=== PATIENT | male | born 1955 | race Caucasian/White ===

== ENCOUNTER 2016-09-27 12:44 | Observation (INO) | payer BC ==
[~2016-09-27] VITALS: Ht 177.8 cm; Wt 81.8 kg
[~2016-09-27 12:44] MED LIST: ADAL40KI SC; ASPI81TA28 PO; ATOR-26 PO; CALC1CRE2 TOP; CLOB-65 EXT; CRG625 PO; LOSA1TAB38 PO; NITR0.4S UT; OMEP20CA9 PO; ONDA4TAB10 SL; SILD50TA PO; SPR25 PO; WARF-246 PO
[2016-09-27] MEDS ORDERED: SODIUM CHLORIDE 0.9% 1000ML 500 ML IV ONE (13:29)
[2016-09-27] MEDS ORDERED: ONDANSETRON INJ 2 MG/ML 2 ML VIAL IV STA (13:32)
[2016-09-27] MEDS ORDERED: MoRPHine SULFATE 4 MG/ML 1 ML CARP\\VIAL IV STA (13:32)
[2016-09-27 13:38] LABS: BASO % 0.1 %; BASO ABS # 0.01 K/uL (0-0.2); COMPLETE YES; EOS % 0.4 %; HEMATOCRIT 46.9 % (42-52); IG% 0.3 %; LYMPH % 11.7 %; LYMPH ABS # 1.31 K/uL (1.2-3.4); MEAN CELL VOLUME 90.7 fL (80-100); MEAN CORPUSCULAR HEMOGLOBIN 32.3 pg (25-34); MEAN CORPUSCULAR HGB CONC 35.6 g/dl (32-36); MEAN PLATELET VOLUME 9.5 fL (7.4-10.4); MONO % 2.4 %; NEUT % 85.1 %; PLATELET COUNT 255 K/uL (130-400); RED BLOOD COUNT 5.17 M/uL (4.7-6.1); WHITE BLOOD COUNT 11.18 K/uL (4.8-10.8)
[2016-09-27 13:49] LABS: PARTIAL THROMBOPLASTIN RATIO 1.2; PROTHROMBIN TIME (PATIENT) 22.4 SECONDS (9.0-12.0)
[2016-09-27] MEDS ORDERED: SODIUM CHLORIDE 0.9% 1000ML 1,000 ML IV STA (13:52)
[2016-09-27] MEDS ORDERED: AZTREONAM IV 2,000 MG in DEXTROSE 5% 100ML 100 ML IV STA (13:52)
[2016-09-27] MEDS ORDERED: VANCOMYCIN INJ 1,600 MG in SODIUM CHLORIDE 0.9% 250ML 250 ML IV STA (13:52)
[2016-09-27 13:56] LABS: ALT/SGPT 46 U/L (12-78); AST/SGOT 35 U/L (15-37); BLOOD UREA NITROGEN 20 mg/dl (7-18); BUN/CREATININE RATIO 18.2 (10-20); CALCIUM 10.1 mg/dl (8.5-10.1); CARBON DIOXIDE 28 mmol/L (21-32); CHLORIDE 105 mmol/L (98-107); GLUCOSE 190 mg/dl (70-99); POTASSIUM 4.5 mmol/L (3.5-5.1); SODIUM 140 mmol/L (136-145)
[2016-09-27 13:58] LABS: ALKALINE PHOSPHATASE 123 U/L (45-117)
--- NOTE | 2016-09-27 13:58 | EMERGENCY ROOM VISIT NOTE ---
History First contact with patient: 13:21 Chief Complaint: VOMITING Stated Complaint: THROWING-UP / BUG BITE Nursing Triage Summary: PT HERE WITH N/V SINCE LAST PM. PT HAS RECENT BUG BITE TO FOOT, NOW IS ECCHYMOTIC PER PT. PT STATES ON ABX, BUT NOT IMPROVING. SENT HERE BY PCP FOR POSSIBLE SEPSIS. History of Present Illness The patient is a 60 year old male who presents to the Emergency Room via private vehicle with complaints of "throwing up/bug bite". The patient states that this past Friday he believes that he was stung or bitten on the distal right foot at the location of the third or fourth toe. He notes pain in this region. He states he was placed on antibiotics approximately 1 week ago, and was rechecked Friday as well as today. Although the bite was improving, the patient notes that he woke up this morning and felt nauseous after his morning medication breakfast and progressed to vomiting, chills and diaphoresis. He states that during his checkup today, he was referred here for concern over sepsis. Patient notes he has been sick before. There is also a bruise on the patient's left arm, which she notes was from a fall 1 week ago, and he is on Coumadin. He notes that he has had an TX in 2006, with defibrillator in place. His stents are in his heart into in his leg. At this time there is minimal abdominal pain and back pain, of which she attributes to the vomiting. This only began after the vomiting this morning. He denies any chest pain or shortness of breath. He denies any close contacts with similar symptoms. He has never had symptoms quite like this before. Review of Systems A complete 10-point Review of Systems was discussed with the patient, with pertinent positives and negatives listed in the History of Present Illness. All remaining Review of Systems questions can be considered negative unless otherwise specified. Past Medical/Surgical History Medical Problems: (1) Benign essential hypertension (2) Chronic congestive heart failure (3) Coronary artery disease (4) Diastolic heart failure (5) Diverticulitis (6) Hyperlipidemia (7) Peripheral arterial occlusive disease (8) Psoriasis (9) Systolic dysfunction Family History FH: heart disease Social History Smoking Status: Former Smoker Alcohol Use: none Drug Use: marijuana Marital Status: Housing Status: lives with family Occupation Status: employed Current/Historical Medications Scheduled Adalimumab (Humira Pen), 0.8 ML SC UD Aspirin (Aspirin Ec), 81 MG PO DAILY Atorvastatin (Lipitor), 80 MG PO QPM Calcipotriene (Calcipotriene), 1 APPLN TOP PRN UD Carvedilol (Carvedilol), 6.25 MG PO BID Clobetasol Propionate 0.05% (Temovate 0.05%), 1 APPLN EXT UD Losartan Potassium (Cozaar), 100 MG PO QAM Omeprazole (Prilosec), 20 MG PO BID Ondasetron Odt (Zofran Odt), 4 MG SL Q6H Spironolactone (Spironolactone), 25 MG PO DAILY Warfarin Sodium (Warfarin Sodium), 7.5 MG PO WK Warfarin Sodium (Warfarin Sodium), 5 MG PO 6XWK Scheduled PRN Nitroglycerin (Nitrostat), 0.4 MG UT UD PRN for Chest Pain Sildenafil Citrate (Viagra), 50 MG PO UD PRN Allergies Coded Allergies: Penicillins (Verified Allergy, Mild, RASH, 09/27/16) Physical Exam Vital Signs Date Time Temp Pulse Resp B/P Pulse Ox O2 Delivery O2 Flow Rate FiO2 09/27/16 15:26 36.5 53 18 189/115 97 Room Air 09/27/16 13:51 47 09/27/16 13:44 96 Room Air 09/27/16 13:44 51 16 188/99 97 Room Air 09/27/16 12:55 36.3 66 16 203/92 95 Physical Exam VITAL SIGNS - Vital signs and nursing notes were reviewed. Patient is afebrile , hypertensive at 203/92, non-tachycardic and is saturating on room air 95%. GENERAL -60-year-old male appearing his stated age who is in no acute distress. But is ill-appearing Communicates well with provider and answers questions appropriately. SKIN - Without rashes. There is bruising and ecchymosis noted to the right medial upper arm. No active hemorrhaging noted. He HEAD - NC/AT. EYES - PERRL with EOMI bilaterally. Sclera anicteric. Palpebral conjunctiva pink and moist with no injection noted. EARS - No deformities of external structures noted on gross examination bilaterally. No pain elicited with palpation of the tragus bilaterally. External auditory canals without discharge or otorrhea. Tympanic membranes pearly cr without retraction or bulging. No fluid or purulent material visualized behind the TM. Handle of malleus, umbo, cone of light, pars tensa/ flaccid all easily visualized. NOSE - Midline and without cyanosis. No epistaxis or purulent drainage noted. Septum midline without deviation or septal hematoma noted. MOUTH/OROPHARYNX - Without perioral cyanosis. Buccal mucosa pink and moist and without leukoplakia. Tongue midline with equal elevation of palate bilaterally. No tonsillar hypertrophy, erythema, or exudates noted. Fair dentition noted. NECK - Neck with FROM. Supple to palpation. No lymphadenopathy noted. No nuchal rigidity. No meningismus. LUNGS - Chest wall symmetric without accessory muscle use, intercostals retractions, or central cyanosis. Normal vesicular breath sounds CTA B/L. No wheezes, rales, or rhonchi appreciated. CARDIAC - RRR with S1/S2. No murmur, rubs, or gallops appreciated. ABDOMEN - Abdominal contour without pulsations or visible masses. BS normoactive all four quadrants. There is minimal inferior quadrant abdominal pain, but the patient notes began after his vomiting. No palpable masses, hepatosplenomegaly, or ascites noted. EXTREMITIES - No clubbing or peripheral cyanosis. No pretibial edema present.+5/ 5 strength noted in UE/LE bilaterally. NEUROLOGIC - Cranial nerves II through XII grossly intact. PSYCH -patient is alert and oriented, but does appear ill. Medical Decision & Procedures ER Provider Diagnostic Interpretation: CHEST ONE VIEW PORTABLE CLINICAL HISTORY: Sepsis. COMPARISON STUDY: Chest radiograph May 02, 2016. FINDINGS: A left subclavian pacer/AICD remains in place. There is no evidence of pulmonary edema. Mild cardiomegaly is noted. Mild bibasilar opacities favor atelectasis. IMPRESSION: 1. No acute cardiopulmonary findings. 2. Mild bibasilar opacities suggestive of atelectasis. Electronically signed by: Reno Durand M.D. 09/27/2016 2:01 PM Dictated Date/Time: 09/27/2016 2:00 PM Laboratory Results 09/27/16 13:25 Red Blood Count 5.17, Mean Corpuscular Volume 90.7, Mean Corpuscular Hemoglobin 32.3, Mean Corpuscular Hemoglobin Concent 35.6, Mean Platelet Volume 9.5, Neutrophils (%) (Auto) 85.1, Lymphocytes (%) (Auto) 11.7, Monocytes (%) (Auto) 2.4, Eosinophils (%) (Auto) 0.4, Basophils (%) (Auto) 0.1, Neutrophils # (Auto) 9.51, Lymphocytes # (Auto) 1.31, Monocytes # (Auto) 0.27, Eosinophils # (Auto) 0.05, Basophils # (Auto) 0.01 09/27/16 13:25 Test 09/27/16 13:25 09/27/16 13:34 09/27/16 14:13 09/27/16 15:47 White Blood Count 11.18 K/uL (4.8-10.8) Red Blood Count 5.17 M/uL (4.7-6.1) Hemoglobin 16.7 g/dL (14.0-18.0) Hematocrit 46.9 % (42-52) Mean Corpuscular Volume 90.7 fL (80-100) Mean Corpuscular Hemoglobin 32.3 pg (25-34) Mean Corpuscular Hemoglobin Concent 35.6 g/dl (32-36) Platelet Count 255 K/uL (130-400) Mean Platelet Volume 9.5 fL (7.4-10.4) Neutrophils (%) (Auto) 85.1 % Lymphocytes (%) (Auto) 11.7 % Monocytes (%) (Auto) 2.4 % Eosinophils (%) (Auto) 0.4 % Basophils (%) (Auto) 0.1 % Neutrophils # (Auto) 9.51 K/uL (1.4-6.5) Lymphocytes # (Auto) 1.31 K/uL (1.2-3.4) Monocytes # (Auto) 0.27 K/uL (0.11-0.59) Eosinophils # (Auto) 0.05 K/uL (0-0.5) Basophils # (Auto) 0.01 K/uL (0-0.2) RDW Standard Deviation 44.7 fL (36.4-46.3) RDW Coefficient of Variation 13.5 % (11.5-14.5) Immature Granulocyte % (Auto) 0.3 % Immature Granulocyte # (Auto) 0.03 K/uL (0.00-0.02) Prothrombin Time 22.4 SECONDS (9.0-12.0) Prothromb Time International Ratio 2.0 (0.9-1.1) Activated Partial Thromboplast Time 30.8 SECONDS (21.0-31.0) Partial Thromboplastin Ratio 1.2 Anion Gap 7.0 mmol/L (3-11) Est Creatinine Clear Calc Drug Dose 71.9 ml/min Estimated GFR () 82.9 Estimated GFR (Non- 71.6 BUN/Creatinine Ratio 18.2 (10-20) Calcium Level 10.1 mg/dl (8.5-10.1) Total Bilirubin 1.1 mg/dl (0.2-1) Aspartate Amino Transf (AST/SGOT) 35 U/L (15-37) Alanine Aminotransferase (ALT/SGPT) 46 U/L (12-78) Alkaline Phosphatase 123 U/L (45-117) Troponin I < 0.015 ng/ml (0-0.045) Total Protein 8.8 gm/dl (6.4-8.2) Albumin 4.5 gm/dl (3.4-5.0) Globulin 4.3 gm/dl (2.5-4.0) Albumin/Globulin Ratio 1.0 (0.9-2) Lyme Disease IgG Antibody NEG (NEG) Lyme Disease IgM Antibody NEG (NEG) Bedside Lactic Acid Venous 2.12 mmol/L (0.90-1.70) Influenza Type A Antigen Neg for Influ A (NEG) Influenza Type B Antigen Neg for Influ B (NEG) Medications Administered Medications (Trade) Dose Ordered Sig/Yaw Route Start Time Stop Time Status Last Admin Dose Admin Sodium Chloride (Nss 1000ml) 500 ml @ 999 mls/hr Q31M ONCE IV 09/27/16 13:29 09/27/16 13:59 DC 09/27/16 13:41 999 MLS/HR Morphine Sulfate (MoRPHine SULFATE INJ) 4 mg NOW STAT IV 09/27/16 13:32 09/27/16 13:33 DC 09/27/16 13:42 4 MG Ondansetron HCl 4 mg 4 mg NOW STAT IV 09/27/16 13:32 09/27/16 13:33 DC 09/27/16 13:41 4 MG Aztreonam 2000 mg/ Dextrose 110 ml @ 100 mls/hr NOW STAT IV 09/27/16 13:52 5/12/17 14:57 DC 09/27/16 14:19 100 MLS/HR Sodium Chloride 1,000 ml @ 200 mls/hr Q5H STAT IV 09/27/16 13:52 09/27/16 18:51 09/27/16 14:09 200 MLS/HR Vancomycin HCl 1600 mg/Sodium Chloride 532 ml @ 125 mls/hr 1359 STAT IV 09/27/16 13:59 09/27/16 18:14 09/27/16 15:22 125 MLS/HR Promethazine HCl/ Sodium Chloride (Phenergan Inj/ Nss 50ml) 50.5 ml @ 204 mls/hr NOW STAT IV 09/27/16 15:31 09/27/16 15:45 DC 09/27/16 15:56 204 MLS/HR Medical Decision Patient was seen and evaluated as above. After obtaining a thorough history and physical examination IV access was initiated and the above workup was performed. Patient has been referred here over concern for sepsis/bacteremia. Currently on exam he does appear ill, but his vital signs do not suggest sepsis nor meets sepsis criteria. He does have a mild leukocytosis at 11.18, no anemia noted. INR is 2.0. D-dimer was performed and the patient accidentally by staff, this was not ordered. Fortunately this was negative. His BUN is elevated at 20. Random glucose of 190, point care lactic acid is 2.12. Total bili is high at 1.1. Alkaline phosphatase is high at 123, total protein 8.8 and globulin high at 4.3. His initial troponin is negative. EKG does not reveal any findings at this time suggestive of an TX. He has no chest pain or shortness of breath. Lyme test was negative. And he is also negative for flu. I'm concerned that his emesis may be secondary to SIRS. It is believed that he was previously prescribed Keflex for the infection of his foot. This appears to now be resolved. Chest x-ray does not reveal any acute process that is concerning. He was given morphine and Zofran for pain and nausea. He does not have any findings at this time of the AAA. Nor TX. Because of his lactic acid elevation, and clinical concern for sepsis, he was given 1600 mg of vancomycin and 2 g and after verifying dosage in with pharmacy. He was also hydrated with fluids. He was feeling and clinically appeared better, but still had some nausea. He was given 12.5 mg of Phenergan. I discussed this with my attending, and the decision was made to admit the patient for further evaluation and management. I did speak with the hospitalist team, who agreed to evaluate patient. Please refer to further documentation regarding the patient's stay. Patient has been here many times in the past for nausea and vomiting. I'm concerned that this time it is associated with the recent diagnosis of cellulitis. In evaluation treatment this patient following differential diagnoses were entertained: SIRS, sepsis, influenza, cyclic nausea and vomiting, TX, PE, AAA, among others. Impression Primary Impression: Nausea & vomiting Additional Impression: Elevated lactic acid level Departure Information Dispostion Admitted as an inpatient Condition FAIR Referrals Wayne Fontana, D.O. (PCP) Patient Instructions My [facility] Problem Qualifiers
[2016-09-27] MEDS ORDERED: VANCOMYCIN INJ 1,600 MG in SODIUM CHLORIDE 0.9% 500ML 500 ML IV STA (13:59)
--- NOTE | 2016-09-27 14:02 | DIAGNOSTIC IMAGING REPORT ---
CHEST ONE VIEW PORTABLE CLINICAL HISTORY: Sepsis. COMPARISON STUDY: Chest radiograph May 02, 2016. FINDINGS: A left subclavian pacer/AICD remains in place. There is no evidence of pulmonary edema. Mild cardiomegaly is noted. Mild bibasilar opacities favor atelectasis. IMPRESSION: 1. No acute cardiopulmonary findings. 2. Mild bibasilar opacities suggestive of atelectasis. Electronically signed by: Reno Durand M.D. 09/27/2016 2:01 PM Dictated Date/Time: 09/27/2016 2:00 PM
[2016-09-27 14:49] LABS: LYME DISEASE AB IGG NEG (NEG)
[2016-09-27 14:52] LABS: LYME DISEASE AB IGM NEG (NEG)
[2016-09-27] MEDS ORDERED: PROMETHAZINE HCL INJ 12.5 MG in SODIUM CHLORIDE 0.9% 50ML 50 ML IV STA (15:31)
[2016-09-27] MEDS ORDERED: ACETAMINOPHEN 325 MG TAB PO PRN (16:00)
[2016-09-27] MEDS ORDERED: ONDANSETRON INJ 2 MG/ML 2 ML VIAL IV PRN (16:00)
[2016-09-27] MEDS ORDERED: CEPH-570 PO (16:19)
[2016-09-27] MEDS ORDERED: HydrALAZINE HCL 20 MG/ML VIAL IV. PRN (16:30)
[2016-09-27 16:34] LABS: URINE APPEARANCE CLOUDY (CLEAR); URINE BILIRUBIN NEG (NEG); URINE COLOR DK YELLOW; URINE NITRITE NEG (NEG); URINE SPECIFIC GRAVITY 1.025 (1.000-1.030); UROBILINOGEN NEG (NEG); ZZUR CULT IF INDIC CLEAN CATCH NO
[2016-09-27 16:54] VITALS: O2SAT 98
[2016-09-27 16:56] LABS: MANUAL MICROSCOPIC REQUIRED? NO; REVIEW REQ? NO
[2016-09-27] MEDS ORDERED: IV FLUIDS COMPLETED PRN (17:15)
[2016-09-27] MEDS ORDERED: SODIUM CHLORIDE 0.9% 1000ML 1,000 ML IV SCH (17:30)
[2016-09-27 17:36] VITALS: BP 173/102; PULSE 64; TEMP 36.4; O2SAT 93
[2016-09-27 17:51] VITALS: Ht 177.8 cm; Wt 81.8 kg
[2016-09-27] MEDS ORDERED: WARFARIN SOD 5 MG TAB PO SCH (18:00)
--- NOTE | 2016-09-27 18:03 | History and Physical ---
History & Physical Date & Time of Service: September 27, 2016 at 17:42 Chief Complaint: Nausea And Vomiting Primary Care Physician: Wayne Fontana D.O. History of Present Illness 60 year old male who presents to the ER with nausea and vomiting. Patient reports he got a spider or bee bite about two weeks ago on his right 5th toe. He reports it started to become swollen and red and the redness started to extend up his foot. He was seen at Urgent care on 09/23 and was placed on Keflex. He reports improvement in the redness and swelling since starting the Keflex. Toe now has bruising. He denies any drainage. He reports this morning he woke up feeling in his usual state of health. He took all of his pills and the Keflex on an empty stomach. He reports shortly after he had nausea and vomiting and threw up all if his pills. He then went to the clinic to have his INR drawn. On the way home, he had more nausea and vomiting and then presented to the ER for further evaluation. He denies hematemesis or coffee ground emesis. He reports after vomiting he had some chills and sweats. He did not take his temperature at home. He denies chest pain, palpitations, shortness of breath, lightheadedness, dizziness, or syncopal events. He has some mild lower abdominal pain which he attributes to vomiting. No diarrhea. He denies urinary symptoms. In the ER, patient's BP is elevated but otherwise hemodynamically stable. POC lactic acid is mildly elevated at 2.1. WBC 11K. He was treated with IVF, Zofran, Compazine, Morphine, Aztreonam, and Vanco. Past Medical/Surgical History Medical Problems: (1) Apical mural thrombus Status: Chronic (2) Rodriguez's esophagus Status: Chronic (3) CAD (coronary artery disease) Permanent Comment: PCI x 4 to LAD, chronic total RCA occlusion Status: Chronic (4) Dyslipidemia Status: Chronic (5) GERD (gastroesophageal reflux disease) Status: Chronic (6) HTN (hypertension) Status: Chronic (7) Ischemic cardiomyopathy Status: Chronic (8) Osteoarthritis Status: Chronic (9) Psoriasis Status: Chronic (10) PVD (peripheral vascular disease) Permanent Comment: s/p stenting to iliac bifurcation into right common iliac Status: Chronic Surgical Problems: (1) AICD (automatic cardioverter/defibrillator) present Status: Chronic (2) History of lumbar laminectomy Status: Chronic (3) Nasal septum repair Status: Chronic Family History FH: cancer FATHER Social History Smoking Status: Former Smoker Alcohol Use: none Immunizations History of Influenza Vaccine: Yes Influenza Vaccine Date: Apr 10, 2016 History of Tetanus Vaccine?: Yes (utd) Tetanus Immunization Date: May 02, 2011 Multi-Drug Resistant Organisms History of MDRO: No Allergies Coded Allergies: Penicillins (Verified Allergy, Mild, RASH, 09/27/16) Home Medications Scheduled Adalimumab (Humira Pen), 0.8 ML SC UD Aspirin (Aspirin Ec), 81 MG PO DAILY Atorvastatin (Lipitor), 80 MG PO QPM Calcipotriene (Calcipotriene), 1 APPLN TOP PRN UD Carvedilol (Carvedilol), 6.25 MG PO BID Cephalexin (Keflex), 1 CAP PO TID Clobetasol Propionate 0.05% (Temovate 0.05%), 1 APPLN EXT UD Losartan Potassium (Cozaar), 100 MG PO QAM Omeprazole (Prilosec), 20 MG PO BID Ondasetron Odt (Zofran Odt), 4 MG SL Q6H Spironolactone (Spironolactone), 25 MG PO DAILY Warfarin Sodium (Warfarin Sodium), 7.5 MG PO WK Warfarin Sodium (Warfarin Sodium), 5 MG PO 6XWK Scheduled PRN Nitroglycerin (Nitrostat), 0.4 MG UT UD PRN for Chest Pain Sildenafil Citrate (Viagra), 50 MG PO UD PRN Review of Systems ROS per HPI, all other systems reviewed and negative Physical Exam Vital Signs Date Time Temp Pulse Resp B/P Pulse Ox O2 Delivery O2 Flow Rate FiO2 09/27/16 17:36 36.4 64 20 173/102 93 Room Air 09/27/16 16:54 53 18 172/126 98 Room Air 09/27/16 15:26 36.5 53 18 189/115 97 Room Air 09/27/16 13:51 47 09/27/16 13:44 96 Room Air 09/27/16 13:44 51 16 188/99 97 Room Air 09/27/16 12:55 36.3 66 16 203/92 95 General Appearance: no apparent distress Head: normocephalic Eyes: normal inspection ENT: hearing grossly normal Neck: supple, no JVD Respiratory/Chest: lungs clear, normal breath sounds, no respiratory distress Cardiovascular: no edema, normal peripheral pulses, + bradycardia (regular rhythm) Abdomen/GI: normal bowel sounds, non tender, soft Extremities/Musculoskelatal: normal inspection, no calf tenderness Neurologic/Psych: no motor/sensory deficits, alert, normal mood/affect, oriented x 3 Skin: + pertinent finding (mild ecchymosis noted to right 5th toe; no drainage or erythema noted) Diagnostics Laboratory Results Results Past 24 Hours Test 09/27/16 00:00 09/27/16 13:25 09/27/16 13:34 09/27/16 14:13 Range/Units Urine Color DK YELLOW Urine Appearance CLOUDY CLEAR Urine pH 5.0 4.5-7.5 Urine Specific [place] 1.025 1.000-1.030 Urine Protein TRACE NEG Urine Glucose (UA) NEG NEG Urine Ketones 1+ NEG Urine Occult Blood NEG NEG Urine Nitrite NEG NEG Urine Bilirubin NEG NEG Urine Urobilinogen NEG NEG Urine Leukocyte Esterase NEG NEG Urine WBC (Auto) 1-5 0-5 /hpf Urine RBC (Auto) 0-4 0-4 /hpf Urine Hyaline Casts (Auto) 1-5 0-5 /lpf Urine Epithelial Cells (Auto) 5-10 0-5 /lpf Urine Bacteria (Auto) NEG NEG White Blood Count 11.18 4.8-10.8 K/uL Red Blood Count 5.17 4.7-6.1 M/uL Hemoglobin 16.7 14.0-18.0 g/dL Hematocrit 46.9 42-52 % Mean Corpuscular Volume 90.7 80-100 fL Mean Corpuscular Hemoglobin 32.3 25-34 pg Mean Corpuscular Hemoglobin Concent 35.6 32-36 g/dl Platelet Count 255 130-400 K/uL Mean Platelet Volume 9.5 7.4-10.4 fL Neutrophils (%) (Auto) 85.1 % Lymphocytes (%) (Auto) 11.7 % Monocytes (%) (Auto) 2.4 % Eosinophils (%) (Auto) 0.4 % Basophils (%) (Auto) 0.1 % Neutrophils # (Auto) 9.51 1.4-6.5 K/uL Lymphocytes # (Auto) 1.31 1.2-3.4 K/uL Monocytes # (Auto) 0.27 0.11-0.59 K/uL Eosinophils # (Auto) 0.05 0-0.5 K/uL Basophils # (Auto) 0.01 0-0.2 K/uL RDW Standard Deviation 44.7 36.4-46.3 fL RDW Coefficient of Variation 13.5 11.5-14.5 % Immature Granulocyte % (Auto) 0.3 % Immature Granulocyte # (Auto) 0.03 0.00-0.02 K/uL Prothrombin Time 22.4 9.0-12.0 SECONDS Prothromb Time International Ratio 2.0 0.9-1.1 Activated Partial Thromboplast Time 30.8 21.0-31.0 SECONDS Partial Thromboplastin Ratio 1.2 Sodium Level 140 136-145 mmol/L Potassium Level 4.5 3.5-5.1 mmol/L Chloride Level 105 98-107 mmol/L Carbon Dioxide Level 28 21-32 mmol/L Anion Gap 7.0 3-11 mmol/L Blood Urea Nitrogen 20 7-18 mg/dl Creatinine 1.10 0.60-1.40 mg/dl Est Creatinine Clear Calc Drug Dose 71.9 ml/min Estimated GFR () 82.9 Estimated GFR (Non- 71.6 BUN/Creatinine Ratio 18.2 10-20 Random Glucose 190 70-99 mg/dl Calcium Level 10.1 8.5-10.1 mg/dl Total Bilirubin 1.1 0.2-1 mg/dl Aspartate Amino Transf (AST/SGOT) 35 15-37 U/L Alanine Aminotransferase (ALT/SGPT) 46 12-78 U/L Alkaline Phosphatase 123 45-117 U/L Troponin I < 0.015 0-0.045 ng/ml Total Protein 8.8 6.4-8.2 gm/dl Albumin 4.5 3.4-5.0 gm/dl Globulin 4.3 2.5-4.0 gm/dl Albumin/Globulin Ratio 1.0 0.9-2 Lyme Disease IgG Antibody NEG NEG Lyme Disease IgM Antibody NEG NEG Bedside Lactic Acid Venous 2.12 0.90-1.70 mmol/L Influenza Type A Antigen Neg for Influ A NEG Influenza Type B Antigen Neg for Influ B NEG Test 09/27/16 15:47 Range/Units Microbiology Results 09/27/16 Blood Culture, Received Pending 09/27/16 Blood Culture, Received Pending Diagnostic Radiology CXR IMPRESSION: 1. No acute cardiopulmonary findings. 2. Mild bibasilar opacities suggestive of atelectasis. Impression Assessment and Plan NAUSEA, VOMITING - admit to med/surg - patient presenting with nausea and vomiting x 1 day; noted patient took his pills on an empty stomach this morning and also notes occasional nausea with antibiotics - suspect symptoms are due to viral gastroenteritis / taking pills on empty stomach - patient improving with treatment provided in ER - continued supportive care with IVF and antiemetics RIGHT 5TH TOE CELLULITIS - patient improving on Keflex that was started on 09/23 - POC lactic acid mildly elevated at 2.1 - will recheck serum, WBC 11K, no tachycardia or fever - do not suspect sepsis - s/p Aztreonam and Vanco in ED - will just continue with Keflex for now CAD, ISCHEMIC CARDIOMYOPATHY S/P AICD, HX APICAL THROMBUS - stable, no reports of chest pain - continue ASA, beta dorita, and statin - EF 25% - will hold spironolactone while receiving IVF - monitor volume status closely - INR 2.1 - continue Coumadin per home dosing HTN - BP elevated likely due to stress / vomiting pills this AM - continue carvedilol and losartan - PRN Hydralazine GERD - IV PPI for now PSORIASIS - on Humira DVT PROPHYLAXIS - on Coumadin with therapeutic INR DISPO - The patient will be placed as observation status for now until further work up is complete. Attending Addendum: The patient was seen and examined Generalized weakness with Nausea and vomiting No fever ,chills O/E Hemodynamically stable Chest-clear to ausucltate bilaterally Heart-regular,no murmur Abdomen-soft,tender epigastrium Labs and Imaging studies were reviewed Agree with the assessment and plan. Dr Steffi Browning VTE Prophylaxis VTE Risk Assessment Done? Y/N: Yes Risk Level: Moderate Given or contraindicated: Warfarin (Coumadin)
[2016-09-27] MEDS: PANTOprazole INJ 40 MG in SYRINGE 0 ML IV SCH (18:14)
[2016-09-27 20:56] LABS: BENZODIAZEPINE, URINE NEG (NEG); COCAINE,URINE NEG (NEG); PHENCYCLIDINE, URINE NEG (NEG)
[2016-09-27] MEDS ORDERED: PNEUMOCOCCAL POLYSACCHARIDES 25 MCG/0.5 ML VIAL/SYR IM. ONE (21:00)
[2016-09-27] MEDS ORDERED: ATORVASTATIN 40 MG TAB PO SCH (21:00)
[2016-09-27] MEDS ORDERED: PNEUMOCOCCAL ADMINISTRATION CHARGE ONE (21:00)
[2016-09-27] MEDS: CEPHALEXIN MONOHYDRATE 250 MG CAP PO SCH (21:45)
[2016-09-27] MEDS: CARVEDILOL 6.25 MG TAB PO SCH (21:46)
[2016-09-27 23:07] VITALS: BP 154/95; PULSE 99; TEMP 36.8; O2SAT 96
[2016-09-27 23:08] VITALS: BP 185/120; PULSE 88; TEMP 37.1; O2SAT 93
[2016-09-28 00:14] VITALS: BP 154/102; PULSE 85; O2SAT 95
[2016-09-28 07:18] VITALS: BP 123/73; PULSE 82; TEMP 36.9; O2SAT 94
[2016-09-28 07:32] LABS: INR 1.6 (0.9-1.1); PROTHROMBIN TIME (PATIENT) 16.9 SECONDS (9.0-12.0)
[2016-09-28 08:06] LABS: BUN/CREATININE RATIO 22.9 (10-20); CALCIUM 8.9 mg/dl (8.5-10.1); CREATININE 0.92 mg/dl (0.60-1.40); POTASSIUM 3.7 mmol/L (3.5-5.1)
[2016-09-28 08:34] LABS: HEMATOCRIT 39.1 % (42-52); MEAN CELL VOLUME 90.3 fL (80-100); MEAN CORPUSCULAR HEMOGLOBIN 31.2 pg (25-34); MEAN CORPUSCULAR HGB CONC 34.5 g/dl (32-36); MEAN PLATELET VOLUME 9.3 fL (7.4-10.4); PLATELET COUNT 193 K/uL (130-400); RED BLOOD COUNT 4.33 M/uL (4.7-6.1); WHITE BLOOD COUNT 7.48 K/uL (4.8-10.8)
[2016-09-28] MEDS: PANTOprazole INJ 40 MG in SYRINGE 0 ML IV SCH (08:56)
[2016-09-28] MEDS: CARVEDILOL 6.25 MG TAB PO SCH (08:57)
[2016-09-28] MEDS: CEPHALEXIN MONOHYDRATE 250 MG CAP PO SCH ×2 (08:58→14:19)
[2016-09-28] MEDS ORDERED: ASPIRIN 81 MG ECTAB PO SCH (09:00)
[2016-09-28] MEDS ORDERED: LOSARTAN POTASSIUM 50 MG TAB PO SCH (09:00)
[2016-09-28] MEDS ORDERED: NURSING DECISION MEDICATION ORDER SCH (12:30)
[2016-09-28] MEDS ORDERED: MICONAZOLE NITRATE POWDER 43 GM EXT PRN (12:45)
[2016-09-28 13:43] VITALS: BP 123/73; PULSE 82; TEMP 36.9; O2SAT 94
--- NOTE | 2016-09-28 15:05 | Progress Note ---
Subjective Date of Service: September 28, 2016. Subjective Pt evaluation today including: conversation w/ patient, physical exam, lab review, review of studies, review of inpatient medication list Saw/examined the patient in room 254 He's doing well, no nausea, tolerating PO intake No fevers/chills, feels back to normal and eager to go home Problem List Medical Problems: (1) Dehydration Status: Acute (2) Marijuana use Status: Acute (3) Vomiting Status: Acute Review of Systems Constitutional: No chills, No fever, No weakness Respiratory: No shortness of breath Cardiac: No chest pain Abdomen: No diarrhea, No nausea, No pain, No vomiting Musculoskeletal: + swelling (R little toe), No joint pain, No muscle pain Medications Current Inpatient Medications Medications (Trade) Dose Ordered Sig/Yaw Route Start Time Stop Time Status Last Admin Dose Admin Acetaminophen (Tylenol Tab) 650 mg Q4H PRN PO 09/27/16 16:00 10/27/16 15:59 Ondansetron HCl (Zofran Inj) 4 mg Q6H PRN IV 09/27/16 16:00 10/27/16 15:59 09/27/16 20:51 4 MG Hydralazine HCl (HydrALAZINE INJ) 10 mg Q6H PRN IV. 09/27/16 16:30 10/27/16 16:29 09/27/16 23:15 10 MG Aspirin (Ecotrin Tab) 81 mg DAILY PO 09/28/16 09:00 10/28/16 08:59 09/28/16 09:02 81 MG Atorvastatin Calcium (Lipitor Tab) 80 mg QPM PO 09/27/16 21:00 10/27/16 20:59 Carvedilol (Coreg Tab) 6.25 mg BID PO 09/27/16 21:00 10/27/16 20:59 09/28/16 08:57 6.25 MG Cephalexin Monohydrate (Keflex Cap) 250 mg TID PO 09/27/16 21:00 10/07/16 20:59 09/28/16 14:19 250 MG Losartan Potassium (coZAAR TAB) 100 mg QAM PO 09/28/16 09:00 10/28/16 08:59 09/28/16 09:01 100 MG Warfarin Sodium 5 mg 5 mg SuTuWeThFrSa@1600 PO 09/27/16 18:00 10/27/16 17:59 09/27/16 18:27 5 MG Pantoprazole Sodium/Syringe (Protonix Inj/ Syringe) 10 ml @ 5 mls/min DAILY@,21 IV 09/27/16 18:00 10/27/16 17:59 09/28/16 08:56 5 MLS/MIN Miscellaneous (Iv Fluids Completed) 1 ea PRN PRN N/A 09/27/16 17:15 09/27/17 17:14 09/28/16 03:25 1 EA Warfarin Sodium (Coumadin Tab) 7.5 mg Mo@1600 PO 09/30/16 16:00 10/30/16 15:59 Miconazole Nitrate (Desenex Powder) 1 appln UD PRN EXT 09/28/16 12:45 10/28/16 12:44 Objective Vital Signs Date Time Temp Pulse Resp B/P Pulse Ox O2 Delivery O2 Flow Rate FiO2 09/28/16 13:43 36.9 82 20 94 Room Air 09/28/16 08:00 Room Air 09/28/16 07:18 36.9 82 20 123/73 94 Room Air 09/28/16 00:14 85 154/102 95 Room Air 09/28/16 00:00 Room Air 09/27/16 23:08 37.1 88 18 185/120 93 Room Air 09/27/16 20:00 Room Air 09/27/16 17:51 Room Air 09/27/16 17:36 36.4 64 20 173/102 93 Room Air 09/27/16 16:54 53 18 172/126 98 Room Air 09/27/16 15:26 36.5 53 18 189/115 97 Room Air Physical Exam General Appearance: no apparent distress Respiratory/Chest: lungs clear, normal breath sounds, no respiratory distress, no accessory muscle use Cardiovascular: regular rate, rhythm, no edema, no murmur Abdomen: normal bowel sounds, non tender, soft Extremities: normal inspection, no pedal edema, + swelling (mild swelling of R little toe, no erythema), + pertinent finding (erythema improving, purplish color and fading) Neurologic/Psychiatric: no motor/sensory deficits, alert, normal mood/affect Skin: normal color Laboratory Results Last 24 Hours Test 09/27/16 18:10 09/27/16 20:21 09/28/16 06:52 Lactic Acid Level 1.8 mmol/L Urine Opiates Screen POS Urine Methadone, Qualitative NEG Urine Barbiturates NEG Urine Phencyclidine (PCP) Level NEG Ur Amphetamine/Methamphetamine NEG MDMA (Ecstasy) Screen NEG Urine Benzodiazepines Screen NEG Urine Cocaine Metabolite NEG Urine Marijuana (THC) POS White Blood Count 7.48 K/uL Red Blood Count 4.33 M/uL Hemoglobin 13.5 g/dL Hematocrit 39.1 % Mean Corpuscular Volume 90.3 fL Mean Corpuscular Hemoglobin 31.2 pg Mean Corpuscular Hemoglobin Concent 34.5 g/dl RDW Standard Deviation 44.9 fL RDW Coefficient of Variation 13.5 % Platelet Count 193 K/uL Mean Platelet Volume 9.3 fL Prothrombin Time 16.9 SECONDS Prothromb Time International Ratio 1.6 Sodium Level 141 mmol/L Potassium Level 3.7 mmol/L Chloride Level 109 mmol/L Carbon Dioxide Level 23 mmol/L Anion Gap 9.0 mmol/L Blood Urea Nitrogen 21 mg/dl Creatinine 0.92 mg/dl Est Creatinine Clear Calc Drug Dose 86.0 ml/min Estimated GFR () 102.9 Estimated GFR (Non- 88.8 BUN/Creatinine Ratio 22.9 Random Glucose 130 mg/dl Calcium Level 8.9 mg/dl Assessment and Plan This is a 60 year old male with a PMH of CAD s/p stents, ischemic cardiomyopathy with severe LV systolic dysfunction (EF ~ 25-30%) s/p AICD, LV mural thrombus on Coumadin, HTN, HLD, severe PVD s/p stenting, tobacco use disorder presents with cellulitis Cellulitis of R Fifth Toe possibly secondary to insect bite there was some erythematous streaking to the dorsal aspect of the foot, which has resolved mild elevation in WBC and lactic acid, which have normalized agree with keeping Keflex, TID x 4 more days patient feels good, will d/c home today with outpatient f/u with PCP on Friday, October 02 Nausea/Vomiting - resolved this has resolved as well, as patient tolerating breakfast and lunch with no problems states that he may have taken too many meds at once that caused this possibly an adverse side effect to antibiotics? He has no issues currently CAD and ischemic cardiomyopathy LV Apical thrombus no chest pain s/p AICD for the low LVEF continue Coumadin - outpatient Coumadin clinic f/u can restart home medications of ASA, b-dorita, statin, and diuretics HTN BP improved with medications and pain control continue home medications GERD switch back to PO PPI on discharge Psoriasis cont. Humira DVT ppx Coumadin FULL CODE
--- NOTE | 2016-09-28 15:08 | Discharge Instructions ---
Discharge Instructions Date of Service September 28, 2016. Admission Reason for Admission: Nausea And Vomiting Discharge Discharge Diagnosis / Problem: Cellulitis, Nausea/vomiting Discharge Goals Goal(s): Decrease discomfort, Improve function, Diagnostic testing, Therapeutic intervention Activity Recommendations Activity Limitations: resume your previous activity . Instructions / Follow-Up Instructions / Follow-Up Please follow-up with Dr. Fontana on October 02 @ 1:05PM * Continue Keflex three times a day for four more days (you will have some left over, you do not need to finish the entire bottle) Current Hospital Diet Patient's current hospital diet: Full Liquid Diet Discharge Diet Recommended Diet: AHA Diet (Heart Healthy) Pending Studies Studies pending at discharge: no Medical Emergencies . Who to Call and When: Medical Emergencies: If at any time you feel your situation is an emergency, please call 911 immediately. . Non-Emergent Contact Non-Emergency issues call your: Primary Care Provider . . "Provider Documentation" section prepared by Avril Ann. . VTE Core Measure Inpt VTE Proph given/why not?: Warfarin (Coumadin)
--- NOTE | 2016-09-28 15:12 | Discharge Summary ---
Discharge Summary Date of Service September 28, 2016. Discharge Summary Admission Date: September 27, 2016 at 15:53 Discharge Date: September 28, 2016 Discharge Disposition: Home Principal Diagnosis: Cellulitis of R fifth toe Nausea/vomiting Medication Reconciliation Continued Medications: Adalimumab (Humira Pen) 40 Mg/0.8 Ml Kit 0.8 ML SC UD 2 TIMES A MONTH Aspirin (Aspirin Ec) 81 Mg Tab 81 MG PO DAILY Atorvastatin (Lipitor) 80 Mg Tab 80 MG PO QPM, 0 Refills Calcipotriene (Calcipotriene) 0.005 % Cre 1 APPLN TOP PRN UD for Psoriasis Carvedilol (Carvedilol) 6.25 Mg Tab 6.25 MG PO BID Cephalexin (Keflex) 250 Mg Cap 1 CAP PO TID, CAP started on 09/23 for 10 day course Clobetasol Propionate 0.05% (Temovate 0.05%) Cr 1 APPLN EXT UD for Psoriasis, CR Losartan Potassium (Cozaar) 100 Mg Tab 100 MG PO QAM, TAB Nitroglycerin (Nitrostat) 0.4 Mg Sub 0.4 MG UT UD PRN for Chest Pain Omeprazole (Prilosec) 20 Mg Cap 20 MG PO BID Ondasetron Odt (Zofran Odt) 4 Mg Tab 4 MG SL Q6H for Nausea, #20 TAB Sildenafil Citrate (Viagra) 50 Mg Tab 50 MG PO UD PRN, TAB Spironolactone (Spironolactone) 25 Mg Tab 25 MG PO DAILY Warfarin Sodium (Warfarin Sodium) 5 Mg Tab 7.5 MG PO WK, TAB TAKE 7.5 MG EVERY FRIDAY . Warfarin Sodium (Warfarin Sodium) 5 Mg Tab 5 MG PO [id number], TAB TAKE 5 MG EVERY FRIDAY,FRIDAY,FRIDAY,FRIDAY,FRIDAY AND FRIDAY Admission Information HPI (per Admitting provider): 60 year old male who presents to the ER with nausea and vomiting. Patient reports he got a spider or bee bite about two weeks ago on his right 5th toe. He reports it started to become swollen and red and the redness started to extend up his foot. He was seen at Urgent care on 09/23 and was placed on Keflex. He reports improvement in the redness and swelling since starting the Keflex. Toe now has bruising. He denies any drainage. He reports this morning he woke up feeling in his usual state of health. He took all of his pills and the Keflex on an empty stomach. He reports shortly after he had nausea and vomiting and threw up all if his pills. He then went to the clinic to have his INR drawn. On the way home, he had more nausea and vomiting and then presented to the ER for further evaluation. He denies hematemesis or coffee ground emesis. He reports after vomiting he had some chills and sweats. He did not take his temperature at home. He denies chest pain, palpitations, shortness of breath, lightheadedness, dizziness, or syncopal events. He has some mild lower abdominal pain which he attributes to vomiting. No diarrhea. He denies urinary symptoms. In the ER, patient's BP is elevated but otherwise hemodynamically stable. POC lactic acid is mildly elevated at 2.1. WBC 11K. He was treated with IVF, Zofran, Compazine, Morphine, Aztreonam, and Vanco. Physical Exam (per Admitting): General Appearance: no apparent distress Head: normocephalic Eyes: normal inspection ENT: hearing grossly normal Neck: supple, no JVD Respiratory/Chest: lungs clear, normal breath sounds, no respiratory distress Cardiovascular: no edema, normal peripheral pulses, + bradycardia (regular rhythm) Abdomen/GI: normal bowel sounds, non tender, soft Extremities/Musculoskelatal: normal inspection, no calf tenderness Neurologic/Psych: no motor/sensory deficits, alert, normal mood/affect, oriented x 3 Skin: + pertinent finding (mild ecchymosis noted to right 5th toe; no drainage or erythema noted) Hospital Course This is a 60 year old male with a PMH of CAD s/p stents, ischemic cardiomyopathy with severe LV systolic dysfunction (EF ~ 25-30%) s/p AICD, LV mural thrombus on Coumadin, HTN, HLD, severe PVD s/p stenting, tobacco use disorder presents with cellulitis Cellulitis of R Fifth Toe possibly secondary to insect bite there was some erythematous streaking to the dorsal aspect of the foot, which has resolved mild elevation in WBC and lactic acid, which have normalized agree with keeping Keflex, TID x 4 more days patient feels good, will d/c home today with outpatient f/u with PCP on Friday, May 17 Nausea/Vomiting - resolved this has resolved as well, as patient tolerating breakfast and lunch with no problems states that he may have taken too many meds at once that caused this possibly an adverse side effect to antibiotics? He has no issues currently CAD and ischemic cardiomyopathy LV Apical thrombus no chest pain s/p AICD for the low LVEF continue Coumadin - outpatient Coumadin clinic f/u can restart home medications of ASA, b-dorita, statin, and diuretics HTN BP improved with medications and pain control continue home medications GERD switch back to PO PPI on discharge Psoriasis cont. Humira DVT ppx Coumadin FULL CODE Total time spent on discharge = 20 minutes This includes examination of the patient, discharge planning, medication reconciliation, and communication with other providers. Discharge Instructions Please follow-up with Dr. Fontana on October 02 @ 1:05PM * Continue Keflex three times a day for four more days (you will have some left over, you do not need to finish the entire bottle) Additional Copies To Wayne Fontana, D.O.
[2016-09-30 15:26] LABS: COD UR NEGATIVE NG/ML (CUTOFF=50); HYDROCOD UR NEGATIVE NG/ML (CUTOFF=50); HYDROMOR UR NEGATIVE NG/ML (CUTOFF=50); MORPHINE UR 3080 NG/ML (CUTOFF=50); NORHYDROCODONE CONF UR NEGATIVE NG/ML (CUTOFF=50); OXYMORPH UR NEGATIVE NG/ML (CUTOFF=50)
[2016-09-30] MEDS ORDERED: WARFARIN SOD 5 MG TAB PO SCH (16:00)
[2016-09-30] MEDS ORDERED: WARFARIN SOD 7.5 MG TAB PO SCH (16:00)
== END 2016-09-28 15:58 | disposition home or self-care (01) ==
LOC: ENRESERVDT → ENRESERVTM → C.EDB 12:46 → C.MS2W 15:53
PROVIDERS: ADMIT Internal Medicine; ATTEND Family Medicine
DX: L03.031 Cellulitis of right toe (principal); R11.2 Nausea with vomiting, unspecified; I25.10 Atherosclerotic heart disease of native coronary artery without angina pectoris; I10 Essential (primary) hypertension; E78.5 Hyperlipidemia, unspecified; I73.9 Peripheral vascular disease, unspecified; F12.90 Cannabis use, unspecified, uncomplicated; Z87.891 Personal history of nicotine dependence; Z79.01 Long term (current) use of anticoagulants; Z79.82 Long term (current) use of aspirin; Z88.0 Allergy status to penicillin; Z98.890 Other specified postprocedural states; Z82.49 Family history of ischemic heart disease and other diseases of the circulatory system

== ENCOUNTER 2017-09-08 17:45 | Emergency (ER) | payer BC, OTHER ==
[~2017-09-08] VITALS: Ht 177.8 cm; Wt 82.3 kg
[~2017-09-08 17:45] MED LIST changes: -ADAL40KI SC; +CEPH-570 PO; -ONDA4TAB10 SL
[2017-09-08 17:54] VITALS: TEMP 36.9
[2017-09-08] MEDS ORDERED: ADAL40KI SC (18:03)
[2017-09-08] MEDS ORDERED: SODIUM CHLORIDE 0.9% 500ML 500 ML IV STA (18:04)
[2017-09-08] MEDS ORDERED: ONDANSETRON INJ 2 MG/ML 2 ML VIAL IV STA (18:04)
--- NOTE | 2017-09-08 18:11 | EMERGENCY ROOM VISIT NOTE ---
History Report prepared by Ammy: Eri Burch Under the Supervision of: Cheko GuerrierO. First contact with patient: 17:54 Chief Complaint: ABDOMINAL PAIN Stated Complaint: BACK PAIN- STOMACH-THROWING UP History of Present Illness The patient is a 61 year old male who presents to the Emergency Room with complaints of chronic lower back pain that has been worsening the last few days. He reports that his back pain worsens with exertion, noting that his pain tends to radiate to his abdomen. Currently, he is also experiencing nausea, vomiting, and chills. The patient states that last week he went several days with no bowel movements. He reports that he went into the walk-in clinic 2 days ago, noting that they gave him Percocet to relieve his pain but he vomited right after. The patient notes that he has a defibrillator and pace maker in place. He states a history of a heart attack, several stents, and back surgeries. Source of History: patient Onset: last few days Position: back (lower) Quality: other (back pain) Timing: other (persistent) Associated Symptoms: + chills, + nausea, + vomiting, + abdominal pain Review of Systems See HPI for pertinent positives & negatives. A total of 10 systems reviewed and were otherwise negative. Past Medical & Surgical Medical Problems: (1) Apical mural thrombus (2) Rodriguez's esophagus (3) CAD (coronary artery disease) (4) Dyslipidemia (5) GERD (gastroesophageal reflux disease) (6) HTN (hypertension) (7) Ischemic cardiomyopathy (8) Osteoarthritis (9) Psoriasis (10) PVD (peripheral vascular disease) Surgical Problems: (1) AICD (automatic cardioverter/defibrillator) present (2) History of lumbar laminectomy (3) Nasal septum repair Family History FH: cancer FATHER Social History Smoking Status: Former Smoker Alcohol Use: none Drug Use: none Housing Status: lives with family Current/Historical Medications Scheduled Adalimumab (Humira Pen), 0.8 ML SC UD Aspirin (Aspirin Ec), 81 MG PO DAILY Atorvastatin (Lipitor), 80 MG PO QPM Carvedilol (Carvedilol), 6.25 MG PO BID Losartan Potassium (Cozaar), 100 MG PO QAM Omeprazole (Prilosec), 20 MG PO BID Ondasetron Odt (Zofran Odt), 4 MG SL Q6H Spironolactone (Spironolactone), 25 MG PO DAILY Warfarin Sod (Jantoven), 4 MG PO UD [Vicodin], 1 TAB PO PRN UD Scheduled PRN Nitroglycerin (Nitrostat), 0.4 MG UT UD PRN for Chest Pain Ondansetron Hcl (Zofran), 1 TAB PO PRN UD PRN for Nausea Oxycodone Immediate Rel Tab (Roxicodone Ir), 1-2 TAB PO Q4H PRN for Severe Pain Sildenafil Citrate (Viagra), 50 MG PO UD PRN Allergies Coded Allergies: Penicillins (Verified Allergy, Mild, RASH, 09/27/16) Physical Exam Vital Signs Date Time Temp Pulse Resp B/P (MAP) Pulse Ox O2 Delivery O2 Flow Rate FiO2 09/08/17 20:56 76 18 146/98 96 09/08/17 19:50 74 18 159/98 96 Room Air 09/08/17 18:41 97 Room Air 09/08/17 18:41 97 Room Air 09/08/17 18:41 72 16 166/97 97 Room Air 09/08/17 18:28 72 09/08/17 17:54 36.9 78 20 159/110 96 Room Air Physical Exam GENERAL: Patient is awake, alert, and in no acute distress. Patient is resting comfortably and showing no signs of anxiety EYES: The conjunctivae are clear. The pupils are round and reactive. EARS, NOSE, MOUTH AND THROAT: The nose is without any evidence of any deformity. Mucous membranes are dry. Tongue is midline NECK: The neck is nontender and supple. RESPIRATORY: Normal respiratory effort is noted there is no evidence of wheezing rhonchi or rales CARDIOVASCULAR: Tachycardic rate but regular rhythm noted. There are no definite murmurs appreciated. Rubs or gallops normal. S1 normal S2 GASTROINTESTINAL: Abdomen is moderately distended but soft. No guarding or rigidity. Bowel sounds are present in all quadrants. Abdomen is nontender PELVIS: The Pelvis is stable. No tenderness to palpation is noted. BACK: Lumbar tenderness to palpation. No swelling or step off. Range of motion appeared intact. MUSCULOSKELETAL/EXTREMITIES: There is no evidence of gross deformity full range of motion is noted in the hips and shoulders SKIN: There is no obvious evidence of any rash. There are no petechiae, pallor or cyanosis noted. NEUROLOGIC: Patient is awake alert and oriented x3 strength is symmetric patellar reflexes are 2+ bilaterally Medical Decision & Procedures ER Provider Diagnostic Interpretation: Radiology results as stated below per my review and radiologist interpretation: ABDOMEN AND PELVIS CT WITHOUT CONTRAST CT DOSE: 480.73 mGy.cm HISTORY: vomiting TECHNIQUE: Multiaxial CT images of the abdomen and pelvis were performed without contrast. A dose lowering technique was utilized adhering to the principles of ALARA. COMPARISON STUDY: Abdomen and pelvis CT 05/08/2013. FINDINGS: Bibasilar linear densities suggestive of scarring or subsegmental atelectasis. Pacemaker wires are noted. No pneumoperitoneum. No pneumatosis. No suspicious lytic or blastic osseous lesions. Aortobiiliac stents are unchanged in position. The unenhanced liver, adrenal glands, pancreas, and gallbladder are unremarkable. A few hypodense lesions within the spleen have slightly increased in size. Dominant lesion currently measures 2.8 cm. No renal stones or hydronephrosis. No retroperitoneal lymphadenopathy. Normal bladder. Colonic diverticulosis. No bowel wall thickening or obstruction. Normal appendix. IMPRESSION: 1. No bowel wall thickening or obstruction. 2. Colonic diverticulosis. 3. Normal appendix. 4. Additional findings as described above. Electronically signed by: Mark Evans M.D. 09/08/2017 7:19 PM Dictated Date/Time: 09/08/2017 7:14 PM CHEST ONE VIEW PORTABLE CLINICAL HISTORY: EVALUATE ALTERED MENTAL STATUS/WEAKNESS dyspnea COMPARISON STUDY: 09/27/2016 FINDINGS: Mild stable cardia megaly. Permanent unipolar cardiac pacemaker/defibrillator with leads in good position. Chronic pleural reactive change left base laterally. No focal infiltrate. Lungs otherwise are clear. IMPRESSION: No acute process. The above report was generated using voice recognition software. It may contain grammatical, syntax or spelling errors. Electronically signed by: Martinez Pena M.D. 09/08/2017 6:38 PM Dictated Date/Time: 09/08/2017 6:38 PM Laboratory Results 09/08/17 18:28 Red Blood Count 4.73, Mean Corpuscular Volume 89.4, Mean Corpuscular Hemoglobin 31.5, Mean Corpuscular Hemoglobin Concent 35.2, Mean Platelet Volume 9.3, Neutrophils (%) (Auto) 66.6, Lymphocytes (%) (Auto) 22.5, Monocytes (%) (Auto) 10.4, Eosinophils (%) (Auto) 0.1, Basophils (%) (Auto) 0.2, Neutrophils # (Auto ) 7.06, Lymphocytes # (Auto) 2.39, Monocytes # (Auto) 1.10, Eosinophils # (Auto ) 0.01, Basophils # (Auto) 0.02 09/08/17 18:28 Test 09/08/17 18:28 09/08/17 19:43 White Blood Count 10.60 K/uL (4.8-10.8) Red Blood Count 4.73 M/uL (4.7-6.1) Hemoglobin 14.9 g/dL (14.0-18.0) Hematocrit 42.3 % (42-52) Mean Corpuscular Volume 89.4 fL (80-100) Mean Corpuscular Hemoglobin 31.5 pg (25-34) Mean Corpuscular Hemoglobin Concent 35.2 g/dl (32-36) Platelet Count 226 K/uL (130-400) Mean Platelet Volume 9.3 fL (7.4-10.4) Neutrophils (%) (Auto) 66.6 % Lymphocytes (%) (Auto) 22.5 % Monocytes (%) (Auto) 10.4 % Eosinophils (%) (Auto) 0.1 % Basophils (%) (Auto) 0.2 % Neutrophils # (Auto) 7.06 K/uL (1.4-6.5) Lymphocytes # (Auto) 2.39 K/uL (1.2-3.4) Monocytes # (Auto) 1.10 K/uL (0.11-0.59) Eosinophils # (Auto) 0.01 K/uL (0-0.5) Basophils # (Auto) 0.02 K/uL (0-0.2) RDW Standard Deviation 43.7 fL (36.4-46.3) RDW Coefficient of Variation 13.3 % (11.5-14.5) Immature Granulocyte % (Auto) 0.2 % Immature Granulocyte # (Auto) 0.02 K/uL (0.00-0.02) Prothrombin Time 14.7 SECONDS (9.0-12.0) Prothromb Time International Ratio 1.4 (0.9-1.1) Activated Partial Thromboplast Time 25.5 SECONDS (21.0-31.0) Partial Thromboplastin Ratio 1.0 Anion Gap 6.0 mmol/L (3-11) Est Creatinine Clear Calc Drug Dose 77.3 ml/min Estimated GFR () 91.3 Estimated GFR (Non- 78.8 BUN/Creatinine Ratio 16.6 (10-20) Calcium Level 9.0 mg/dl (8.5-10.1) Magnesium Level 1.9 mg/dl (1.8-2.4) Total Bilirubin 0.6 mg/dl (0.2-1) Direct Bilirubin 0.1 mg/dl (0-0.2) Aspartate Amino Transf (AST/SGOT) 18 U/L (15-37) Alanine Aminotransferase (ALT/SGPT) 28 U/L (12-78) Alkaline Phosphatase 77 U/L (45-117) Troponin I 0.039 ng/ml (0-0.045) Total Protein 7.0 gm/dl (6.4-8.2) Albumin 3.4 gm/dl (3.4-5.0) Lipase 185 U/L (73-393) Thyroid Stimulating Hormone (TSH) 1.520 uIu/ml (0.300-4.500) Urine Color YELLOW Urine Appearance CLEAR (CLEAR) Urine pH 7.0 (4.5-7.5) Urine Specific [place] 1.025 (1.000-1.030) Urine Protein NEG (NEG) Urine Glucose (UA) NEG (NEG) Urine Ketones NEG (NEG) Urine Occult Blood NEG (NEG) Urine Nitrite NEG (NEG) Urine Bilirubin NEG (NEG) Urine Urobilinogen NEG (NEG) Urine Leukocyte Esterase NEG (NEG) Laboratory results per my review. Medications Administered Medications (Trade) Dose Ordered Sig/Yaw Route Start Time Stop Time Status Last Admin Dose Admin Sodium Chloride 500 ml @ 999 mls/hr Q31M STAT IV 09/08/17 18:04 09/08/17 18:34 DC 09/08/17 18:34 999 MLS/HR Morphine Sulfate (MoRPHine SULFATE INJ) 4 mg Q15M PRN IV 09/08/17 18:15 09/08/17 21:11 DC 09/08/17 18:34 4 MG Ondansetron HCl (Zofran Inj) 4 mg NOW STAT IV 09/08/17 18:04 09/08/17 18:06 DC 09/08/17 18:34 4 MG Oxycodone HCl (Roxicodone Immediate Rel Tab) 5 mg NOW STAT PO 09/08/17 19:41 09/08/17 19:42 DC 09/08/17 19:50 5 MG Lidocaine (Lidoderm Patch 5%) 1 patch NOW STAT TD 09/08/17 20:34 09/08/17 20:35 DC 09/08/17 20:39 1 PATCH ECG Per My Interpretation Indication: abdominal pain, back/shoulder pain, vomiting Rate (beats per minute): 87 Rhythm: normal sinus Findings: Q waves (Anterior and inferior ), no ectopy, other (No acut ST segment abnormalities) Change: no significant change (09/27/16) ED Course 1754: The patient was evaluated in room C7. A complete history and physical examination were performed. 1803: Ordered Zofran Inj 4mg IV and Sodium Chloride 500 ml @ 999 mls/hr IV. 1814: Ordered Morphine Sulfate 4mg IV. 1855: I reevaluated the patient, who was resting comfortably. Updated him on test findings. He verbalized complete understanding. 1939: The patient reports having a headache from the morphine. 1940: Ordered Oxycodone HCl 5mg PO. 2033: Ordered Lidocaine 1 patch. 2039: Upon reevaluation, the patient is resting comfortably. I discussed the results and treatment plan with him. He verbalized agreement of the treatment plan. The patient was discharged home. Medical Decision Prior records/ancillary studies reviewed. Triage Nursing notes reviewed. The patient's history was concerning for back pain. Differential diagnosis: Etiologies such as musculoskeletal, disc herniation, fracture, aortic disease, metastatic disease, cord compression, discitis, infection, renal colic, gastrointestinal, acute exacerbation of chronic back pain, sciatica, cauda equina, as well as others were entertained. The patient is a 61-year-old male who presented to the emergency department for an evaluation of nausea vomiting and lower back pain. The patient's abdominal exam was not consistent with an acute surgical abdomen. He had no focal neurologic deficits or meningismus. The patient's states that he has this problem from time to time especially when he has severe low back pain. The patient has chronic low back pain. I discussed the patient's laboratory and radiographic studies with him. He was treated with pain medication as well as IV fluids and IV anti-emetics. On subsequent reevaluation he was feeling much better. I recommended that he rest and avoid any strenuous activity. I also recommended that he follow-up with his primary care physician tomorrow for further evaluation but return the emergency department immediately if symptoms change worsen or the need arises. Medication Reconcilliation Current Medication List: was personally reviewed by me Blood Pressure Screening Patient's blood pressure: Elevated blood pressure Blood pressure disposition: Elevated BP felt to be situational Impression Primary Impression: Back pain Additional Impression: Nausea & vomiting Scribe Attestation The scribe's documentation has been prepared under my direction and personally reviewed by me in its entirety. I confirm that the note above accurately reflects all work, treatment, procedures, and medical decision making performed by me. Departure Information Dispostion Home / Self-Care Prescriptions Oxycodone Immediate Rel Tab (ROXICODONE IR) 5 Mg Tab 1-2 TAB PO Q4H Y for Severe Pain, #20 TAB Prov: Leon Lake, DO 09/08/17 Ondasetron Odt (ZOFRAN ODT) 4 Mg Tab 4 MG SL Q6H for Nausea, #15 TAB Prov: Leon Lake, DO 09/08/17 Referrals Wayne Fontana, D.O. (PCP) Forms Call Back Authorization, HOME CARE DOCUMENTATION FORM, IMPORTANT VISIT INFORMATION Patient Instructions My [facility] Additional Instructions Continue all medications as prescribed. Rest and avoid any strenuous activity. Follow-up with your family doctor this week for reevaluation. Return to the emergency department immediately if symptoms change worsen or the need arises. Problem Qualifiers Primary Impression: Back pain Back pain location: back pain in unspecified location Chronicity: unspecified Back pain laterality: bilateral Qualified Codes: M54.9 - Dorsalgia, unspecified Additional Impression: Nausea & vomiting Vomiting type: unspecified Vomiting Intractability: non-intractable Qualified Codes: R11.2 - Nausea with vomiting, unspecified
[2017-09-08] MEDS ORDERED: MoRPHine SULFATE 4 MG/ML 1 ML CARP\\VIAL IV PRN (18:15)
[2017-09-08 18:18] VITALS: Ht 177.8 cm; Wt 82.3 kg
--- NOTE | 2017-09-08 18:40 | DIAGNOSTIC IMAGING REPORT ---
CHEST ONE VIEW PORTABLE CLINICAL HISTORY: EVALUATE ALTERED MENTAL STATUS/WEAKNESS dyspnea COMPARISON STUDY: 09/27/2016 FINDINGS: Mild stable cardia megaly. Permanent unipolar cardiac pacemaker/defibrillator with leads in good position. Chronic pleural reactive change left base laterally. No focal infiltrate. Lungs otherwise are clear. IMPRESSION: No acute process. The above report was generated using voice recognition software. It may contain grammatical, syntax or spelling errors. Electronically signed by: Martinez Pena M.D. 09/08/2017 6:38 PM Dictated Date/Time: 09/08/2017 6:38 PM
[2017-09-08 18:41] VITALS: O2SAT 97
[2017-09-08] MEDS ORDERED: VICODIN PO (18:57)
[2017-09-08] MEDS ORDERED: WARF4TAB8 PO (18:57)
[2017-09-08] MEDS ORDERED: ONDA4TAB46 PO (18:57)
[2017-09-08 19:02] LABS: INR 1.4 (0.9-1.1); PTT PATIENT 25.5 SECONDS (21.0-31.0)
[2017-09-08 19:10] LABS: BASO % 0.2 %; BASO ABS # 0.02 K/uL (0-0.2); EOS % 0.1 %; EOS ABS # 0.01 K/uL (0-0.5); HEMATOCRIT 42.3 % (42-52); HEMOGLOBIN 14.9 g/dL (14.0-18.0); IG# 0.02 K/uL (0.00-0.02); LYMPH % 22.5 %; LYMPH ABS # 2.39 K/uL (1.2-3.4); MEAN CELL VOLUME 89.4 fL (80-100); MEAN CORPUSCULAR HEMOGLOBIN 31.5 pg (25-34); MEAN CORPUSCULAR HGB CONC 35.2 g/dl (32-36); MEAN PLATELET VOLUME 9.3 fL (7.4-10.4); MONO % 10.4 %; NEUT % 66.6 %; NEUT ABS # 7.06 K/uL (1.4-6.5); PLATELET COUNT 226 K/uL (130-400); RED CELL DISTRIBUTION WIDTH CV 13.3 % (11.5-14.5); RED CELL DISTRIBUTION WIDTH SD 43.7 fL (36.4-46.3)
[2017-09-08 19:12] LABS: ALBUMIN 3.4 gm/dl (3.4-5.0); CREATININE 1.01 mg/dl (0.60-1.40); POTASSIUM 3.7 mmol/L (3.5-5.1)
--- NOTE | 2017-09-08 19:21 | DIAGNOSTIC IMAGING REPORT ---
ABDOMEN AND PELVIS CT WITHOUT CONTRAST CT DOSE: 480.73 mGy.cm HISTORY: vomiting TECHNIQUE: Multiaxial CT images of the abdomen and pelvis were performed without contrast. A dose lowering technique was utilized adhering to the principles of ALARA. COMPARISON STUDY: Abdomen and pelvis CT 05/08/2013. FINDINGS: Bibasilar linear densities suggestive of scarring or subsegmental atelectasis. Pacemaker wires are noted. No pneumoperitoneum. No pneumatosis. No suspicious lytic or blastic osseous lesions. Aortobiiliac stents are unchanged in position. The unenhanced liver, adrenal glands, pancreas, and gallbladder are unremarkable. A few hypodense lesions within the spleen have slightly increased in size. Dominant lesion currently measures 2.8 cm. No renal stones or hydronephrosis. No retroperitoneal lymphadenopathy. Normal bladder. Colonic diverticulosis. No bowel wall thickening or obstruction. Normal appendix. IMPRESSION: 1. No bowel wall thickening or obstruction. 2. Colonic diverticulosis. 3. Normal appendix. 4. Additional findings as described above. Electronically signed by: Mark Evans M.D. 09/08/2017 7:19 PM Dictated Date/Time: 09/08/2017 7:14 PM
[2017-09-08] MEDS ORDERED: OXYCODONE HCL IR 5 MG TAB (IMMEDIATE RELEASE) PO STA (19:41)
[2017-09-08] MEDS ORDERED: LIDODERM (LIDOCAINE) PATCH 5% TD STA (20:34)
[2017-09-08] MEDS ORDERED: OXYC1TAB3 PO (20:36)
[2017-09-08] MEDS ORDERED: ONDA4TAB10 SL (20:36)
[2017-09-08 20:56] VITALS: BP 146/98; PULSE 76; O2SAT 96
== END 2017-09-08 20:56 | disposition home or self-care (01) ==
LOC: C.EDB 17:46 → C.EDC 20:56
DX: R11.2 Nausea with vomiting, unspecified (principal); G89.29 Other chronic pain; M54.5 Low back pain; R51 Headache; K21.9 Gastro-esophageal reflux disease without esophagitis; I10 Essential (primary) hypertension; L40.9 Psoriasis, unspecified; E78.5 Hyperlipidemia, unspecified; Z79.01 Long term (current) use of anticoagulants; Z87.891 Personal history of nicotine dependence; Z88.1 Allergy status to other antibiotic agents

== ENCOUNTER 2022-06-23 23:45 | Inpatient (IN) ==
[~2022-06-23 23:45] MED LIST changes: -ASPI81TA28 PO; -ATOR-26 PO; -CALC1CRE2 TOP; -CEPH-570 PO; -CLOB-65 EXT; -CRG625 PO; -LOSA1TAB38 PO; -NITR0.4S UT; -OMEP20CA9 PO; -SILD50TA PO; +SODIUM CHLORIDE 0.9% 1000ML 1,000 ML IV SCH; -SPR25 PO; -WARF-246 PO
[2022-06-23] MEDS ORDERED: ACETAMINOPHEN 1,000 MG/100 ML VIAL IV STA (23:48)
[2022-06-23] MEDS ORDERED: fentaNYL citrate 100 MCG/2 ML VIAL IV PRN (23:48)
[2022-06-24 00:04] LABS: Basophils # (auto) 0.04 K/uL (0-0.2); Basophils % (auto) 0.3 %; Hematocrit (blood only) 47.9 % (42.0-52.0); Hemoglobin 16.6 g/dl (14.0-18.0); Immature Granulocytes # (auto) 0.05 K/uL (0.01-0.20); Immature Granulocytes % (auto) 0.3 %; Lymphocytes # (auto) 2.22 K/uL (1.2-3.4); Lymphocytes % (auto) 14.6 %; Mean Corpuscular Hemoglobin 31.1 pg (25.0-34.0); Mean Corpuscular Hgb Conc 34.7 g/dL (32.0-36.0); Mean Corpuscular Volume 89.9 fL (80.0-100.0); Mean Platelet Volume 9.9 fL (9.4-12.4); Monocytes # (auto) 1.56 K/uL (0.11-0.59); Monocytes % (auto) 10.3 %; Neutrophils # (auto) 11.34 K/uL (1.40-6.50); Neutrophils % (auto) 74.5 %; Platelet Count 297 K/uL (130-400); RDW Coefficient of Variation 13.8 % (11.5-14.5); RDW Standard Deviation 45.7 fL (36.4-46.3); Red Blood Count 5.33 M/uL (4.70-6.10); White Blood Count 15.21 K/ul (4.8-10.8)
--- NOTE | 2022-06-24 00:09 | Emergency Department Note ---
Impression & Plan Chest pain, Cardiac dysrhythmia, MARYBEL (acute kidney injury), Dehydration ED Provider Note ED Provider Note NAME: RENE MAURICIO AGE:66 SEX: Male : 1955 ARRIVES VIA: EMS INFORMANT: Patient ED PROVIDER(s): Rebekah Flood DO CHIEF COMPLAINT: Chest pain HPI: This is a 66-year-old male presents emergency department via EMS complaining of his defibrillator firing multiple times at home and developing chest pain. Patient states he felt in his usual state of health when he went to get a bath this evening. He states while sitting in the bathtub his defibrillator fired twice. He then tried to get out of the bathtub as a precaution and it fired again several more times. He denies any fall or injury sustained from the effects of the defibrillation. He said since his device has fired he has had chest pain. Patient states he was recently ill in the last 2 to 3 days with nausea and vomiting, denies diarrhea or abdominal pain. He denies fevers or chills. Patient states he follows with Dr. Ramos of [facility]. He denies any change in his medications recently. Patient is a diabetic and former smoker. Patient states he does not exactly know why his defibrillator was first placed. PAST MEDICAL HISTORY:See Below PAST SURGICAL HISTORY:See Below FAMILY HISTORY:See Below SOCIAL HISTORY:See Below HOME MEDICATIONS:See Below ALLERGIES:See Below VITALS:See Below PHYSICAL EXAMINATION: GENERAL: alert, unwell appearing, well nourished, no distress, non-toxic EYE EXAM: normal conjunctiva, PERRL and EOM's grossly intact OROPHARYNX: no exudate, no erythema, lips, buccal mucosa, and tongue normal and mucous membranes are dry NECK: supple, no nuchal rigidity, no adenopathy, non-tender LUNGS: Clear to auscultation. Normal chest wall mechanics, no w/r/r HEART: no murmurs, S1 normal and S2 normal, sinus tachycardia at 127 ABDOMEN: abdomen soft, non-tender, normo-active bowel sounds, no masses, no rebound or guarding. BACK: Back is symmetrical on inspection and there is no deformity, no midline tenderness, no CVA tenderness. SKIN: no rashes, petechiae, orbruising UPPER EXTREMITIES: upper extremities are grossly normal. FROM, nml pulses b/l. LOWER EXTREMITIES: No pitting edema. FROM, nml pulses b/l. NEURO EXAM: Normal sensorium, cranial nerves II-XII grossly intact, normal speech, no facial droop,nogross weakness of arms, no gross weakness of legs. Gross sensation intact. No ataxia. Vital Signs: reviewed and remarkable Differential Diagnosis: ACS, PE, dysrhythmia, dehydration, electrolyte abnormality, MARYBEL, nga teremia/sepsis, GI bleed, anemia, pericarditis/myocarditis, pericardial effusion, pneumonia, aspiration, dissection, as well as others were considered MEDICAL DECISION MAKING: This is a 66-year-old male presents to the emergency department via EMS due to concern for chest pain following the firing of his defibrillator 6 times at home. Patient afebrile vital signs stable on arrival, he was noted to have sinus tachycardia with frequent PVCs. He had not had any further discharges of his defibrillator since EMS made contact and began to transport. Labs drawn and sent, IV established, and IV fluids continued. Patient had received 300 mL of normal saline by EMS prior to evaluation here. EKG obtained and interpreted by me showing sinus tachycardia. Chest x-ray performed at bedside with no acutely concerning findings. Patient was given IV fentanyl and IV Tylenol for pain. Patient's device was interrogated and I did review the summary sheet and speak with the [employer] rep regarding these findings. Patient continued to improve and had no further discharges of his defibrillator. Patient noted to have MARYBEL, hyponatremia, hypercalcemia, and elevated troponin. I suspect patient's recent illness led to dehydration contributing to these findings and likely leading to increased risk for dysrhythmia given his significant cardiac history including prior stenting and ischemic cardiomyopathy. I do not suspect ACS despite elevated troponin, as patient had no chest pain prior to being defibrillated. I suspect the troponin elevation is secondary to the defibrillation and dysrhythmia. Patient's heart rate continued to improve here with gentle IV fluid rehydration. His pain continued to improve, and he had no other new or evolving symptoms on monitor in the emergency room. Patient rechecked numerous times while in the emergency room. Patient and made aware of all results and verbalized understanding. [facility]. Consultation(s): 0036: Discussed with [employer] rep regarding AICD interrogation findings. 0205: [facility] Treatment Provided: See below Diagnostics Interpreted By Me: -ECG: Sinus tachycardia at 127, normal QRS and QTc, normal axis, nonspecific ST/T wave changes, Q waves noted in 2, 3, aVF, V3-6 -Cardiac Monitoring: An order was placed for continuous cardiac monitoring. The monitor shows a rate of 120 with sinus tachycardia rhythm. -Laboratory studies: As stated above and show below. -Imaging studies: X-ray Chest: A single view study of the chest was reviewed and was negative for cardiomegaly, focal infiltrate, effusion, pulmonary edema, or wide mediastinum. Triage Nursing Note Reviewed Prior/Outside Records Reviewed -outpatient cardiology visit, outpatient EKG Procedures: [] Critical Care: Critical care of 39 min performed to assess and manage high likelihood of life- threatening dysrhythmia and chest pain, involving labs and imaging performed with assessment to evaluate dysrhythmia and chest pain diagnosis with frequent reassessment. This time includes bedside time, treatment discussions with patient/family/consultants, documentation time and excludes procedure time. Past Med/Surg History Medical History Apical mural thrombus Rodriguez's esophagus CAD (coronary artery disease) "PCI x 4 to LAD, chronic total RCA occlusion" Dyslipidemia GERD (gastroesophageal reflux disease) HTN (hypertension) Ischemic cardiomyopathy Osteoarthritis Psoriasis PVD (peripheral vascular disease) "s/p stenting to iliac bifurcation into right common iliac" Surgical History AICD (automatic cardioverter/defibrillator) present History of lumbar laminectomy Family History Other Cancer Heart disease Hypertension Social History Smoking Status: Former smoker Tobacco Type: Cigarettes Hx Alcohol Use: Yes Alcohol type: beer and wine Hx Substance Use: No Preferred Language: Pashto 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 Ability: Effective 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 Beliefs That Will Affect Care: None marital status: Current Living Situation: Spouse current occupational status: retired Feels Safe at Home: Yes Assistive Devices: Denture - Upper and Glasses Allergies Allergies Allergy/AdvReac Type Severity Reaction Status Date / Time Penicillins Allergy Mild RASH Verified 06/24/22 01:43 Home Meds Home Medications Medication Instructions Recorded Confirmed atorvastatin 80 mg tablet 80 mg PO HS 06/10/18 06/24/22 losartan 100 mg tablet 100 mg PO QAM 06/10/18 06/24/22 nitroglycerin 0.4 mg sublingual 0.4 mg sublingual UD 06/10/18 06/24/22 tablet (Nitrostat) omeprazole 20 mg capsule,delayed 20 mg PO BID 06/10/18 06/24/22 release spironolactone 25 mg tablet 25 mg PO QAM 06/10/18 06/24/22 warfarin 5 mg tablet 5 - 7.5 mg PO DIRECTED 06/10/18 06/24/22 sildenafil 100 mg tablet (Viagra) 100 mg PO DAILY PRN Erectile 10/08/18 06/24/22 Dysfunction acetaminophen 500 mg tablet 500 mg PO Q6H PRN Pain 07/13/19 06/24/22 (Tylenol Extra Strength) metoprolol succinate 100 mg 100 mg PO PM 03/27/21 06/24/22 tablet,extended release 24 hr (Toprol XL) chlorpheniramine-acetaminophen 2 1 tab PO Q6H PRN Cold Symptoms 08/12/21 06/24/22 mg-325 mg tablet (Coricidin HBP Cold and Flu) coQ10 (ubiquinol) 100 mg capsule 100 mg PO PM 08/12/21 06/24/22 psyllium 1 packet PO DAILY PRN Constipation 08/12/21 06/24/22 alfuzosin 10 mg tablet,extended 10 mg PO DAILY 06/24/22 06/24/22 release 24 hr tizanidine 2 mg capsule 2 mg PO DIRECTED 06/24/22 06/24/22 Previous Rx's Medication Instructions Recorded ondansetron 4 mg disintegrating 4 mg PO Q8H PRN nausea and 10/14/19 tablet vomiting #6 tabs albuterol sulfate 90 mcg/actuation 2 inha inhalation QID PRN 08/12/21 aerosol inhaler shortness of breath or wheezing #1 inh Results & Data (ED) Vital Signs Vital Signs - 24 hr 06/23/22 23:45 06/23/22 23:49 06/23/22 23:50 Temperature 37.3 C Temperature Source Axillary Pulse Rate 127 H 130 H Pulse Rate from SpO2 Sensor 128 H Respiratory Rate 20 16 Respiratory Depth Normal Blood Pressure 146/118 H 146/118 H Blood Pressure Mean 127 127 Pulse Oximetry 91 92 Oxygen Delivery Method Room Air Oxygen Flow Rate Sepsis Recent Fever Within 48 Hours No Sepsis New/Unexplained Change in Mental Status N/A Sepsis Action Taken by Nursing No Action Required Oxygen Flow Rate - Titration Pulse Oximetry Post Tiitration 06/24/22 00:00 06/24/22 00:00 06/24/22 00:10 Temperature Temperature Source Pulse Rate 129 H 127 H Pulse Rate from SpO2 Sensor 129 H Respiratory Rate 22 20 Respiratory Depth Blood Pressure 158/109 H Blood Pressure Mean 125 Pulse Oximetry 92 Oxygen Delivery Method Oxygen Flow Rate Sepsis Recent Fever Within 48 Hours Sepsis New/Unexplained Change in Mental Status Sepsis Action Taken by Nursing Oxygen Flow Rate - Titration Pulse Oximetry Post Tiitration 06/24/22 00:15 06/24/22 00:15 06/24/22 00:20 Temperature Temperature Source Pulse Rate 118 H 120 H Pulse Rate from SpO2 Sensor 118 H 120 H Respiratory Rate 13 16 Respiratory Depth Blood Pressure 138/118 H Blood Pressure Mean 124 Pulse Oximetry 91 91 Oxygen Delivery Method Oxygen Flow Rate Sepsis Recent Fever Within 48 Hours Sepsis New/Unexplained Change in Mental Status Sepsis Action Taken by Nursing Oxygen Flow Rate - Titration Pulse Oximetry Post Tiitration 06/24/22 00:41 06/24/22 00:30 06/24/22 00:30 Temperature Temperature Source Pulse Rate 126 H Pulse Rate from SpO2 Sensor 126 H Respiratory Rate 20 Respiratory Depth Blood Pressure 148/114 H Blood Pressure Mean 125 Pulse Oximetry 88 L 90 Oxygen Delivery Method Room Air Oxygen Flow Rate Sepsis Recent Fever Within 48 Hours Sepsis New/Unexplained Change in Mental Status Sepsis Action Taken by Nursing Oxygen Flow Rate - Titration 2 Pulse Oximetry Post Tiitration 94 06/24/22 00:45 06/24/22 00:45 06/24/22 01:00 Temperature Temperature Source Pulse Rate 114 H Pulse Rate from SpO2 Sensor 116 H Respiratory Rate 11 L Respiratory Depth Blood Pressure 162/136 H 148/120 H Blood Pressure Mean 144 129 Pulse Oximetry 95 Oxygen Delivery Method Oxygen Flow Rate Sepsis Recent Fever Within 48 Hours Sepsis New/Unexplained Change in Mental Status Sepsis Action Taken by Nursing Oxygen Flow Rate - Titration Pulse Oximetry Post Tiitration 06/24/22 01:00 06/24/22 01:15 06/24/22 01:15 Temperature Temperature Source Pulse Rate 113 H 124 H Pulse Rate from SpO2 Sensor 114 H 119 H Respiratory Rate 19 18 Respiratory Depth Blood Pressure 157/108 H Blood Pressure Mean 124 Pulse Oximetry 93 96 Oxygen Delivery Method Oxygen Flow Rate Sepsis Recent Fever Within 48 Hours Sepsis New/Unexplained Change in Mental Status Sepsis Action Taken by Nursing Oxygen Flow Rate - Titration Pulse Oximetry Post Tiitration 06/24/22 01:30 06/24/22 01:30 06/24/22 01:45 Temperature Temperature Source Pulse Rate 96 H 107 H Pulse Rate from SpO2 Sensor 96 H 95 H Respiratory Rate 12 21 Respiratory Depth Blood Pressure 161/111 H Blood Pressure Mean 127 Pulse Oximetry 96 94 Oxygen Delivery Method Oxygen Flow Rate Sepsis Recent Fever Within 48 Hours Sepsis New/Unexplained Change in Mental Status Sepsis Action Taken by Nursing Oxygen Flow Rate - Titration Pulse Oximetry Post Tiitration 06/24/22 01:45 06/24/22 02:00 06/24/22 02:00 Temperature Temperature Source Pulse Rate 97 H Pulse Rate from SpO2 Sensor 95 H Respiratory Rate 13 Respiratory Depth Blood Pressure 167/112 H 161/109 H Blood Pressure Mean 130 126 Pulse Oximetry 94 Oxygen Delivery Method Oxygen Flow Rate Sepsis Recent Fever Within 48 Hours Sepsis New/Unexplained Change in Mental Status Sepsis Action Taken by Nursing Oxygen Flow Rate - Titration Pulse Oximetry Post Tiitration 06/24/22 02:15 06/24/22 02:15 06/24/22 02:30 Temperature Temperature Source Pulse Rate 98 H 99 H Pulse Rate from SpO2 Sensor 95 H 95 H Respiratory Rate 16 16 Respiratory Depth Blood Pressure 161/108 H Blood Pressure Mean 125 Pulse Oximetry 97 95 Oxygen Delivery Method Oxygen Flow Rate 2 Sepsis Recent Fever Within 48 Hours Sepsis New/Unexplained Change in Mental Status Sepsis Action Taken by Nursing Oxygen Flow Rate - Titration Pulse Oximetry Post Tiitration 06/24/22 02:30 06/24/22 02:46 06/24/22 02:46 Temperature Temperature Source Pulse Rate 92 H Pulse Rate from SpO2 Sensor 83 Respiratory Rate 18 Respiratory Depth Blood Pressure 144/92 H 176/119 H Blood Pressure Mean 109 138 Pulse Oximetry 92 Oxygen Delivery Method Oxygen Flow Rate Sepsis Recent Fever Within 48 Hours Sepsis New/Unexplained Change in Mental Status Sepsis Action Taken by Nursing Oxygen Flow Rate - Titration Pulse Oximetry Post Tiitration 06/24/22 03:00 06/24/22 03:00 Temperature Temperature Source Pulse Rate 91 H Pulse Rate from SpO2 Sensor 89 Respiratory Rate 13 Respiratory Depth Blood Pressure 171/108 H Blood Pressure Mean 129 Pulse Oximetry 96 Oxygen Delivery Method Oxygen Flow Rate Sepsis Recent Fever Within 48 Hours Sepsis New/Unexplained Change in Mental Status Sepsis Action Taken by Nursing Oxygen Flow Rate - Titration Pulse Oximetry Post Tiitration Laboratory Data 06/23/22 23:49 06/23/22 23:49 Lab Results 06/23/22 06/23/22 06/23/22 Range/Units 23:49 23:49 23:49 WBC 15.21 H (4.8-10.8) K/ul RBC 5.33 (4.70-6.10) M/uL Hgb 16.6 (14.0-18.0) g/dl Hct 47.9 (42.0-52.0) % MCV 89.9 (80.0-100.0) fL MCH 31.1 (25.0-34.0) pg MCHC 34.7 (32.0-36.0) g/dL RDW Std Deviation 45.7 (36.4-46.3) fL RDW Coeff of Carito 13.8 (11.5-14.5) % Plt Count 297 (130-400) K/uL MPV 9.9 (9.4-12.4) fL Immature Gran % (Auto) 0.3 % Neut % (Auto) 74.5 % Lymph % (Auto) 14.6 % [place] % (Auto) 10.3 % Eos % (Auto) 0.0 % Baso % (Auto) 0.3 % Neut # (Auto) 11.34 H (1.40-6.50) K/uL Lymph # (Auto) 2.22 (1.2-3.4) K/uL [place] # (Auto) 1.56 H (0.11-0.59) K/uL Eos # (Auto) 0.00 (0-0.50) K/uL Baso # (Auto) 0.04 (0-0.2) K/uL Immature Gran # (Auto) 0.05 (0.01-0.20) K/uL PT (9.0-12.0) Seconds INR (0.9-1.1) Sodium (136-145) mmol/L Potassium (3.5-5.1) mmol/L Chloride (98-107) mmol/L Carbon Dioxide (21-32) mmol/L Anion Gap (3-11) BUN (6-23) mg/dl Creatinine (0.6-1.4) mg/dl Est Cr Clr Drug Dosing ml/min Est GFR ( Amer) ml/min Est GFR (Non-Af Amer) ml/min BUN/Creatinine Ratio (10-20) Glucose (70-99(Fasting)) mg/dl Lactate 3.0 H* (0.4-2.0) mmol/L Calcium (8.5-10.1) mg/dl Magnesium (1.7-2.4) mg/dl Total Bilirubin (0.2-1.0) mg/dl AST (13-39) U/L ALT (7-52) U/L Alkaline Phosphatase (34-104) U/L Troponin I High Sens (0-20) pg/ml Total Protein (6.0-8.3) gm/dl Albumin (3.4-5.0) gm/dl Globulin (2.5-4.0) gm/dl Albumin/Globulin Ratio (0.9-2) Lipase (11-82) U/L Procalcitonin < 0.05 (0-0.5) ng/ml TSH (0.300-4.500) uIu/ml Adenovirus (PCR) (NotDetected) B. pertussis DNA (PCR) (NotDetected) B.parapertussis DNA PCR (NotDetected) C. pneumoniae DNA (PCR) (NotDetected) Coronavirus OC43 (PCR) (NotDetected) Coronavirus HKU1 (PCR) (NotDetected) Coronavirus 229E (PCR) (NotDetected) SARS-CoV-2 (PCR) (NotDetected) Coronavirus NL63 (PCR) (NotDetected) Human Metapneumovir PCR (NotDetected) Influenza Type A (PCR) (NotDetected) Influenza Type B (PCR) (NotDetected) M. pneumoniae (PCR) (NotDetected) Parainfluenza 1 (PCR) (NotDetected) Parainfluenza 2 (PCR) (NotDetected) Parainfluenza 3 (PCR) (NotDetected) Parainfluenza 4 (PCR) (NotDetected) RSV (PCR) (NotDetected) Entero/Rhino (PCR) (NotDetected) 06/23/22 06/23/22 06/23/22 Range/Units 23:49 23:49 23:49 WBC (4.8-10.8) K/ul RBC (4.70-6.10) M/uL Hgb (14.0-18.0) g/dl Hct (42.0-52.0) % MCV (80.0-100.0) fL MCH (25.0-34.0) pg MCHC (32.0-36.0) g/dL RDW Std Deviation (36.4-46.3) fL RDW Coeff of Carito (11.5-14.5) % Plt Count (130-400) K/uL MPV (9.4-12.4) fL Immature Gran % (Auto) % Neut % (Auto) % Lymph % (Auto) % [place] % (Auto) % Eos % (Auto) % Baso % (Auto) % Neut # (Auto) (1.40-6.50) K/uL Lymph # (Auto) (1.2-3.4) K/uL [place] # (Auto) (0.11-0.59) K/uL Eos # (Auto) (0-0.50) K/uL Baso # (Auto) (0-0.2) K/uL Immature Gran # (Auto) (0.01-0.20) K/uL PT 19.2 H (9.0-12.0) Seconds INR 1.9 H (0.9-1.1) Sodium 149 H (136-145) mmol/L Potassium 4.1 (3.5-5.1) mmol/L Chloride 114 H (98-107) mmol/L Carbon Dioxide 24 (21-32) mmol/L Anion Gap 11 (3-11) BUN 52 H (6-23) mg/dl Creatinine 1.72 H (0.6-1.4) mg/dl Est Cr Clr Drug Dosing 42.4 ml/min Est GFR ( Amer) 46.3 ml/min Est GFR (Non-Af Amer) 40.0 ml/min BUN/Creatinine Ratio 30.2 H (10-20) Glucose 162 H (70-99(Fasting)) mg/dl Lactate (0.4-2.0) mmol/L Calcium 12.6 H* (8.5-10.1) mg/dl Magnesium 2.5 H (1.7-2.4) mg/dl Total Bilirubin 0.8 (0.2-1.0) mg/dl AST 18 (13-39) U/L ALT 16 (7-52) U/L Alkaline Phosphatase 106 H (34-104) U/L Troponin I High Sens 167.4 H* (0-20) pg/ml Total Protein 8.4 H (6.0-8.3) gm/dl Albumin 4.8 (3.4-5.0) gm/dl Globulin 3.6 (2.5-4.0) gm/dl Albumin/Globulin Ratio 1.3 (0.9-2) Lipase 36 (11-82) U/L Procalcitonin (0-0.5) ng/ml TSH 1.681 (0.300-4.500) uIu/ml Adenovirus (PCR) (NotDetected) B. pertussis DNA (PCR) (NotDetected) B.parapertussis DNA PCR (NotDetected) C. pneumoniae DNA (PCR) (NotDetected) Coronavirus OC43 (PCR) (NotDetected) Coronavirus HKU1 (PCR) (NotDetected) Coronavirus 229E (PCR) (NotDetected) SARS-CoV-2 (PCR) (NotDetected) Coronavirus NL63 (PCR) (NotDetected) Human Metapneumovir PCR (NotDetected) Influenza Type A (PCR) (NotDetected) Influenza Type B (PCR) (NotDetected) M. pneumoniae (PCR) (NotDetected) Parainfluenza 1 (PCR) (NotDetected) Parainfluenza 2 (PCR) (NotDetected) Parainfluenza 3 (PCR) (NotDetected) Parainfluenza 4 (PCR) (NotDetected) RSV (PCR) (NotDetected) Entero/Rhino (PCR) (NotDetected) 06/23/22 06/24/22 Range/Units 23:50 02:07 WBC (4.8-10.8) K/ul RBC (4.70-6.10) M/uL Hgb (14.0-18.0) g/dl Hct (42.0-52.0) % MCV (80.0-100.0) fL MCH (25.0-34.0) pg MCHC (32.0-36.0) g/dL RDW Std Deviation (36.4-46.3) fL RDW Coeff of Carito (11.5-14.5) % Plt Count (130-400) K/uL MPV (9.4-12.4) fL Immature Gran % (Auto) % Neut % (Auto) % Lymph % (Auto) % [place] % (Auto) % Eos % (Auto) % Baso % (Auto) % Neut # (Auto) (1.40-6.50) K/uL Lymph # (Auto) (1.2-3.4) K/uL [place] # (Auto) (0.11-0.59) K/uL Eos # (Auto) (0-0.50) K/uL Baso # (Auto) (0-0.2) K/uL Immature Gran # (Auto) (0.01-0.20) K/uL PT (9.0-12.0) Seconds INR (0.9-1.1) Sodium (136-145) mmol/L Potassium (3.5-5.1) mmol/L Chloride (98-107) mmol/L Carbon Dioxide (21-32) mmol/L Anion Gap (3-11) BUN (6-23) mg/dl Creatinine (0.6-1.4) mg/dl Est Cr Clr Drug Dosing ml/min Est GFR ( Amer) ml/min Est GFR (Non-Af Amer) ml/min BUN/Creatinine Ratio (10-20) Glucose (70-99(Fasting)) mg/dl Lactate 1.0 (0.4-2.0) mmol/L Calcium (8.5-10.1) mg/dl Magnesium (1.7-2.4) mg/dl Total Bilirubin (0.2-1.0) mg/dl AST (13-39) U/L ALT (7-52) U/L Alkaline Phosphatase (34-104) U/L Troponin I High Sens (0-20) pg/ml Total Protein (6.0-8.3) gm/dl Albumin (3.4-5.0) gm/dl Globulin (2.5-4.0) gm/dl Albumin/Globulin Ratio (0.9-2) Lipase (11-82) U/L Procalcitonin (0-0.5) ng/ml TSH (0.300-4.500) uIu/ml Adenovirus (PCR) Not Detected (NotDetected) B. pertussis DNA (PCR) Not Detected (NotDetected) B.parapertussis DNA PCR Not Detected (NotDetected) C. pneumoniae DNA (PCR) Not Detected (NotDetected) Coronavirus OC43 (PCR) Not Detected (NotDetected) Coronavirus HKU1 (PCR) DETECTED A* (NotDetected) Coronavirus 229E (PCR) Not Detected (NotDetected) SARS-CoV-2 (PCR) Not Detected (NotDetected) Coronavirus NL63 (PCR) Not Detected (NotDetected) Human Metapneumovir PCR Not Detected (NotDetected) Influenza Type A (PCR) Not Detected (NotDetected) Influenza Type B (PCR) Not Detected (NotDetected) M. pneumoniae (PCR) Not Detected (NotDetected) Parainfluenza 1 (PCR) Not Detected (NotDetected) Parainfluenza 2 (PCR) Not Detected (NotDetected) Parainfluenza 3 (PCR) Not Detected (NotDetected) Parainfluenza 4 (PCR) Not Detected (NotDetected) RSV (PCR) Not Detected (NotDetected) Entero/Rhino (PCR) Not Detected (NotDetected) Administered Medications Acetaminophen (Acetaminophen 325 Mg Tab) 650 mg PO Q4H PRN PRN Reason: Pain or Fever Stop: 07/24/22 06:11 Last Admin: 06/24/22 14:17 Dose: 650 mg Documented By: DANIEL Alfuzosin HCl (Alfuzosin Hcl 10 Mg Tab) 10 mg PO DAILY DUNG Stop: 07/24/22 08:59 Last Admin: 06/24/22 09:10 Dose: 10 mg Documented By: ASHWINI Aspirin (Aspirin 81 Mg Ectab) 81 mg PO [facility] Stop: 07/24/22 10:29 Last Admin: 06/24/22 11:19 Dose: 81 mg Documented By: ASHWINI Atorvastatin Calcium (Atorvastatin 40 Mg Tab) 80 mg PO HS [facility] Stop: 07/24/22 20:59 Last Admin: 06/24/22 20:11 Dose: 80 mg Documented By: ISAIAH Doxycycline Hyclate (Doxycycline Hyclate 100 Mg Cap) 100 mg PO BID [facility]; Protocol Stop: 07/01/22 08:59 Last Admin: 06/24/22 20:10 Dose: 100 mg Documented By: Admin: 06/24/22 09:49 Dose: 100 mg Documented By: ASHWINI Dextrose/Sodium Chloride (D5w And 1/2nss) 1,000 mls @ 45 mls/hr IV .[id number] [facility] Stop: 07/24/22 06:11 Last Admin: 06/24/22 22:35 Dose: 45 mls/hr Documented By: Infusion: 06/24/22 22:29 Dose: 45 mls/hr Documented By: Infusion: 06/24/22 16:00 Dose: 45 mls/hr Documented By: Admin: 06/24/22 06:33 Dose: 75 mls/hr Documented By: LIAM Losartan Potassium (Losartan Potassium 50 Mg Tab) 100 mg PO [facility] Stop: 07/24/22 08:59 Last Admin: 06/24/22 09:11 Dose: 100 mg Documented By: ASHWINI Melatonin (Melatonin 3 Mg Tab) 3 mg PO HS PRN PRN Reason: Sleep Stop: 07/24/22 20:09 Last Admin: 06/24/22 20:15 Dose: 3 mg Documented By: ISAIAH Metoprolol Succinate (Metoprolol Succ 50mg Ext Rel Tab) 100 mg PO PM [facility] Stop: 07/24/22 20:59 Last Admin: 06/24/22 20:10 Dose: 100 mg Documented By: ISAIAH Metoprolol Succinate (Metoprolol Succ 50mg Ext Rel Tab) 50 mg PO [facility] Stop: 07/24/22 09:59 Last Admin: 06/24/22 11:19 Dose: 50 mg Documented By: ASHWINI Pantoprazole Sodium (Pantoprazole 40 Mg Tab) 40 mg PO BID [facility]; Protocol Stop: 07/24/22 08:59 Last Admin: 06/24/22 20:11 Dose: 40 mg Documented By: Admin: 06/24/22 09:50 Dose: 40 mg Documented By: ASHWINI Sodium Chloride (Sodium Chloride 0.65% Na Soln 45 Ml ([place])) 2 sprays NA Q4H PRN PRN Reason: nasal congestion/stuffiness Stop: 07/24/22 14:09 Last Admin: 06/24/22 20:11 Dose: 2 sprays Documented By: ISAIAH Warfarin Sodium (Warfarin Sod 7.5 Mg Tab) 7.5 mg PO [id number] DUNG Stop: 07/24/22 15:59 Last Admin: 06/24/22 16:33 Dose: 7.5 mg Documented By: ASHWINI Discontinued Medications Sodium Chloride (Nss 1000ml) 1,000 mls @ 125 mls/hr IV .Q8H DUNG Stop: 07/23/22 23:44 Last Infusion: 06/24/22 07:20 Dose: 0 mls/hr Documented By: Infusion: 06/24/22 07:17 Dose: 0 mls/hr Documented By: Infusion: 06/24/22 07:17 Dose: 0 mls/hr Documented By: Admin: 06/23/22 23:54 Dose: 125 mls/hr Documented By: TA Acetaminophen (Ofirmev) 1,000 mg in 100 mls @ 400 mls/hr IV NOW STA Stop: 06/24/22 00:02 Last Infusion: 06/24/22 00:20 Dose: 0 mls/hr Documented By: Admin: 06/23/22 23:55 Dose: 400 mls/hr Documented By: TA Promethazine HCl 12.5 mg/ (Sodium Chloride) 50.5 mls @ 202 mls/hr IV NOW STA Stop: 06/24/22 22:23 Last Infusion: 06/24/22 22:55 Dose: 0 mls/hr Documented By: Admin: 06/24/22 22:35 Dose: 202 mls/hr Documented By: ISAIAH Discharge Plan Visit Data Chief Complaint: Chest Pain Stated Complaint: CHEST PAIN/DEFIB-PACER SHOCKED X6 ED Provider: Rebekah Flood Discharge Problem: Chest pain, Cardiac dysrhythmia, MARYBEL (acute kidney injury), Dehydration Patient Disposition: Admitted As Inpatient Discharge Instructions Interventions: ED Discharge Assessment Last Done: 06/24/22 08:03
[2022-06-24 00:13] LABS: INR 1.9 (0.9-1.1); Prothrombin Time 19.2 Seconds (9.0-12.0)
[2022-06-24 00:35] LABS: Albumin Globulin Ratio 1.3 (0.9-2); Albumin Level 4.8 gm/dl (3.4-5.0); BUN Creatinine Ratio 30.2 (10-20); Bilirubin,Total 0.8 mg/dl (0.2-1.0); Calcium 12.6 mg/dl (8.5-10.1); Creatinine Clr Calc Pharmacy 42.4 ml/min; Est GFR (African American) 46.3 ml/min; Globulin 3.6 gm/dl (2.5-4.0); Magnesium 2.5 mg/dl (1.7-2.4); Potassium 4.1 mmol/L (3.5-5.1); Total Protein 8.4 gm/dl (6.0-8.3); Troponin I High Sensitivity 167.4 pg/ml (0-20)
[2022-06-24 01:03] LABS: Adenovirus PCR Not Detected (NotDetected); Bordetella parapertussis PCR Not Detected (NotDetected); Bordetella pertussis PCR Not Detected (NotDetected); Chlamydia pneumoniae PCR Not Detected (NotDetected); Coronavirus 229E PCR Not Detected (NotDetected); Coronavirus CoV-2 (COVID19)PCR Not Detected (NotDetected); Coronavirus NL63 PCR Not Detected (NotDetected); Coronavirus OC43PCR Not Detected (NotDetected); Human Metapneumovirus PCR Not Detected (NotDetected); Influenza A PCR Not Detected (NotDetected); Influenza B PCR Not Detected (NotDetected); Mycoplasma pneumoniae PCR Not Detected (NotDetected); Parainfluenza Virus 1 PCR Not Detected (NotDetected); Parainfluenza Virus 2 PCR Not Detected (NotDetected); Parainfluenza Virus 3 PCR Not Detected (NotDetected); Parainfluenza Virus 4 PCR Not Detected (NotDetected); Respiratory Syncytial VirusPCR Not Detected (NotDetected); Rhinovirus/Enterovirus PCR Not Detected (NotDetected)
[2022-06-24 01:10] LABS: Coronavirus HKU1 PCR DETECTED (NotDetected)
[2022-06-24] MEDS ORDERED: NITROGLYCERIN SL 0.4 MG/TAB TAB SL PRN (06:12)
[2022-06-24] MEDS ORDERED: tiZANidine HCL 4 MG TABLET PO PRN (06:12)
[2022-06-24] MEDS ORDERED: ACETAMINOPHEN 325 MG TAB PO PRN (06:12)
[2022-06-24] MEDS ORDERED: ALBUTEROL HFA 8 GM INHALER INH PRN (06:12)
[2022-06-24] MEDS: D5W AND 1/2NSS 1,000 ML IV SCH ×2 (06:33→22:35)
[2022-06-24] MEDS ORDERED: PSYLLIUM or GUAR GUM FIBER POWDER PACKET PO PRN (06:38)
[2022-06-24 07:00] LABS: Appearance Urine Cloudy (Clear); Bacteria Urine Automated Negative (Negative); Bilirubin Urine Negative (Negative); Blood Urine 3+ (Negative); Color Urine Dark Yellow; Glucose Urine UA Negative (Negative); Ketones Urine Trace (Negative); Leukocyte Esterase Urine Negative (Negative); Nitrite Urine Negative (Negative); Protein Urine 2+ (Negative); Specific Gravity Urine 1.041 (1.000-1.030); Urobilinogen Urine Negative (Negative)
[2022-06-24 07:25] LABS: Basophils # (auto) 0.04 K/uL (0-0.2); Basophils % (auto) 0.3 %; Hematocrit (blood only) 43.4 % (42.0-52.0); Hemoglobin 14.5 g/dl (14.0-18.0); Immature Granulocytes # (auto) 0.08 K/uL (0.01-0.20); Immature Granulocytes % (auto) 0.5 %; Lymphocytes # (auto) 2.94 K/uL (1.2-3.4); Lymphocytes % (auto) 18.5 %; Mean Corpuscular Hemoglobin 30.7 pg (25.0-34.0); Mean Corpuscular Hgb Conc 33.4 g/dL (32.0-36.0); Mean Corpuscular Volume 91.9 fL (80.0-100.0); Mean Platelet Volume 9.5 fL (9.4-12.4); Monocytes # (auto) 1.48 K/uL (0.11-0.59); Monocytes % (auto) 9.3 %; Neutrophils # (auto) 11.35 K/uL (1.40-6.50); Neutrophils % (auto) 71.4 %; Platelet Count 225 K/uL (130-400); RDW Standard Deviation 47.6 fL (36.4-46.3); Red Blood Count 4.72 M/uL (4.70-6.10); White Blood Count 15.89 K/ul (4.8-10.8)
[2022-06-24 07:51] LABS: INR 1.7 (0.9-1.1); Prothrombin Time 17.8 Seconds (9.0-12.0)
--- NOTE | 2022-06-24 07:55 | History and Physical Report ---
DATE OF ADMISSION: 06/24/2022. CHIEF COMPLAINT: Status post ICD firing. HISTORY OF PRESENT ILLNESS: A 66-year-old male with past medical history significant for hyperlipidemia, prediabetes, peripheral vascular disease, history of Rodriguez's esophagus, diverticulosis of colon, GERD, generalized osteoarthritis, history of psoriasis, history of tobacco abuse, history of CAD status post PCI four times to LAD and chronic total occlusion of the right coronary artery with byun-wa-smesa collaterals, peripheral vascular disease, status post stenting of the iliac bifurcation right common iliac, ischemic cardiomyopathy, EF of 25%, status post ICD placement, history of apical mural thrombosis, on chronic Coumadin therapy, presents with ICD firing. The patient states for the last 3 days, he has having nausea, vomiting. Because of nausea, has not taken any of his medications for last 3 days. He has back pain and he was trying to sit in the bathtub to help with his back pain when his ICD fired couple of times and he came out of the bathtub and it fired couple of more times and he wiped his chest to dry and when he went and lied in bed, it seemed to fired two to three more times, getting total 6-7 times and when his called the ambulance and brought him here. After the firing, he felt chest soreness that has resolved now. States his nausea is getting better now, last 2 days not eating much because of nausea. Denies any headache. No blurred visions, some runny nose, and sore throat and he is also having cough going on for the last 3 weeks, bringing up yellowish phlegm. Denies any fevers, no difficulty swallowing. Currently, no chest pain, no shortness of breath, no abdominal pain, no diarrhea or constipation. Normal bowel movements. His urine was very dark. No swelling in the legs. Sleeping okay. ALLERGIES: PENICILLINS. PAST MEDICAL HISTORY: As mentioned above. PAST SURGICAL HISTORY: Upper GI endoscopy with balloon angioplasty, cardiac catheterization, status post LAD stenting with bare metal stent, colonoscopy, EGD with biopsy, EGD with endoscopic ultrasound, ICD placement, nasal polypectomy, lumbar hemilaminectomy, repair of nasal septum. MEDICATIONS: The patient is on Tylenol 500 mg p.o. q. 6 hours p.r.n., albuterol 2 puffs inhalation q.i.d. p.r.n., alfuzosin 10 mg p.o. daily, atorvastatin 80 mg p.o. at bedtime, coenzyme Q10 100 mg p.o. a.m., losartan 100 mg p.o. daily, metoprolol succinate 100 mg p.o. p.m., Nitrostat 0.4 mg sublingual p.r.n., omeprazole 20 mg p.o. b.i.d., Zofran 4 mg p.o. q. 8 hours p.r.n., Metamucil 1 packet p.o. daily, spironolactone 25 mg p.o. a.m., tizanidine 2 mg p.o. t.i.d. p.r.n., warfarin 5-7.5 mg as directed. FAMILY HISTORY: Significant for father has allergies and cancer. SOCIAL HISTORY: . Quit smoking in 2012, smoked 1 pack a day for 40 years. No alcohol use. No drug use. REVIEW OF SYSTEMS: As per HPI. Rest of the review of systems is negative. PHYSICAL EXAMINATION: GENERAL: The patient is of moderate build, not in acute distress. VITAL SIGNS: Temperature 37.3, pulse 91, respiratory rate 13, blood pressure 171/108, oxygen 96% on room air. HEENT: Pupils equal, round and reactive to light. Oral mucosa dry. NECK: No JVD, no neck masses. CARDIOVASCULAR: S1 and S2 heard, regular rate and rhythm. No murmur, no gallop. RESPIRATORY SYSTEM: Normal AP diameter. No accessory muscle use. No wheezing, no crackles. ABDOMEN: Soft, bowel sounds present, nontender, no distention. CENTRAL NERVOUS SYSTEM: Alert and oriented. Speech is clear. No facial droop. Obeys simple commands. Moves extremities. EXTREMITIES: No edema, no erythema. LABORATORY DATA: WBC 15.2, hemoglobin 16.6, hematocrit 47.9, platelets 297. PT 19.2, INR 1.9. Sodium 149, potassium 4.1, chloride 114, CO2 of 24, BUN 52, creatinine 1.72. Serum glucose 162. Lactate was 3, repeat is 1. Calcium 12.6, magnesium 2.5, total bilirubin 0.8, AST 18, ALT 16, alkaline phosphatase 106. Troponin I high sensitivity 167, lipase 36. Procalcitonin less than 0.015. TSH is 1.6. Respiratory pathogens were positive for coronavirus HKU1. IMAGING DATA: Chest x-ray, no acute findings. EKG: Sinus tachycardia with rate of 127, possible left atrial enlargement. No acute st changes seen. ASSESSMENT AND PLAN: This is a 66-year-old male who presents with ongoing nausea, vomiting for the last 3 days, not taking medications for the last 3 days because of nausea, presents with ICD firing multiple times. After that he has some chest soreness, which was resolved. ICD was interrogated in the ER, looks like for the possible V-tach and it was fired 10 times. Currently, nausea has improved. We will place him on gentle fluids. We will keep him n.p.o. except meds. Continue his home medications. His mild troponin elevation is probably mostly demand ischemia. We will follow serial cardiac enzymes, repeat EKG, echocardiogram and consult Cardiology in the a.m. Monitor in the tele. 2. History of leukocytosis, ongoing cough for the last 3 weeks with yellowish phlegm. History of smoking, quit smoking in 2012, prior 40 pack years of smoking. No obvious wheezing. Respiratory status is okay. I will empirically place him on doxycycline. Follow the sputum cultures. 3. Nausea and vomiting. Coronavirus HKU1 PCR positive. Droplet precautions. Getting gentle fluids of D5 normal saline at 75 mL/hr, supportive care. 4. Hypernatremia, sodium 149, most likely from dehydration. Getting fluids as above. We will follow the repeat labs. 5. Acute kidney injury. Creatinine of 1.7 with baseline seems to be around 1. Holding spironolactone. Avoid nephrotoxic agents. Getting fluids. Monitor the repeat labs. 6. Elevated lactate of 3.0, repeat is 1, most likely with dehydration, it improved. 7. Hypercalcemia, 12.6 most likely from dehydration. Getting fluids. We will follow the repeat labs. 8. Chronic systolic congestive heart failure. Holding spironolactone. Continue his Toprol-XL. Getting gentle fluids, monitor for volume overload. Follow the repeat echocardiogram. 9. History of hypertension. Continue his losartan, metoprolol succinate. Holding spironolactone. Monitor the blood pressure. 10. Hyperlipidemia, on statin. 11. History of coronary artery disease, status post bare bare metal stent to the LAD. Continue statin. The patient is on Coumadin and beta dorita. 12. History of apical mural thrombosis, on Coumadin. Follow the PT/INR. 13. Gastroesophageal reflux disease. On omeprazole. 14. Peripheral vascular disease. On aspirin and statin. 15. Prediabetes. Follow Hb A1c levels. 16. History of ventricular tachycardia, status post ICD, metoprolol. Await cardiac input. 17. Deep venous thrombosis prophylaxis. On Coumadin. Follow PT/INR. DISPOSITION: Closely monitor in the tele floor. Level 1 full code. PT/OT prior to discharge. Social service to help with discharge planning. Job ID: [id number] [facility]
--- NOTE | 2022-06-24 07:57 | XRay Report ---
XR chest 1V portable HISTORY: 66 years-old Male chest pain acute chest pain COMPARISON: Chest radiograph 08/12/2021 TECHNIQUE: AP view of the chest FINDINGS: Cardiomediastinal and hilar silhouettes are unchanged. Coronary arterial stenting. Left subclavian pa cer/AICD. No pneumothorax, large pleural effusion or overt pulmonary edema. Unchanged blunting of the costophrenic angles. Degenerative changes of the shoulders and spine. IMPRESSION: No acute process. ACT 112: Negative or not required by law. The above report was generated using voice recognition software. It may contain grammatical, syntax o r spelling errors. Electronically signed by: Akash Vela M.D. 06/24/2022 7:55 AM
[2022-06-24 07:58] LABS: Calcium 10.4 mg/dl (8.5-10.1); Creatinine Clr Calc Pharmacy 56.6 ml/min; Est GFR (African American) 65.6 ml/min; Est GFR (Non-African American) 56.6 ml/min; Magnesium 2.3 mg/dl (1.7-2.4); Potassium 3.9 mmol/L (3.5-5.1)
[2022-06-24 08:17] LABS: Troponin I High Sensitivity 1224.1 pg/ml (0-20)
--- NOTE | 2022-06-24 08:51 | Cardiology Consultation ---
Date of Consultation June 24, 2022 Assessment & Plan (1) Ventricular tachycardia: (2) AICD (automatic cardioverter/defibrillator) present: (3) Viral illness: (4) Nausea & vomiting: (5) CAD (coronary artery disease): (6) Ischemic cardiomyopathy: (7) HTN (hypertension): (8) MARYBEL (acute kidney injury): (9) Dehydration: Plan Patient presenting to [facility] after multiple ICD shocks at home. No loss of consciousness. Shocks occurred in setting of severe viral illness for several days, with poor PO intake of hydration/nutrition, missing about 3 days of medications, including metoprolol 100 mg which he takes every evening. ICD interrogation reviewed, and appropriate shocks for fast VT. Received metoprolol 100 mg last evening (home dose) He continues to have occ PVC's with couplets this morning and metoprolol 50 mg in AM added. Continue IV hydration this morning. Renal function improving. Keep magnesium > 2.0 and potassium > 4.0. Diuretics on hold. HS troponin elevated, consistent with cardiac strain from ICD shocks. Echocardiogram pending. Last known LVEF was 34% in October 2021. At this time, he has no symptoms of chest pain to suggest ACS and no acute EKG changes. Continue ASA (not on med list - will resume), statin, losartan, metoprolol with 50 mg in AM and 100 mg in PM. If patient continues to have frequent ventricular ectopy or non sustained Vt, consider amiodarone. Case discussed with Dr. Jones. Supervising Physician Co-Signing Physician Notes Patient seen and examined at the bedside. Reports approximately 72 hours of flulike symptoms including cough, congestion, abdominal discomfort, and nausea. Has not taken cardiac medications including metoprolol for at least 3 days prior to presentation. Feeling better since admission. Receiving gentle IV fluid. Beta-dorita restarted last evening. Telemetry reveals sinus rhythm with occasional PVCs and rare couplets. No recurrent ventricular tachycardia this morning. Denies orthopnea, PND, weight gain, or lower extremity edema. Denies any chest discomfort currently. PE: VSS. Gen: NAD, AAO x3. Heart: regular rhythm, normal S1S2. No murmur. Lungs: Clear bilateral, no rales, rhonchi, wheeze. Extremities: No edema. A/P: Agree with above PA-C history, physical exam, assessment and plan. Repeat echocardiogram with stable findings. Metoprolol titrated to 150mg daily. Continue to monitor telemetry and replace electrolytes as indicated. Recurrent ventricular tachycardia and ICD discharges likely secondary to viral illness and beta-dorita withdrawal. If patient experiences recurrent ventricular tachycardia despite titration of beta-dorita therapy, will consider addition of amiodarone. History of Present Illness Reason for Consultation: ICD firing Requesting Physician: Dr. Galdamez Attending Physician: Donna Galdamez MD History of Present Illness Patient is a 66 year old male who is known to [facility], Dr. Ramos. History includes: 1.Coronary artery disease status post PCI times 4 to the LAD with chronic total occlusion of the RCA with left to right collaterals. 2.Peripheral vascular disease, status post stenting of the iliac bifurcation into the right common iliac. 3.Ischemic cardiomyopathy, EF 25% status post ICD placement. Most recent echo in October 2021 - LVEF 34% 4.History of tobacco abuse, resolved. 5.History of apical thrombus on chronic Coumadin therapy. 6.Dyslipidemia. Patient reports he was in normal state of health and doing well until this past Friday afternoon when he developed "flu like" symptoms with nausea, vomiting, lack of appetite, chest congestion, cough and SOB. He did not take his evening meds Friday, all day Friday or Friday. Friday evening he was relaxing in the bathtub and felt a sudden "shock". He wasn't sure what was happening, and he tried getting out of the bathtub and got "hit with a second one". He denies loss of consciousness during this time but reports dizziness. During the course of the next few minutes, he reports he made it to his bedroom and felt repeated "shocks" with weakness and dizziness. helped him get dressed and they called 911. In ER, EKG demonstrated sinus tachycardia. Given his oral metoprolol 100 mg daily. MARYBEL noted likely in setting of dehydration. Started on IV fluids. No recurrent ICD firings since ER. Device was interrogated and demonstrated 10 shocks for VT/VF, 6 were successful. He also had 3 monitored episodes. Tested positive for Coronavirus HKU1. At time of consult, patient resting in bed. Reports ongoing cough and weakness. No sustained arrhythmias since admission. No syncope or near syncope. He notes mild chest soreness from getting shocked but denies chest pain. HS troponin is elevated. Echo is pending. Allergies Allergy/AdvReac Type Severity Reaction Status Date / Time Penicillins Allergy Mild RASH Verified 06/24/22 01:43 Home Medications Medication Instructions Recorded Confirmed Type atorvastatin 80 mg tablet 80 mg PO HS 06/10/18 06/24/22 History losartan 100 mg tablet 100 mg PO QAM 06/10/18 06/24/22 History nitroglycerin 0.4 mg sublingual 0.4 mg sublingual UD 06/10/18 06/24/22 History tablet (Nitrostat) omeprazole 20 mg capsule,delayed 20 mg PO BID 06/10/18 06/24/22 History release spironolactone 25 mg tablet 25 mg PO QAM 06/10/18 06/24/22 History warfarin 5 mg tablet 5 - 7.5 mg PO DIRECTED 06/10/18 06/24/22 History sildenafil 100 mg tablet (Viagra) 100 mg PO DAILY PRN Erectile 10/08/18 06/24/22 History Dysfunction acetaminophen 500 mg tablet 500 mg PO Q6H PRN Pain 07/13/19 06/24/22 History (Tylenol Extra Strength) ondansetron 4 mg disintegrating 4 mg PO Q8H PRN nausea and 10/14/19 06/24/22 Rx tablet vomiting #6 tabs metoprolol succinate 100 mg 100 mg PO PM 03/27/21 06/24/22 History tablet,extended release 24 hr (Toprol XL) albuterol sulfate 90 mcg/actuation 2 inha inhalation QID PRN 08/12/21 06/24/22 Rx aerosol inhaler shortness of breath or wheezing #1 inh chlorpheniramine-acetaminophen 2 1 tab PO Q6H PRN Cold Symptoms 08/12/21 06/24/22 History mg-325 mg tablet (Coricidin HBP Cold and Flu) coQ10 (ubiquinol) 100 mg capsule 100 mg PO PM 08/12/21 06/24/22 History psyllium 1 packet PO DAILY PRN Constipation 08/12/21 06/24/22 History alfuzosin 10 mg tablet,extended 10 mg PO DAILY 06/24/22 06/24/22 History release 24 hr tizanidine 2 mg capsule 2 mg PO DIRECTED 02/06/23 02/06/23 History Patient History Medical History Apical mural thrombus Rodriguez's esophagus CAD (coronary artery disease) "PCI x 4 to LAD, chronic total RCA occlusion" Dyslipidemia GERD (gastroesophageal reflux disease) HTN (hypertension) Ischemic cardiomyopathy Osteoarthritis Psoriasis PVD (peripheral vascular disease) "s/p stenting to iliac bifurcation into right common iliac" Surgical History AICD (automatic cardioverter/defibrillator) present History of lumbar laminectomy Family History Other Cancer Heart disease Hypertension Social History Smoking Status: Former smoker Tobacco Type: Cigarettes Hx Alcohol Use: Yes Alcohol type: beer and wine Hx Substance Use: No Preferred Language: Armenian 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 Ability: Effective Naturopath Required: No Beliefs That Will Affect Care: None marital status: Current Living Situation: Spouse current occupational status: retired Feels Safe at Home: Yes Assistive Devices: None Review of Systems Review of Systems: All systems reviewed & are unremarkable except as noted in HPI & below Physical Exam Constitutional: WD/WN, vitals as above no acute distress Neck: trachea midline, no thyromegaly Respiratory: + cough; no respiratory distress Auscultation: + rhonchi and + wheezes Cardiovascular: Rate/Rhythm: regular rate and regular rhythm Heart Sounds: no murmur Vessels: no JVD Extremities: no edema Gastrointestinal (Abdomen): normal bowel sounds, soft, nontender, no hepatosplenomegaly Neurologic: PERRL, EOMI, accommodation nl, no face palsy, no dysarthria Results & Data ([facility]) Vital Signs (Past 12 Hours) Vital Signs Temp Pulse Pulse Resp BP BP Pulse Ox 06/24/22 07:22 36.6 C 74 16 170/109 H 96 06/24/22 07:01 06/24/22 07:01 79 16 170/109 H 96 06/24/22 05:00 76 16 160/67 H 94 06/24/22 03:50 92 H 16 175/105 H 93 06/24/22 03:00 91 H 13 96 06/24/22 03:00 171/108 H 06/24/22 02:46 176/119 H 06/24/22 02:46 92 H 18 92 06/24/22 02:30 144/92 H 06/24/22 02:30 99 H 16 95 06/24/22 02:15 161/108 H 06/24/22 02:15 98 H 16 97 06/24/22 02:00 97 H 13 94 06/24/22 02:00 161/109 H 06/24/22 01:45 167/112 H 06/24/22 01:45 107 H 21 94 06/24/22 01:30 96 H 12 96 06/24/22 01:30 161/111 H 06/24/22 01:15 124 H 18 96 06/24/22 01:15 157/108 H 06/24/22 01:00 113 H 19 93 06/24/22 01:00 148/120 H 06/24/22 00:45 114 H 11 L 95 06/24/22 00:45 162/136 H 06/24/22 00:30 126 H 20 90 06/24/22 00:30 148/114 H 06/24/22 00:41 88 L 06/24/22 00:20 120 H 16 91 06/24/22 00:15 138/118 H 06/24/22 00:15 118 H 13 91 06/24/22 00:10 127 H 20 92 06/24/22 00:00 129 H 22 06/24/22 00:00 158/109 H 06/23/22 23:50 130 H 16 92 06/23/22 23:49 146/118 H 06/23/22 23:45 37.3 C 127 H 20 146/118 H 91 Pulse Ox O2 Del Method O2 Flow Rate 06/24/22 07:22 Nasal Cannula 2 06/24/22 07:01 96 06/24/22 07:01 Room Air 06/24/22 05:00 Room Air 06/24/22 03:50 Room Air 06/24/22 03:00 06/24/22 03:00 06/24/22 02:46 06/24/22 02:46 06/24/22 02:30 06/24/22 02:30 2 06/24/22 02:15 06/24/22 02:15 06/24/22 02:00 06/24/22 02:00 06/24/22 01:45 06/24/22 01:45 06/24/22 01:30 06/24/22 01:30 06/24/22 01:15 06/24/22 01:15 06/24/22 01:00 06/24/22 01:00 06/24/22 00:45 06/24/22 00:45 06/24/22 00:30 06/24/22 00:30 06/24/22 00:41 Room Air 06/24/22 00:20 06/24/22 00:15 06/24/22 00:15 06/24/22 00:10 06/24/22 00:00 06/24/22 00:00 06/23/22 23:50 06/23/22 23:49 06/23/22 23:45 Room Air Laboratory Results Cardiac Enzymes 06/23/22 06/24/22 Range/Units 23:49 07:10 AST 18 (13-39) U/L Troponin I High Sens 167.4 H* 1224.1 H* D (0-20) pg/ml Coagulation 06/23/22 06/24/22 Range/Units 23:49 07:10 PT 19.2 H 17.8 H (9.0-12.0) Seconds CBC 06/23/22 06/24/22 Range/Units 23:49 07:10 WBC 15.21 H 15.89 H (4.8-10.8) K/ul RBC 5.33 4.72 (4.70-6.10) M/uL Hgb 16.6 14.5 (14.0-18.0) g/dl Hct 47.9 43.4 (42.0-52.0) % Plt Count 297 225 (130-400) K/uL Neut # (Auto) 11.34 H 11.35 H (1.40-6.50) K/uL Lymph # (Auto) 2.22 2.94 (1.2-3.4) K/uL Mcminn # (Auto) 1.56 H 1.48 H (0.11-0.59) K/uL Eos # (Auto) 0.00 0.00 (0-0.50) K/uL Baso # (Auto) 0.04 0.04 (0-0.2) K/uL Comprehensive Metabolic Panel 06/23/22 06/24/22 Range/Units 23:49 07:10 Sodium 149 H 146 H (136-145) mmol/L Potassium 4.1 3.9 (3.5-5.1) mmol/L Chloride 114 H 115 H (98-107) mmol/L Carbon Dioxide 24 24 (21-32) mmol/L BUN 52 H 49 H (6-23) mg/dl Creatinine 1.72 H 1.29 D (0.6-1.4) mg/dl Glucose 162 H 125 H (70-99(Fasting)) mg/dl Calcium 12.6 H* 10.4 H D (8.5-10.1) mg/dl AST 18 (13-39) U/L ALT 16 (7-52) U/L Alkaline Phosphatase 106 H (34-104) U/L Total Protein 8.4 H (6.0-8.3) gm/dl Albumin 4.8 (3.4-5.0) gm/dl Intake and Output 06/23/22 06/24/22 06/24/22 22:59 06:59 14:59 Intake Total 100 / 100 1000.000 / 1000.000 Balance 100 / 100 1000.000 / 1000.000 Intake: IV 100 / 100 1000.000 / 1000.000 Acetaminophen 1,000 mg In 100 100 / 100 ml @ 400 mls/hr IV NOW [facility] Rx#: [id number] Sodium Chloride 0.9% 1000ML 1, 1000.000 / 1000.000 000 ml @ 125 mls/hr IV .Q8H [facility] Rx#:[id number] Other: Weight 73.3 kg 73.3 kg Weight Measurement Method Built in [facility] Patient Weight 06/25/22 06:59 Weight 73.3 kg Diagnostic Findings Telemetry reviewed: NSR with several episodes of non sustained VT, 6 beat run at 2:47 AM, 5 beat run of 3:50 AM, and 8 beat run at 5:33 AM this morning. Occ PVC's and couplets also noted Device interrogation reviewed: single lead device. Battery nearing CHRISTIANE. 10 shocks received, 6 successful HR's recorded at time of ICD shocks were > 200 bpm, so likely VT based on interrogations. EKG reviewed on admission: Sinus tachycardia at 127 bpm Possible Left atrial enlargement Inferior infarct (cited on or before 16-OCT-2006) Anterolateral infarct (cited on or before 16-OCT-2006) Abnormal ECG When compared with ECG of 12-AUG-2021 17:14, Premature ventricular complexes are no longer Present Vent. rate has increased BY 57 BPM Chest X-Ray 06/23/22 23:49 XR chest 1V portable HISTORY: 66 years-old Male chest pain acute chest pain COMPARISON: Chest radiograph 08/12/2021 TECHNIQUE: AP view of the chest FINDINGS: Cardiomediastinal and hilar silhouettes are unchanged. Coronary arterial stenting. Left subclavian pacer/AICD. No pneumothorax, large pleural effusion or overt pulmonary edema. Unchanged blunting of the costophrenic angles. Degenerative changes of the shoulders and spine. IMPRESSION: No acute process. ACT 112: Negative or not required by law. The above report was generated using voice recognition software. It may contain grammatical, syntax or spelling errors. Electronically signed by: Akash Vela M.D. 06/24/2022 7:55 AM Echo report reviewed dated October 2021: The primary indication after review was deemed appropriate and the examination was performed. Compared to last available study, there has been no interval change. The left ventricular cavity size is normal. The wall thickness is mildly increased in segments with normal wall motion. There is a large thinned and mildly expanded apical and septal infarct present. Apical thrombus is not visualized on current study. The qualitative LV ejection fraction is 30-34% (moderately reduced). Grade 2 diastolic dysfunction. Mild secondary mitral regurgitation. Medications Administered Current Inpatient Medications Acetaminophen (Acetaminophen 325 Mg Tab) 650 mg PO Q4H PRN PRN Reason: Pain or Fever Stop: 07/24/22 06:11 Albuterol (Albuterol Hfa 8 Gm Inhaler) 2 puffs INH QID PRN; Protocol PRN Reason: shortness of breath or wheezing Stop: 07/24/22 06:11 Alfuzosin HCl (Alfuzosin Hcl 10 Mg Tab) 10 mg PO DAILY [facility] Stop: 07/24/22 08:59 Last Admin: 06/24/22 09:10 Dose: 10 mg Atorvastatin Calcium (Atorvastatin 40 Mg Tab) 80 mg PO HS DUNG Stop: 07/24/22 20:59 Doxycycline Hyclate (Doxycycline Hyclate 100 Mg Cap) 100 mg PO BID DUNG; Protocol Stop: 07/01/22 08:59 Last Admin: 06/24/22 09:49 Dose: 100 mg Dextrose/Sodium Chloride (D5w And 1/2nss) 1,000 mls @ 75 mls/hr IV .[id number] [facility] Stop: 07/24/22 06:11 Last Admin: 06/24/22 06:33 Dose: 75 mls/hr Losartan Potassium (Losartan Potassium 50 Mg Tab) 100 mg PO QAM [facility] Stop: 07/24/22 08:59 Last Admin: 06/24/22 09:11 Dose: 100 mg Metoprolol Succinate (Metoprolol Succ 50mg Ext Rel Tab) 100 mg PO PM [facility] Stop: 07/24/22 20:59 Metoprolol Succinate (Metoprolol Succ 50mg Ext Rel Tab) 50 mg PO [facility] Stop: 07/24/22 09:59 Nitroglycerin (Nitroglycerin Sl 0.4 Mg/Tab Tab) 0.4 mg SL UD PRN PRN Reason: Chest Pain Stop: 07/24/22 06:11 Pantoprazole Sodium (Pantoprazole 40 Mg Tab) 40 mg PO BID [facility]; Protocol Stop: 07/24/22 08:59 Last Admin: 06/24/22 09:50 Dose: 40 mg Psyllium Hydrophilic Mucilloid (Psyllium Or Guar Gum Fiber Powder Packet) 1 pkt PO DAILY PRN PRN Reason: Constipation Stop: 07/24/22 06:37 Tizanidine HCl (Tizanidine Hcl 4 Mg Tablet) 2 mg PO TID PRN PRN Reason: Muscle Spasm Stop: 07/24/22 06:11 Warfarin Sodium (Warfarin Sod 5 Mg Tab) 5 mg PO [email or web address] [facility] Stop: 07/25/22 15:59 Warfarin Sodium (Warfarin Sod 7.5 Mg Tab) 7.5 mg PO [email or web address] [facility] Stop: 07/24/22 15:59
[2022-06-24] MEDS: ALFUZOSIN HCL 10 MG TAB PO SCH (09:10)
[2022-06-24] MEDS: LOSARTAN POTASSIUM 50 MG TAB PO SCH (09:11)
[2022-06-24] MEDS: DOXYCYCLINE HYCLATE 100 MG CAP PO SCH ×2 (09:49→20:10)
[2022-06-24] MEDS: PANTOprazole 40 MG TAB PO SCH ×2 (09:50→20:11)
--- NOTE | 2022-06-24 10:10 | Electrocardiogram Report ---
Test Reason : Blood Pressure : / mmHG Vent. Rate : 127 BPM Atrial Rate : 127 BPM P-R Int : 132 ms QRS Dur : 088 ms QT Int : 294 ms P-R-T Axes : 072 102 032 degrees QTc Int : 427 ms Sinus tachycardia Left atrial enlargement Old Inferior infarct (cited on or before 16-OCT-2006) Old Anterolateral infarct (cited on or before 16-OCT-2006) Abnormal ECG When compared with ECG of 12-AUG-2021 17:14, Premature ventricular complexes are no longer Present Vent. rate has increased BY 57 BPM Confirmed by Isaac Heurta ([id number]) on 06/24/2022 10:10:30 AM Referred By: REFERRED SELF Confirmed By:Isaac Huerta
[2022-06-24] MEDS: ASPIRIN 81 MG ECTAB PO SCH (11:19)
[2022-06-24] MEDS: METOPROLOL SUCC 50MG EXT REL TAB PO SCH ×2 (11:19→20:10)
--- NOTE | 2022-06-24 12:58 | Hospitalist Progress Note ---
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 Patient was also having complaints of nausea and vomiting for few days prior to arrival and has not been able to take his medications due to that. He is being managed for the following: Nausea, vomiting, dehydration Acute kidney injury: Prerenal, secondary to vomiting Acute viral illness, non-COVID 19 coronavirus infection Patient presents with nausea/vomiting and inability to take his medications for few days [employer]. Patient reports ongoing cough for the last 3 weeks [employer] with yellowish phlegm Admitting BUN and creatinine elevated, 52 and 1.72 respectively. Admitting CXR with no acute process. Nausea/vomiting likely secondary to viral illness. Status post IV fluid resuscitation, creatinine normalized. Patient with no further nausea and vomiting and would like to eat, diet as able. Patient reports feeling better. Monitor labs in a.m. including electrolytes. Continue with doxycycline 06/24 for possible bronchitis. Supportive management for respiratory viral illness. Follow admitting sputum and blood cultures. History of leukocytosis: Chronic, procalcitonin negative at presentation. Hypernatremia/hyperkalemia: Likely secondary to dehydration at presentation, sodium and calcium level improving. Monitor NA and CA in AM. Ventricular tachycardia/ICD firing: Likely secondary to electrolyte abnormalities secondary to nausea and vomiting secondary to viral illness. Also likely precipitated by inability to take his home medication. Cardiology on board, appreciate recommendation. Patient reports no further ICD firing while in the hospital. Monitor and replete electrolytes. Type II NSTEMI: Troponin elevated at presentation likely secondary to acute viral illness/MARYBEL/ICD shocks, up trended, patient with no chest pain. Admitting EKG with no acute ST or T changes. Follow-up EKG with some sinus tachycardia. Echo with EF of 30 to 35%, moderately reduced LV systolic function. Continue with telemetry monitoring. No concern of ACS for now. Other chronic medical conditions: Chronic systolic congestive heart failure, will hold nephrotoxic for now, patient is getting gentle IV fluids, monitor for volume overload. HLD, HTN: Resume home meds as able CAD status post bare-metal stent to LAD/apical mural thrombosis: Continue beta-dorita and Coumadin. GERD, PVD, prediabetes: Resume home meds as able. DVT prophylaxis: On Coumadin Full code Admission and Anticipated Discharge Date Admission Date: June 24, 2022 Subjective Patient seen and examined at bedside as a follow-up of nausea/vomiting, dehydration, MARYBEL, history of leukocytosis, firing of ICD. Patient was lying in bed, on 2 L nasal cannula oxygen, reports no new acute event overnight, denies any further nausea or vomiting or ICD firing while in hospital, denies any chest pain or palpitation no headache or dizziness, is hungry and would like to eat, will resume diet, reports moving bowels okay and no diarrhea, patient had nausea and vomiting prior to arrival. Patient reports feeling better today. Physical Exam Physical Exam: GENERAL: Alert and oriented x3. NAD, on 2L NC O2. HEENT: No pallor, no icterus. Pupils equal, round and reactive to light. Oral mucosa moist. NECK: No JVD, no neck masses. HEART: S1 and S2 heard. Regular rate and rhythm. No murmur, no gallop. RESPIRATORY SYSTEM: Normal AP diameter. No accessory muscle use. No wheezing, no crackles. ABDOMEN: Soft, bowel sounds present, nontender, no distention. CENTRAL NERVOUS SYSTEM: No facial droop. Speech is clear. Obeys simple commands. Moves extremities. EXTREMITIES: No edema, no erythema seen. Results & Data Results & Data ([facility]) Vital Signs (Past 12 Hours) Vital Signs Temp Pulse Pulse Pulse Resp BP BP 06/24/22 10:00 92 H 06/24/22 10:00 06/24/22 11:16 36.7 C 85 16 06/24/22 09:00 73 16 156/92 H 06/24/22 07:22 36.6 C 74 16 170/109 H 06/24/22 07:01 06/24/22 07:01 79 16 170/109 H 06/24/22 05:00 76 16 160/67 H 06/24/22 03:50 92 H 16 175/105 H 06/24/22 03:00 91 H 13 06/24/22 03:00 171/108 H 06/24/22 02:46 176/119 H 06/24/22 02:46 92 H 18 06/24/22 02:30 144/92 H 06/24/22 02:30 99 H 16 06/24/22 02:15 161/108 H 06/24/22 02:15 98 H 16 06/24/22 02:00 97 H 13 06/24/22 02:00 161/109 H 06/24/22 01:45 167/112 H 06/24/22 01:45 107 H 21 06/24/22 01:30 96 H 12 06/24/22 01:30 161/111 H 06/24/22 01:15 124 H 18 06/24/22 01:15 157/108 H 06/24/22 01:00 113 H 19 06/24/22 01:00 148/120 H BP Pulse Ox Pulse Ox O2 Del Method O2 Flow Rate 06/24/22 10:00 06/24/22 10:00 Nasal Cannula 3 06/24/22 11:16 122/71 92 Nasal Cannula 3 06/24/22 09:00 95 Room Air 06/24/22 07:22 96 Nasal Cannula 2 06/24/22 07:01 96 06/24/22 07:01 96 Room Air 06/24/22 05:00 94 Room Air 06/24/22 03:50 93 Room Air 06/24/22 03:00 96 06/24/22 03:00 06/24/22 02:46 06/24/22 02:46 92 06/24/22 02:30 06/24/22 02:30 95 2 06/24/22 02:15 06/24/22 02:15 97 06/24/22 02:00 94 06/24/22 02:00 06/24/22 01:45 06/24/22 01:45 94 06/24/22 01:30 96 06/24/22 01:30 06/24/22 01:15 96 06/24/22 01:15 06/24/22 01:00 93 06/24/22 01:00
[2022-06-24] MEDS ORDERED: SODIUM CHLORIDE 0.65% NA SOLN 45 ML (OCEAN) PRN (14:10)
[2022-06-24] MEDS: WARFARIN SOD 7.5 MG TAB PO SCH (16:33)
[2022-06-24] MEDS ORDERED: ZOLPIDEM TARTRATE 5 MG TAB PO PRN (20:08)
[2022-06-24] MEDS ORDERED: MELATONIN 3 MG TAB PO PRN (20:10)
[2022-06-24] MEDS: ATORVASTATIN 40 MG TAB PO SCH (20:11)
[2022-06-24] MEDS ORDERED: NON-FORMULARY MEDICATION (Coq10 (Ubiquinol) 100 mg Capsule) PO SCH (21:00)
[2022-06-24] MEDS ORDERED: ZOLPIDEM TARTRATE 5 MG TAB PO STA (22:01)
[2022-06-24] MEDS ORDERED: PROMETHAZINE HCL 12.5 MG in SODIUM CHLORIDE 0.9% 50 ML IV STA (22:09)
[2022-06-25] MEDS ORDERED: POLYETHYLENE (MIRALAX) 17 GM PACK PO PRN (04:36)
[2022-06-25] MEDS ORDERED: BACLOFEN 10 MG TAB PO STA (05:54)
[2022-06-25 06:57] LABS: Hematocrit (blood only) 40.3 % (42.0-52.0); Hemoglobin 13.6 g/dl (14.0-18.0); Mean Corpuscular Hemoglobin 30.8 pg (25.0-34.0); Mean Corpuscular Hgb Conc 33.7 g/dL (32.0-36.0); Mean Corpuscular Volume 91.2 fL (80.0-100.0); Mean Platelet Volume 9.7 fL (9.4-12.4); Platelet Count 212 K/uL (130-400); RDW Coefficient of Variation 13.5 % (11.5-14.5); RDW Standard Deviation 45.7 fL (36.4-46.3); Red Blood Count 4.42 M/uL (4.70-6.10)
[2022-06-25 07:05] LABS: INR 1.8 (0.9-1.1); Prothrombin Time 18.8 Seconds (9.0-12.0)
--- NOTE | 2022-06-25 08:03 | Electrocardiogram Report ---
Test Reason : Blood Pressure : / mmHG Vent. 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 rate has decreased BY 66 BPM Confirmed by Isaac Huerta ([id number]) on 06/25/2022 8:02:42 AM Referred By: REFERRED SELF Confirmed By:Isaac Huerta
[2022-06-25 08:21] LABS: BUN Creatinine Ratio 36.4 (10-20); Est GFR (African American) 102.3 ml/min; Est GFR (Non-African American) 88.3 ml/min; Phosphorus 2.5 mg/dl (2.5-4.9); Potassium 4.4 mmol/L (3.5-5.1)
[2022-06-25] MEDS: ALFUZOSIN HCL 10 MG TAB PO SCH (09:22)
[2022-06-25] MEDS: ASPIRIN 81 MG ECTAB PO SCH (09:23)
[2022-06-25] MEDS: DOXYCYCLINE HYCLATE 100 MG CAP PO SCH ×2 (09:23→20:15)
[2022-06-25] MEDS: LOSARTAN POTASSIUM 50 MG TAB PO SCH (09:24)
[2022-06-25] MEDS: PANTOprazole 40 MG TAB PO SCH ×2 (09:26→20:16)
[2022-06-25] MEDS: METOPROLOL SUCC 50MG EXT REL TAB PO SCH ×3 (09:48→19:50)
--- NOTE | 2022-06-25 12:34 | Cardiology Progress Note ---
Date of Service June 25, 2022 Assessment & Plan (1) Ventricular tachycardia: (2) AICD (automatic cardioverter/defibrillator) present: (3) Viral illness: (4) Nausea & vomiting: (5) CAD (coronary artery disease): (6) Ischemic cardiomyopathy: (7) HTN (hypertension): (8) MARYBEL (acute kidney injury): (9) Dehydration: Plan Patient presenting to [facility] after multiple ICD shocks at home. No loss of consciousness. Shocks occurred in setting of severe viral illness for several days, with poor PO intake of hydration/nutrition, missing about 3 days of medications, including metoprolol 100 mg which he takes every evening. ICD interrogation reviewed, and appropriate shocks for fast VT. Metoprolol increased to 50 mg in AM and 100 mg in evening (home dose). No recurrent VT with this adjustment. PVC's also improved. Keep magnesium > 2.0 and potassium > 4.0. HS troponin elevated, consistent with cardiac strain from ICD shocks. Echocardiogram with stable findings, moderately reduced LVEF at 30-35%. At this time, he has no symptoms of chest pain to suggest ACS and no acute EKG changes. Continue ASA (not on med list - will resume), statin, losartan, metoprolol with 50 mg in AM and 100 mg in PM. Would resume oral diuretics in the next 24 hours as viral status improves and he returns to normal PO intake of hydration/food. Case discussed with Dr. Jones. Admission and Anticipated Discharge Date Admission Date: June 24, 2022 Supervising Physician Co-Signing Physician Notes Patient seen and examined at the bedside. Feeling fatigued and washed out today. Denies chest pain or shortness of breath. Telemetry reveals sinus bradycardia and occasional demand ventricular pacing from his ICD. Offers no new concerns/complaints. PE: VSS. Gen: NAD, AAO x3. Heart: regular rhythm, normal S1S2. No murmur. Lungs: Clear bilateral, no rales, rhonchi, wheeze. Extremities: No edema. A/P: Agree with above PA-C history, physical exam, assessment and plan. Repeat echocardiogram with stable findings. Continue metoprolol 50 mg in the a.m., 100 mg in the evening. If patient unable to tolerate, will reduce total dose to 125 mg daily. Continue to monitor telemetry and replace electrolytes as indicated. If patient experiences recurrent ventricular tachycardia despite titration of beta-dorita therapy, will consider addition of amiodarone. Subjective Patient resting in bed comfortably. Ongoing cough/wheeze reported. SOB improving. No chest pain. No dizziness or lightheadedness. No sense of palpitations. No ICD shocks overnight. He had several more episodes of vomiting last night, but now improved. Slowly feeling better. Review of Systems Review of Systems: All systems reviewed & are unremarkable except as noted in HPI & below Physical Exam Constitutional: WD/WN, vitals as above no acute distress Neck: trachea midline, no thyromegaly Respiratory: + cough; no respiratory distress Auscultation: + rhonchi and + wheezes Cardiovascular: Rate/Rhythm: regular rate and regular rhythm Heart Sounds: no murmur Vessels: no JVD Extremities: no edema Gastrointestinal (Abdomen): normal bowel sounds, soft, nontender, no hepatosplenomegaly Neurologic: PERRL, EOMI, accommodation nl, no face palsy, no dysarthria Results & Data ([facility]) Vital Signs (Past 12 Hours) Vital Signs Temp Pulse Pulse Resp BP BP Pulse Ox 06/25/22 10:18 61 93 06/25/22 09:14 53 L 170/98 H 06/25/22 08:51 57 L 06/25/22 11:02 36.6 C 59 L 17 92/66 L 93 06/25/22 08:18 36.9 C 59 L 16 155/89 H 95 06/25/22 07:22 61 16 170/106 H 96 06/25/22 03:08 37.4 C 60 18 161/98 H 94 06/25/22 00:37 65 O2 Del Method O2 Flow Rate 06/25/22 10:18 Room Air 06/25/22 09:14 06/25/22 08:51 06/25/22 11:02 Room Air 06/25/22 08:18 Nasal Cannula 1 06/25/22 07:22 Nasal Cannula 1 06/25/22 03:08 Nasal Cannula 06/25/22 00:37 Laboratory Results Cardiac Enzymes 06/24/22 06/24/22 Range/Units 12:07 18:14 Troponin I High Sens 1009.3 H* 616.8 H* D (0-20) pg/ml Coagulation 06/25/22 Range/Units 06:35 PT 18.8 H (9.0-12.0) Seconds CBC 06/25/22 Range/Units 06:35 WBC 14.20 H (4.8-10.8) K/ul RBC 4.42 L (4.70-6.10) M/uL Hgb 13.6 L (14.0-18.0) g/dl Hct 40.3 L (42.0-52.0) % Plt Count 212 (130-400) K/uL Comprehensive Metabolic Panel 06/25/22 Range/Units 06:35 Sodium 142 (136-145) mmol/L Potassium 4.4 (3.5-5.1) mmol/L Chloride 112 H (98-107) mmol/L Carbon Dioxide 26 (21-32) mmol/L BUN 32 H (6-23) mg/dl Creatinine 0.88 D (0.6-1.4) mg/dl Glucose 123 H (70-99(Fasting)) mg/dl Calcium 10.0 (8.5-10.1) mg/dl Intake and Output 06/24/22 06/25/22 06/25/22 22:59 06:59 14:59 Intake Total 1150.50 / 2850.500 100 / 2850.500 240 / 240 Output Total 150 / 350 350 / 350 Balance 1000.50 / 2500.500 100 / 2500.500 -110 / -110 Intake: IV 1050.50 / 2050.500 D5w and 1/2Nss 1,000 ml @ 45 1000.00 / 1000.00 mls/hr IV .[id number] [facility] Rx#: [id number] Promethazine HCl 12.5 mg In 50.5 / 50.5 Sodium Chloride 0.9% 50 ml @ 202 mls/hr IV NOW STA Rx#: [id number] Oral 100 / 800 100 / 800 240 / 240 Output: Urine 150 / 350 350 / 350 Other: # Unmeasured Voids 1 # Emeses 1 Weight 73.2 kg Diagnostic Findings Telemetry reviewed: NSR, occ Ventricular pacing. HR's ranging 50-70s at rest. No recurrent VT. Echo report reviewed dated 06/24/2022: Compared to prior study, no significant changes noted. LV is moderately dilated with reduced function at 30 to 35%. Focal asymmetric hypertrophy at the base septum measuring 1.7 cm. Large sized apical, septal, anteroseptal, anterior, inferior, and posterior wall motion abnormality with hypokinesis to akinesis of the segments. Mild MR. No thrombus. Medications Administered Current Inpatient Medications Acetaminophen (Acetaminophen 325 Mg Tab) 650 mg PO Q4H PRN PRN Reason: Pain or Fever Stop: 07/24/22 06:11 Last Admin: 06/24/22 14:17 Dose: 650 mg Albuterol (Albuterol Hfa 8 Gm Inhaler) 2 puffs INH QID PRN; Protocol PRN Reason: shortness of breath or wheezing Stop: 07/24/22 06:11 Alfuzosin HCl (Alfuzosin Hcl 10 Mg Tab) 10 mg PO DAILY [facility] Stop: 07/24/22 08:59 Last Admin: 06/25/22 09:22 Dose: 10 mg Aspirin (Aspirin 81 Mg Ectab) 81 mg PO QAM [facility] Stop: 07/24/22 10:29 Last Admin: 06/25/22 09:23 Dose: 81 mg Atorvastatin Calcium (Atorvastatin 40 Mg Tab) 80 mg PO HS [facility] Stop: 07/24/22 20:59 Last Admin: 06/24/22 20:11 Dose: 80 mg Doxycycline Hyclate (Doxycycline Hyclate 100 Mg Cap) 100 mg PO BID [facility]; Protocol Stop: 07/01/22 08:59 Last Admin: 06/25/22 09:23 Dose: 100 mg Dextrose/Sodium Chloride (D5w And 1/2nss) 1,000 mls @ 45 mls/hr IV .[id number] [facility] Stop: 07/24/22 06:11 Last Admin: 06/24/22 22:35 Dose: 45 mls/hr Losartan Potassium (Losartan Potassium 50 Mg Tab) 100 mg PO QAM [facility] Stop: 07/24/22 08:59 Last Admin: 06/25/22 09:24 Dose: 100 mg Melatonin (Melatonin 3 Mg Tab) 3 mg PO HS PRN PRN Reason: Sleep Stop: 07/24/22 20:09 Last Admin: 06/24/22 20:15 Dose: 3 mg Metoprolol Succinate (Metoprolol Succ 50mg Ext Rel Tab) 100 mg PO PM [facility] Stop: 07/24/22 20:59 Last Admin: 06/24/22 20:10 Dose: 100 mg Metoprolol Succinate (Metoprolol Succ 50mg Ext Rel Tab) 50 mg PO QAM [facility] Stop: 07/24/22 09:59 Last Admin: 06/25/22 10:15 Dose: 50 mg Nitroglycerin (Nitroglycerin Sl 0.4 Mg/Tab Tab) 0.4 mg SL UD PRN PRN Reason: Chest Pain Stop: 07/24/22 06:11 Pantoprazole Sodium (Pantoprazole 40 Mg Tab) 40 mg PO BID [facility]; Protocol Stop: 07/24/22 08:59 Last Admin: 06/25/22 09:26 Dose: 40 mg Polyethylene Glycol (Polyethylene (Miralax) 17 Gm Pack) 17 gm PO DAILY PRN PRN Reason: Constipation Stop: 07/25/22 04:35 Psyllium Hydrophilic Mucilloid (Psyllium Or Guar Gum Fiber Powder Packet) 1 pkt PO DAILY PRN PRN Reason: Constipation Stop: 07/24/22 06:37 Last Admin: 06/25/22 01:08 Dose: 1 pkt Sodium Chloride (Sodium Chloride 0.65% Na Soln 45 Ml ([place])) 2 sprays NA Q4H PRN PRN Reason: nasal congestion/stuffiness Stop: 07/24/22 14:09 Last Admin: 06/24/22 20:11 Dose: 2 sprays Tizanidine HCl (Tizanidine Hcl 4 Mg Tablet) 2 mg PO TID PRN PRN Reason: Muscle Spasm Stop: 07/24/22 06:11 Warfarin Sodium (Warfarin Sod 5 Mg Tab) 5 mg PO [id number]@1600 [facility] Stop: 07/25/22 15:59 Warfarin Sodium (Warfarin Sod 7.5 Mg Tab) 7.5 mg PO [id number]@1600 [facility] Stop: 07/24/22 15:59 Last Admin: 06/24/22 16:33 Dose: 7.5 mg
--- NOTE | 2022-06-25 15:47 | Hospitalist Progress Note ---
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 Patient was also having complaints of nausea and vomiting for few days prior to arrival and has not been able to take his medications due to that. He is being managed for the following: Nausea, vomiting, dehydration Acute kidney injury: Prerenal, secondary to vomiting Acute viral illness, non-COVID 19 coronavirus infection Patient presents with nausea/vomiting and inability to take his medications for few days [employer]. Patient reports ongoing cough for the last 3 weeks [employer] with yellowish phlegm Admitting BUN and creatinine elevated, 52 and 1.72 respectively. Admitting CXR with no acute process. Nausea/vomiting likely secondary to viral illness. Status post IV fluid resuscitation, creatinine normalized. Patient with decreasing nausea and vomiting and reports improving appetite Patient reports feeling better. Monitor labs in a.m. including electrolytes. Continue with doxycycline 2/ for possible bronchitis. Supportive management for respiratory viral illness. Follow admitting sputum and blood cultures. NG so far. History of leukocytosis: Chronic, procalcitonin negative at presentation. Hypernatremia/hyperkalemia: Likely secondary to dehydration at presentation, resolved. Ventricular tachycardia/ICD firing: Likely secondary to electrolyte abnormali ties secondary to nausea and vomiting secondary to viral illness. Also likely precipitated by inability to take his home medication. Cardiology on board, appreciate recommendation (metoprolol dose increased). Patient reports no further ICD firing while in the hospital. Monitor and replete electrolytes. Type II NSTEMI: Troponin elevated at presentation likely secondary to acute viral illness/MARYBEL/ICD shocks, up trended, patient with no chest pain. Admitting EKG with no acute ST or T changes. Follow-up EKG with some sinus tachycardia. Echo with EF of 30 to 35%, moderately reduced LV systolic function. Continue with telemetry monitoring. No concern of ACS for now. Other chronic medical conditions: Chronic systolic congestive heart failure, euvolemic; will resume diuretics ralph w/ improvement of po intake HLD, HTN: Resume home meds as able CAD status post bare-metal stent to LAD/apical mural thrombosis: Continue bet a-dorita and Coumadin. GERD, PVD, prediabetes: Resume home meds as able. DVT prophylaxis: On Coumadin Full code Admission and Anticipated Discharge Date Admission Date: June 24, 2022 Subjective Patient seen and examined at bedside as a follow-up of nausea/vomiting, dehydration, MARYBEL, history of leukocytosis, firing of ICD. Patient was lying in bed, on 1 L nasal cannula oxygen, reports no new acute event overnight, had vomoting x 1 yesterday evening during dinner, reports overall improvement in nausea or vomiting or no further ICD firing while in hospital, denies any chest pain or palpitation no headache or dizziness. Patient continues to feel better. Has cough, no bm last few days but finally appetite is improving per pt. Physical Exam Physical Exam: GENERAL: Alert and oriented x3. NAD, on 1L NC O2. HEENT: No pallor, no icterus. Pupils equal, round and reactive to light. Oral mucosa moist. NECK: No JVD, no neck masses. HEART: S1 and S2 heard. Regular rate and rhythm. No murmur, no gallop. RESPIRATORY SYSTEM: Normal AP diameter. No accessory muscle use. No wheezing, no crackles. ABDOMEN: Soft, bowel sounds present, nontender, no distention. CENTRAL NERVOUS SYSTEM: No facial droop. Speech is clear. Obeys simple commands. Moves extremities. EXTREMITIES: No edema, no erythema seen. Results & Data Results & Data ([facility]) Vital Signs (Past 12 Hours) Vital Signs Temp Pulse Pulse Resp BP BP Pulse Ox 06/25/22 15:31 36.8 C 06/25/22 15:12 51 L 06/25/22 14:51 58 L 20 116/73 93 06/25/22 10:18 61 93 06/25/22 09:14 53 L 170/98 H 06/25/22 08:51 57 L 06/25/22 11:02 36.6 C 59 L 17 92/66 L 93 06/25/22 08:18 36.9 C 59 L 16 155/89 H 95 06/25/22 07:22 61 16 170/106 H 96 O2 Del Method O2 Flow Rate 06/25/22 15:31 06/25/22 15:12 06/25/22 14:51 Room Air 06/25/22 10:18 Room Air 06/25/22 09:14 06/25/22 08:51 06/25/22 11:02 Room Air 06/25/22 08:18 Nasal Cannula 1 06/25/22 07:22 Nasal Cannula 1
[2022-06-25] MEDS ORDERED: WARFARIN SOD 5 MG TAB PO SCH (16:00)
[2022-06-25] MEDS: ATORVASTATIN 40 MG TAB PO SCH (20:16)
[2022-06-26] MEDS: ALFUZOSIN HCL 10 MG TAB PO SCH (07:42)
[2022-06-26] MEDS: LOSARTAN POTASSIUM 50 MG TAB PO SCH (07:42)
[2022-06-26] MEDS: PANTOprazole 40 MG TAB PO SCH ×2 (07:42→20:12)
[2022-06-26] MEDS: METOPROLOL SUCC 50MG EXT REL TAB PO SCH ×2 (07:42→20:16)
[2022-06-26] MEDS: ASPIRIN 81 MG ECTAB PO SCH (07:43)
[2022-06-26] MEDS: DOXYCYCLINE HYCLATE 100 MG CAP PO SCH ×2 (07:43→20:12)
[2022-06-26 08:01] LABS: BUN Creatinine Ratio 36.2 (10-20); Calcium 9.9 mg/dl (8.5-10.1); Creatinine Clr Calc Pharmacy 69.5 ml/min; Est GFR (African American) 84.1 ml/min; Est GFR (Non-African American) 72.6 ml/min; Magnesium 1.9 mg/dl (1.7-2.4); Phosphorus 2.2 mg/dl (2.5-4.9); Potassium 3.9 mmol/L (3.5-5.1)
[2022-06-26 08:16] LABS: INR 2.4 (0.9-1.1); Prothrombin Time 24.7 Seconds (9.0-12.0)
[2022-06-26] MEDS: METOPROLOL SUCC 25MG EXT REL TAB PO SCH (08:21)
--- NOTE | 2022-06-26 08:29 | Electrocardiogram Report ---
Test Reason : Blood Pressure : / mmHG Vent. 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
[2022-06-26] MEDS: POT PHOSPHATE MONOBASIC W/ SOD TAB PO SCH ×4 (08:58→20:13)
--- NOTE | 2022-06-26 10:06 | Cardiology Progress Note ---
Date of Service June 26, 2022 Assessment & Plan (1) Ventricular tachycardia: (2) AICD (automatic cardioverter/defibrillator) present: (3) Viral illness: (4) Nausea & vomiting: (5) CAD (coronary artery disease): (6) Ischemic cardiomyopathy: (7) HTN (hypertension): (8) MARYBEL (acute kidney injury): (9) Dehydration: Plan Patient presenting to [facility] after multiple ICD shocks at home. No loss of consciousness. Shocks occurred in setting of severe viral illness for several days, with poor PO intake of hydration/nutrition, missing about 3 days of medications, including metoprolol 100 mg which he takes every evening. ICD interrogation reviewed, and appropriate shocks for fast VT. Metoprolol increased to 50 mg in AM and 100 mg in evening (home dose). HR's trending down with higher dose beta dorita. Reduce metoprolol to 25 mg in AM and 100 mg in PM No recurrent VT Lower rate for ICD to be increased to 50 bmp. [employer] rep contacted and will adjust today. Keep magnesium > 2.0 and potassium > 4.0. HS troponin elevated, consistent with cardiac strain from ICD shocks. Echocardiogram with stable findings, moderately reduced LVEF at 30-35%. At this time, he has no symptoms of chest pain to suggest ACS and no acute EKG changes. Continue ASA, statin, losartan, metoprolol with 25 mg in AM and 100 mg in PM. Resume diuretics on discharge. Continue coumadin. Continue supportive care for viral illness per hospitalist. Case discussed with Dr. Jones. Admission and Anticipated Discharge Date Admission Date: June 24, 2022 Supervising Physician Co-Signing Physician Notes Patient seen and examined at the bedside. Continues to report fatigue. Denies chest pain or shortness of breath. Telemetry reveals sinus bradycardia and occasional demand ventricular pacing from his ICD. Offers no new concerns/complaints. PE: VSS. Gen: NAD, AAO x3. Heart: regular rhythm, normal S1S2. No murmur. Lungs: Clear bilateral, no rales, rhonchi, wheeze. Extremities: No edema. A/P: Agree with above PA-C history, physical exam, assessment and plan. Reduse AM metoprolol to 25mg. Continue 100 mg in the evening. Increase ICD pacmaker base rate to 50 bpm. Continue to monitor telemetry and replace electrolytes as indicated. If patient experiences recurrent ventricular tachycardia despite titration of beta-dorita therapy, will consider addition of amiodarone. Subjective Patient resting in bed comfortably. Cough slowly improving. No recurrent nausea or vomiting. No dizziness or lightheadedness. no palpitations. No chest pain. SOB also improving. No arrhythmias on telemetry. Review of Systems Review of Systems: All systems reviewed & are unremarkable except as noted in HPI & below Physical Exam Constitutional: WD/WN, vitals as above no acute distress Neck: trachea midline, no thyromegaly Respiratory: + cough; no respiratory distress Auscultation: + rhonchi and + wheezes Cardiovascular: Rate/Rhythm: regular rate and regular rhythm Heart Sounds: no murmur Vessels: no JVD Extremities: no edema Gastrointestinal (Abdomen): normal bowel sounds, soft, nontender, no hepatosplenomegaly Neurologic: PERRL, EOMI, accommodation nl, no face palsy, no dysarthria Results & Data ([facility]) Vital Signs (Past 12 Hours) Vital Signs Temp Pulse Pulse Resp BP Pulse Ox O2 Del Method 06/26/22 09:00 52 L 06/26/22 07:44 36.7 C 60 19 142/100 H 96 Room Air 06/26/22 02:23 36.9 C 58 L 18 100/59 L 90 Room Air 06/26/22 00:34 55 L 06/25/22 22:31 36.6 C 55 L 18 111/61 93 Room Air Laboratory Results Coagulation 06/26/22 Range/Units 06:52 PT 24.7 H (9.0-12.0) Seconds Comprehensive Metabolic Panel 06/26/22 Range/Units 06:52 Sodium 139 (136-145) mmol/L Potassium 3.9 (3.5-5.1) mmol/L Chloride 110 H (98-107) mmol/L Carbon Dioxide 25 (21-32) mmol/L BUN 38 H (6-23) mg/dl Creatinine 1.05 (0.6-1.4) mg/dl Glucose 121 H (70-99(Fasting)) mg/dl Calcium 9.9 (8.5-10.1) mg/dl Intake and Output 06/25/22 06/26/22 06/26/22 22:59 06:59 14:59 Intake Total 924.75 / 1834.75 200 / 1834.75 Output Total 350 / 801 101 / 801 Balance 574.75 / 1033.75 99 / 1033.75 Intake: IV 774.75 / 774.75 D5w and 1/2Nss 1,000 ml @ 45 774.75 / 774.75 mls/hr IV .[id number] [facility] Rx#: [id number] Oral 150 / 1060 200 / 1060 Output: Urine 350 / 800 100 / 800 # Bowel Movements Other: # Unmeasured Voids 2 Weight 73.1 kg Diagnostic Findings Telemetry reviewed - NSR with occ PVC. heart rates ranging 50-70 bpm. No recurrent VT Medications Administered Current Inpatient Medications Acetaminophen (Acetaminophen 325 Mg Tab) 650 mg PO Q4H PRN PRN Reason: Pain or Fever Stop: 07/24/22 06:11 Last Admin: 06/24/22 14:17 Dose: 650 mg Albuterol (Albuterol Hfa 8 Gm Inhaler) 2 puffs INH QID PRN; Protocol PRN Reason: shortness of breath or wheezing Stop: 07/24/22 06:11 Alfuzosin HCl (Alfuzosin Hcl 10 Mg Tab) 10 mg PO DAILY [facility] Stop: 07/24/22 08:59 Last Admin: 06/26/22 07:42 Dose: 10 mg Aspirin (Aspirin 81 Mg Ectab) 81 mg PO QAM [facility] Stop: 07/24/22 10:29 Last Admin: 06/26/22 07:43 Dose: 81 mg Atorvastatin Calcium (Atorvastatin 40 Mg Tab) 80 mg PO HS [facility] Stop: 07/24/22 20:59 Last Admin: 06/25/22 20:16 Dose: 80 mg Doxycycline Hyclate (Doxycycline Hyclate 100 Mg Cap) 100 mg PO BID [facility]; Protocol Stop: 07/01/22 08:59 Last Admin: 06/26/22 07:43 Dose: 100 mg Losartan Potassium (Losartan Potassium 50 Mg Tab) 100 mg PO QAM [facility] Stop: 07/24/22 08:59 Last Admin: 06/26/22 07:42 Dose: 100 mg Melatonin (Melatonin 3 Mg Tab) 3 mg PO HS PRN PRN Reason: Sleep Stop: 07/24/22 20:09 Last Admin: 06/24/22 20:15 Dose: 3 mg Metoprolol Succinate (Metoprolol Succ 50mg Ext Rel Tab) 100 mg PO PM [facility] Stop: 07/24/22 20:59 Last Admin: 06/25/22 19:50 Dose: Not Given Metoprolol Succinate (Metoprolol Succ 25mg Ext Rel Tab) 25 mg PO QAM [facility] Stop: 07/26/22 08:59 Last Admin: 06/26/22 08:21 Dose: Not Given Nitroglycerin (Nitroglycerin Sl 0.4 Mg/Tab Tab) 0.4 mg SL UD PRN PRN Reason: Chest Pain Stop: 07/24/22 06:11 Pantoprazole Sodium (Pantoprazole 40 Mg Tab) 40 mg PO BID [facility]; Protocol Stop: 07/24/22 08:59 Last Admin: 06/26/22 07:42 Dose: 40 mg Polyethylene Glycol (Polyethylene (Miralax) 17 Gm Pack) 17 gm PO DAILY PRN PRN Reason: Constipation Stop: 07/25/22 04:35 Potassium Phosphate (Pot Phosphate Monobasic W/ Sod Tab) 2 tab PO QID [facility] Stop: 06/26/22 21:01 Last Admin: 06/26/22 08:58 Dose: 2 tab Psyllium Hydrophilic Mucilloid (Psyllium Or Guar Gum Fiber Powder Packet) 1 pkt PO DAILY PRN PRN Reason: Constipation Stop: 07/24/22 06:37 Last Admin: 06/25/22 01:08 Dose: 1 pkt Sodium Chloride (Sodium Chloride 0.65% Na Soln 45 Ml ([place])) 2 sprays NA Q4H PRN PRN Reason: nasal congestion/stuffiness Stop: 07/24/22 14:09 Last Admin: 06/24/22 20:11 Dose: 2 sprays Tizanidine HCl (Tizanidine Hcl 4 Mg Tablet) 2 mg PO TID PRN PRN Reason: Muscle Spasm Stop: 07/24/22 06:11 Warfarin Sodium (Warfarin Sod 5 Mg Tab) 5 mg PO SuTuThSa@1600 [facility] Stop: 07/25/22 15:59 Last Admin: 06/25/22 15:30 Dose: 5 mg Warfarin Sodium (Warfarin Sod 7.5 Mg Tab) 7.5 mg PO MoWeFr@1600 [facility] Stop: 07/24/22 15:59 Last Admin: 06/24/22 16:33 Dose: 7.5 mg
[2022-06-26] MEDS ORDERED: POTASSIUM CHLORIDE CRTAB 20 MEQ TABCR PO STA (13:40)
--- NOTE | 2022-06-26 13:40 | Hospitalist Progress Note ---
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 Patient was also having complaints of nausea and vomiting for few days prior to arrival and has not been able to take his medications due to that. He is being managed for the following: Nausea, vomiting, dehydration Acute kidney injury: Prerenal, secondary to vomiting [employer] Acute viral illness, non-COVID 19 coronavirus infection Patient presents with nausea/vomiting and inability to take his medications for few days [employer]. Patient reports ongoing cough for the last 3 weeks [employer] with yellowish phlegm Admitting BUN and creatinine elevated, 52 and 1.72 respectively. Admitting CXR with no acute process. Nausea/vomiting likely secondary to viral illness. Status post IV fluid resuscitation, creatinine normalized. Patient with no further nausea and vomiting and reports improving appetite, had BM Patient reports feeling better. Monitor labs in a.m. including electrolytes. Continue with doxycycline 2/ for possible bronchitis. Supportive management for respiratory viral illness. Follow admitting sputum and blood cultures. NG so far. History of leukocytosis: Chronic, procalcitonin negative at presentation. Hypernatremia/hyperkalemia: Likely secondary to dehydration at presentation, resolved. Ventricular tachycardia/ICD firing: Likely secondary to electrolyte abnormalities secondary to nausea and vomiting secondary to viral illness. Also likely precipitated by inability to take his home medication. Cardiology on board, appreciate recommendation (metoprolol dose being optimized, ICD interrogation - pacemaker base rate increased to 50 bpm). Patient reports no further ICD firing while in the hospital. Monitor and replete electrolytes. Type II NSTEMI: Troponin elevated at presentation likely secondary to acute viral illness/MARYBEL/ICD shocks, up trended, patient with no chest pain. Admitting EKG with no acute ST or T changes. Follow-up EKG with some sinus tachycardia. Echo with EF of 30 to 35%, moderately reduced LV systolic function. Continue with telemetry monitoring. No concern of ACS for now. Other chronic medical conditions: Chronic systolic congestive heart failure, euvolemic; will resume diuretics likely ralph HLD, HTN: Resume home meds as able CAD status post bare-metal stent to LAD/apical mural thrombosis: Continue beta-dorita and Coumadin. GERD, PVD, prediabetes: Resume home meds as able. DVT prophylaxis: On Coumadin Full code Dispo: likely next few days, pending card clearance. Admission and Anticipated Discharge Date Admission Date: June 24, 2022 Subjective Patient seen and examined at bedside as a follow-up of nausea/vomiting, dehydration, MARYBEL, history of leukocytosis, firing of ICD. Patient was sitting up in chair, on room air, reports no new acute event overnight, denies further nausea or vomiting, has been having better appetite, has moved bowels. Reports no further ICD firing while in hospital, denies any chest pain or palpitation no headache or dizziness. Patient was anxious and tearful in the morning that he is going to , provided counseling/support and cleared any confusion regarding his current status. Consulted behavioral health for further counseling. Telemetry review with sinus rhythm, no arrhythmias. Physical Exam Physical Exam: GENERAL: Alert and oriented x3. NAD, on room air HEENT: No pallor, no icterus. Pupils equal, round and reactive to light. Oral mucosa moist. NECK: No JVD, no neck masses. HEART: S1 and S2 heard. Regular rate and rhythm. No murmur, no gallop. RESPIRATORY SYSTEM: Normal AP diameter. No accessory muscle use. No wheezing, no crackles. ABDOMEN: Soft, bowel sounds present, nontender, no distention. CENTRAL NERVOUS SYSTEM: No facial droop. Speech is clear. Obeys simple commands. Moves extremities. EXTREMITIES: No edema, no erythema seen. Results & Data Results & Data ([facility]) Vital Signs (Past 12 Hours) Vital Signs Temp Pulse Pulse Resp BP Pulse Ox O2 Del Method 06/26/22 11:57 36.8 C 56 L 18 99/82 L 97 Room Air 06/26/22 09:00 52 L 06/26/22 07:44 36.7 C 60 19 142/100 H 96 Room Air 06/26/22 02:23 36.9 C 58 L 18 100/59 L 90 Room Air
[2022-06-26] MEDS: MAGNESIUM OXIDE 400 MG TAB PO SCH ×2 (14:51→20:11)
[2022-06-26] MEDS: WARFARIN SOD 7.5 MG TAB PO SCH (14:51)
[2022-06-26] MEDS: ATORVASTATIN 40 MG TAB PO SCH (20:12)
[2022-06-27] MEDS: METOPROLOL SUCC 25MG EXT REL TAB PO SCH (07:36)
[2022-06-27] MEDS: ALFUZOSIN HCL 10 MG TAB PO SCH (07:36)
[2022-06-27] MEDS: LOSARTAN POTASSIUM 50 MG TAB PO SCH (07:37)
[2022-06-27] MEDS: MAGNESIUM OXIDE 400 MG TAB PO SCH (07:37)
[2022-06-27] MEDS: ASPIRIN 81 MG ECTAB PO SCH (07:38)
[2022-06-27] MEDS: PANTOprazole 40 MG TAB PO SCH (07:38)
[2022-06-27] MEDS: DOXYCYCLINE HYCLATE 100 MG CAP PO SCH (07:38)
[2022-06-27 09:12] LABS: BUN Creatinine Ratio 39.1 (10-20); Calcium 9.5 mg/dl (8.5-10.1); Creatinine Clr Calc Pharmacy 83.9 ml/min; Est GFR (African American) 102.8 ml/min; Est GFR (Non-African American) 88.7 ml/min; Magnesium 1.8 mg/dl (1.7-2.4); Phosphorus 2.6 mg/dl (2.5-4.9)
[2022-06-27 09:21] LABS: INR 2.1 (0.9-1.1); Prothrombin Time 21.7 Seconds (9.0-12.0)
[2022-06-27] MEDS ORDERED: SPIRONOLACTONE 25 MG TAB PO SCH (10:30)
--- NOTE | 2022-06-27 10:30 | Cardiology Progress Note ---
Date of Service June 27, 2022 Assessment & Plan (1) Ventricular tachycardia: (2) AICD (automatic cardioverter/defibrillator) present: (3) Viral illness: (4) Nausea & vomiting: (5) CAD (coronary artery disease): (6) Ischemic cardiomyopathy: (7) HTN (hypertension): (8) MARYBEL (acute kidney injury): (9) Dehydration: Plan Patient presenting to [facility] after multiple ICD shocks at home. No loss of consciousness. Shocks occurred in setting of severe viral illness for several days, with poor PO intake of hydration/nutrition, missing about 3 days of medications, including metoprolol 100 mg which he takes every evening. ICD interrogation reviewed, and appropriate shocks for fast VT. Metoprolol increased to 50 mg in AM and 100 mg in evening (home dose). Mild bradycardia noted, so metoprolol adjusted to 25 mg in AM and 100 mg in PM. No recurrent VT Lower rate for ICD adjusted to 50 bmp. He is nearing [facility] and has met with EP to discuss upgrade to dual lead pacer/ICD Keep magnesium > 2.0 and potassium > 4.0. HS troponin elevated, consistent with cardiac strain from ICD shocks. Echocardiogram with stable findings, moderately reduced LVEF at 30-35%. Continue ASA, statin, losartan, metoprolol with 25 mg in AM and 100 mg in PM. Resume spironolactone today Continue coumadin. He has f/u in several weeks for device interrogation and Dr. Ramos office visit. He will keep these appointments. Case discussed with Dr. Jones. Acceptable for discharge from cardiac perspective. Admission and Anticipated Discharge Date Admission Date: June 24, 2022 Supervising Physician Co-Signing Physician Notes Patient seen and examined at the bedside. Feeling better today. Anxious to return home. Denies chest pain or shortness of breath. Telemetry reveals sinus bradycardia and occasional demand ventricular pacing from his ICD. Offers no new concerns/complaints. PE: VSS. Gen: NAD, AAO x3. Heart: regular rhythm, normal S1S2. No murmur. Lungs: Clear bilateral, no rales, rhonchi, wheeze. Extremities: No edema. A/P: Agree with above PA-C history, physical exam, assessment and plan. Continue Toprol-XL 125 mg daily. ICD reprogrammed to increase base rate to 50 bpm. Resume spironolactone today. Continue other cardiovascular medications as previously ordered. Outpatient cardiology follow-up as scheduled.. Subjective Patient out of bed. Feeling better today. In better spirits. Ready to go home. Reports SOB and cough improving. No chest pain. No recurrent arrhythmias on telemetry. Review of Systems Review of Systems: All systems reviewed & are unremarkable except as noted in HPI & below Physical Exam Constitutional: WD/WN, vitals as above no acute distress Neck: trachea midline, no thyromegaly Respiratory: no respiratory distress Auscultation: + diminished lung sounds; no crackles and no wheezes Cardiovascular: Rate/Rhythm: regular rate and regular rhythm Heart Sounds: no murmur Vessels: no JVD Extremities: no edema Gastrointestinal (Abdomen): normal bowel sounds, soft, nontender, no hepatosplenomegaly Neurologic: PERRL, EOMI, accommodation nl, no face palsy, no dysarthria Results & Data ([facility]) Vital Signs (Past 12 Hours) Vital Signs Temp Pulse Pulse Resp BP Pulse Ox O2 Del Method 06/27/22 08:13 36.9 C 67 19 138/79 96 Room Air 06/27/22 08:05 Room Air 06/27/22 08:00 63 06/27/22 02:38 36.5 C 53 L 18 121/72 95 Room Air 06/27/22 01:55 67 06/26/22 22:57 36.6 C 57 L 18 129/74 97 Room Air Laboratory Results Coagulation 06/27/22 Range/Units 07:59 PT 21.7 H (9.0-12.0) Seconds Comprehensive Metabolic Panel 06/27/22 Range/Units 07:59 Sodium 141 (136-145) mmol/L Potassium 4.0 (3.5-5.1) mmol/L Chloride 113 H (98-107) mmol/L Carbon Dioxide 23 (21-32) mmol/L BUN 34 H (6-23) mg/dl Creatinine 0.87 (0.6-1.4) mg/dl Glucose 146 H (70-99(Fasting)) mg/dl Calcium 9.5 (8.5-10.1) mg/dl Intake and Output 06/26/22 06/27/22 06/27/22 22:59 06:59 14:59 Intake Total 150 / 1690 200 / 1690 Output Total 2 / 602 200 / 602 Balance 148 / 1088 0 / 1088 Intake: Oral 150 / 1690 200 / 1690 Output: Urine 200 / 600 # Bowel Movements 2 / 2 Other: Weight 73 kg Diagnostic Findings Telemetry reviewed - NSR with occ PVC and intermittent ventricular pacing. No recurrent VT Medications Administered Current Inpatient Medications Acetaminophen (Acetaminophen 325 Mg Tab) 650 mg PO Q4H PRN PRN Reason: Pain or Fever Stop: 07/24/22 06:11 Last Admin: 06/24/22 14:17 Dose: 650 mg Albuterol (Albuterol Hfa 8 Gm Inhaler) 2 puffs INH QID PRN; Protocol PRN Reason: shortness of breath or wheezing Stop: 07/24/22 06:11 Alfuzosin HCl (Alfuzosin Hcl 10 Mg Tab) 10 mg PO DAILY [facility] Stop: 07/24/22 08:59 Last Admin: 06/27/22 07:36 Dose: 10 mg Aspirin (Aspirin 81 Mg Ectab) 81 mg PO QAM [facility] Stop: 07/24/22 10:29 Last Admin: 06/27/22 07:38 Dose: 81 mg Atorvastatin Calcium (Atorvastatin 40 Mg Tab) 80 mg PO HS [facility] Stop: 07/24/22 20:59 Last Admin: 06/26/22 20:12 Dose: 80 mg Doxycycline Hyclate (Doxycycline Hyclate 100 Mg Cap) 100 mg PO BID [facility]; Protocol Stop: 07/01/22 08:59 Last Admin: 06/27/22 07:38 Dose: 100 mg Losartan Potassium (Losartan Potassium 50 Mg Tab) 100 mg PO QAM [facility] Stop: 07/24/22 08:59 Last Admin: 06/27/22 07:37 Dose: 100 mg Magnesium Oxide (Magnesium Oxide 400 Mg Tab) 400 mg PO BID [facility] Stop: 06/27/22 21:01 Last Admin: 06/27/22 07:37 Dose: 400 mg Melatonin (Melatonin 3 Mg Tab) 3 mg PO HS PRN PRN Reason: Sleep Stop: 07/24/22 20:09 Last Admin: 06/24/22 20:15 Dose: 3 mg Metoprolol Succinate (Metoprolol Succ 50mg Ext Rel Tab) 100 mg PO PM [facility] Stop: 07/24/22 20:59 Last Admin: 06/26/22 20:16 Dose: Not Given Metoprolol Succinate (Metoprolol Succ 25mg Ext Rel Tab) 25 mg PO [facility] Stop: 07/26/22 08:59 Last Admin: 06/27/22 07:36 Dose: 25 mg Nitroglycerin (Nitroglycerin Sl 0.4 Mg/Tab Tab) 0.4 mg SL UD PRN PRN Reason: Chest Pain Stop: 07/24/22 06:11 Pantoprazole Sodium (Pantoprazole 40 Mg Tab) 40 mg PO BID [facility]; Protocol Stop: 07/24/22 08:59 Last Admin: 06/27/22 07:38 Dose: 40 mg Polyethylene Glycol (Polyethylene (Miralax) 17 Gm Pack) 17 gm PO DAILY PRN PRN Reason: Constipation Stop: 07/25/22 04:35 Psyllium Hydrophilic Mucilloid (Psyllium Or Guar Gum Fiber Powder Packet) 1 pkt PO DAILY PRN PRN Reason: Constipation Stop: 07/24/22 06:37 Last Admin: 06/25/22 01:08 Dose: 1 pkt Sodium Chloride (Sodium Chloride 0.65% Na Soln 45 Ml ([place])) 2 sprays NA Q4H PRN PRN Reason: nasal congestion/stuffiness Stop: 07/24/22 14:09 Last Admin: 06/24/22 20:11 Dose: 2 sprays Spironolactone (Spironolactone 25 Mg Tab) 25 mg PO [facility] Stop: 07/27/22 10:29 Tizanidine HCl (Tizanidine Hcl 4 Mg Tablet) 2 mg PO TID PRN PRN Reason: Muscle Spasm Stop: 07/24/22 06:11 Warfarin Sodium (Warfarin Sod 5 Mg Tab) 5 mg PO [id number]@1600 [facility] Stop: 07/25/22 15:59 Last Admin: 06/25/22 15:30 Dose: 5 mg Warfarin Sodium (Warfarin Sod 7.5 Mg Tab) 7.5 mg PO [id number]@1600 [facility] Stop: 07/24/22 15:59 Last Admin: 06/26/22 14:51 Dose: 7.5 mg
--- NOTE | 2022-06-27 12:04 | Discharge Summary ---
Date of Service June 27, 2022 Admission HPI Per Admitting Provider DATE OF ADMISSION: 06/24/2022. CHIEF COMPLAINT: Status post ICD firing. HISTORY OF PRESENT ILLNESS: A 66-year-old male with past medical history significant for hyperlipidemia, prediabetes, peripheral vascular disease, history of Rodriguez's esophagus, diverticulosis of colon, GERD, generalized osteoarthritis, history of psoriasis, history of tobacco abuse, history of CAD status post PCI four times to LAD and chronic total occlusion of the right coronary artery with vpyv-[id number] collaterals, peripheral vascular disease, status post stenting of the iliac bifurcation right common iliac, ischemic cardiomyopathy, EF of 25%, status post ICD placement, history of apical mural thrombosis, on chronic Coumadin therapy, presents with ICD firing. The patient states for the last 3 days, he has having nausea, vomiting. Because of nausea, has not taken any of his medications for last 3 days. He has back pain and he was trying to sit in the bathtub to help with his back pain when his ICD fired couple of times and he came out of the bathtub and it fired couple of more times and he wiped his chest to dry and when he went and lied in bed, it seemed to fired two to three more times, getting total 6-7 times and when his called the ambulance and brought him here. After the firing, he felt chest soreness that has resolved now. States his nausea is getting better now, last 2 days not eating much because of nausea. Denies any headache. No blurred visions, some runny nose, and sore throat and he is also having cough going on for the last 3 weeks, bringing up yellowish phlegm. Denies any fevers, no difficulty swallowing. Currently, no chest pain, no shortness of breath, no abdominal pain, no diarrhea or constipation. Normal bowel movements. His urine was very dark. No swelling in the legs. Sleeping okay. ALLERGIES: PENICILLINS. PAST MEDICAL HISTORY: As mentioned above. PAST SURGICAL HISTORY: Upper GI endoscopy with balloon angioplasty, cardiac catheterization, status post LAD stenting with bare metal stent, colonoscopy, EGD with biopsy, EGD with endoscopic ultrasound, ICD placement, nasal polypectomy, lumbar hemilaminectomy, repair of nasal septum. MEDICATIONS: The patient is on Tylenol 500 mg p.o. q. 6 hours p.r.n., albuterol 2 puffs inhalation q.i.d. p.r.n., alfuzosin 10 mg p.o. daily, atorvastatin 80 mg p.o. at bedtime, coenzyme Q10 100 mg p.o. a.m., losartan 100 mg p.o. daily, metoprolol succinate 100 mg p.o. p.m., Nitrostat 0.4 mg sublingual p.r.n., omeprazole 20 mg p.o. b.i.d., Zofran 4 mg p.o. q. 8 hours p.r.n., Metamucil 1 packet p.o. daily, spironolactone 25 mg p.o. a.m., tizanidine 2 mg p.o. t.i.d. p.r.n., warfarin 5-7.5 mg as directed. FAMILY HISTORY: Significant for father has allergies and cancer. SOCIAL HISTORY: . Quit smoking in 2012, smoked 1 pack a day for 40 years. No alcohol use. No drug use. REVIEW OF SYSTEMS: As per HPI. Rest of the review of systems is negative. Admission Exam Per Admitting Provider GENERAL: The patient is of moderate build, not in acute distress. VITAL SIGNS: Temperature 37.3, pulse 91, respiratory rate 13, blood pressure 171/108, oxygen 96% on room air. HEENT: Pupils equal, round and reactive to light. Oral mucosa dry. NECK: No JVD, no neck masses. CARDIOVASCULAR: S1 and S2 heard, regular rate and rhythm. No murmur, no gallop. RESPIRATORY SYSTEM: Normal AP diameter. No accessory muscle use. No wheezing, no crackles. ABDOMEN: Soft, bowel sounds present, nontender, no distention. CENTRAL NERVOUS SYSTEM: Alert and oriented. Speech is clear. No facial droop. Obeys simple commands. Moves extremities. EXTREMITIES: No edema, no erythema. Principal Diagnosis Acute viral illness, known COVID-19 coronavirus infection Acute kidney injury Ventricular tachycardia/ICD firing Hyperkalemia/hypernatremia Type II NSTEMI Discharge Exam GENERAL: Alert and oriented x3. NAD, on room air HEENT: No pallor, no icterus. Pupils equal, round and reactive to light. Oral mucosa moist. NECK: No JVD, no neck masses. HEART: S1 and S2 heard. Regular rate and rhythm. No murmur, no gallop. RESPIRATORY SYSTEM: Normal AP diameter. No accessory muscle use. No wheezing, no crackles. ABDOMEN: Soft, bowel sounds present, nontender, no distention. CENTRAL NERVOUS SYSTEM: No facial droop. Speech is clear. Obeys simple commands. Moves extremities. EXTREMITIES: No edema, no erythema seen. Discharge Data Allergies Allergy/AdvReac Type Severity Reaction Status Date / Time Penicillins Allergy Mild RASH Verified 06/24/22 01:43 Consultations 06/24/22 02:05 ED Decision to Admit Stat 06/24/22 08:00 Consult Cardiology Routine 06/26/22 07:55 Consult Behavioral Health Liaison Routine Hospital Course (1) Viral illness: (2) Ventricular tachycardia: (3) MARYBEL (acute kidney injury): Plan 66-year-old man with PMH of HLD, prediabetes, PVD, Rodriguez's esophagus, diverticulosis, GERD, generalized osteoarthritis, psoriasis, tobacco abuse, CAD status post PCI x 4 to LAD and chronic total occlusion of the right coronary artery with bedp-me-esuqx collaterals, status post stenting of the iliac bifurcation right common iliac, ischemic cardiomyopathy, EF of 25%, status post ICD placement, apical mural thrombosis on chronic Coumadin therapy presented to the ED 06/24 with ICD firing multiple times at home. Patient was also having complaints of nausea and vomiting for few days prior to arrival and has not been able to take his medications due to that. 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 Patient reports ongoing cough for the last 3 weeks AGRICULTURE TECHNICIAN with yellowish phlegm Admitting BUN and creatinine elevated, 52 and 1.72 respectively. Admitting CXR with no acute process. Nausea/vomiting likely secondary to viral illness. Improved, pt w/ improved appetite and strength back to normal MARYBEL resolved. Continue with doxycycline 2/ for possible bronchitis. 4 more days on DC. Admitting sputum and blood cultures. NG so far. Pt to f/u w/ pcp in a week time. History of leukocytosis: Chronic, procalcitonin negative at presentation. Hypernatremia/hyperkalemia: Likely secondary to dehydration at presentation, resolved. Ventricular tachycardia/ICD firing: Likely secondary to electrolyte abnormalities secondary to nausea and vomiting secondary to viral illness. Also likely precipitated by inability to take his home medication. Cardiology on board, appreciate recommendation (metoprolol dose optimized as mentioned in instruction section, ICD interrogation - pacemaker base rate increased to 50 bpm). Patient reports no further ICD firing while in the hospital. Type II NSTEMI: Troponin elevated at presentation likely secondary to acute viral illness/MARYBEL/ICD shocks, up trended, patient with no chest pain. Admitting EKG with no acute ST or T changes. Follow-up EKG with some sinus tachycardia. Echo with EF of 30 to 35%, moderately reduced LV systolic function. Continue with telemetry monitoring. No concern of ACS for now. Other chronic medical conditions: Chronic systolic congestive heart failure, euvolemic; c/w home meds. HLD, HTN: Resume home meds as able CAD status post bare-metal stent to LAD/apical mural thrombosis: Continue beta-dorita and Coumadin. GERD, PVD, prediabetes: Resume home meds as able. DVT prophylaxis: On Coumadin Full code Patient being discharged home with following instructions the point of discharge: Follow-up with your primary care physician within a week time and likely you will need labs CBC/CMP/magnesium/phosphorus. Cardiology evaluated you while you were in the hospital for your ICD firing, your metoprolol dose has been optimized and it is 25 Mg in the morning and 100 Mg in the evening. Follow-up with your cardiology as an outpatient in a month time. Follow-up with your Coumadin clinic in a week time for PT/INR. Take your medications as prescribed. Home Health Attestation I certify that this patient is under my care and that I, or a physicians programs assistant working with me, had a face to-face encounter that meets the home health [id number] encounter requirements with this patient. The encounter with the patient was in whole, or in part, for the following medical condition, which is the primary reason for home health care (list med ical condition): I certify that, based on my findings, the following services are medically necessary home health services: My clinical findings support the need for the above services because: Further, I certify that my clinical findings support that this patient is homebound (i.e. absences from home require considerable and taxing effort and are for medical reasons or [facility] services or infrequently or of short duration when for other reasons) because: Certification for Home Health Services: Based on the above findings, I certify that this patient is confined to the home and needs intermittent penitentiary care, physical therapy and/or speech the rapy or continues to need occupational therapy. The patient is under my care, and I have initiated the establishment of the plan of care. This patient will be followed by a physician who will periodically review the plan of care. Total Time Total Time Spent Total Time Spent (In Minutes): 45 Discharge Plan Discharge Items Patient Disposition: Home - Self-Care Reason For Visit: ICD FIRING Discharge Diagnosis: Acute viral illness, known COVID-19 coronavirus infection Acute kidney injury Ventricular tachycardia/ICD firing Hyperkalemia/hypernatremia Type II NSTEMI Activity: Resume your previous activity Non-emergency contact: Primary Care Provider Call non-emergency contact if: you have any medication questions, your symptoms worsen and your temperature is above 101.5 Follow-up/Referrals: Wayne Fontana, [Primary Care Provider] - (Date & Time 07/02/2022 3:00 PM Provider Denise Chowdhury PA-C Department [facility] ) Diet: Heart Healthy Diet Texture: Easy to Chew Addtl Attending Provider Instructions: Follow-up with your primary care physician within a week time and likely you will need labs CBC/CMP/magnesium/phosphorus. Cardiology evaluated you while you were in the hospital for your ICD firing, your metoprolol dose has been optimized and it is 25 Mg in the morning and 100 Mg in the evening. Follow-up with your cardiology as an outpatient in a month time. Follow-up with your Coumadin clinic in a week time for PT/INR. Take your medications as prescribed. Pending Studies at Discharge: Yes (Admitting blood culture final results) Stand-Alone Forms: My [facility] [employer], Smoking Cessation Medications and DC Order Prescriptions: New doxycycline hyclate 100 mg Capsule 100 mg PO BID 4 Days Qty: 8 0RF metoprolol succinate 25 mg Tablet Extended Release 24 Hr 25 mg PO QAM Qty: 30 0RF aspirin 81 mg Tablet,Delayed Release (Dr/Ec) 81 mg PO QAM Qty: 30 0RF Continued atorvastatin 80 mg tablet 80 mg PO HS spironolactone 25 mg tablet 25 mg PO QAM warfarin 5 mg tablet 5 - 7.5 mg PO DIRECTED Rx Instructions: as directed by anti coagulation clinic nitroglycerin [Nitrostat] 0.4 mg Tablet, Sublingual 0.4 mg Sublingual UD omeprazole 20 mg capsule,delayed release(DR/EC) 20 mg PO BID losartan 100 mg tablet 100 mg PO QAM ondansetron 4 mg tablet,disintegrating 4 mg PO Q8H PRN (Reason: nausea and vomiting) Qty: 6 0RF sildenafil [Viagra] 100 mg Tablet 100 mg PO DAILY PRN (Reason: Erectile Dysfunction) acetaminophen [Tylenol Extra Strength] 500 mg Tablet 500 mg PO Q6H PRN (Reason: Pain) albuterol sulfate 90 mcg/actuation HFA aerosol inhaler 2 inha INH QID PRN (Reason: shortness of breath or wheezing) Qty: 1 0RF Coricidin HBP Cold and Flu 2-325 mg Tablet 1 tab PO Q6H PRN (Reason: Cold Symptoms) Metamucil Packet 1 packet PO DAILY PRN (Reason: Constipation) coQ10 (ubiquinol) 100 mg Capsule 100 mg PO PM alfuzosin 10 mg tablet extended release 24 hr 10 mg PO DAILY tizanidine 2 mg capsule 2 mg PO DIRECTED metoprolol succinate [Toprol XL] 100 mg tablet extended release 24 hr 100 mg PO PM Qty: 30 0RF Discharge Orders: Discharge Order (Routine); Ordered 06/27/22 Ordered By: Donna Galdamez Admission Data Admit Date/Time: 06/24/22 03:03 Attending Provider: Donna Galdamez Admit Provider: Kane Jones Primary Care Provider: Wayne Fontana Other Providers: Kane Jones ; Kenneth Ramos ; David Goel ; Emanuel Figueroa ; Jona Jones ; Tomer Lynn ; Martinez Kessler ; Mattie Lepe ; Evelyn Hanley ; Marta Ervin ; Maxwell Luna
== END 2022-06-27 16:00 | disposition home or self-care (01) | DRG 865 ==
LOC: ED 23:45 → EDINP 06-24 03:03 → 2E 06-24 08:30

== ENCOUNTER 2023-01-09 14:44 | Inpatient (IN) ==
[2023-01-09] MEDS ORDERED: dilTIAZem HCl 5 MG/ML 5 ML VIAL IV ONE (14:50)
[2023-01-09] MEDS ORDERED: dilTIAZem HCl 5 MG/ML 5 ML VIAL IV STA (14:51)
[2023-01-09] MEDS ORDERED: SODIUM CHLORIDE 0.9% 500 ML IV STA (14:51)
[2023-01-09] MEDS ORDERED: STAT IV Infusion **Titration per Protocol STA (14:51)
--- NOTE | 2023-01-09 14:55 | Emergency Department Note ---
Impression & Plan Atrial fibrillation with rapid ventricular response, Non-ST elevation ME (NSTEMI), Hypomagnesemia ED Provider Note HISTORY OF PRESENT ILLNESS: Patient is a 67-year-old male presenting with chest pain and palpitations. Patient was watching the procedure at the [facility] when he suddenly was shocked by his defibrillator. He reports he was shocked 3 times. EMS on scene did an EKG which showed A-fib with RVR. Patient was given 324 mg of p.o. aspirin and transferred to the emergency department. On arrival, the patient denies any chest pain or shortness of breath. Reports feeling like his heart is racing. Denies any nausea or vomiting. He reports that he was previously on metoprolol and it was changed to losartan recently. Denies any other medication changes. He denies any history of pulmonary embolism. He is on aspirin and Plavix daily. ROS: as above PHYSICAL EXAM: Constitutional: Patient appears in no acute distress. HENT: Head: Normocephalic and atraumatic. Eyes: EOMI, PERRL Mouth/Throat: Mucous membranes moist. Neck: Trachea midline. Neck supple. Cardiovascular: Tachycardic with irregularly irregular rhythm. No murmurs, rubs or gallops. Intact distal pulses. Pulmonary/Chest: No respiratory distress. Breath sounds clear and equal bilaterally. No wheezes or rales. No chest wall tenderness to palpation. Abdominal: Abdomen soft, no tenderness, rebound or guarding. Musculoskeletal: No edema, tenderness or deformity noted. Skin: Warm and dry. No rash, erythema, pallor or cyanosis Psychiatric: Appropriate mood and affect for situation. Neurological: Alert and keenly responsive. CN II-XII grossly intact, moving all extremities equally and fully. MDM: - Vitals signs showed tachycardia. - History obtained via patient. Patient presents with chest pain and palpitations. [place] he [place] a [place] and suddenly was shocked by his defibrillator. He reports he received multiple shocks and EMS was called for assistance. Patient denies any current chest pain or shortness of breath. He reports that he did recently have some changes in his medication and is no lower on metoprolol. Denies any DVT or PE history. He is on aspirin Plavix daily - Chronic conditions affecting care: CAD (S/p PCI); HTN; ischemic cardiomyopathy; dysrhythmias (s/p AICD) - Differential diagnoses include, but are not limited to: Acute coronary syndrome; pulmonary embolism; dissection; tension pneumothorax; esophageal rupture; pneumonia; electrolyte abnormality - Order placed for continuous cardiac monitoring. At this time, monitor showed rate of 166 bpm with irregular rhythm, per my interpretation. - External medical records reviewed. EMS run sheet reviewed. Patient was tachy cardic in route. He was given 324 mg of p.o. aspirin. - I did review the patient's cardiology visit note from 06/27/2022. Per their documentation the patient is supposed to still be on metoprolol 25 mg morning and 100 mg at night - EKG reviewed by myself showed atrial fibrillation with rapid ventricular rate. Rate 61 bpm. QTc 477. No acute ischemic changes. - Laboratory workup interpreted by myself showed normal WBC; hypomagnesemia (Mg 1.6); slightly elevated anion gap (12) without evidence of DKA; elevated troponin (43.5); normal lipase - CXR negative for pneumonia, per my interpretation. - Defibrillator was interrogated on patient's arrival. I spoke with the [employer] patient admitting representative who reports that the patient was delivered 5 shocks by his defibrillator today. His heart rate went up as high as 250 bpm. - Patient was initially given a 20 mg bolus of Cardizem with little improvement in his heart rate. His blood pressure did slightly decrease with the Cardizem bolus. He was given 1 L normal saline with improvement in his blood pressures and he was started on a Cardizem drip. - Patient given 2 grams IV magnesium for electrolyte replacement - Discussion was had with social sciences research scientist about patient's case and need for admission - Hospitalist consulted for admission [facility]. I provided 39 minutes of critical care time to this patient's care outside of billable procedures. ASSESSMENT AND PLAN: Diagnosis: Afib with RVR; chest pain; hypomagnesemia; NSTEMI Plan: admit Past Med/Surg History Medical History (Updated 01/09/23 @ 16:42 by Elena Lees MD) Apical mural thrombus Rodriguez's esophagus CAD (coronary artery disease) "PCI x 4 to LAD, chronic total RCA occlusion" Dyslipidemia GERD (gastroesophageal reflux disease) HTN (hypertension) Ischemic cardiomyopathy Osteoarthritis Psoriasis PVD (peripheral vascular disease) "s/p stenting to iliac bifurcation into right common iliac" Surgical History AICD (automatic cardioverter/defibrillator) present History of lumbar laminectomy Family History Other Cancer Heart disease Hypertension Social History Smoking Status: Unknown if ever smoked Tobacco Type: Cigarettes Hx Alcohol Use: Yes Alcohol type: beer and wine Hx Substance Use: No Preferred Language: Lithuanian 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 Ability: Effective Orthopedic Tech Required: No Beliefs That Will Affect Care: None marital status: Current Living Situation: Spouse current occupational status: retired Feels Safe at Home: Yes Assistive Devices: None Allergies Allergies Allergy/AdvReac Type Severity Reaction Status Date / Time Penicillins Allergy Mild RASH Verified 09/11/22 07:22 Home Meds Home Medications Medication Instructions Recorded Confirmed atorvastatin 80 mg tablet 80 mg PO HS 06/10/18 09/11/22 losartan 100 mg tablet 100 mg PO QAM 06/10/18 09/11/22 nitroglycerin 0.4 mg sublingual 0.4 mg sublingual UD 06/10/18 09/11/22 tablet (Nitrostat) omeprazole 20 mg capsule,delayed 20 mg PO BID 06/10/18 09/11/22 release spironolactone 25 mg tablet 25 mg PO QAM 06/10/18 09/11/22 warfarin 5 mg tablet 5 - 7.5 mg PO DIRECTED 06/10/18 09/11/22 sildenafil 100 mg tablet (Viagra) 100 mg PO DAILY PRN Erectile 10/08/18 09/11/22 Dysfunction acetaminophen 500 mg tablet 500 mg PO Q6H PRN Pain 07/13/19 06/24/22 (Tylenol Extra Strength) chlorpheniramine-acetaminophen 2 1 tab PO Q6H PRN Cold Symptoms 08/12/21 06/24/22 mg-325 mg tablet (Coricidin HBP Cold and Flu) coQ10 (ubiquinol) 100 mg capsule 100 mg PO PM 08/12/21 09/11/22 psyllium 1 packet PO DAILY PRN Constipation 08/12/21 06/24/22 alfuzosin 10 mg tablet,extended 10 mg PO DAILY 06/24/22 09/11/22 release 24 hr tizanidine 2 mg capsule 2 mg PO DIRECTED 06/24/22 09/11/22 Previous Rx's Medication Instructions Recorded ondansetron 4 mg disintegrating 4 mg PO Q8H PRN nausea and 10/14/19 tablet vomiting #6 tabs albuterol sulfate 90 mcg/actuation 2 inha inhalation QID PRN 08/12/21 aerosol inhaler shortness of breath or wheezing #1 inh aspirin 81 mg tablet,delayed 81 mg PO QAM #30 tabs 06/27/22 release metoprolol succinate 100 mg 100 mg PO PM #30 tabs 06/27/22 tablet,extended release 24 hr (Toprol XL) metoprolol succinate 25 mg 25 mg PO QAM #30 tabs 06/27/22 tablet,extended release 24 hr Results & Data (ED) Vital Signs Vital Signs - 24 hr 01/09/23 14:51 01/09/23 15:16 01/09/23 15:24 Temperature 36.6 C Temperature Source Oral Pulse Rate 174 H 176 H Respiratory Rate 20 Blood Pressure 94/56 L Blood Pressure Mean 68 Pulse Oximetry 91 91 Oxygen Delivery Method Room Air Nasal Cannula Oxygen Flow Rate 0 Sepsis Recent Fever Within 48 Hours No Sepsis New/Unexplained Change in Mental Status N/A Sepsis Action Taken by Nursing No Action Required Oxygen Flow Rate - Titration 2 Pulse Oximetry Post Tiitration 94 01/09/23 14:56 01/09/23 15:10 01/09/23 15:31 Temperature Temperature Source Pulse Rate 136 H 165 H 121 H Respiratory Rate 19 17 17 Blood Pressure 91/55 L 91/41 L 98/56 L Blood Pressure Mean 67 57 70 Pulse Oximetry 93 95 98 Oxygen Delivery Method Nasal Cannula Nasal Cannula Nasal Cannula Oxygen Flow Rate 2 2 2 Sepsis Recent Fever Within 48 Hours Sepsis New/Unexplained Change in Mental Status Sepsis Action Taken by Nursing Oxygen Flow Rate - Titration Pulse Oximetry Post Tiitration 01/09/23 16:12 Temperature Temperature Source Pulse Rate 120 H Respiratory Rate 13 Blood Pressure 104/60 Blood Pressure Mean 74 Pulse Oximetry 97 Oxygen Delivery Method Nasal Cannula Oxygen Flow Rate 2 Sepsis Recent Fever Within 48 Hours Sepsis New/Unexplained Change in Mental Status Sepsis Action Taken by Nursing Oxygen Flow Rate - Titration Pulse Oximetry Post Tiitration Laboratory Data 01/09/23 14:55 01/09/23 14:55 Lab Results 01/09/23 01/09/23 Range/Units 14:55 14:55 WBC 9.62 (4.8-10.8) K/ul RBC 4.93 (4.70-6.10) M/uL Hgb 14.7 (14.0-18.0) g/dl Hct 42.6 (42.0-52.0) % MCV 86.4 (80.0-100.0) fL MCH 29.8 (25.0-34.0) pg MCHC 34.5 (32.0-36.0) g/dL RDW Std Deviation 46.7 H (36.4-46.3) fL RDW Coeff of Carito 14.6 H (11.5-14.5) % Plt Count 209 (130-400) K/uL MPV 10.5 (9.4-12.4) fL Immature Gran % (Auto) 0.2 % Neut % (Auto) 66.7 % Lymph % (Auto) 24.8 % Upton % (Auto) 6.4 % Eos % (Auto) 1.4 % Baso % (Auto) 0.5 % Neut # (Auto) 6.41 (1.40-6.50) K/uL Lymph # (Auto) 2.39 (1.20-3.40) K/uL Upton # (Auto) 0.62 H (0.11-0.59) K/uL Eos # (Auto) 0.13 (0.00-0.50) K/uL Baso # (Auto) 0.05 (0.00-0.20) K/uL Immature Gran # (Auto) 0.02 (0.01-0.20) K/uL Sodium 139 (136-145) mmol/L Potassium 3.8 (3.5-5.1) mmol/L Chloride 110 H (98-107) mmol/L Carbon Dioxide 17 L (21-32) mmol/L Anion Gap 12 H (3-11) BUN 20 (6-23) mg/dl Creatinine 1.14 (0.6-1.4) mg/dl Est Cr Clr Drug Dosing 63.1 ml/min Est GFR ( Amer) 75.6 ml/min Est GFR (Non-Af Amer) 65.3 ml/min BUN/Creatinine Ratio 17.5 (10-20) Glucose 158 H (70-99(Fasting)) mg/dl Calcium 9.8 (8.6-10.3) mg/dl Magnesium 1.6 L (1.7-2.4) mg/dl Total Bilirubin 0.9 (0.2-1.0) mg/dl AST 18 (13-39) U/L ALT 13 (7-52) U/L Alkaline Phosphatase 105 H (34-104) U/L Troponin I High Sens 43.5 H (0-20) pg/ml Total Protein 6.8 (6.0-8.3) gm/dl Albumin 3.9 (3.4-5.0) gm/dl Globulin 2.9 (2.5-4.0) gm/dl Albumin/Globulin Ratio 1.3 (0.9-2) Lipase 43 (11-82) U/L Administered Medications Diltiazem HCl 125 mg/ Dextrose 125 mls @ 5 mls/hr IV .Q24H [facility]; Protocol Stop: 02/08/23 14:59 Last Titration: 01/09/23 16:14 Dose: 10 mg/hr, 10 mls/hr Documented By: VINCE Co-signed By: JOSE R Admin: 01/09/23 15:57 Dose: 7.5 mg/hr, 7.5 mls/hr Documented By: JOSE R Co-signed By: ARMAND Titration: 01/09/23 15:57 Dose: 5 mg/hr, 5 mls/hr Documented By: JOSE R Co-signed By: ARMAND Admin: 01/09/23 15:13 Dose: 5 mg/hr, 5 mls/hr Documented By: VINCE Co-signed By: JOSE R Discontinued Medications Diltiazem HCl (Diltiazem Hcl 5 Mg/Ml 5 Ml Vial) Confirm Administered Dose 25 mg IV .STK-MED ONE Stop: 01/09/23 14:51 Last Admin: 01/09/23 14:52 Dose: 25 mg Documented By: VINCE Co-signed By: JOSE R Diltiazem HCl (Diltiazem Hcl 5 Mg/Ml 5 Ml Vial) 20 mg IV NOW STA Stop: 01/09/23 14:52 Last Admin: 01/09/23 15:00 Dose: Not Given Documented By: VINCE Sodium Chloride (Nss) 500 mls @ 999 mls/hr IV .Q31M STA Stop: 01/09/23 15:21 Last Infusion: 01/09/23 15:48 Dose: 0 mls/hr Documented By: Admin: 01/09/23 15:01 Dose: 999 mls/hr Documented By: VINCE Sodium Chloride (Nss 1000ml) 1,000 mls @ 999 mls/hr IV .Q1H1M ONE Stop: 01/09/23 16:23 Last Infusion: 01/09/23 16:41 Dose: 0 mls/hr Documented By: Admin: 01/09/23 15:27 Dose: 999 mls/hr Documented By: VINCE Imaging Data Radiologist's Impression: Chest X-Ray 01/09/23 14:51 XR chest 1V portable HISTORY: 67 years-old Male Chest pain, nonspecific acute chest pain COMPARISON: 06/23/2022 TECHNIQUE: AP view the chest FINDINGS: Cardiac silhouette is enlarged. Single-lead left subclavian pacer/AICD. Coronary arterial stents. No pneumothorax or large pleural effusion. Unchanged blunting of the cauda equina angles. Mild chronic interstitial coarsening. Degenerative changes of the shoulders and spine. IMPRESSION: Cardiomegaly without acute process. ACT 112: Negative or not required by law. The above report was generated using voice recognition software. It may contain grammatical, syntax or spelling errors. Electronically signed by: Akash Vela M.D. 01/09/2023 3:38 PM Discharge Plan Visit Data Chief Complaint: Cardiac Assessment Stated Complaint: CARDIAC ASSESSMENT ED Provider: Elena Lees Discharge Problem: Atrial fibrillation with rapid ventricular response, Non-ST elevation ME (NSTEMI), Hypomagnesemia Forms Stand Alone Forms: My [facility] [place] Z2 Prescriptions Prescriptions: No Action atorvastatin 80 mg tablet 80 mg PO HS spironolactone 25 mg tablet 25 mg PO QAM warfarin 5 mg tablet 5 - 7.5 mg PO DIRECTED Rx Instructions: as directed by anti coagulation clinic nitroglycerin [Nitrostat] 0.4 mg Tablet, Sublingual 0.4 mg Sublingual UD omeprazole 20 mg capsule,delayed release(DR/EC) 20 mg PO BID losartan 100 mg tablet 100 mg PO QAM ondansetron 4 mg tablet,disintegrating 4 mg PO Q8H PRN (Reason: nausea and vomiting) Qty: 6 0RF sildenafil [Viagra] 100 mg Tablet 100 mg PO DAILY PRN (Reason: Erectile Dysfunction) acetaminophen [Tylenol Extra Strength] 500 mg Tablet 500 mg PO Q6H PRN (Reason: Pain) albuterol sulfate 90 mcg/actuation HFA aerosol inhaler 2 inha INH QID PRN (Reason: shortness of breath or wheezing) Qty: 1 0RF Coricidin HBP Cold and Flu 2-325 mg Tablet 1 tab PO Q6H PRN (Reason: Cold Symptoms) psyllium Packet 1 packet PO DAILY PRN (Reason: Constipation) coQ10 (ubiquinol) 100 mg Capsule 100 mg PO PM alfuzosin 10 mg tablet extended release 24 hr 10 mg PO DAILY tizanidine 2 mg capsule 2 mg PO DIRECTED metoprolol succinate 25 mg Tablet Extended Release 24 Hr 25 mg PO QAM Qty: 30 0RF aspirin 81 mg Tablet,Delayed Release (Dr/Ec) 81 mg PO QAM Qty: 30 0RF metoprolol succinate [Toprol XL] 100 mg tablet extended release 24 hr 100 mg PO PM Qty: 30 0RF Referrals Referrals: Wayne Fontana, [Primary Care Provider] -
[2023-01-09] MEDS: dilTIAZem HCL 125 MG in DEXTROSE 5% 100 ML IV SCH ×2 (15:13→15:57)
[2023-01-09] MEDS ORDERED: SODIUM CHLORIDE 0.9% 1000ML 1,000 ML IV ONE (15:23)
[2023-01-09 15:31] LABS: Basophils # (auto) 0.05 K/uL (0.00-0.20); Basophils % (auto) 0.5 %; Eosinophils # (auto) 0.13 K/uL (0.00-0.50); Eosinophils % (auto) 1.4 %; Hematocrit (blood only) 42.6 % (42.0-52.0); Hemoglobin 14.7 g/dl (14.0-18.0); Immature Granulocytes # (auto) 0.02 K/uL (0.01-0.20); Immature Granulocytes % (auto) 0.2 %; Lymphocytes # (auto) 2.39 K/uL (1.20-3.40); Lymphocytes % (auto) 24.8 %; Mean Corpuscular Hemoglobin 29.8 pg (25.0-34.0); Mean Corpuscular Hgb Conc 34.5 g/dL (32.0-36.0); Mean Corpuscular Volume 86.4 fL (80.0-100.0); Mean Platelet Volume 10.5 fL (9.4-12.4); Monocytes # (auto) 0.62 K/uL (0.11-0.59); Monocytes % (auto) 6.4 %; Neutrophils # (auto) 6.41 K/uL (1.40-6.50); Neutrophils % (auto) 66.7 %; Platelet Count 209 K/uL (130-400); RDW Coefficient of Variation 14.6 % (11.5-14.5); RDW Standard Deviation 46.7 fL (36.4-46.3); Red Blood Count 4.93 M/uL (4.70-6.10); White Blood Count 9.62 K/ul (4.8-10.8)
--- NOTE | 2023-01-09 15:39 | XRay Report ---
XR chest 1V portable HISTORY: 67 years-old Male Chest pain, nonspecific acute chest pain COMPARISON: 06/23/2022 TECHNIQUE: AP view the chest FINDINGS: Cardiac silhouette is enlarged. Single-lead left subclavian pacer/AICD. Coronary arterial stents. No pneumothorax or large pleural effusion. Unchanged blunting of the cauda equina angles. Mild chronic i nterstitial coarsening. Degenerative changes of the shoulders and spine. IMPRESSION: Cardiomegaly without acute process. ACT 112: Negative or not required by law. The above report was generated using voice recognition software. It may contain grammatical, syntax o r spelling errors. Electronically signed by: Akash Vela M.D. 01/09/2023 3:38 PM
[2023-01-09 16:34] LABS: Est GFR (African American) 75.6 ml/min; Potassium 3.8 mmol/L (3.5-5.1)
[2023-01-09 16:35] LABS: Albumin Globulin Ratio 1.3 (0.9-2); Albumin Level 3.9 gm/dl (3.4-5.0); BUN Creatinine Ratio 17.5 (10-20); Bilirubin,Total 0.9 mg/dl (0.2-1.0); Calcium 9.8 mg/dl (8.6-10.3); Creatinine Clr Calc Pharmacy 63.1 ml/min; Est GFR (Non-African American) 65.3 ml/min; Globulin 2.9 gm/dl (2.5-4.0); Magnesium 1.6 mg/dl (1.7-2.4); Total Protein 6.8 gm/dl (6.0-8.3)
[2023-01-09 16:52] LABS: Troponin I High Sensitivity 44.6 pg/ml (0-20)
--- NOTE | 2023-01-09 16:59 | History & Physical Report ---
Date of Service January 09, 2023 Assessment & Plan (1) Atrial fibrillation with rapid ventricular response: (2) Cardiac dysrhythmia: (3) HTN (hypertension): (4) Dyslipidemia: (5) CAD (coronary artery disease): (6) Apical mural thrombus: (7) AICD (automatic cardioverter/defibrillator) present: (8) Ischemic cardiomyopathy: (9) Rodriguez's esophagus: (10) GERD (gastroesophageal reflux disease): (11) Emphysema/COPD: (12) Psoriasis: Plan: Ventricular dysrhythmia A-fib with RVR -Admit to PCU -Cardiology consulted -[facility] contacted by the ER showing that defibrillator shocked the patient 5 times with a heart rate up into the 250 range. Upon presentation to the ER patient was in A-fib with RVR with heart rate in the 170s and he was started with a Cardizem bolus and drip. Currently HR fluctuating between 110- 130 at bedside. -Check echocardiogram today, most recent was done on 10/19/2021 which showed LVEF of 30 to 34% on my personal review in [facility] -Home medications include metoprolol succinate 100 mg in the morning, and was started on Entresto 24-26 mg bid on 01/03 after being seen by heart failure clinic by referral from [facility] Kessler. At that time losartan was stopped. He was to continue on spironolactone 25 daily, atorvastatin 80 mg daily, baby aspirin, coenzymeQ 100 QAM, Nitrostat if needed and warfarin per anticoagulation clinic. -Will hold spironolactone tonight while resuming metoprolol tartrate 100 mg this evening, then metoprolol succinate 100 QAM starting tomorrow -Daily weights, strict I/Os -Appears to be miscommunication with medication instructions as the patient was not taking metoprolol. Will need clear directions with medications provided at discharge and encourage spouse to participate with pt's med rec. -Check A1c and lipid panel -Cardiology consult -Troponin is noted to be elevated at 43.5, will trend Q6H CAD -Had STEMI in September 2006, 4 BMS -Medications as above -Chronic, stable History of apical thrombus -Anticoagulated on warfarin, chronic, stable - alternates between 5 mg MWF and 7.5 mg all other days. Will order 5 mg daily, adjust as needed pending INR -Check INR now Hypertension - Chronic, stable, medications as above Hyperlipidemia - Continue atorvastatin 80 mg - Chronic, stable Prediabetes -A1c as above, per cardiology note they are planning on starting an SGLT2 at future visit pending A1c levels Barrots Esophagus GERD - Omeprazole - Chronic, stable Psoriasis - cont skyrizi inj. Previously was on humira about 5 months ago. Stopped due to lapse in insurance. - Chronic, stable Hypomagnesemia - Acute, Replace mag IV, was 1.6 on admission DVT PPx: teds, scds, coumadin FEN/GI: HH diet IV: 2 peripheral IVs CODE: Full code - discussed with pt at bedside Dispo: From home, likely to remain in the hospital x 1-2 days (13) PVD (peripheral vascular disease): History of Present Illness Chief Complaint: Shocked by defibrillator Primary Care Provider: Wayne Fontana DO This is a 67-year-old male with PMHx of A-fib with RVR, CAD, HTN, HLD, automatic implantable cardioverter/defibrillator, history of paroxysmal V. tach, apical thrombus anticoagulated on Coumadin, ischemic cardiomyopathy, emphysema, history of tobacco use, PVD, prediabetes, psoriasis, Rodriguez's esophagus, GERD, psoriasis, osteoarthritis who presents to the hospital after being shocked by his defibrillator 5 times while he was at [facility]. Patient was recently seen by cardiology and followed up at the heart failure clinic. He was being transitioned off of losartan 100 mg and onto Entresto as of 01/03. Patient reports that he stopped taking metoprolol 100 mg on 01/07 because he thought that this was the medication he was supposed to stop. Patie nt becomes tearful when being informed that losartan was actually supposed to be stopped, not metoprolol. He is frustrated with himself, and feels that he has so many things he is trying to manage at home he got confused. Patient states that his has been things to worry about herself that he does not want to burden her with his medication reconciliation. He reports that he occasionally smokes a cigarette here and there but has been trying to quit. He denies any alcohol use. At this time patient just feels tired and worn out. Allergies Allergy/AdvReac Type Severity Reaction Status Date / Time Penicillins Allergy Mild RASH Verified 01/09/23 17:51 Home Medications Medication Instructions Recorded Confirmed Type atorvastatin 80 mg tablet 80 mg PO HS 06/10/18 01/09/23 History nitroglycerin 0.4 mg sublingual 0.4 mg sublingual UD 06/10/18 01/09/23 History tablet (Nitrostat) omeprazole 20 mg capsule,delayed 20 mg PO BID 06/10/18 01/09/23 History release spironolactone 25 mg tablet 25 mg PO QAM 06/10/18 01/09/23 History warfarin 5 mg tablet 7.5 mg PO 3XWK 06/10/18 01/09/23 History sildenafil 100 mg tablet (Viagra) 100 mg PO DAILY PRN Erectile 10/08/18 01/09/23 History Dysfunction acetaminophen 500 mg tablet 500 mg PO Q6H PRN Pain 07/13/19 01/09/23 History (Tylenol Extra Strength) ondansetron 4 mg disintegrating 4 mg PO Q8H PRN nausea and 10/14/19 01/09/23 Rx tablet vomiting #6 tabs albuterol sulfate 90 mcg/actuation 2 inha inhalation QID PRN 08/12/21 01/09/23 Rx aerosol inhaler shortness of breath or wheezing #1 inh coQ10 (ubiquinol) 100 mg capsule 100 mg PO PM 08/12/21 01/09/23 History alfuzosin 10 mg tablet,extended 10 mg PO DAILY 06/24/22 01/09/23 History release 24 hr tizanidine 2 mg capsule 2 mg PO DIRECTED 06/24/22 01/09/23 History aspirin 81 mg tablet,delayed 81 mg PO QAM #30 tabs 06/27/22 01/09/23 Rx release metoprolol succinate 100 mg 100 mg PO PM #30 tabs 06/27/22 01/09/23 Rx tablet,extended release 24 hr (Toprol XL) clobetasol 0.05 % topical ointment 1 applic topical BID PRN Skin 01/09/23 01/09/23 History (Temovate) Irritation cyanocobalamin (vitamin B-12) 500 500 mcg PO DAILY 01/09/23 01/09/23 History mcg tablet diclofenac sodium 1 % topical gel 4 g topical TID PRN Pain 01/09/23 01/09/23 History psyllium husk 0.52 gram capsule 0.52 g PO QAM 01/09/23 01/09/23 History warfarin 5 mg tablet 5 mg PO 4XWK 01/09/23 01/09/23 History Past Med/Surg History Medical History (Updated 01/09/23 @ 16:53 by Gabby Watts PA-C) Apical mural thrombus Rodriguez's esophagus CAD (coronary artery disease) "PCI x 4 to LAD, chronic total RCA occlusion" Dyslipidemia GERD (gastroesophageal reflux disease) HTN (hypertension) Ischemic cardiomyopathy Osteoarthritis Psoriasis PVD (peripheral vascular disease) "s/p stenting to iliac bifurcation into right common iliac" Surgical History AICD (automatic cardioverter/defibrillator) present History of lumbar laminectomy Family History Other Cancer Heart disease Hypertension Social History Smoking Status: Former smoker Tobacco Type: Cigarettes Cigarettes Per Day: 20; Hx Alcohol Use: Yes Alcohol type: beer Hx Substance Use: No Preferred Language: Croatian 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 Ability: Effective 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 Beliefs That Will Affect Care: None marital status: Current Living Situation: Spouse and Family current occupational status: retired Other Information That Helps Us Care for You: No Feels Safe at Home: Yes Safety Concerns: Feels Safe At This Time Assistive Devices: None Review of Systems Review of Systems: Constitutional: No fever, sweats or chills Eyes: No diplopia, no worsening or blurred vision ENT: normal hearing, no trouble swallowing Respiratory: No cough, sputum, dyspnea at rest or on exertion Cardiovascular: No chest pain, tightness or palpitations Abdomen: No pain, nausea, vomiting, diarrhea or constipation Musculoskeletal: No joint pain, calf pain, swelling Neurologic: No weakness, numbness/tingling, or balance problems Psychiatric: No anxiety or depression Skin: No rash or itch Physical Exam Physical Exam: General: awake, alert, no apparent distress, tearful at times Head: Normocephalic, atraumatic ENT: PERRL, EOMI, no pharyngeal exudate, mucous membranes dry Chest: Clear to auscultation, on room air, no adventitious breath sounds Cardiac: Irregularly irregular with heart rate in the 100s to 130s while at bedside, no murmur, no JVD, normal peripheral pulses, good capillary refill Abdominal: NABS x 4 quadrants, soft, nondistended, nontender to palpation, no rebound or guarding Extremities: Extensor surfaces with psoriasis plaques right elbow, right knuckles, left elbow, right knee. Otherwise normal inspection, no peripheral edema or erythema, calfs nontender to palpation Psych: Normal mood and affect Neuro: AAO x 3, strength intact bilaterally and rated 5/5, no motor deficits, speech is clear, no peripheral sensory deficits Results & Data Results & Data Vital Signs (Past 12 Hours) Vital Signs Temp Pulse Resp BP Pulse Ox O2 Del Method O2 Flow Rate 01/09/23 16:12 120 H 13 104/60 97 Nasal Cannula 2 01/09/23 15:31 121 H 17 98/56 L 98 Nasal Cannula 2 01/09/23 15:10 165 H 17 91/41 L 95 Nasal Cannula 2 01/09/23 14:56 136 H 19 91/55 L 93 Nasal Cannula 2 01/09/23 15:24 91 Nasal Cannula 0 01/09/23 15:16 36.6 C 176 H 20 94/56 L 91 Room Air 01/09/23 14:51 174 H Laboratory Results 01/09/23 01/09/23 14:55 14:55 WBC 9.62 RBC 4.93 Hgb 14.7 Hct 42.6 MCV 86.4 MCH 29.8 MCHC 34.5 RDW Std Deviation 46.7 H RDW Coeff of Carito 14.6 H Plt Count 209 MPV 10.5 Immature Gran % (Auto) 0.2 Neut % (Auto) 66.7 Lymph % (Auto) 24.8 Gonzales % (Auto) 6.4 Eos % (Auto) 1.4 Baso % (Auto) 0.5 Neut # (Auto) 6.41 Lymph # (Auto) 2.39 Gonzales # (Auto) 0.62 H Eos # (Auto) 0.13 Baso # (Auto) 0.05 Immature Gran # (Auto) 0.02 Sodium 139 Potassium 3.8 Chloride 110 H Carbon Dioxide 17 L Anion Gap 12 H BUN 20 Creatinine 1.14 Est Cr Clr Drug Dosing 63.1 Est GFR ( Amer) 75.6 Est GFR (Non-Af Amer) 65.3 BUN/Creatinine Ratio 17.5 Glucose 158 H Calcium 9.8 Magnesium 1.6 L Total Bilirubin 0.9 AST 18 ALT 13 Alkaline Phosphatase 105 H Troponin I High Sens 44.6 H Total Protein 6.8 Albumin 3.9 Globulin 2.9 Albumin/Globulin Ratio 1.3 Lipase 43 Diagnostic Findings Chest X-Ray 01/09/23 14:51 XR chest 1V portable HISTORY: 67 years-old Male Chest pain, nonspecific acute chest pain COMPARISON: 06/23/2022 TECHNIQUE: AP view the chest FINDINGS: Cardiac silhouette is enlarged. Single-lead left subclavian pacer/AICD. Coronary arterial stents. No pneumothorax or large pleural effusion. Unchanged blunting of the cauda equina angles. Mild chronic interstitial coarsening. Degenerative changes of the shoulders and spine. IMPRESSION: Cardiomegaly without acute process. ACT 112: Negative or not required by law. The above report was generated using voice recognition software. It may contain grammatical, syntax or spelling errors. Electronically signed by: Akash Vela M.D. 01/09/2023 3:38 PM ECG Additional Comments: Reviewed personally, irregularly irregular with heart rates in the 160s. Code Status & VTE Plan Code Status Full code-discussed with the patient at bedside Supervising Physician Co-Signing Physician Notes Pt seen and examined by myself, Jordana Allen MD on the day of service. Care was coordinated with Gabby Watts PA-C. Please refer to her note for additional information. In short, 67yoM with AICD in place presenting in a fib with rvr after multiple shocks while at the [facility]. States he was asymptomatic except for the shocks. Appears to have discontinued his home metoprolol. On exam, resting comfortably, irregular rhythm. On Cardizem drip, given one dose of metoprolol tartrate 100mg. Cardiology consult- appreciate recs. Otherwise as above.
--- NOTE | 2023-01-09 17:07 | Electrocardiogram Report ---
Test Reason : Blood Pressure : / mmHG Vent. 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 rate has increased BY 105 BPM Confirmed by Isaac Huerta ([id number]) on 01/09/2023 5:07:23 PM Referred By: Confirmed By:Isaac Huerta
[2023-01-09] MEDS: MAGNESIUM SULFATE / D5W 1 GM/100 ML BAG IV SCH ×2 (17:21→18:38)
[2023-01-09] MEDS ORDERED: METOPROLOL TARTRATE 100 MG TAB PO STA (17:59)
[2023-01-09 18:17] LABS: INR 2.5 (0.9-1.1); Prothrombin Time 25.6 Seconds (9.0-12.0)
[2023-01-09] MEDS ORDERED: ONDANSETRON INJ 2 MG/ML 2 ML VIAL IV PRN (18:37)
[2023-01-09] MEDS ORDERED: ACETAMINOPHEN 325 MG TAB PO PRN (18:37)
[2023-01-09] MEDS: METOPROLOL SUCC 50MG EXT REL TAB PO SCH (19:47)
[2023-01-09] MEDS: PANTOprazole 40 MG TAB PO SCH (20:02)
[2023-01-09] MEDS: ATORVASTATIN 40 MG TAB PO SCH (20:02)
[2023-01-09] MEDS ORDERED: LACTATED RINGER'S 1,000 ML IV ONE (21:30)
[2023-01-10] MEDS ORDERED: DICLOFENAC SOD 1% GEL 100 GM TUBE EXT PRN (06:07)
[2023-01-10 06:22] LABS: Hematocrit (blood only) 39.3 % (42.0-52.0); Hemoglobin 13.2 g/dl (14.0-18.0); Mean Corpuscular Hemoglobin 29.7 pg (25.0-34.0); Mean Corpuscular Hgb Conc 33.6 g/dL (32.0-36.0); Mean Corpuscular Volume 88.5 fL (80.0-100.0); Mean Platelet Volume 10.2 fL (9.4-12.4); Platelet Count 197 K/uL (130-400); RDW Coefficient of Variation 14.8 % (11.5-14.5); RDW Standard Deviation 48.1 fL (36.4-46.3); Red Blood Count 4.44 M/uL (4.70-6.10); White Blood Count 8.46 K/ul (4.8-10.8)
[2023-01-10 06:28] LABS: INR 2.5 (0.9-1.1); Prothrombin Time 25.8 Seconds (9.0-12.0)
[2023-01-10 06:38] LABS: BUN Creatinine Ratio 18.4 (10-20); Calcium 8.9 mg/dl (8.6-10.3); Chol HDL Ratio 3.4 (0-5); Creatinine Clr Calc Pharmacy 69.9 ml/min; Est GFR (African American) 85.5 ml/min; Est GFR (Non-African American) 73.8 ml/min; Potassium 4.4 mmol/L (3.5-5.1)
[2023-01-10 06:48] LABS: Troponin I High Sensitivity 162.6 pg/ml (0-20)
[2023-01-10 07:29] LABS: Estimated Average Glucose 140 mg/dl; Hemoglobin A1C 6.5 % (4.5-5.6)
[2023-01-10] MEDS ORDERED: DEXTROSE 50% 50 ML SYRINGE IV PRN (08:17)
[2023-01-10] MEDS ORDERED: GLUCOSE 40% GEL 15 GM TUBE PO PRN (08:17)
[2023-01-10] MEDS ORDERED: GLUCAGON FOR INJ 1 MG VIAL SQ PRN (08:17)
[2023-01-10] MEDS ORDERED: GLUCOSE 10 TAB/TUBE PO PRN (08:17)
[2023-01-10] MEDS ORDERED: CARBOHYDRATES FOR HYPOGLYCEMIA PO PRN (08:17)
[2023-01-10] MEDS: PANTOprazole 40 MG TAB PO SCH ×2 (09:00→20:06)
[2023-01-10] MEDS: METOPROLOL SUCC 50MG EXT REL TAB PO SCH (09:00)
[2023-01-10] MEDS: ASPIRIN 81 MG ECTAB PO SCH (09:00)
--- NOTE | 2023-01-10 10:41 | Cardiology Consultation ---
Date of Consultation January 10, 2023 Assessment & Plan (1) Atrial fibrillation with rapid ventricular response: (2) ICD (implantable cardioverter-defibrillator) discharge: (3) Dehydration: (4) Ischemic cardiomyopathy: Plan 67-year-old male admitted following multiple defibrillator discharges secondary to atrial fibrillation with a very rapid ventricular response following inadvertent withdrawal of chronic high-dose beta-dorita therapy (metoprolol succinate 100 mg/day). Patient chronically anticoagulated with Coumadin, with therapeutic INR is noted over the last few months, spontaneously converting back to sinus rhythm/sinus bradycardia on January 09, 2023 at 20:11 without clinical sequela. Resting echocardiography this admission revealed reduction in systolic function compared to prior, EF of 20 to 25%, perhaps due to the above events. Recommend continuing medications as prescribed, with the importance of not missing metoprolol reiterated. If/when patient were to have further events without inciting cause would initiate amiodarone therapy as discussed. It sh ould be noted that the patient was approved for a [employer] dori to help cover the cost of Entresto and the future addition of Jardiance. Outpatient cardiology follow-up. Supervising Physician Co-Signing Physician Notes 67-year-old male admitted due to multiple defibrillator shocks. Interrogation revealing paroxysmal atrial fibrillation with rapid ventricular response. Recurrent atrial fibrillation precipitated by inadvertent beta-dorita noncompliance. Patient has returned to sinus rhythm after receiving 2 doses of metoprolol. Feeling much better this morning. Denies any palpitations during periods of rapid A-fib. No recent chest discomfort or unusual shortness of breath. Denies orthopnea, PND, or lower extremity edema. Function capacity stable. Compliant with other medications as noted above. PE: VSS. Gen: NAD, AAO x3. Heart: Regular rhythm. Normal S1-S2. No murmur. Lungs: Clear bilateral, no rales, rhonchi, wheeze. Extremities: No edema. Neuro: No focal deficit. A/P: Agree with above PA-C history, physical exam, assessment and plan. Continue metoprolol succinate 100 mg daily. If patient were to experience recurrent atrial fibrillation despite compliance with beta-dorita therapy I would recommend addition of amiodarone for rhythm control strategy. Continue oral anticoagulation with warfarin. Mild decline in LV systolic function from baseline due to beta-dorita noncompliance and multiple ICD shocks. Recommend repeat imaging in 4 to 6 weeks. Continue evidence-based heart failure therapy and close outpatient follow-up in 1 to 2 weeks. Consider addition of Jardiance during follow-up appointment. History of Present Illness Reason for Consultation: Afib RVR, arrhythmia, defibrillator shock Requesting Physician: Gabby Watts Attending Physician: Zia Olea MD History of Present Illness Mr. Selwyn Hope is a very pleasant 67-year-old male who was last seen in the cardiology clinic on December 27, 2022. At that time, patient was referred to the [facility] for assistance in transitioning losartan to Entresto. Unfortunately, the patient was confused regarding his medications and stopped taking metoprolol succinate 100 mg/day, taking both losartan 100 mg/day as well as Entresto 49-50 mg twice per day. This change occurred on Friday, January 07, 2023. On , January 09, 2023 the patient was sitting in the grand stand at the [employer] watching the parade. He notes that he had been sitting in the sun for approximately an hour and was hot and sweaty, probably a little dehydrated. All of a sudden he received a shock from his defibrillator. Patient notes making his way out of the grandstand with his and summoning help. He was transported to the [facility] ER Device interrogation revealed 5 shocks for what appears to be atrial fibrillation with a very rapid ventricular response. In the ER the patient received Cardizem bolus and drip. On admission he received a single dose of metoprolol tartrate 100 mg and metoprolol succinate 100 mg/day was resumed starting this morning. Review of continuous telemetry monitoring reveals spontaneous conversion from atrial fibrillation to sinus bradycardia on January 09, 2023 at 20:11. EKG this (January 10, 2023) morning revealed sinus bradycardia 55 bpm with occasional premature ventricular complexes, possible old inferior infarct, old anterior infarct, QTc 420 ms. January 10, 2023 resting echocardiography revealed a decline in LV systolic function compared to the prior study of June 24, 2022. LV severely dilated. EF 20 to 25%. Large sized apical, septal, anteroseptal, anterior, inferior, posterior, lateral wall motion abnormality with hypokinesis to akinesis of the segments. Mild aortic valve sclerosis without significant stenosis. Moderate mitral regurgitation. Prior to medication changes made on Saturday, January 07, 2023, the patient has been feeling okay, without chest pain, palpitations, or recent device discharges. Patient notes being able to mow his 60 x 174 yard with a self- propelled mower, typically mowing for 30 to 45 minutes prior to needing to take a rest, to cool down, and to rehydrate. No cough, orthopnea, PND, or lower extremity peripheral edema, chronically sleeping with the head of the bed elevated due to a hiatal hernia. Laboratory with this admission notable for HG A1c of 6.5%. Problem List: ASCVD Anterior wall STEMI, September 2006. Angiography at that time revealed a 90% LAD lesion status post PCI with four (4) bare metal stents, 80% proximal first obtuse marginal stenosis, and a chronic RCA occlusion with [id number] collaterals. Ischemic cardiomyopathy, LVEF 25%, akinetic anteroapical and posterior wall. Status post July 05, 2013 Medtronic ICD implantation Status post September 11, 2022 generator exchange Explanted generator: Medtronic [id number], serial number [id number] New pulse generator: Medtronic Visia AF MRI VR SureScan [id number], serial number [id number]. TYRX pouch, reference [id number], lot number [id number]. Right ventricular lead 6935, serial number [id number], implanted 07/05/2013. Presentation in June 2022 after multiple ICD shocks, in the setting of a severe viral illness with poor PO intake and missed medications x 3 days, SVT versus VT History of apical thrombus, coumadin anticoagulation Peripheral vascular disease status post angioplasty and stenting of a 100% occlusion in the right iliac artery then angioplasty and stenting of both the right and left iliac arteries on 01/14/07 Hypertension Dyslipidemia Prediabetes Cerebral aneurysm History of tobacco use. Emphysema GERD Rodriguez's esophagus Psoriasis Osteoarthritis Diverticulosis Allergies Allergy/AdvReac Type Severity Reaction Status Date / Time Penicillins Allergy Mild RASH Verified 01/09/23 17:51 Home Medications Medication Instructions Recorded Confirmed Type atorvastatin 80 mg tablet 80 mg PO HS 06/10/18 01/09/23 History nitroglycerin 0.4 mg sublingual 0.4 mg sublingual UD 06/10/18 01/09/23 History tablet (Nitrostat) omeprazole 20 mg capsule,delayed 20 mg PO BID 06/10/18 01/09/23 History release spironolactone 25 mg tablet 25 mg PO QAM 06/10/18 01/09/23 History warfarin 5 mg tablet 7.5 mg PO 3XWK 06/10/18 01/09/23 History sildenafil 100 mg tablet (Viagra) 100 mg PO DAILY PRN Erectile 10/08/18 01/09/23 History Dysfunction acetaminophen 500 mg tablet 500 mg PO Q6H PRN Pain 07/13/19 01/09/23 History (Tylenol Extra Strength) ondansetron 4 mg disintegrating 4 mg PO Q8H PRN nausea and 10/14/19 01/09/23 Rx tablet vomiting #6 tabs albuterol sulfate 90 mcg/actuation 2 inha inhalation QID PRN 08/12/21 01/09/23 Rx aerosol inhaler shortness of breath or wheezing #1 inh coQ10 (ubiquinol) 100 mg capsule 100 mg PO PM 08/12/21 01/09/23 History alfuzosin 10 mg tablet,extended 10 mg PO DAILY 06/24/22 01/09/23 History release 24 hr tizanidine 2 mg capsule 2 mg PO DIRECTED 06/24/22 01/09/23 History aspirin 81 mg tablet,delayed 81 mg PO QAM #30 tabs 06/27/22 01/09/23 Rx release metoprolol succinate 100 mg 100 mg PO PM #30 tabs 06/27/22 01/09/23 Rx tablet,extended release 24 hr (Toprol XL) clobetasol 0.05 % topical ointment 1 applic topical BID PRN Skin 01/09/23 01/09/23 History (Temovate) Irritation cyanocobalamin (vitamin B-12) 500 500 mcg PO DAILY 01/09/23 01/09/23 History mcg tablet diclofenac sodium 1 % topical gel 4 g topical TID PRN Pain 01/09/23 01/09/23 History psyllium husk 0.52 gram capsule 0.52 g PO QAM 01/09/23 01/09/23 History warfarin 5 mg tablet 5 mg PO 4XWK 01/09/23 01/09/23 History Patient History Medical History (Updated 01/10/23 @ 10:57 by Martinez Kessler) Apical mural thrombus Rodriguez's esophagus CAD (coronary artery disease) "PCI x 4 to LAD, chronic total RCA occlusion" Dyslipidemia GERD (gastroesophageal reflux disease) HTN (hypertension) Ischemic cardiomyopathy Osteoarthritis Psoriasis PVD (peripheral vascular disease) "s/p stenting to iliac bifurcation into right common iliac" Surgical History AICD (automatic cardioverter/defibrillator) present History of lumbar laminectomy Family History Other Cancer Heart disease Hypertension Social History Smoking Status: Former smoker Tobacco Type: Cigarettes Cigarettes Per Day: 20; Hx Alcohol Use: Yes Alcohol type: beer Hx Substance Use: No Preferred Language: Macedonian 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 Ability: Effective 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 Physical Exam Physical Exam: General: Alert, no distress, comfortable and cooperative Skin: No rash Eyes: PER. Conjunctiva pink, sclera clear. HENT: Normocephalic. Atraumatic. Neck: No carotid bruits. No JVD. No HJR. Heart: Regular at 56 bpm. Soft apical systolic murmur. Lungs: Clear to auscultation. No wheeze. Abdomen: +BS. Soft. Nontender. No masses. No organomegaly. Extremities: No clubbing, cyanosis, or edema. Pulses: radial=2/4, posterior tibial=2/4. Limited neurological examination: No focal deficit. Results & Data Vital Signs (Past 12 Hours) Vital Signs Temp Pulse Resp BP Pulse Ox O2 Del Method 01/10/23 08:14 36.4 C L 60 19 120/86 95 Room Air 01/10/23 03:22 36.7 C 53 L 20 96/63 L 94 Room Air 01/10/23 04:58 Room Air 01/09/23 23:33 36.8 C 52 L 16 86/54 L 94 Room Air Laboratory Results Cardiac Enzymes 01/09/23 01/09/23 01/10/23 Range/Units 14:55 23:44 06:00 AST 18 (13-39) U/L Troponin I High Sens 44.6 H 258.0 H* D 162.6 H* D (0-20) pg/ml Coagulation 01/09/23 01/10/23 Range/Units 15:06 06:00 PT 25.6 H 25.8 H (9.0-12.0) Seconds Lipids 01/10/23 Range/Units 06:00 Triglycerides 130 (0-150) mg/dl Cholesterol 88 (0-200) mg/dl HDL Cholesterol 26 mg/dl Cholesterol/HDL Ratio 3.4 (0-5) CBC 01/09/23 01/10/23 Range/Units 14:55 06:00 WBC 9.62 8.46 (4.8-10.8) K/ul RBC 4.93 4.44 L (4.70-6.10) M/uL Hgb 14.7 13.2 L (14.0-18.0) g/dl Hct 42.6 39.3 L (42.0-52.0) % Plt Count 209 197 (130-400) K/uL Neut # (Auto) 6.41 (1.40-6.50) K/uL Lymph # (Auto) 2.39 (1.20-3.40) K/uL Avery # (Auto) 0.62 H (0.11-0.59) K/uL Eos # (Auto) 0.13 (0.00-0.50) K/uL Baso # (Auto) 0.05 (0.00-0.20) K/uL Comprehensive Metabolic Panel 01/09/23 01/10/23 Range/Units 14:55 06:00 Sodium 139 138 (136-145) mmol/L Potassium 3.8 4.4 (3.5-5.1) mmol/L Chloride 110 H 113 H (98-107) mmol/L Carbon Dioxide 17 L 21 (21-32) mmol/L BUN 20 19 (6-23) mg/dl Creatinine 1.14 1.03 (0.6-1.4) mg/dl Glucose 158 H 109 H (70-99(Fasting)) mg/dl Calcium 9.8 8.9 (8.6-10.3) mg/dl AST 18 (13-39) U/L ALT 13 (7-52) U/L Alkaline Phosphatase 105 H (34-104) U/L Total Protein 6.8 (6.0-8.3) gm/dl Albumin 3.9 (3.4-5.0) gm/dl Intake and Output 01/09/23 01/10/23 01/10/23 22:59 06:59 14:59 Intake Total 1979.792 / 2220.792 240 / 2220.792 1000 / 1000 Output Total 326 / 326 Balance 1979.792 / 1894.792 -86 / 4107.742 6295 / 1000 Intake: IV 1705.792 / 8295.218 0614 / 1000 Lactated Ringer's 1,000 ml @ 75 1000 / 1000 mls/hr IV .[id number] ONE Rx#: [id number] Magnesium Sulfate / D5w 1 gm In 200 / 200 100 ml @ 100 mls/hr IV Q1H [facility] Rx#:[id number] Sodium Chloride 0.9% 1000ML 1, 1000 / 1000 000 ml @ 999 mls/hr IV .Q1H1M [facility] Rx#:[id number] Sodium Chloride 0.9% 500 ml @ 500 / 500 999 mls/hr IV .Q31M [facility] Rx#: [id number] dilTIAZem HCL 125 mg In 5.792 / 5.792 Dextrose 5% 100 ml @ 5 MG/HR 5 mls/hr IV .Q24H [facility] Rx#: [id number] Oral 275 / 515 240 / 515 Output: Urine 325 / 325 # Bowel Movements Other: Weight 84.2 kg 84.7 kg Weight Measurement Method Built in [facility]
[2023-01-10] MEDS: INSULIN ASPART PER UNIT CHARGE SC SCH ×3 (12:35→20:24)
--- NOTE | 2023-01-10 15:37 | Hospitalist Progress Note ---
Date of Service January 10, 2023 Assessment & Plan (1) Atrial fibrillation with rapid ventricular response: (2) Cardiac dysrhythmia: (3) HTN (hypertension): (4) Dyslipidemia: (5) CAD (coronary artery disease): (6) Apical mural thrombus: (7) AICD (automatic cardioverter/defibrillator) present: (8) Ischemic cardiomyopathy: (9) Rodriguez's esophagus: (10) GERD (gastroesophageal reflux disease): (11) Emphysema/COPD: (12) Psoriasis: Plan: Ventricular dysrhythmia A-fib with RVR NSVT Multiple defibrillator discharges secondary to A-fib RVR S/P AICD Inadvertent withdrawal of metoprolol Spontaneously converted to sinus --Pacemaker interrogated in ED IV Cardizem discontinued --ECHO: Left ventricle is severely dilated. EF 20 to 25%. Large sized apical, septal, anteroseptal, anterior, inferior, posterior and lateral wall motion abnormality with hypokinesis to akinesis of the segments. Aortic valve sclerosis mild, without significant aortic valvular stenosis. Moderate mitral regurgitation. -- Reduced EF likely secondary to multiple defibrillator discharges --No significant volume overload on exam Metoprolol restarted If arrhythmia is recurrent, cardiology recommends to initiate amiodarone therapy Appreciate cardiology input Plan to transition to Entresto and consider to add Jardiance as outpatient Continue warfarin INR therapeutic: 2.5 today Needs repeat echo in 4 to 6 weeks Needs follow-up with cardiology in 1 to 2 weeks upon discharge Hypomagnesemia Replete electrolytes as needed Chronic elevated troponin Levels better when compared to prior admission Wall motion abnormality also noted on prior ECHO Patient denies any chest pain DM II H/O prediabetes HbA1c 6.5 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 Previously was on humira about 5 months ago. Stopped due to lapse in insurance. Chronic, stable DVT Px: Coumadin CODE STATUS: Full code (13) PVD (peripheral vascular disease): Admission and Anticipated Discharge Date Admission Date: January 09, 2023 Subjective Patient is seen and examined at bedside Subjectively feels well today Had brief episode of NSVT this morning--asymptomatic Discussed with cardiology today Patient denies any chest pain, dyspnea, dizziness, nausea, vomiting, abdominal pain Review of Systems Review of Systems: All systems reviewed & are unremarkable except as noted in Subjective Physical Exam Physical Exam: Physical Exam: Vitals signs as noted above General Appearance:Moderately built and nourished, no apparent distress Head: normocephalic, Atraumatic Eyes: normal inspection, EOMI Neck: supple, Trachea midline Respiratory/Chest: Normal breath sounds, CTA, No accessory muscle use Cardiovascular: S1, S2,+ murmur,+Bradycardia Abdomen/GI:Soft, Non tender, Bowel sounds present Extremities/Musculoskeletal:normal inspection, no edema Neurologic/Psych:AAOX3, grossly no focal neurological deficits Skin: normal color, warm Results & Data Results & Data Vital Signs (Past 12 Hours) Vital Signs Temp Pulse Pulse Resp BP BP Pulse Ox 01/10/23 12:00 36.6 C 59 L 18 144/78 H 95 01/10/23 08:00 55 L 01/10/23 08:00 01/10/23 08:14 36.4 C L 60 19 120/86 95 01/10/23 04:58 O2 Del Method 01/10/23 12:00 Room Air 01/10/23 08:00 01/10/23 08:00 Room Air 01/10/23 08:14 Room Air 01/10/23 04:58 Room Air Laboratory Results Short CBC 01/10/23 Range/Units 06:00 WBC 8.46 (4.8-10.8) K/ul Hgb 13.2 L (14.0-18.0) g/dl Hct 39.3 L (42.0-52.0) % Plt Count 197 (130-400) K/uL BMP 01/09/23 01/10/23 14:55 06:00 Sodium 139 138 Potassium 3.8 4.4 Chloride 110 H 113 H Carbon Dioxide 17 L 21 BUN 20 19 Creatinine 1.14 1.03 Glucose 158 H 109 H Calcium 9.8 8.9 Liver Function 01/09/23 Range/Units 14:55 Total Bilirubin 0.9 (0.2-1.0) mg/dl AST 18 (13-39) U/L ALT 13 (7-52) U/L Alkaline Phosphatase 105 H (34-104) U/L Albumin 3.9 (3.4-5.0) gm/dl
[2023-01-10] MEDS ORDERED: WARFARIN SOD 5 MG TAB PO SCH (16:00)
--- NOTE | 2023-01-10 16:30 | Electrocardiogram Report ---
Test Reason : Blood Pressure : / mmHG Vent. Rate : 055 BPM Atrial Rate : 055 BPM P-R Int : 168 ms QRS Dur : 094 ms QT Int : 440 ms P-R-T Axes : 056 133 090 degrees QTc Int : 420 ms Sinus bradycardia with occasional Premature ventricular complexes Possible Inferior infarct (cited on or before 16-OCT-2006) Anterolateral infarct (cited on or before 16-OCT-2006) Abnormal ECG When compared with ECG of 09-JAN-2023 14:50, Sinus rhythm has replaced Atrial fibrillation Vent. rate has decreased BY [address] no longer elevated in Lateral leads Nonspecific T wave abnormality now evident in Lateral leads Confirmed by Kailash Dasilva ([id number]) on 01/10/2023 4:30:15 PM Referred By: REFERRED SELF Confirmed By:Kailash Dasilva
[2023-01-10] MEDS: ATORVASTATIN 40 MG TAB PO SCH (20:06)
[2023-01-11 06:09] LABS: Hematocrit (blood only) 41.1 % (42.0-52.0); Hemoglobin 13.8 g/dl (14.0-18.0); Mean Corpuscular Hemoglobin 29.7 pg (25.0-34.0); Mean Corpuscular Hgb Conc 33.6 g/dL (32.0-36.0); Mean Corpuscular Volume 88.4 fL (80.0-100.0); Platelet Count 210 K/uL (130-400); RDW Coefficient of Variation 14.6 % (11.5-14.5); RDW Standard Deviation 47.5 fL (36.4-46.3); Red Blood Count 4.65 M/uL (4.70-6.10); White Blood Count 7.21 K/ul (4.8-10.8)
[2023-01-11 06:26] LABS: Calcium 9.3 mg/dl (8.6-10.3); Est GFR (African American) 93.1 ml/min; Est GFR (Non-African American) 80.3 ml/min; Magnesium 1.8 mg/dl (1.7-2.4); Potassium 4.3 mmol/L (3.5-5.1)
[2023-01-11 06:38] LABS: Prothrombin Time 20.8 Seconds (9.0-12.0)
[2023-01-11] MEDS: ASPIRIN 81 MG ECTAB PO SCH (08:31)
[2023-01-11] MEDS: INSULIN ASPART PER UNIT CHARGE SC SCH ×2 (08:36→11:54)
[2023-01-11] MEDS: PANTOprazole 40 MG TAB PO SCH (08:36)
[2023-01-11] MEDS: METOPROLOL SUCC 50MG EXT REL TAB PO SCH (09:45)
--- NOTE | 2023-01-11 12:56 | Cardiology Progress Note ---
Date of Service January 11, 2023 Assessment & Plan (1) Atrial fibrillation with rapid ventricular response: (2) ICD (implantable cardioverter-defibrillator) discharge: (3) Dehydration: (4) Ischemic cardiomyopathy: Plan 67-year-old male admitted following multiple defibrillator discharges secondary to atrial fibrillation with a very rapid ventricular response following inadvertent withdrawal of chronic high-dose beta-dorita therapy (metoprolol succinate 100 mg/day). Patient chronically anticoagulated with Coumadin, with therapeutic INR is noted over the last few months, spontaneously converting back to sinus rhythm/sinus bradycardia on January 09, 2023 at 20:11 without clinical sequela. Resting echocardiography this admission revealed reduction in systolic function compared to prior, EF of 20 to 25%, perhaps due to the above events. Recommend continuing medications as prescribed, with the importance of not missing metoprolol reiterated. If/when patient were to have further events without inciting cause would initiate amiodarone therapy as discussed. It should be noted that the patient was approved for a [employer] dori to help cover the cost of Entresto and the future addition of Jardiance. Outpatient cardiology follow-up. 01/12/2028 Patient overall feeling well. Telemetry does demonstrate short runs of wide- complex tachycardia, nonsustained in the setting of known both atrial and ventricular arrhythmias Plan: Initiate oral antiarrhythmic therapy with amiodarone 200 mg twice per day x2 weeks then daily. Okay to discharge today Reduce warfarin to 5 mg daily Coag clinic follow-up this week Outpatient follow-up with cardiology 2 to 3 weeks Admission and Anticipated Discharge Date Admission Date: January 09, 2023 Subjective Patient seen and examined, chart, medications, telemetry reviewed. No acute complaints. No chest pain or shortness of breath. No defibrillator activation. Telemetry does demonstrate short salvos of 5-6 beats of wide-complex tachycardia Physical Exam Physical Exam: General: Alert, no distress, comfortable and cooperative Skin: No rash Eyes: PER. Conjunctiva pink, sclera clear. HENT: Normocephalic. Atraumatic. Neck: No carotid bruits. No JVD. No HJR. Heart: Regular at 56 bpm. Soft apical systolic murmur. Lungs: Clear to auscultation. No wheeze. Abdomen: +BS. Soft. Nontender. No masses. No organomegaly. Extremities: No clubbing, cyanosis, or edema. Pulses: radial=2/4, posterior tibial=2/4. Limited neurological examination: No focal deficit. Constitutional: WD/WN, vitals as above Eyes: PERRL, conjunctivae normal, anicteric sclerae ENMT: external ear and nose normal, oropharynx normal Neck: trachea midline, no thyromegaly Respiratory: normal respiratory effort, lungs clear to auscultation Cardiovascular: Rate/Rhythm: regular rate and regular rhythm Heart Sounds: normal S1 and normal S2; no gallop and no murmur Palpation: normal PMI Vessels: normal carotid upstroke and radial pulses present; no JVD and no carotid bruit Extremities: no edema Gastrointestinal (Abdomen): normal bowel sounds, soft, nontender, no hepato splenomegaly Musculoskeletal: no cyanosis or clubbing, extremities motor strength 5/5 Skin: no rashes, warm and dry Neurologic: PERRL, EOMI, accommodation nl, no face palsy, no dysarthria Psychiatric: A+Ox3, euthymic affect Results & Data Vital Signs (Past 12 Hours) Vital Signs Temp Pulse Pulse Resp BP BP Pulse Ox 01/11/23 11:51 36.4 C L 52 L 19 133/89 96 01/11/23 07:51 36.8 C 52 L 19 145/94 H 98 01/11/23 03:57 36.5 C 53 L 18 149/87 H 95 01/11/23 03:09 55 L O2 Del Method 01/11/23 11:51 Room Air 01/11/23 07:51 Room Air 01/11/23 03:57 Room Air 01/11/23 03:09 Laboratory Results Laboratory Results - last 24 hr 01/10/23 01/10/23 01/10/23 06:00 16:51 20:12 WBC RBC Hgb Hct MCV MCH MCHC RDW Std Deviation RDW Coeff of Carito Plt Count MPV PT INR Sodium Potassium Chloride Carbon Dioxide Anion Gap BUN Creatinine Est Cr Clr Drug Dosing Est GFR ( Amer) Est GFR (Non-Af Amer) BUN/Creatinine Ratio Glucose POC Glucose 110 H 100 H Calcium Magnesium TSH 3.189 01/11/23 01/11/23 01/11/23 05:30 05:30 05:30 WBC 7.21 RBC 4.65 L Hgb 13.8 L Hct 41.1 L MCV 88.4 MCH 29.7 MCHC 33.6 RDW Std Deviation 47.5 H RDW Coeff of Carito 14.6 H Plt Count 210 MPV 10.0 PT 20.8 H INR 2.0 H Sodium 138 Potassium 4.3 Chloride 110 H Carbon Dioxide 23 Anion Gap 5 BUN 24 H Creatinine 0.96 Est Cr Clr Drug Dosing 75.0 Est GFR ( Amer) 93.1 Est GFR (Non-Af Amer) 80.3 BUN/Creatinine Ratio 25.0 H Glucose 96 POC Glucose Calcium 9.3 Magnesium 1.8 TSH 01/11/23 01/11/23 07:48 11:48 WBC RBC Hgb Hct MCV MCH MCHC RDW Std Deviation RDW Coeff of Carito Plt Count MPV PT INR Sodium Potassium Chloride Carbon Dioxide Anion Gap BUN Creatinine Est Cr Clr Drug Dosing Est GFR ( Amer) Est GFR (Non-Af Amer) BUN/Creatinine Ratio Glucose POC Glucose 107 H 88 Calcium Magnesium TSH
[2023-01-11] MEDS ORDERED: AMIODARONE 200 MG TAB PO ONE (12:57)
--- NOTE | 2023-01-11 13:30 | Hospitalist Progress Note ---
Date of Service January 11, 2023 Assessment & Plan (1) Atrial fibrillation with rapid ventricular response: (2) Cardiac dysrhythmia: (3) HTN (hypertension): (4) Dyslipidemia: (5) CAD (coronary artery disease): (6) Apical mural thrombus: (7) AICD (automatic cardioverter/defibrillator) present: (8) Ischemic cardiomyopathy: (9) Rodriguez's esophagus: (10) GERD (gastroesophageal reflux disease): (11) Emphysema/COPD: (12) Psoriasis: Plan: Ventricular dysrhythmia A-fib with RVR NSVT Multiple defibrillator discharges secondary to A-fib RVR S/P AICD Inadvertent withdrawal of metoprolol Spontaneously converted to sinus --Pacemaker interrogated in ED IV Cardizem discontinued --ECHO: Left ventricle is severely dilated. EF 20 to 25%. Large sized apical, septal, anteroseptal, anterior, inferior, posterior and lateral wall motion abnormality with hypokinesis to akinesis of the segments. Aortic valve sclerosis mild, without significant aortic valvular stenosis. Moderate mitral regurgitation. -- Reduced EF likely secondary to multiple defibrillator discharges --No significant volume overload on exam Metoprolol restarted: Metoprolol succinate 100 mg daily Appreciate cardiology input Plan to transition to Entresto and consider to add Jardiance as outpatient Continue warfarin INR therapeutic: 2.0 today Needs repeat echo in 4 to 6 weeks Started on amiodarone 200 mg twice a day--plan to continue at current dose for 2 weeks and then transition to once daily Coumadin dose decreased to 5 mg daily (as started on amiodarone) Needs follow-up with cardiology in 2 to 3 weeks Also needs follow-up with Coumadin clinic in 1 week Hypomagnesemia Replete electrolytes as needed Chronic elevated troponin Levels better when compared to prior admission Wall motion abnormality also noted on prior ECHO Patient denies any chest pain DM II H/O prediabetes HbA1c 6.5 Continue insulin while hospitalized clinical educator consulted Eventually plan to start on Jardiance as outpatient CAD -H/O STEMI in September 2006, 4 BMS Continue aspirin, Lipitor, metoprolol H/O Apical thrombus -Anticoagulated on warfarin, chronic, stable - alternates between 5 mg MWF and 7.5 mg all other days Continue Coumadin Monitor INR Hypertension Hyperlipidemia Continue home medications Rodriguez's Esophagus GERD Continue PPI Psoriasis continue skyrizi inj. Previously was on humira about 5 months ago. Stopped due to lapse in insurance. Chronic, stable DVT Px: Coumadin CODE STATUS: Full code Disposition Home (13) PVD (peripheral vascular disease): Admission and Anticipated Discharge Date Admission Date: January 09, 2023 Subjective Patient is seen and examined at bedside States feeling well today Offers no new complaints Denies any chest pain, palpitations, dizziness, nausea, vomiting, abdominal pain Telemetry showed 5-6 beats of wide-complex tachycardia Discussed with cardiology today Plan to be discharged home today Review of Systems Review of Systems: All systems reviewed & are unremarkable except as noted in Subjective Physical Exam Physical Exam: Physical Exam: Vitals signs as noted above General Appearance:Moderately built and nourished, no apparent distress Head: normocephalic, Atraumatic Eyes: normal inspection, EOMI Neck: supple, Trachea midline Respiratory/Chest: Normal breath sounds, CTA, No accessory muscle use Cardiovascular: S1, S2,+ murmur,+Bradycardia Abdomen/GI:Soft, Non tender, Bowel sounds present Extremities/Musculoskeletal:normal inspection, no edema Neurologic/Psych:AAOX3, grossly no focal neurological deficits Skin: normal color, warm Results & Data Results & Data Vital Signs (Past 12 Hours) Vital Signs Temp Pulse Pulse Resp BP BP Pulse Ox 01/11/23 11:51 36.4 C L 52 L 19 133/89 96 01/11/23 07:51 36.8 C 52 L 19 145/94 H 98 01/11/23 03:57 36.5 C 53 L 18 149/87 H 95 01/11/23 03:09 55 L O2 Del Method 01/11/23 11:51 Room Air 01/11/23 07:51 Room Air 01/11/23 03:57 Room Air 01/11/23 03:09 Laboratory Results Short CBC 01/11/23 Range/Units 05:30 WBC 7.21 (4.8-10.8) K/ul Hgb 13.8 L (14.0-18.0) g/dl Hct 41.1 L (42.0-52.0) % Plt Count 210 (130-400) K/uL BMP 01/11/23 05:30 Sodium 138 Potassium 4.3 Chloride 110 H Carbon Dioxide 23 BUN 24 H Creatinine 0.96 Glucose 96 Calcium 9.3
--- NOTE | 2023-01-11 13:42 | Discharge Summary ---
Date of Service January 11, 2023 Admission HPI Per Admitting Provider This is a 67-year-old male with PMHx of A-fib with RVR, CAD, HTN, HLD, automatic implantable cardioverter/defibrillator, history of paroxysmal V. tach, apical thrombus anticoagulated on Coumadin, ischemic cardiomyopathy, emphysema, history of tobacco use, PVD, prediabetes, psoriasis, Rodriguez's esophagus, GERD, psoriasis, osteoarthritis who presents to the hospital after being shocked by his defibrillator 5 times while he was at [facility]. Patient was recently seen by cardiology and followed up at the heart failure clinic. He was being transitioned off of losartan 100 mg and onto Entresto as of 01/03. Patient reports that he stopped taking metoprolol 100 mg on 01/07 because he thought that this was the medication he was supposed to stop. Patient becomes tearful when being informed that losartan was actually supposed to be stopped, not metoprolol. He is frustrated with himself, and feels that he has so many things he is trying to manage at home he got confused. Patient states that his has been things to worry about herself that he does not want to burden her with his medication reconciliation. He reports that he occasionally smokes a cigarette here and there but has been trying to quit. He denies any alcohol use. At this time patient just feels tired and worn out. Admission Exam Per Admitting Provider General: awake, alert, no apparent distress, tearful at times Head: Normocephalic, atraumatic ENT: PERRL, EOMI, no pharyngeal exudate, mucous membranes dry Chest: Clear to auscultation, on room air, no adventitious breath sounds Cardiac: Irregularly irregular with heart rate in the 100s to 130s while at bedside, no murmur, no JVD, normal peripheral pulses, good capillary refill Abdominal: NABS x 4 quadrants, soft, nondistended, nontender to palpation, no rebound or guarding Extremities: Extensor surfaces with psoriasis plaques right elbow, right knuckles, left elbow, right knee. Otherwise normal inspection, no peripheral edema or erythema, calfs nontender to palpation Psych: Normal mood and affect Neuro: AAO x 3, strength intact bilaterally and rated 5/5, no motor deficits, speech is clear, no peripheral sensory deficits Principal Diagnosis Atrial fibrillation with rapid ventricle response Nonsustained ventricular tachycardia AICD discharge Discharge Data Allergies Allergy/AdvReac Type Severity Reaction Status Date / Time Penicillins Allergy Mild RASH Verified 01/09/23 17:51 Consultations 01/09/23 16:45 ED Decision to Admit Stat 01/09/23 18:37 Consult Cardiology Routine Procedures Performed Laboratory Results WBC 7.21 K/ul (4.8-10.8) 01/11/23 05:30 RBC 4.65 M/uL (4.70-6.10) L 01/11/23 05:30 Hgb 13.8 g/dl (14.0-18.0) L 01/11/23 05:30 Hct 41.1 % (42.0-52.0) L 01/11/23 05:30 MCV 88.4 fL (80.0-100.0) 01/11/23 05:30 MCH 29.7 pg (25.0-34.0) 01/11/23 05:30 MCHC 33.6 g/dL (32.0-36.0) 01/11/23 05:30 RDW Std Deviation 47.5 fL (36.4-46.3) H 01/11/23 05:30 RDW Coeff of Carito 14.6 % (11.5-14.5) H 01/11/23 05:30 Plt Count 210 K/uL (130-400) 01/11/23 05:30 MPV 10.0 fL (9.4-12.4) 01/11/23 05:30 Immature Gran % (Auto) 0.2 % 01/09/23 14:55 Neut % (Auto) 66.7 % 01/09/23 14:55 Lymph % (Auto) 24.8 % 01/09/23 14:55 Loíza % (Auto) 6.4 % 01/09/23 14:55 Eos % (Auto) 1.4 % 01/09/23 14:55 Baso % (Auto) 0.5 % 01/09/23 14:55 Neut # (Auto) 6.41 K/uL (1.40-6.50) 01/09/23 14:55 Lymph # (Auto) 2.39 K/uL (1.20-3.40) 01/09/23 14:55 Loíza # (Auto) 0.62 K/uL (0.11-0.59) H 01/09/23 14:55 Eos # (Auto) 0.13 K/uL (0.00-0.50) 01/09/23 14:55 Baso # (Auto) 0.05 K/uL (0.00-0.20) 01/09/23 14:55 Immature Gran # (Auto) 0.02 K/uL (0.01-0.20) 01/09/23 14:55 PT 20.8 Seconds (9.0-12.0) H 01/11/23 05:30 INR 2.0 (0.9-1.1) H 01/11/23 05:30 Sodium 138 mmol/L (136-145) 01/11/23 05:30 Potassium 4.3 mmol/L (3.5-5.1) 01/11/23 05:30 Chloride 110 mmol/L (98-107) H 01/11/23 05:30 Carbon Dioxide 23 mmol/L (21-32) 01/11/23 05:30 Anion Gap 5 (3-11) 01/11/23 05:30 BUN 24 mg/dl (6-23) H 01/11/23 05:30 Creatinine 0.96 mg/dl (0.6-1.4) 01/11/23 05:30 Est Cr Clr Drug Dosing 75.0 ml/min 01/11/23 05:30 Est GFR ( Amer) 93.1 ml/min 01/11/23 05:30 Est GFR (Non-Af Amer) 80.3 ml/min 01/11/23 05:30 BUN/Creatinine Ratio 25.0 (10-20) H 01/11/23 05:30 Glucose 96 mg/dl (70-99(Fasting)) 01/11/23 05:30 POC Glucose 88 mg/dl (70-99) 01/11/23 11:48 Estimat Average Glucose 140 mg/dl 01/10/23 06:00 Hemoglobin A1c 6.5 % (4.5-5.6) H 01/10/23 06:00 Lactate 1.4 mmol/L (0.4-2.0) 01/09/23 23:44 Calcium 9.3 mg/dl (8.6-10.3) 01/11/23 05:30 Magnesium 1.8 mg/dl (1.7-2.4) 01/11/23 05:30 Total Bilirubin 0.9 mg/dl (0.2-1.0) 01/09/23 14:55 AST 18 U/L (13-39) 01/09/23 14:55 ALT 13 U/L (7-52) 01/09/23 14:55 Alkaline Phosphatase 105 U/L (34-104) H 01/09/23 14:55 Troponin I High Sens 162.6 pg/ml (0-20) H* D 01/10/23 06:00 Total Protein 6.8 gm/dl (6.0-8.3) 01/09/23 14:55 Albumin 3.9 gm/dl (3.4-5.0) 01/09/23 14:55 Globulin 2.9 gm/dl (2.5-4.0) 01/09/23 14:55 Albumin/Globulin Ratio 1.3 (0.9-2) 01/09/23 14:55 Triglycerides 130 mg/dl (0-150) 01/10/23 06:00 Cholesterol 88 mg/dl (0-200) 01/10/23 06:00 LDL Cholesterol, Calc 36 mg/dl 01/10/23 06:00 VLDL Cholesterol, Calc 26 mg/dl (0-30) 01/10/23 06:00 HDL Cholesterol 26 mg/dl 01/10/23 06:00 Cholesterol/HDL Ratio 3.4 (0-5) 01/10/23 06:00 Lipase 43 U/L (11-82) 01/09/23 14:55 TSH 3.189 uIu/ml (0.300-4.500) 01/10/23 06:00 Impressions Chest X-Ray 01/09/23 14:51 XR chest 1V portable HISTORY: 67 years-old Male Chest pain, nonspecific acute chest pain COMPARISON: 06/23/2022 TECHNIQUE: AP view the chest FINDINGS: Cardiac silhouette is enlarged. Single-lead left subclavian pacer/AICD. Coronary arterial stents. No pneumothorax or large pleural effusion. Unchanged blunting of the cauda equina angles. Mild chronic interstitial coarsening. Degenerative changes of the shoulders and spine. IMPRESSION: Cardiomegaly without acute process. ACT 112: Negative or not required by law. The above report was generated using voice recognition software. It may contain grammatical, syntax or spelling errors. Electronically signed by: Akash Vela M.D. 01/09/2023 3:38 PM Hospital Course (1) Atrial fibrillation with rapid ventricular response: (2) Cardiac dysrhythmia: (3) HTN (hypertension): (4) Dyslipidemia: (5) CAD (coronary artery disease): (6) Apical mural thrombus: (7) AICD (automatic cardioverter/defibrillator) present: (8) Ischemic cardiomyopathy: (9) Rodriguez's esophagus: (10) GERD (gastroesophageal reflux disease): (11) Emphysema/COPD: (12) Psoriasis: Ventricular dysrhythmia A-fib with RVR NSVT Multiple defibrillator discharges secondary to A-fib RVR S/P AICD Inadvertent withdrawal of metoprolol Spontaneously converted to sinus --Pacemaker interrogated in ED IV Cardizem discontinued --ECHO: Left ventricle is severely dilated. EF 20 to 25%. Large sized apical, septal, anteroseptal, anterior, inferior, posterior and lateral wall motion abnormality with hypokinesis to akinesis of the segments. Aortic valve sclerosis mild, without significant aortic valvular stenosis. Moderate mitral regurgitation. -- Reduced EF likely secondary to multiple defibrillator discharges --No significant volume overload on exam Metoprolol restarted: Metoprolol succinate 100 mg daily Appreciate cardiology input Plan to transition to Entresto and consider to add Jardiance as outpatient Continue warfarin INR therapeutic: 2.0 today Needs repeat echo in 4 to 6 weeks Started on amiodarone 200 mg twice a day--plan to continue at current dose for 2 weeks and then transition to once daily Coumadin dose decreased to 5 mg daily (as started on amiodarone) Needs follow-up with cardiology in 2 to 3 weeks Also needs follow-up with Coumadin clinic in 1 week Hypomagnesemia Replete electrolytes as needed Chronic elevated troponin Levels better when compared to prior admission Wall motion abnormality also noted on prior ECHO Patient denies any chest pain DM II H/O prediabetes HbA1c 6.5 Continue insulin while hospitalized unit educator consulted Eventually plan to start on Jardiance as outpatient CAD -H/O STEMI in September 2006, 4 BMS Continue aspirin, Lipitor, metoprolol H/O Apical thrombus -Anticoagulated on warfarin, chronic, stable - alternates between 5 mg MWF and 7.5 mg all other days Continue Coumadin Monitor INR Hypertension Hyperlipidemia Continue home medications Rodriguez's Esophagus GERD Continue PPI Psoriasis continue skyrizi inj. Previously was on humira about 5 months ago. Stopped due to lapse in insurance. Chronic, stable DVT Px: Coumadin CODE STATUS: Full code Disposition Home (13) PVD (peripheral vascular disease): Total Time Total Time Spent Total Time Spent (In Minutes): 55 minutes Discharge Plan Discharge Items Patient Disposition: Home - Self-Care Reason For Visit: AFIB RVR, HYPOMAGNESEMIA Discharge Diagnosis: Atrial fibrillation with rapid ventricle response Nonsustained ventricular tachycardia AICD discharge Activity: Per Instructions section Exercise/Sports: Wait until after follow-up appointment Non-emergency contact: Primary Care Provider and Wheelage Clerk Call non-emergency contact if: you have any medication questions, your symptoms worsen, your pain is concerning for you and you have a fever Follow-up/Referrals: Wayne Fontana, DO [Primary Care Provider] - (Date & Time 01/17/2023 1:20 PM Provider María Klein MD Department [facility] ) Diet: Carb Consistent or DM2 and Heart Healthy Addtl Attending Provider Instructions: Follow-up with your primary care physician Dr. Fontana on 01/17/2023 1:20 PM Follow up with your sales and marketing representative in 2-3 weeks Follow-up with Coumadin clinic next week for monitoring your PT/INR and adjusting Coumadin dose as needed. Medication changes 1) your Coumadin(warfarin) dose is decreased to 5 mg daily. Follow-up with Coumadin clinic for further instructions. 2) Start taking Amiodarone 200 mg twice a day for 2 weeks and then take 200 mg once daily. 3) continue taking metoprolol succinate 100 mg daily as recommended. -- Your sales and marketing representative recommends to get repeat echocardiogram in 4 to 6 weeks. Seek immediate medical attention if your symptoms reoccur or worsen Please take all medications as instructed on discharge list below. Please call if you have any questions or problems. You can reach a [facility] hospitalist on duty at [facility] 24 hours a day by calling [phone] Pending Studies at Discharge: No Stand-Alone Forms: My [facility], Smoking Cessation Medications and DC Order Prescriptions: New amiodarone 200 mg Tablet 200 mg PO UD 30 Days Qty: 60 1RF Rx Instructions: Start taking amiodarone 200 mg twice a day for 2 weeks and then take 200 mg once daily Continued atorvastatin 80 mg tablet 80 mg PO HS spironolactone 25 mg tablet 25 mg PO QAM nitroglycerin [Nitrostat] 0.4 mg Tablet, Sublingual 0.4 mg Sublingual UD omeprazole 20 mg capsule,delayed release(DR/EC) 20 mg PO BID ondansetron 4 mg tablet,disintegrating 4 mg PO Q8H PRN (Reason: nausea and vomiting) Qty: 6 0RF sildenafil [Viagra] 100 mg Tablet 100 mg PO DAILY PRN (Reason: Erectile Dysfunction) acetaminophen [Tylenol Extra Strength] 500 mg Tablet 500 mg PO Q6H PRN (Reason: Pain) albuterol sulfate 90 mcg/actuation HFA aerosol inhaler 2 inha INH QID PRN (Reason: shortness of breath or wheezing) Qty: 1 0RF coQ10 (ubiquinol) 100 mg Capsule 100 mg PO PM alfuzosin 10 mg tablet extended release 24 hr 10 mg PO DAILY tizanidine 2 mg capsule 2 mg PO DIRECTED aspirin 81 mg Tablet,Delayed Release (Dr/Ec) 81 mg PO QAM Qty: 30 0RF metoprolol succinate [Toprol XL] 100 mg tablet extended release 24 hr 100 mg PO PM Qty: 30 0RF cyanocobalamin (vitamin B-12) 500 mcg Tablet 500 mcg PO DAILY psyllium husk 0.52 gram Capsule 0.52 g PO QAM diclofenac sodium 1 % Gel 4 g TOPICAL TID PRN (Reason: Pain) Rx Instructions: apply to low back clobetasol [Temovate] 0.05 % Ointment 1 applic TOPICAL BID PRN (Reason: Skin Irritation) Entresto 24-26 mg Tablet 1 tab PO BID Changed warfarin 5 mg tablet 5 mg PO DAILY Qty: 30 0RF Discontinued warfarin 5 mg tablet 7.5 mg PO [id number] Rx Instructions: TAKE 1.5 TAB ( 7.5MG) EVERY FRIDAY/FRIDAY/FRIDAY. Discharge Orders: Discharge Order (Routine); Ordered 01/11/23 Ordered By: Zia Toledo/Other Patient Handouts: A1C, 5 Steps for Eating Healthier Admission Data Admit Date/Time: 01/09/23 17:32 Attending Provider: Zia Olea Admit Provider: Jordana Allen Primary Care Provider: Wayne Fontana Other Providers: Jordana Allen ; Jona Jones
[2023-01-11] MEDS ORDERED: AMIODARONE 200 MG TAB PO SCH (17:00)
== END 2023-01-11 16:07 | disposition home or self-care (01) | DRG 310 ==
LOC: ED 14:44 → SUATTDRO 17:32 → 4W 17:32

== ENCOUNTER 2024-03-21 22:24 | Observation (INO) ==
--- OUTSIDE RECORDS SUMMARY | 2024-03-21 22:31 | External Medical Summary | Summary of Care ---
Author Name Unknown Organization [facility] Address [address] [place] [address] Phone [phone] Care Team Providers Care Tap Out Operator Name Role Phone SurjitWayne lobo Primary Care Provider [phone] Encounter Details Date Type Department Care Team ([facility] st Contact Info) Description 02/06/2024 Result Scan Unspecified Department Evelyn Hanley DO [address] [place] [address] <No scans attached> Allergies Active Allergy Reactions Criticality Noted Date Comments Penicillins 10/16/2006 Develop a Rash after a week documented as of this encounter (statuses as of 02/06/2024) Medications Medication Sig Dispensed Refills Start Date End Date Status ONDANSETRON HCL 4 MG PO TABS Take 1 Tablet by mouth every 8 hours as needed for Nausea or Vomiting. Active Coenzyme Q-10 100 MG Oral Capsule Take 1 Capsule by mouth in the morning. 30 Capsule 07/31/2021 Active Metamucil 0.52 GM Oral Capsule (Psyllium) Take 1 Capsule by mouth in the morning. 30 Capsule 07/31/2021 Active Clobetasol Propionate 0.05 % External Ointment (Temovate)Indication s:Psoriasis as needed for psoriasis 30 g 5 09/12/2021 Active Aspirin 81 MG Oral Capsule Take 81 mg by mouth in the morning. Active Vitamin B-12 500 MCG Oral Lozenge Take 1 Tablet by mouth daily. 30 Lozenge 07/02/2022 Active Albuterol Sulfate HFA 108 (90 Base) MCG/ACT Inhalation Aerosol Solution Inhale 2 Puffs by mouth every 6 hours as needed for Wheezing. 18 g 3 07/31/2022 Active Skyrizi Pen 150 MG/ML Subcutaneous Solution Auto-injector 12/10/2022 Active Nitroglycerin 0.4 MG Sublingual Tablet Sublingual (Nitrostat)Indicatio ns:Chronic coronary artery disease take 1 every 5 minutes as needed for chest pain use up to 3 in 15 minutes 75 Tablet 3 01/03/2023 Active Additional Information Patient not taking.Reported on 12/17/2023 Diclofenac Sodium 1 % External Gel (Voltaren) APPLY TOPICALLY TO AFFECTED AREA (LEFT LOW BACK) 3 TIMES A DAY. 100 g 3 01/17/2023 Active Spironolactone 25 MG Oral Tablet (Aldactone)Indicatio ns:Ischemic cardiomyopathy Take 0.5 Tablets by mouth once a day on Friday, Friday, and Friday only. 20 Tablet 3 01/31/2023 Active tiZANidine HCl 2 MG Oral Capsule Take by mouth 1 Capsule in the morning AND 1 Capsule at noon AND 1 Capsule before bedtime. Strength: 2 mg 30 Capsule 5 03/26/2023 Active Omeprazole 20 MG Oral Capsule Delayed Release (PriLOSEC)Indication s:Ischemic cardiomyopathy,Epiga stric pain TAKE 1 CAPSULE BY MOUTH IN THE MORNING AND 1 CAPSULE BEFORE BEDTIME. 180 Capsule 3 08/21/2023 Active Amiodarone HCl 200 MG Oral Tablet (Cordarone) Take 1 Tablet by mouth in the morning. 09/04/2023 Active Atorvastatin Calcium 80 MG Oral Tablet (Lipitor)Indications :Chronic coronary artery disease TAKE 1 TABLET BY MOUTH INTHE MORNING 90 Tablet 3 09/23/2023 Active Metoprolol Succinate ER 100 MG Oral Tablet Extended Release 24 Hour (toPROL XL)Indications:HTN, goal below 140/90 Take 1 Tablet by mouth in the morning. 90 Tablet 1 10/09/2023 Active Entresto 49-51 MG Oral Tablet (sacubitril-valsarta n 49-51 mg per tab)Indications:Paro xysmal atrial fibrillation (HCC) TAKE 1 TABLET BY MOUTH IN THE MORNING AND 1 TABLET BEFORE BEDTIME 180 Tablet 3 10/15/2023 Active Sildenafil Citrate 100 MG Oral TabletIndications:Im potence of organic origin TAKE 1 TABLET BY MOUTH DAILY NEEDED FOR ERECTILE DYSFUNCTION. 6 Tablet 5 10/24/2023 Active Jardiance 10 MG Oral Tablet (Empagliflozin)Indic ations:Chronic coronary artery disease,Ischemic cardiomyopathy,PVT (paroxysmal ventricular tachycardia) (HCC),Paroxysmal atrial fibrillation (HCC) TAKE 1 TABLET BY MOUTH IN THE MORNING 90 Tablet 3 11/19/2023 Active NATURAL SUPPLEMENT Take 2 Tablets by mouth in the morning. Super Beta Prostate Advanced . Active Loratadine 10 MG Oral Tablet (Claritin) Take 1 Tablet by mouth in the morning. 30 Tablet 5 12/17/2023 Active Warfarin Sodium 5 MG Oral Tablet (Coumadin)Indication s:LV (left ventricular) mural thrombus TAKE 1 OR 2 TABLETS BY MOUTH DIRECTED BY [facility]. 180 Tablet 3 01/26/2024 Active documented as of this encounter (statuses as of 02/06/2024) Active Problems Problem Noted Date Diagnosed Date Paroxysmal atrial fibrillation 05/27/2023 History of RI (myocardial infarction) 02/06/2023 Heart failure 02/06/2023 Diabetes mellitus without complication History of lumbar laminectomy 07/02/2022 PVT (paroxysmal ventricular tachycardia) 022 Gastroesophageal reflux disease with esophagitis 06/07/2019 Psoriasis 12/29/2015 Peripheral vascular disease with claudication Automatic implantable cardioverter-defibrillator in situ 07/14/2013 LV (left ventricular) mural thrombus 01/28/2013 Tobacco abuse 03/15/2012 Dyslipidemia, goal LDL below 70 03/15/2012 Ischemic cardiomyopathy 05/03/2009 Rodriguez's esophagus 01/26/2009 Overview: repeat EGD in 6 months Impotence of organic origin 06/13/2008 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; [employer] RCA; HTN, goal below 140/90 Generalized osteoarthritis Diverticulosis of colon Cerebral aneurysm, nonruptured Overview: small(2.4mm) intracranial- A2 segment documented as of this encounter (statuses as of 02/06/2024) Resolved Problems Problem Noted Date Diagnosed Date Resolved Date Esophageal reflux 06/07/2019 06/07/2019 Prediabetes 12/30/2017 02/27/2023 Overview: Per Prediabetes protocol #1 - LV (left ventricular) mural thrombus with acute RI 01/09/2017 05/23/2017 HTN, goal below 130/80 03/15/201208/13 Dyslipidemia, goal LDL below 100 05/04/2009 11/21/2016 Overview: Per Lipid Taxonomy. Special screening for other neurological conditions 03/02/2009 06/07/2019 Overview: ICD-9 Code Update Disorder of liver 12/22/2008 06/07/2019 Overview: fatty liver hiccup 09/21/2008 12/29/2015 Screening for neurological conditions 02/12/2007 03/02/2009 Overview: ICD-9 Code Update EXAMINATION OF PARTICIPANT I N CLINICAL TRIAL - GENOMICS 01/14/2007 09/01/2009 Overview: Renamed Per Clinical Trials Billing Project. Study Title: Genomic Markers for Patients with Cardiovascular Disease Project #: [id number] PI: Marley Panchal MD [phone] GENOMICS CARDIO RESEARCH OTHER*[id number] 01/14/2007 06/25/2016 Overview: Renamed Per Clinical Trials Billing Project. Study Title: Genomic Markers for Patients with Cardiovascular Disease Project #: [id number] PI: Marley Panchal MD [phone] Atherosclerosis of leg with intermittent claudication 08/13/2016 Dyslipidemia, goal to be determined 05/04/2009 Overview: Per Lipid Taxonomy. Abdominal pain 06/07/2019 Nausea 12/29/2015 Overview: ICD-10 update of inactive term Other psoriasis and similar disorders 12/29/2015 Diverticulitis 06/07/2019 documented as of this encounter (statuses as of 02/06/2024) Immunizations Name Administration Dates Next Due Covid-19 Ad26, Single Dose (Haley/J&J) 08/28/2020 Pneumococcal Conjugate Vacci ne, 20-valent ([id number]) 07/02/2022 Seasonal Influenza, PF, 6 M & above, IM , (FluLaval or Fluzone) 02/15/2020,03/26/2018,05/23/2017 Seasonal Influenza, Quadriva lent Hd (Fluzone Hd) 02/14/2023,03/15/2022,02/20/2021 Seasonal Influenza, Quadriva lent, No Preserve, IM 04/10/2016 Seasonal Influenza, Trivalen t, (IIV3), with Preserv, (Fluzone) 03/28/2015,02/09/2014,03/22/2013,2011,04/04/2011 Seasonal Influenza, Trivalen t, Adjuvanted, 65+ YRS, PF, (Fluad) 03/19/2019 TDAP (age 10 and older)(Boostrix) 12/12/2018, documented as of this encounter Social History Tobacco Use Types Packs/Day Years Used Date Smoking Tobacco: Former Cigarettes 1 40 1 - 03/18/2013 Smokeless Tobacco: Never Alcohol Use Standard Drinks/Week Comments Not Currently 0 (1 standard drink = 0.6 oz pur e alcohol) very little PHQ-2 Answer Date Recorded PHQ Adult Total Score 1 07/02/2022 Sex and Gender Information Value Date Recorded Sex Assigned at Not on file Gender Identity Male 12/30/2019 11:41 AM EDT Sexual Orientation Straight 12/30/2019 11 :41 AM EDT Job Start Date Occupation Industry Not on file Not on file Not on file documented as of this encounter Plan of Treatment Upcoming Encounters Date Type Department Care Team (Late st Contact Info) Description 03/02/2024 10:30 AM EDT Office Visit Cardiology, [facility] [address] [facility] [place] [address] Marta Garcia CRNP [address] [place] [address] 03/05/2024 10:00 AM EDT Office Visit Cardiology, [facility] [address] [place] [address] Martinez Kessler PA-C [address] [place] [address] 03/11/2024 10:30 AM EDT Anticoagulation Pharmacy, [facility] [address] [facility] [place] [address] Pharmacist1, [facility] [address] [facility] [place] [address] 07/09/2024 1:00 PM EST Office Visit Family Practice [facility] [address] [facility] [place] [address] Wayen Fontana, DO [address] [facility] [place] [address] Scheduled Procedures Name Priority Associated Diagnoses Date/Ti me COLONOSCOPY FLEXIBLE PROXIMA L DIAGNOSTIC Recall History of colon polyps Diverticulosis Internal hemorrhoids External hemorrhoids Health Maintenance Due Date Last Done Comments Rodriguez's Esophagus Surveilance 1953 Diabetic Foot Exam 10/04/1971 Cologuard 1998 Fecal Occult Blood Test 1998 Sigmoidoscopy 1998 Zoster Vaccines (1 of 2) 10/04/2003 Adult Wellness Visit 10/04/2019 Albumin/Creatinine Ratio 03/15/2023 03/15/2022 Colonoscopy 08/18/2023 08/17/2018, 04/0 05/2018, 05/11/2013, Additional history exists Colorectal Cancer Screening 08/18/2023 COVID-19 Vaccine ( season) 2024 08/28/2020 Influenza Vaccine (FLU shot) (#1) 2024 02/14/2023, 03/15/2022, 02/20/2021, Additional history exists Diabetic Eye Exam 05/27/2024 05/27/2023 HbA1c 06/18/2024 12/17/2023, 09/0 11/2022, 03/15/2022, Additional history exists Depression Screening 12/16/2024 12/17/2023 GFR 12/16/2024 12/17/2023, 08/17, 03/14/2023, Additional history exists DTap/Tdap Vaccines (3 - Td or Tdap) 12/12/2028 12/12/2018, 05/02/2011 RETIRED - COLONOSCOPY-EVERY 5 YRS AGES 18-100 Discontinued 08/17/2018, 08/17/2018, 05/11/2013, Additional history exists AAA Screening Completed 09/24/2021 Pneumococcal Vaccine: 65+ Years Completed 07/02/2022 Lung Cancer Screening Completed 04/30/2023, 022 HPV (Gardasil) Vaccine Aged Out No lo nger eligible based on patient's age to complete this topic Hepatitis B Vaccine Aged Out No longe r eligible based on patient's age to complete this topic MENINGOCOCCAL (MENACTRA/MENVEO) Aged Out No longer eligible based on patient's age to complete this topic documented as of this encounter Medical Devices Not on filedocumented as of this encounter Procedures Procedure Name Priority Date/Time Associated Diagnosis Comments CARDIOLOGY SCANNED RESULT 02/06/2024 documented in this encounter Results * CARDIOLOGY SCANNED RESULT (02/06/2024) 02/06/2024 Evelyn Hanley DO OTHER documented in this encounter Care Teams Tap Out Operator Relationship Specialty Start Date End Date Wayne Fontana DO [address] [place] [address] PCP - General Family Medicine 01/23/17 documented as of this encounter
--- OUTSIDE RECORDS SUMMARY | 2024-03-21 22:31 | External Medical Summary | Summary of Care ---
Author Name Unknown Organization [facility] Address [address] [place] [address] Phone [phone] Care Team Providers Care Acoustic Sensor Operator Name Role Phone SurjitWayne lobo Primary Care Provider [phone] Encounter Details Date Type Department Care Team ([facility] st Contact Info) Description 03/09/2024 Orders Only PATIENT PORTAL DO NOT DELETE THIS DEPT USED BY [place] [id number] Allergies Active Allergy Reactions Criticality Noted Date Comments Penicillins 10/16/2006 Develop a Rash after a week documented as of this encounter (statuses as of 03/09/2024) Medications Medication Sig Dispensed Refills Start Date [...] Active Clobetasol Propionate 0.05 % External Ointment (Temovate)Indications :Psoriasis as needed for psoriasis 30 g 5 [...] Skyrizi Pen 150 MG/ML Subcutaneous Solution Auto-injector Inject 150 mg under the skin. every 4 months 12/10/2022 Active Nitroglycerin 0.4 MG Sublingual Tablet Sublingual (Nitrostat)Indication s:Chronic coronary artery disease take 1 every 5 minutes as needed for chest pain use up to 3 in 15 minutes 75 Tablet 3 01/03/2023 Active Diclofenac Sodium 1 % External Gel (Voltaren) APPLY TOPICALLY TO AFFECTED AREA (LEFT LOW BACK) 3 TIMES A DAY. 100 g 3 01/17/2023 Active tiZANidine HCl 2 MG Oral Capsule Take by mouth 1 Capsule in the morning AND 1 Capsule at noon AND 1 Capsule before bedtime. Strength: 2 mg 30 Capsule 5 03/26/2023 Active Omeprazole 20 MG Oral Capsule Delayed Release (PriLOSEC)Indications :Ischemic cardiomyopathy,Epigas tric pain TAKE 1 CAPSULE BY MOUTH IN THE MORNING AND 1 CAPSULE BEFORE BEDTIME. 180 Capsule 3 08/21/2023 Active Amiodarone HCl 200 MG Oral Tablet (Cordarone) Take 1 Tablet by mouth in the morning. 09/04/2023 Active Atorvastatin Calcium 80 MG Oral Tablet (Lipitor)Indications: Chronic coronary artery disease TAKE 1 TABLET BY MOUTH INTHE MORNING 90 Tablet 3 09/23/2023 Active Metoprolol Succinate ER 100 MG Oral Tablet Extended Release 24 Hour (toPROL XL)Indications:HTN, goal below 140/90 Take 1 Tablet by mouth in the morning. 90 Tablet 1 10/09/2023 Active Entresto 49-51 MG Oral Tablet (sacubitril-valsartan 49-51 mg per tab)Indications:Parox ysmal atrial fibrillation (HCC) TAKE 1 TABLET BY MOUTH IN THE MORNING AND 1 TABLET BEFORE BEDTIME 180 Tablet 3 10/15/2023 Active Sildenafil Citrate 100 MG Oral TabletIndications:Imp otence of organic origin TAKE 1 TABLET BY MOUTH DAILY NEEDED FOR ERECTILE DYSFUNCTION. 6 Tablet 5 10/24/2023 Active Jardiance 10 MG Oral Tablet (Empagliflozin)Indica tions:Chronic coronary artery disease,Ischemic cardiomyopathy,PVT (paroxysmal ventricular tachycardia) [...] Active Warfarin Sodium 5 MG Oral Tablet (Coumadin)Indications :LV (left ventricular) mural thrombus TAKE 1 OR 2 TABLETS BY MOUTH DIRECTED BY [facility]. 180 Tablet 3 01/26/2024 Active Spironolactone 25 MG Oral Tablet (Aldactone)Indication s:Ischemic cardiomyopathy Take 0.5 Tablets by mouth once a day on Friday, Friday, and Friday only. 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; [employer] RCA; HTN, goal below 140/90 Generalized osteoarthritis Diverticulosis of colon Cerebral aneurysm, nonruptured Overview: small(2.4mm) intracranial- A2 segment documented as of this encounter (statuses as of 03/09/2024) Resolved Problems Problem Noted Date Diagnosed Date Resolved Date Esophageal reflux 06/07/2019 06/07/2019 Prediabetes 12/30/2017 02/27/2023 Overview: Per Prediabetes protocol #1 - LV (left ventricular) mural thrombus with acute OR 01/09/2017 05/23/2017 HTN, goal below 130/80 03/15/201208/13 [...] for Patients with Cardiovascular Disease Project #: [id number] PI: Marley Panchal MD [phone] GENOMICS CARDIO RESEARCH OTHER*[id number] 01/14/2007 06/25/2016 Overview: Renamed Per Clinical Trials Billing Project. Study Title: Genomic Markers for Patients with Cardiovascular Disease Project #: [id number] PI: Marley Panchal MD [phone] Atherosclerosis of leg with intermittent claudication 08/13/2016 Dyslipidemia, goal to be determined 05/04/2009 Overview: Per Lipid Taxonomy. Abdominal pain 06/07/2019 Nausea 12/29/2015 Overview: ICD-10 update of inactive term Other psoriasis and similar disorders 12/29/2015 Diverticulitis 06/07/2019 documented as of this encounter (statuses as of 03/09/2024) Immunizations Name Administration Dates Next Due Covid-19 Ad26, Single Dose (Haley/J&J) 08/28/2020 Pneumococcal Conjugate Vacci ne, 20-valent ([id number]) 07/02/2022 Seasonal Influenza Vac., MDV , IM, 0.5 mL (Fluzone) 03/28/2015,02/09/2014,03/22/2013,2011,04/04/2011 Seasonal Influenza, High Dos e, Trivalent, PF, IM (Fluzone HD) 03/02/2024 Seasonal Influenza, PF, 6 M & above, IM , (FluLaval or Fluzone) 02/15/2020,03/26/2018,05/23/2017 Seasonal Influenza, Quadriva lent Hd (Fluzone Hd) 02/14/2023,03/15/2022,02/20/2021 Seasonal Influenza, Quadriva lent, No Preserve, IM 04/10/2016 Seasonal Influenza, Trivalen t, Adjuvanted, 65+ YRS, [...] Care Team (Late st Contact Info) Description 07/09/2024 1:00 PM EST Office Visit Family Practice [facility] [address] [facility] [place] [address] Wayne Fontana, [address] [place] [address] 07/15/2024 8:00 AM EST Office Visit Cardiology, [facility] [address] [facility] [place] [address] Martinez Kessler PA-C [address] [place] [address] 12/24/2024 10:30 AM EDT Office Visit Cardiology, [facility] [address] [place] [address] Marta Garcia CRNP [address] [place] [address] Scheduled Procedures Name Priority Associated Diagnoses Date/Ti [...] Albumin/Creatinine Ratio 03/15/2023 03/15/2022 Colonoscopy 08/18/2023 08/17/2018, 05/2018, 05/11/2013, Additional history exists Colorectal Cancer Screening 08/18/2023 COVID-19 Vaccine ( season) 2024 08/28/2020 Diabetic Eye Exam 05/27/2024 05/27/2023 HbA1c 06/18/2024 12/17/2023, 11/2022, 03/15/2022, Additional history exists Depression Screening 12/16/2024 12/17/2023 GFR 12/16/2024 12/17/2023, 08/17, 03/14/2023, Additional history exists DTap/Tdap Vaccines (3 - Td or Tdap) 12/12/2028 12/12/2018, 05/02/2011 RETIRED - COLONOSCOPY-EVERY 5 YRS AGES 18-100 Discontinued 08/17/2018, 08/17/2018, 05/11/2013, Additional history exists AAA Screening Completed 09/24/2021 Pneumococcal Vaccine: 65+ Years Completed 07/02/2022 Lung Cancer Screening Completed 04/30/2023, 022 Influenza Vaccine (FLU shot) Completed 03/02/2024, 02/14/2023, 03/15/2022, Additional history exists HPV (Gardasil) Vaccine Aged Out No lo nger eligible based on patient's age to complete this topic Hepatitis B Vaccine Aged Out No longe r eligible based on patient's age to complete this topic MENINGOCOCCAL (MENACTRA/MENVEO) Aged Out No longer eligible based on patient's age to complete this topic documented as of this encounter Medical Devices Not on filedocumented as of this encounter Care Teams Acoustic Sensor Operator Relationship Specialty Start Date End Date Wayne Fontana DO [address] [place] [address] PCP - General Family Medicine 01/23/17 documented as of this encounter
--- OUTSIDE RECORDS SUMMARY | 2024-03-21 22:31 | External Medical Summary | Summary of Care ---
Author Name Unknown Organization [facility] Address [address] [place] [address] Phone [phone] Care Team Providers Care County Nurse Name Role Phone SurjitWayne lobo Primary Care Provider [phone] Reason for Visit * Reason Onset Date Comments Follow Up Medication Administration 03/02/2024 Flu an d/or Pneumo Inj Encounter Details Date Type Department Care Team (Late st Contact Info) Description 03/02/2024 10:30 AM EDT Office Visit Cardiology, [facility] [address] [facility] [place] [address] Mart[facility] [address] [facility] [place] [id number] Need for prophylactic vaccination and inoculation against influenza*; Paroxysmal atrial fibrillation (HCC); Encounter for monitoring diuretic therapy; Chronic coronary artery disease; PVT (paroxysmal ventricular tachycardia) (HCC); Presence of automatic cardioverter/defibril lator (AICD); Dyslipidemia, goal LDL below 70 Allergies Active Allergy Reactions Criticality Noted Date Comments Penicillins 10/16/2006 Develop a Rash after a week documented as of this encounter (statuses as of 03/13/2024) Medications Medication Sig Dispensed Refills Start Date [...] OR 2 TABLETS BY MOUTH DIRECTED BY ANTICOAG CLINIC. 180 Tablet 3 01/26/2024 Active Spironolactone 25 MG Oral Tablet (Aldactone)Indication s:Ischemic cardiomyopathy Take 0.5 Tablets by mouth once a day on Friday, Friday, and Friday only. 20 Tablet 3 02/06/2024 Active documented as of this encounter (statuses as of 03/13/2024) Active Problems Problem Noted Date Diagnosed Date Paroxysmal atrial fibrillation 05/27/2023 History of KS (myocardial infarction) 02/06/2023 Heart failure 02/06/2023 Diabetes mellitus without complication 3 History of lumbar laminectomy 07/02/2022 PVT (paroxysmal ventricular tachycardia) 022 Gastroesophageal reflux disease with esophagitis 06/07/2019 Psoriasis 12/29/2015 Peripheral vascular disease with claudication Automatic implantable cardioverter-defibrillator in situ 07/14/2013 LV (left ventricular) mural thrombus 01/28/2013 Tobacco abuse 03/15/2012 Dyslipidemia, goal LDL below 70 03/15/2012 Ischemic cardiomyopathy 05/03/2009 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; HTN, goal below 140/90 Generalized osteoarthritis Diverticulosis of colon Cerebral aneurysm, nonruptured Overview: small(2.4mm) intracranial- A2 segment documented as of this encounter (statuses as of 03/13/2024) Resolved Problems Problem Noted Date Diagnosed Date Resolved Date Esophageal reflux 06/07/2019 06/07/2019 Prediabetes 12/30/2017 02/27/2023 Overview: Per Prediabetes protocol #1 - LV (left ventricular) mural thrombus with acute KS 01/09/2017 05/23/2017 HTN, goal below 130/80 03/15/201208/13 [...] for Patients with Cardiovascular Disease Project #: [id number] PI: Marley Panchal MD [phone] GENOMICS CARDIO RESEARCH OTHER*[id number] 01/14/2007 06/25/2016 Overview: Renamed Per Clinical Trials Billing Project. Study Title: Genomic Markers for Patients with Cardiovascular Disease Project #: [id number] PI: Marley Panchal MD [phone] Atherosclerosis of leg with intermittent claudication 08/13/2016 Dyslipidemia, goal to be determined 05/04/2009 Overview: Per Lipid Taxonomy. Abdominal pain 06/07/2019 Nausea 12/29/2015 Overview: ICD-10 update of inactive term Other psoriasis and similar disorders 12/29/2015 Diverticulitis 06/07/2019 documented as of this encounter (statuses as of 03/13/2024) Immunizations Name Administration Dates Next Due Covid-19 Ad26, Single Dose (Haley/J&J) 08/28/2020 Pneumococcal Conjugate Vacci ne, 20-valent ([id number]) 07/02/2022 Seasonal Influenza Vac., MDV , IM, [...] on file documented as of this encounter Last Filed Vital Signs Vital Sign Reading Time Taken Comments Blood Pressure 142/78 03/02/2024 10:45 AM EDT Pulse 68 03/02/2024 10:45 AM EDT Temperature - - Respiratory Rate 12 03/02/2024 10:45 AM EDT Oxygen Saturation - - Inhaled Oxygen Concentration - - Weight 83.5 kg (184 lb 1.6 oz) 03/02/2024 10:45 AM EDT Height - - Body Mass Index 26.77 02/06/2023 3:30 PM EDT documented in this encounter Patient Instructions * Patient Instructions* Debra Andujar CMA - 03/02/2024 10:53 AM EDT ~~PATIENT INSTRUCTIONS FOR FLU SHOT~~ Possible side effects of influenza vaccine, (flu shot), are usually mild and include: 1. Soreness or redness at injection site 2. Low grade fever 3. Body aches You may use Tylenol/Acetaminophen as needed for these symptoms. LET YOUR DOCTOR KNOW IMMEDIATELY IF YOU HAVE DIFFICULTY BREATHING OR SWALLOWING, EXPERIENCE ITCHINGOF FEET OR HANDS, HAVE SWELLING OF EYES, FACE OR INSIDE OF NOSE. documented in this encounter Progress Notes * Evelyn Hanley DO - 03/09/2024 6:28 PM EDT I have reviewed the advanced practitioner's documentation on the date of service referenced in note, and I agree with, and take responsibility for the plan of care. Pt returns for annual EP f/u due to VT and ICM s/p ICD Pt has been doing well from a cardiac perspective He has some SOB with exertion No arrhythmias on device check No change in cardiac medications Continue with routine device checks Check CMP and TFTs EP f/u 9 months Evelyn Hanley DO Department of Cardiology [facility] [place] [address] * Debra Andujar CMA - 03/02/2024 10:52 AM EDT PRE - ADMINISTRATION DOCUMENTATION Are you experiencing any cold symptoms or fever? No Have you had Guillain-[place]in[place] Syndrome (an illness that causes paralysis) within the last 6 weeks? No Have you had the flu shot in the past? YES Have you ever had a reaction to the flu shot? Pao Andujar CMA, 03/02/2024 10:52 AM Immunization Administration Documentation Time Out Procedure Performed: Yes Patient Identified (Ask Name/Date of ): Yes Does the patient have a fever greater than 101 degrees today? No Patient allergic to latex? No VFC Stock: No Immunization(s) verified: Yes, Immunization Name: Flu, VIS Sheet(s) given: Yes Verified Side and Site: Yes Verified Shot(s) with Parent(s)/Patient: Yes documented in this encounter Nursing Notes * Debra Andujar CMA - 03/02/2024 10:38 AM EDT Examination Room: 17 Name: Selwyn Hope Date of : (1955). Reason for Visit: 1 yr f/u Interim Hospitalization(s): none Problems/Concerns: No further ICD shocks but states he heard "tones" from device when bending over working. [place] no sx but states lasted a couple seconds. Occurred within past week. Chest Pain/SOB: Denies CP or unusual SOB. [facility] Discussed: Not applicable My You[employer]er is a way you can talk to your provider online through e-mail. Would you like to sign up? I can activate it for you? DECLINES Patient was instructed to not get up on the exam table until directed and assisted by their provider; patient is to remain seated in the chair/ wheelchair/ exam table for fall prevention and safety reasons. Patient is aware to have assistance to step down off exam table with personnel. Patient voiced full comprehension of instructions. documented in this encounter Plan of Treatment Upcoming Encounters Date Type Department Care Team (Late st Contact Info) Description 07/09/2024 1:00 PM EST Office Visit Family Practice [facility] [address] [place] [address] [place], [address] [place] [address] 07/15/2024 8:00 AM EST Office Visit Cardiology, [facility] [address] [facility] [place] [address] Martinez Kessler PA-C [address] [facility] [address] 12/24/2024 10:30 AM EDT Office Visit [facility], [facility] [place] [address] Marta Garcia CRNP [address] [place] [address] [place] [address] Scheduled Orders Name Type Priority Associated Diagnoses Orde r Schedule TSH WITH FREE T4 IF INDICATED Lab Routine Paroxysmal atrial fibrillation (HCC) Encounter for monitoring diuretic therapy Chronic coronary artery disease PVT (paroxysmal ventricular tachycardia) (HCC) Presence of automatic cardioverter/defibrillator (AICD) Need for prophylactic vaccination and inoculation against influenza Dyslipidemia, goal LDL below 70 Expected: 03/02/2024, Expires: 03/02/2025 HEPATIC FUNCTION PANEL Lab Routine Paroxysmal atrial fibrillation (HCC) Encounter for monitoring diuretic therapy Chronic coronary artery disease PVT (paroxysmal ventricular tachycardia) (HCC) Presence of automatic cardioverter/defibrillator (AICD) Need for prophylactic vaccination and inoculation against influenza Dyslipidemia, goal LDL below 70 Expected: 03/02/2024, Expires: 03/02/2025 Scheduled Procedures Name Priority Associated Diagnoses Date/Ti [...] exists Colorectal Cancer Screening 08/18/2023 COVID-19 Vaccine (2 - season) 2024 08/28/2020 Diabetic Eye Exam 05/27/2024 [...] Not on filedocumented as of this encounter Visit Diagnoses Diagnosis Need for prophylactic vaccination and inoculation against influenza- Primary Paroxysmal atrial fibrillation (HCC) Atrial fibrillation Encounter for monitoring diuretic therapy Encounter for therapeutic drug monitoring Chronic coronary artery disease Coronary atherosclerosis of unspecified type of vessel, [place] or graft PVT (paroxysmal ventricular tachycardia) (HCC) Paroxysmal ventricular tachycardia Presence of automatic cardioverter/defibrillator (AICD) Automatic implantable cardiac defibrillator in situ Dyslipidemia, goal LDL below 70 Other and unspecified hyperlipidemia documented in this encounter Care Teams County Nurse Relationship Specialty Start Date End Date Wayne Fontana DO [facility] [address] PCP - General Family Medicine 01/23/17 documented as of this encounter
--- OUTSIDE RECORDS SUMMARY | 2024-03-21 22:31 | External Medical Summary | Continuity of Care Document ---
Author Name Unknown Organization [facility] [address] [id number] Care Team Providers Care Higher Education Administrator Name Role Phone Marizol Wayne Dustin Primary Care Physician [phone] [id number] Date(s): 02/03/24 - 02/03/24 [facility] [address] [facility] [address], [place] [id number] Encounter Diagnosis Psoriasis vulgaris(Final) - Acrochordon(Discharge Diagnosis) - 02/03/24 Psoriasis vulgaris(Discharge Diagnosis) - 02/03/24 Discharge Disposition: Home or Self Care Attending Physician: LUDWIN Zimmerman Holly C Allergies, Adverse Reactions, Alerts Substance Criticality Severity Reaction Reaction Severity Status penicillins Rash Active Assessment and Plan Extracted from: Title:Dermatology Office Visit Note Author:LUDWIN Zimmerman Holly C Date:02/03/24 1.Psoriasis vulgaris Chronic Stable BSA 1% posterior scalp-mild. uses ketoconazole shampoo 2% a few times a week. refill sent. declines any prescription creams as he is doing well. CBC and LFT's normal 11/2022 Started Skyrizi12/2022. was also on Humira inthe past, helped some, but notwell anakyrichrissy Quanteferon gold test ordered, patient thinks it has been about 2 years since his last one,. Has chronic arthritis joint aches and pains, a little better with the skyrizi. 2.Acrochordon Chronic Stable Provided reassurance aboutthe benign nature of this lesion. No indication for treatment today. Advised patient to call with any problems, questions, or concerns. States understanding. Patient was seen independently,Dr Keenan for immediate collaboration as needed during this visit. Will follow up in 1 yearfor skin exam. 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 Medications amiodarone 200 mg oral tablet TAKE 1 TABLET BY MOUTH EVERY MORNING AND 1 TABLET BEFORE BEDTIME Start Date: 10/24/23 Status: Ordered aspirin 81 mg oral tablet Start: 12/13/11 12:50:00 PM EDT, 1 tab, PO, Daily Start Date: 12/13/11 Status: Ordered clobetasol 0.05% topical ointment Start: 10/27/23 8:25:00 AM EDT, See Instructions, Disp# 60 g, Refills: 5, 1 appl topical Daily, Pharmacy: [facility] Start Date: 10/27/23 Status: Ordered Co Q-10 Start: 10/24/23 3:26:00 PM EDT Start Date: 10/24/23 Status: Ordered diclofenac 1% topical gel Start: 10/24/23 3:29:00 PM EDT, 1 appl, topical, qid Start Date: 10/24/23 Status: Ordered Entresto 49 mg-51 mg oral tablet TAKE 1 TABLET BY MOUTH IN THE MORNING AND 1 TABLET BEFORE BEDTIME Start Date: 10/24/23 Status: Ordered Jardiance 10 mg oral tablet TAKE 1 TABLET BY MOUTH IN THE MORNING Start Date: 10/24/23 Status: Ordered ketoconazole 2% topical shampoo Start: 02/03/24 9:21:00 AM EDT, 1 appl, topical, Daily, Disp# 120 mL, Refills: 3, Pharmacy: [facility] Start Date: 02/03/24 Status: Ordered Lipitor 80 mg oral tablet Start: 12/13/11 12:50:00 PM EDT, 1 tab, PO, Daily Start Date: 12/13/11 Status: Ordered loratadine 10 mg oral tablet Start: 02/03/24 8:49:00 AM EDT, 30 each, 0 Refill(s), Take 1 Tablet by mouth in the morning. Start Date: 02/03/24 Status: Ordered Metamucil 500 mg oral capsule Start: 06/18/16 11:02:00 AM EST, PO, Daily Start Date: 06/18/16 Status: Ordered Metoprolol Succinate ER 100 mg oral tablet, extended release Start: 12/08/19 10:36:00 AM EDT Start Date: 12/08/19 Status: Ordered nitroglycerin 0.4 mg sublingual tablet Start: 12/13/11 12:50:00 PM EDT, 1 tab, SL, q5min, PRN: as needed for chest pain Start Date: 12/13/11 Status: Ordered omeprazole 20 mg oral delayed release tablet Start: 11/05/12 8:44:00 AM EDT, 2 tab, PO, Daily Start Date: 11/05/12 Status: Ordered Skyrizi Pen 150 mg/mL subcutaneous solution Start: 02/04/24 1:30:00 PM EDT, 150 mg =, subQ, [id number], Disp# 1 pen_needle, Refills: 2, Pharmacy: [facility] Start Date: 02/04/24 Status: Ordered spironolactone 25 mg oral tablet Start: 10/24/23 3:22:00 PM EDT, See Instructions, 1/2 tablet fri, fri and fri Start Date: 10/24/23 Status: Ordered super beta prostate advan Start: 10/24/23 3:28:00 PM EDT, super beta prostate advan, Note to Pharmacy: supplement Start Date: 10/24/23 Status: Ordered tiZANidine 2 mg oral capsule Start: 12/13/22 12:43:00 PM EDT Start Date: 12/13/22 Status: Ordered Viagra 50 mg oral tablet Start: 12/13/11 12:50:00 PM EDT, 1 tab, PO, Daily, PRN: as needed for erectile dysfunction Start Date: 12/13/11 Status: Ordered warfarin 5 mg oral tablet Start: 08/23/13 1:55:00 PM EDT, 1 tab, PO, Daily, except friday 1.5tabs Start Date: 08/23/13 Status: Ordered Zofran ODT 4 mg oral tablet, disintegrating Start: 09/03/17 9:33:00 AM EDT, 1 tab, PO, tid, Disp# 15 tab, PRN: as needed for nausea/vomiting, Pharmacy: [facility] Start Date: 09/03/17 Status: Ordered Mental Status 02/03/24 Barriers to Learning one year None evide nt Mandatory Health Literacy Documentation Yes Health Literacy 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 Barriers N ever Primary Language Cymraes Problem List Condition Confirmation Course Effective Dates Status Health Status Informant Arthropathy Confirmed Active Biceps tendinitis Confirmed Active CAD (coronary artery disease) 1 Confirmed Active Cellulitis of small toe Confirmed Active Erectile dysfunction Confirmed Active GERD Confirmed Active Hyperlipidemia Confirmed Active Hypertension Confirmed Active Immunosuppression Confirmed Active Laminectomy 2 Confirmed Active Psoriasis vulgaris Confirmed Active Psoriasis vulgaris Confirmed Active Rotator cuff syndrome Confirmed Active Right shoulder pain Confirmed Active Skin cancer Confirmed Active Acrochordon Confirmed Active Tinea pedis Confirmed Active 1Dr. Addison 2Dr. Maranda Diagnosis Diagnosis Type Effective Dates Health Status Clinical Service Informant Psoriasis vulgaris Discharge Diagnosis 02/03/24 Non-Specified Acrochordon Discharge Diagnosis 02/03/24 Non-Specified Procedures Procedure Date Related Diagnosis Body Site Status Defibrillator 07/05/12 Completed back surgery 2004 Completed heart stents x 6 Complete d Results Laboratory List Name Date Quantiferon Gold TB (QUANTIFERON GOLD TB ) 02/03/24 Most recent to oldest [Reference Range]: 1 Quantiferon Gold TB. [NEG] NEGATIVE 1 *Unknown* (02/03/24 9:30 AM) 1Result Comment: M. tuberculosis infection NOT likely Social History Social History Type Response Smoking Status Never smoked cigaret bianca Sex Male Sex Representation Male (finding) Dermatology Outpatient Note * LUDWIN Zimmerman, Madisyn C: PERFORM Event Display: Dermatology Outpt Note Authored Date: Chief Complaint 6 month follow up - no concerns. RepRegen seem sto be working for me. History of Present Illness 68 YearsoldMalepatient here for skin check. Patient reports area of concern today: psoriasis follow up is on [employer] and psoriasis is very good. Family history melanoma:no Family history of BCC or SCC no History of Tanning bed use:no History of severe, blistering sunburns:yes Sun protection:wears hats Ever have anything removed:no Denies history of skin cancer. No other skin areas of concern. Otherwise healthy. Physical Exam General: Well developed, well nourished, WhiteMalein no acute distress. Oriented x3 with appropriate mood and affect. Skin: complete skin exam performed of hair, scalp, ears, face, nose, lips, neck, chest, abdomen, buttocks, back, axilla, upper and lower extremities, hands, feet, nails, and digits. The groin and genitals were notincluded: psoriasis, BSA 1%,posterior scalp,mildpink withwhite scale. soft skin colored pedunculated papules consistent with acrochordon. less than 6mm in diameter round brown macules consistent with benign nevi within normal limits under dermoscopy. Nolesions suspicious for skin cancer. No unusual features on dermoscopy. Denied any other areas of concerns.Patient declined further exam. Assessment/Plan 1.Psoriasis vulgaris Chronic Stable BSA 1% posterior scalp-mild. uses ketoconazole shampoo 2% a few times a week. refill sent. declines any prescription creams as he is doing well. CBC and LFT's normal 11/2022 Started Skyrizi12/2022. was also on Humira inthe past, helped some, but notaswell asskyrizi Quanteferon gold test ordered, patient thinks it has been about 2 years since his last one,. Has chronic arthritis joint aches and pains, a little better with the skyrizi. 2.Acrochordon Chronic Stable Provided reassurance aboutthe benign nature of this lesion. No indication for treatment today. Advised patient to call with any problems, questions, or concerns. States understanding. Patient was seenindependently,Dr Keenan for immediate collaboration as needed during this visit. Will follow up in1 yearfor skin exam. Problem List/Past Medical History Ongoing Acrochordon Arthropathy Biceps tendinitis CAD (coronary artery disease) Cellulitis of small toe Erectile dysfunction GERD Hyperlipidemia Hypertension Immunosuppression Laminectomy Psoriasis vulgaris Psoriasis vulgaris Right shoulder pain Rotator cuff syndrome Skin cancer Tinea pedis Resolved Tobacco abuse Procedure/Surgical History Defibrillator| Service Date: 07/05/2012ack surgery| Service Date: 2004heart stents x 6 Medications amiodarone(amiodarone 200 mg oral tablet) aspirin(aspirin 81 mg oral tablet), 81 mg= 1 tab, PO, Daily atorvastatin(Lipitor 80 mg oral tablet), 80 mg= 1 tab, PO, Daily clobetasol topical(clobetasol 0.05% topical ointment), See Instructions, 5 refills diclofenac topical(diclofenac 1% topical gel), 1 appl, topical, qid empagliflozin(Jardiance 10 mg oral tablet) ketoconazole topical(ketoconazole 2% topical shampoo), 1 appl, topical, Daily, 3 refills loratadine(loratadine 10 mg oral tablet) metoprolol(Metoprolol Succinate ER 100 mg oral tablet, extended release) nitroglycerin(nitroglycerin 0.4 mg sublingual tablet), 0.4 mg= 1 tab, SL, q5min, PRN omeprazole(omeprazole 20 mg oral delayed release tablet), 40 mg= 2 tab, PO, Daily ondansetron(Zofran ODT 4 mg oral tablet, disintegrating), 4 mg= 1 tab, PO, tid, PRN psyllium(Metamucil 500 mg oral capsule), PO, Daily risankizumab(Skyrizi Pen 150 mg/mL subcutaneous solution), 150 mg, subQ, [id number] sacubitril-valsartan(Entresto 49 mg-51 mg oral tablet) sildenafil(Viagra 50 mg oral tablet), 50 mg= 1 tab, PO, Daily, PRN spironolactone(spironolactone 25 mg oral tablet), See Instructions tiZANidine(tiZANidine 2 mg oral capsule) ubiquinone(Co Q-10) unlisted medication(super beta prostate advan) warfarin(warfarin 5 mg oral tablet), 5 mg= 1 tab, PO, Daily Allergies penicillinsRash Social History Smoking Status Never smoked cigarettes Electronic Signature on File Electronically Reviewed/Signed by: Madisyn Zimmerman PA-C Author Signature Dt/Tm:02/03/2024 10:00 AM Department of Dermatology Electronically Reviewed/Signed by: Bridgette Akhtar MD Cosigner Signature Dt/Tm: 02/03/2024 10:17 AM Department of Dermatology [facility] Patient Care team information Care Team Personnel Name: DO Fontana Shane D Position: Referring DIRECT Member Role: Primary Care Provider Address: [address] [place] [address] [place] Care Team Related Persons Name: HÉCTOR MAURICIO Name: HÉCTOR MAURICIO"
--- OUTSIDE RECORDS SUMMARY | 2024-03-21 22:31 | External Medical Summary ---
Author Name Unknown Address Unknown Organization K09:[facility] [place] [address] Laboratory Report Ordering Provider Test Date Status KASEY PABLO V 03/18/2024 08:15:07 Final Therapeutic ranges for non-o perative patients:
Prophylaxsis/treatment of DVT: (Range:2.0-3.0)
Treatment of pulmonary embolism:(Range:2.0-3.0)
Prevention of systemic embolism from:
-tissue heart valves
-acute myocardial infarction
-valvular heart disease
-atrial fibrillation
(Range: 2.0-3.0)
Mechanical prosthetic valves: (Range: 2.5-3.5) Observation Date Value Abnormality Reference (Units ) Status INR in Capillary blood by Coagulation assay 03/18/2024 08:15:07 3.4 (INR) Final Performing Location [facility] [place] [id number]
--- OUTSIDE RECORDS SUMMARY | 2024-03-21 22:31 | External Medical Summary | Summary of Care ---
Author Name Unknown Organization [facility] Address [address] [place] [address] Phone [phone] Care Team Providers Care Roentgenologist Name Role Phone SurjitWayne lobo Primary Care Provider [phone] Reason for Visit * Reason Comments eRx-Medication Refill Encounter Details Date Type Department Care Team (Late st Contact Info) Description 02/05/2024 Refill Cardiology, [facility] [address] [place] [address] Aisha Vargas PA-C [address] [place] [address] Ischemic cardiomyopathy Allergies Active Allergy Reactions Criticality Noted Date [...] by mouth in the morning. 30 Capsule 2 Active Metamucil 0.52 GM Oral Capsule (Psyllium) Take 1 Capsule by mouth in the morning. 30 Capsule 2 Active Clobetasol Propionate 0.05 % External Ointment (Temovate)Indicatio ns:Psoriasis as needed for psoriasis 30 g 5 2 Active Aspirin 81 MG Oral Capsule Take 81 mg by mouth in the morning. Active Vitamin B-12 500 MCG Oral Lozenge Take 1 Tablet by mouth daily. 30 Lozenge 3 Active Albuterol Sulfate HFA 108 (90 Base) MCG/ACT Inhalation Aerosol Solution Inhale 2 Puffs by mouth every 6 hours as needed for Wheezing. 18 g 3 3 Active Skyrizi Pen 150 MG/ML Subcutaneous Solution Auto-injector 3 Active Nitroglycerin 0.4 MG Sublingual Tablet Sublingual (Nitrostat)Indicati ons:Chronic coronary artery disease take 1 every 5 minutes as needed for chest pain use up to 3 in 15 minutes 75 Tablet 3 3 Active Additional Information Patient not taking.Reported on 12/17/2023 Diclofenac Sodium 1 % External Gel (Voltaren) APPLY TOPICALLY TO AFFECTED AREA (LEFT LOW BACK) 3 TIMES A DAY. 100 g 3 3 Active tiZANidine HCl 2 MG Oral Capsule Take by mouth 1 Capsule in the morning AND 1 Capsule at noon AND 1 Capsule before bedtime. Strength: 2 mg 30 Capsule 5 3 Active Omeprazole 20 MG Oral Capsule Delayed Release (PriLOSEC)Indicatio ns:Ischemic cardiomyopathy,Epig astric pain TAKE 1 CAPSULE BY MOUTH IN THE MORNING AND 1 CAPSULE BEFORE BEDTIME. 180 Capsule 3 4 Active Amiodarone HCl 200 MG Oral Tablet (Cordarone) Take 1 Tablet by mouth in the morning. 4 Active Atorvastatin Calcium 80 MG Oral Tablet (Lipitor)Indication s:Chronic coronary artery disease TAKE 1 TABLET BY MOUTH INTHE MORNING 90 Tablet 3 4 Active Metoprolol Succinate ER 100 MG Oral Tablet Extended Release 24 Hour (toPROL XL)Indications:HTN, goal below 140/90 Take 1 Tablet by mouth in the morning. 90 Tablet 1 4 Active Entresto 49-51 MG Oral Tablet (sacubitril-valsart an 49-51 mg per tab)Indications:Par oxysmal atrial fibrillation (HCC) TAKE 1 TABLET BY MOUTH IN THE MORNING AND 1 TABLET BEFORE BEDTIME 180 Tablet 3 4 Active Sildenafil Citrate 100 MG Oral TabletIndications:I mpotence of organic origin TAKE 1 TABLET BY MOUTH DAILY NEEDED FOR ERECTILE DYSFUNCTION. 6 Tablet 5 4 Active Jardiance 10 MG Oral Tablet (Empagliflozin)Deanne cations:Chronic coronary artery disease,Ischemic cardiomyopathy,PVT (paroxysmal ventricular tachycardia) (HCC),Paroxysmal atrial fibrillation (HCC) TAKE 1 TABLET BY MOUTH IN THE MORNING 90 Tablet 3 4 Active NATURAL SUPPLEMENT Take 2 Tablets by mouth in the morning. Super Beta Prostate Advanced . Active Loratadine 10 MG Oral Tablet (Claritin) Take 1 Tablet by mouth in the morning. 30 Tablet 5 4 Active Warfarin Sodium 5 MG Oral Tablet (Coumadin)Indicatio ns:LV (left ventricular) mural thrombus TAKE 1 OR 2 TABLETS BY MOUTH DIRECTED BY [facility]. 180 Tablet 3 4 Active Spironolactone 25 MG Oral Tablet (Aldactone)Indicati ons:Ischemic cardiomyopathy Take 0.5 Tablets by mouth once a day on Friday, Friday, and Friday only. 20 Tablet 3 4 Active Spironolactone 25 MG Oral Tablet (Aldactone)Indicati ons:Ischemic cardiomyopathy Take 0.5 Tablets by mouth once a day on Friday, Friday, and Friday only. 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; HTN, goal below 140/90 Generalized osteoarthritis Diverticulosis of colon Cerebral aneurysm, nonruptured Overview: small(2.4mm) intracranial- A2 segment documented as of this encounter (statuses as of 02/06/2024) Resolved Problems Problem Noted Date Diagnosed Date Resolved Date Esophageal reflux 06/07/2019 06/07/2019 Prediabetes 12/30/2017 02/27/2023 Overview: Per Prediabetes protocol #1 - LV (left ventricular) mural thrombus with acute IA 01/09/2017 05/23/2017 HTN, goal below 130/80 03/15/201208/13 [...] for Patients with Cardiovascular Disease Project #: [id number] PI: Marley Panchal MD [phone] GENOMICS CARDIO RESEARCH OTHER*[id number] 01/14/2007 06/25/2016 Overview: Renamed Per Clinical Trials Billing Project. Study Title: Genomic Markers for Patients with Cardiovascular Disease Project #: [id number] PI: Marley Panchal MD [phone] Atherosclerosis of leg with intermittent claudication 08/13/2016 Dyslipidemia, goal to be determined 05/04/2009 Overview: Per Lipid Taxonomy. Abdominal pain 06/07/2019 Nausea 12/29/2015 Overview: ICD-10 update of inactive term Other psoriasis and similar disorders 12/29/2015 Diverticulitis 06/07/2019 documented as of this encounter (statuses as of 02/06/2024) Immunizations Name Administration Dates Next Due Covid-19 Ad26, Single Dose (Haley/J&J) 08/28/2020 Pneumococcal Conjugate Vacci ne, 20-valent ([id number]) 07/02/2022 Seasonal Influenza, PF, 6 M & [...] on file documented as of this encounter Miscellaneous Notes * Telephone Encounter - Aisha Vargas PA-C - 02/06/2024 4:12 PM EDTSigned Prescriptions: Disp Refills Spironolactone 25 MG Oral Tablet (Aldacton*20 Tab*3 Sig: Take 0.5 Tablets by mouth once a day on Friday, Friday, and Friday only. Authorizing Provider: AISHA VARGAS * Telephone Encounter - [facility] - 02/06/2024 3:19 PM EDTPending Prescriptions: Disp Refills Spironolactone 25 MG Oral Tablet (Aldacton*20 Tab*3 Sig: Take 0.5 Tablets by mouth once a day on Friday, Friday, and Friday only. * Telephone Encounter - [facility] - 02/06/2024 3:15 PM EDT Unable to authorize medication refills for pended medication(s) at this time. Part of the protocol criteria used for refill authorization was not satisfied. Patient's potassium on high end of normal with last labs on 12/17/23 and was instructed to repeat in 2-3 weeks but hasn't been done. Please approve if appropriate. [facility], Pharm.D. Clinical Pharmacist [facility] 02/06/2024, 3:15 PM [phone] * Telephone Encounter - Elyssa Pearson [facility] - 02/06/2024 11:08 AM EDTPending Prescriptions: Disp Refills Spironolactone 25 MG Oral Tablet (Aldacton*90 Tab*3 Sig: Take 0.5 Tablets by mouth once a day on Friday, Friday, and Friday only. * Telephone Encounter - Elyssa [facility] - 02/06/2024 11:02 AM EDT Pending Prescriptions: Disp Refills Spironolactone 25 MG Oral Tablet (Aldacto*90 Tab*3 Sig: Take 0.5 Tablets by mouth once a day on Friday, Friday, and Friday only. Last Visit: 09/04/2023 (in office), 03/07/2023 (telemedicine) Next Visit: 03/02/2024 If no future appointments scheduled, and last appointment is greater than a year ago, please schedule patient for a follow-up appointment Last date the medication was ordered: 01/31/23 Is this request for a controlled substance?No Urine Drug Screen:No results found. However, due to the size of the patient record, not all encounters were searched. Please check Results Review for a complete set of results. Patient Phone Numbers Labs: Lab Results Component Value Date/Time CREAT 1.3 (H) 12/17/2023 04:04 PM CREAT 1.0 11/26/2019 11:05 AM POTASSIUM 5.1 12/17/2023 04:04 PM POTASSIUM 4.8 11/26/2019 11:05 AM TSH 3.58 09/04/2023 10:42 AM TSH 2.430 07/31/2018 12:00 AM TSH 3.89 10/16/2006 05:55 AM LDL 79 12/17/2023 04:04 PM LDL 70 12/30/2019 12:25 PM LDL NOT APPLICABLE 12/30/2019 12:25 PM LDLCALC 53 07/25/2015 12:00 AM ALT 44 12/17/2023 04:04 PM ALT 42 11/26/2019 11:05 AM HGBA1C 6.7 (H) 12/17/2023 04:04 PM HGBA1C 6.5 (H) 12/30/2019 12:25 PM documented in this encounter Plan of Treatment Upcoming Encounters Date Type Department Care Team (Late st Contact Info) Description 03/02/2024 10:30 AM EDT Office Visit Cardiology, [facility] [address] [facility] [place] [address] Marta Garcia CRNP [address] [place] [address] 03/05/2024 10:00 AM EDT Office Visit Cardiology, [facility] [address] [place] [address] Aisha Vargas, PA-C [address] [facility] [place] [address] 03/11/2024 10:30 AM EDT Anticoagulation Pharmacy, [facility] [address] [place] [address] Pharmacist1, [facility] [address] [place] [address] [address] 07/09/2024 1:00 PM EST Office Visit Family Practice [facility] [address] [place] [address] Wayne Fontana, DO [address] [place] [address] [address] Scheduled Procedures Name Priority Associated Diagnoses Date/Ti [...] Colorectal Cancer Screening 08/18/2023 COVID-19 Vaccine ( - season) 2024 08/28/2020 Influenza Vaccine (FLU shot) (#1) 2024 02/14/2023, 03/15/2022, 02/20/2021, Additional history exists Diabetic Eye Exam 05/27/2024 05/27/2023 HbA1c 06/18/2024 12/17/2023, 0911/2022, 03/15/2022, Additional history exists Depression Screening 12/16/2024 [...] as of this encounter Visit Diagnoses Diagnosis Ischemic cardiomyopathy Other specified forms of chronic ischemic heart disease documented in this encounter Care Teams Roentgenologist Relationship Specialty Start Date End Date Wayne Fontana DO [address] [place] [address] PCP - General Family Medicine 01/23/17 documented as of this encounter
--- OUTSIDE RECORDS SUMMARY | 2024-03-21 22:31 | External Medical Summary | Summary of Care ---
Author Name Unknown Organization [facility] Address [address] [place] [address] Phone [phone] Care Team Providers Care Application Trainer Name Role Phone SurjitWayne lobo Primary Care Provider [phone] Reason for Visit * Reason Comments Dosage Adjustment In Person (Anticoag Cl inic) Encounter Details Date Type Department Care Team (Latest Contact Info) Description 03/18/2024 8:10 AM EDT Anticoagulation Pharmacy, [facility] [address] [facility] [place] [address] Pharmacist1, [facility] [address] [place] [address] LV (left ventricular) mural thrombus*; custodial 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 180 Tablet 3 01/26/2024 Active Spironolactone 25 MG Oral Tablet (Aldactone)Indication s:Ischemic cardiomyopathy Take 0.5 Tablets by mouth once a day on Friday, Friday, and Friday only. 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; HTN, goal below 140/90 Generalized osteoarthritis Diverticulosis of colon Cerebral aneurysm, nonruptured Overview: small(2.4mm) intracranial- A2 segment documented as of this encounter (statuses as of 03/18/2024) Resolved Problems Problem Noted Date Diagnosed Date Resolved Date Esophageal reflux 06/07/2019 06/07/2019 Prediabetes 12/30/2017 02/27/2023 Overview: Per Prediabetes protocol #1 - LV (left ventricular) mural thrombus with acute SD 01/09/2017 05/23/2017 HTN, goal below 130/80 03/15/201208/13 [...] for Patients with Cardiovascular Disease Project #: [id number] PI: Marley Panchal MD [phone] GENOMICS CARDIO RESEARCH OTHER*[id number] 01/14/2007 06/25/2016 Overview: Renamed Per Clinical Trials Billing Project. Study Title: Genomic Markers for Patients with Cardiovascular Disease Project #: [id number] PI: Marley Panchal MD [phone] Atherosclerosis of leg with intermittent claudication 08/13/2016 Dyslipidemia, goal to be determined 05/04/2009 Overview: Per Lipid Taxonomy. Abdominal pain 06/07/2019 Nausea 12/29/2015 Overview: ICD-10 update of inactive term Other psoriasis and similar disorders 12/29/2015 Diverticulitis 06/07/2019 documented as of this encounter (statuses as of 03/18/2024) Immunizations Name Administration Dates Next Due Covid-19 Ad26, Single Dose (Haley/J&J) 08/28/2020 Pneumococcal Conjugate Vacci ne, 20-valent ([id number]) 07/02/2022 Seasonal Influenza Vac., MDV , IM, [...] on file documented as of this encounter Progress Notes * Vlad Alcaraz RPh - 03/18/2024 8:11 AM EDT Images from the original note were not included. Medication Therapy Disease Management - Anticoagulation Selwyn Hope 1955 Current Warfarin Dose As of 03/18/2024 Warfarin maintenance plan: 2.5 mg (5 mg x 0.5) every Tue, Johanne, Sat; 5 mg (5 mg x 1) all other days Patient Findings Negatives: Signs/symptoms of thrombosis, Signs/symptoms of bleeding, Change in health, Change in alcohol use, Change in activity, Upcoming invasive procedure, Missed doses, Extra doses, Change in medications, Change in diet/appetite, Bruising INR Result As of 03/18/2024 INR goal: 2.0-3.0 INR used for dosin.4 (03/18/2024) Warfarin Plan As of 03/18/2024 Full warfarin instructions: 03/18: Hold; Otherwise 2.5 mg every Tue, Johanne, Sat; 5 mg all other days Next INR check: 04/29/2024 Repeat PT/INR in 6 week(s) Weekly dose: not changed I spent a total of 10-19 minutes (exact time 15 mins) on the date of service in preparation, delivery, and documentation of the care provided to Selwyn Hope excluding any time spent in the performance of separately billed services or time spent by another provider/QHP. Vlad Cespedes RPh, CACP, CDE Clinical Pharmacist [facility] 03/18/2024 8:18 AM documented in this encounter Plan of Treatment Upcoming Encounters Date Type Department Care Team (Late st Contact Info) Description 04/29/2024 8:50 AM EST Anticoagulation Pharmacy, [facility] [place] [address] [place] [address] Pharmacist1, [facility] [address] [place] [address] 07/09/2024 1:00 PM EST Office Visit Family Practice [facility] [place] [address] [place] [address] Wayne Fontana, DO [address] [place] [address] 07/15/2024 8:00 AM EST Office Visit Cardiology, [facility] [address] [facility] [place] [address] Martinez Kessler PA-C [address] [place] [address] 12/24/2024 10:30 AM EDT Office Visit Cardiology, [facility] [address] [facility] [place] [address] Marta Garcia CRNP [address] [facility] [place] [id number] Health Maintenance Due Date Last Done Comments [...] Procedure Name Priority Date/Time Associated Diagnosis Comments INR FINGERSTICK, POINT OF CARE STAT 03/18/2024 8:15 AM EDT LV (left ventricular) mural thrombus Anticoagulation management encounter Paroxysmal atrial fibrillation (HCC) documented in this encounter Results * INR FINGERSTICK, POINT OF CARE (03/18/2024 8:15 AM EDT) Fingerstick INR 3.4 INR 8:20 AM EDT [facility] 56-02 Blood 03/18/2024 8:15 AM EDT 03/18/2024 8:20 AM EDT Narrative [facility] 56-02 - 03/18/2024 8:20 AM EDT Therapeutic ranges for non-operative patients: Prophylaxsis/treatment of DVT: (Range:2.0-3.0) Treatment of pulmonary embolism:(Range:2.0-3.0) Prevention of systemic embolism from: -tissue heart valves -acute myocardial infarction -valvular heart disease -atrial fibrillation (Range: 2.0-3.0) Mechanical prosthetic valves: (Range: 2.5-3.5) Vlad Cespedes V [facility] LAB POINT OF CARE TE ST DOCKED DEVICE UNSOLICITED RESULTS [facility] [address] [place] [address] documented in this encounter Visit Diagnoses Diagnosis LV (left ventricular) mural thrombus- Primary Acute myocardial infarction, unspecified site, episode of care unspecified 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
--- OUTSIDE RECORDS SUMMARY | 2024-03-21 22:32 | External Medical Summary | Summary of Care ---
Author Name Unknown Organization [facility] Address [address] [facility] [address] Phone [phone] Care Team Providers Care News Agent Name Role Phone SurjitWayne lobo Primary Care Provider [phone] Reason for Visit * Reason Onset Date Comments Test Results 12/22/2023 Encounter Details Date Type Department Care Team (Late st Contact Info) Description 12/22/2023 Telephone Cardiology, [facility] [address] [place] [address] Martinez Kessler PA-C [address] [place] [address] Test Results Allergies Active Allergy Reactions Criticality Noted Date Comments Penicillins 10/16/2006 Develop a Rash after a week documented as of this encounter (statuses as of 12/22/2023) Medications Medication Sig Dispensed Refills Start Date [...] for psoriasis 30 g 5 09/12/2021 Active Warfarin Sodium 5 MG Oral Tablet (Coumadin)Indication s:LV (left ventricular) mural thrombus Take 1 to 2 tablets as directed by anticoag clinic. 180 Tablet 3 06/21/2022 Active Aspirin 81 MG Oral Capsule Take [...] the morning. 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; HTN, goal below 140/90 Generalized osteoarthritis Diverticulosis of colon Cerebral aneurysm, nonruptured Overview: small(2.4mm) intracranial- A2 segment documented as of this encounter (statuses as of 12/22/2023) Resolved Problems Problem Noted Date Diagnosed Date Resolved Date Esophageal reflux 06/07/2019 06/07/2019 Prediabetes 12/30/2017 02/27/2023 Overview: Per Prediabetes protocol #1 - LV (left ventricular) mural thrombus with acute ND 01/09/2017 05/23/2017 HTN, goal below 130/80 03/15/201208/13 [...] for Patients with Cardiovascular Disease Project #: [id number] PI: Marley Panchal MD [phone] GENOMICS CARDIO RESEARCH OTHER*[id number] 01/14/2007 06/25/2016 Overview: Renamed Per Clinical Trials Billing Project. Study Title: Genomic Markers for Patients with Cardiovascular Disease Project #: [id number] PI: Marley Panchal MD [phone] Atherosclerosis of leg with intermittent claudication 08/13/2016 Dyslipidemia, goal to be determined 05/04/2009 Overview: Per Lipid Taxonomy. Abdominal pain 06/07/2019 Nausea 12/29/2015 Overview: ICD-10 update of inactive term Other psoriasis and similar disorders 12/29/2015 Diverticulitis 06/07/2019 documented as of this encounter (statuses as of 12/22/2023) Immunizations Name Administration Dates Next Due Covid-19 Ad26, Single Dose (Haley/J&J) 08/28/2020 Pneumococcal Conjugate Vacci ne, 20-valent (Anaxnip02) 07/02/2022 Seasonal Influenza, PF, 6 M & above, IM , (FluLaval or Fluzone) 02/15/2020,03/26/2018,05/23/2017 Seasonal Influenza, Quadriva lent Hd (Fluzone Hd) 02/14/2023,03/15/2022,02/20/2021 Seasonal Influenza, Quadriva lent, No Preserve, IM 04/10/2016 Seasonal Influenza, Split, I IV3, With Preserve, Inj 03/28/2015,02/09/2014,03/22/2013,2011,04/04/2011 Seasonal Influenza, Trivalen t, Adjuvanted, 65+ yrs 03/19/2019 TDAP (age 10 and older)(Boostrix) 12/12/2018, [...] encounter Miscellaneous Notes * Telephone Encounter - JuanShira LPN - 12/22/2023 5:20 PM EDT Spoke with patient by phone, gave information in this encounter. Verbalized understanding Agreed to plan of care. Reviewed high potassium foods with pt. * Telephone Encounter - Candy Petersen OSA - 12/22/2023 12:55 PM EDT Person calling: Selwyn Relationship to patient: na Number to return call: [phone] Reason for call(brief): lab results [facility]acy: [facility] Provider Name: Martinez Kessler Detailed message to office: Returning call regarding lab results. * Telephone Encounter - Shira Martinez LPN - 12/22/2023 9:19 AM EDT Attempted pt by phone - primary number listed. No answer, no voicemail. Attempted pt by phone - secondary number listed. No answer, left message. Upon return call please give pt information in this encounter. Lab orders placed * Telephone Encounter - Shira Martinez LPN - 12/22/2023 9:19 AM EDT ----- Message from Martinez Kessler sent at 12/19/2023 2:01 PM EDT ----- Potassium is high normal, on low dose spironolactone and Entresto. Reduce dietary potassium. No OTC potassium, multivitamin, salt substitutes, NSAIDS, etc Recheck, via basic metabolic panel, in 2-3 weeks. documented in this encounter Plan of Treatment Upcoming Encounters Date Type Department Care Team (Late st Contact Info) Description 01/29/2024 10:00 AM EDT Anticoagulation Pharmacy, [facility] [address] [place] [address] Pharmacist1, [facility] [address] [place] [address] 03/02/2024 10:30 AM EDT Office Visit Cardiology, [facility] [address] [facility] [place] [address] Marta Garcia CRNP [address] [place] [address] 03/05/2024 10:00 AM EDT Office Visit Cardiology, [facility] [address] [facility] [place] [address] Martinez Kessler PA-C [address] [facility] [place] [address] 07/09/2024 1:00 PM EST Office Visit Family Practice [facility] [address] [facility] [place] [address] Wayne Fontana, [address] [facility] [place] [address] Scheduled Orders Name Type Priority Associated Diagnoses Orde r Schedule BASIC METABOLIC PANEL Lab Routine Paroxysmal atrial fibrillation (HCC) Encounter for monitoring diuretic therapy Expected: 01/12/2024 (Approximate), Expires: 12/21/2024 Scheduled Procedures Name Priority Associated Diagnoses Date/Ti me COLONOSCOPY FLEXIBLE PROXIMA L DIAGNOSTIC Recall History of colon polyps Diverticulosis Internal hemorrhoids External hemorrhoids Health Maintenance Due Date Last Done Comments Rodriguez's Esophagus Surveilance 1953 Diabetic Foot Exam 10/04/1971 Cologuard 1998 Fecal Occult Blood Test 1998 Sigmoidoscopy 1998 Zoster Vaccines (1 of 2) 10/04/2003 COVID-19 Vaccine (2 - season) 2023 08/28/2020 Albumin/Creatinine Ratio 03/15/2023 03/15/2022 Colonoscopy 08/18/2023 08/17/2018, 04/0 05/2018, 05/11/2013, Additional history exists Colorectal Cancer Screening 08/18/2023 Influenza Vaccine (FLU shot) (#1) 2024 02/14/2023, 03/15/2022, 02/20/2021, Additional history exists Diabetic Eye Exam 05/27/2024 05/27/2023 HbA1c 06/18/2024 12/17/2023, 090 11/2022, 03/15/2022, Additional history exists Depression Screening 12/16/2024 12/17/2023 GFR 12/16/2024 12/17/2023, 0412/2023, 03/14/2023, Additional history exists DTaP,Tdap,and Td Vaccines (3 - Td or Tdap) 12/12/2028 [...] as of this encounter Visit Diagnoses Diagnosis Paroxysmal atrial fibrillation (HCC)- Primary Atrial fibrillation Encounter for monitoring diuretic therapy Encounter for therapeutic drug monitoring documented in this encounter Care Teams News Agent Relationship Specialty Start Date End Date Wayne Fontana DO [address] [place] [address] PCP - General Family Medicine 01/23/17 documented as of this encounter
--- OUTSIDE RECORDS SUMMARY | 2024-03-21 22:32 | External Medical Summary | Summary of Care ---
Author Name Unknown Organization [facility] Address [address] [place] [address] Phone [phone] Care Team Providers Care Green Chain Puller Name Role Phone Wayne Fontana DO Primary Care Provider [phone] Reason for Visit * Reason Comments Follow Up 6 month follow up. P atient c/o a somewhat productive cough that becomes dry. Is on/off where he can't seem to catch his breath during an coughing episode, is concerned it is a side effect of Skyrizi. Reports it has been occurring for 6 months - 1 year. 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 Encounter Details Date Type Department Care Team (Late st Contact Info) Description 12/17/2023 3:00 PM EDT Office Visit Family Practice [facility] [address] [place] [address] Wayne Fontana DO [address] [facility] [place] [address] Diabetes mellitus without complication (HCC)*; Dyslipidemia, goal LDL below 70; Chronic coronary artery disease; HTN, goal below 140/90; Rodriguez's esophagus with dysplasia; Peripheral vascular disease with claudication (HCC); Psoriasis; Gastroesophageal reflux disease with esophagitis, unspecified whether hemorrhage; Paroxysmal atrial fibrillation (HCC) Allergies Active Allergy Reactions Criticality Noted Date Comments Penicillins 10/16/2006 Develop a Rash after a week documented as of this encounter (statuses as of 12/23/2023) Medications Medication Sig Dispensed Refills Start Date [...] 1 to 2 tablets as directed by antico clinic. 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 Study Title: Genomic Markers for Patients with Cardiovascular Disease Project #: [id number] PI: Marley Panchal MD [phone] Atherosclerosis of leg with intermittent claudication 08/13/2016 Dyslipidemia, goal to be determined 05/04/2009 Overview: Per Lipid Taxonomy. Abdominal pain 06/07/2019 Nausea 12/29/2015 Overview: ICD-10 update of inactive term Other psoriasis and similar disorders 12/29/2015 Diverticulitis 06/07/2019 documented as of this encounter (statuses as of 12/23/2023) Immunizations Name Administration Dates Next Due Covid-19 Ad26, Single Dose (Haley/J&J) 08/28/2020 Pneumococcal Conjugate Vacci ne, 20-valent ([id number]) 07/02/2022 Seasonal Influenza, PF, 6 M & [...] Sign Reading Time Taken Comments Blood Pressure 126/70 12/17/2023 3:06 PM EDT Pulse 48 12/17/2023 3:06 PM EDT Temperature 36.6 C (97.8 F) 12/17/2023 3:06 PM ED T Respiratory Rate 18 12/17/2023 3:06 PM EDT Oxygen Saturation 96% 12/17/2023 3:06 PM EDT Inhaled Oxygen Concentration - - Weight 83.5 kg (184 lb) 12/17/2023 3:06 PM EDT Height - - Body Mass Index 26.76 02/06/2023 3:30 PM EDT documented in this encounter Progress Notes * Wayne Fontana, - 12/17/2023 3:18 PM EDT Subjective: Selwyn Hope is a 68 year old male. Chief Complaint Patient presents with Follow Up 6 month follow up. Patient c/o a somewhat productive cough that becomes dry. Is on/off where he can't seem to catch his breath during an coughing episode, is concerned it is a side effect of Skyrizi.Reports it has been occurring for 6 months - 1 year. 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 HPI: Pt here in follow-up. PT with a dry cough. Makes him tear up. Drinking water or a cough drop helps. Feels like it comes from his throat. Inhaler does not help. No specific acid indigestion. Sometimes brings up phlegm. It is clear to white. No F or C. This has been for around [address] done in April and lookedgood. He wonders about allergies. Seems worse in the fall. He still takes twoce daily Omeprazole. Upper endoscopy offered with Rodriguez's history. We discussed it last time too. Will do allergy pill first and if no better will do upper endoscopy. We discussed risks of not doing a scope. Traded in his Corvette. Feels pretty good most of the time. Occasionally feels lazy. Does not feel depressed, just tired. Due for blood work. BP good today. Pulse discussed. EF inproved on Entresto and Jardiance. 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 Anticoagulation management encounter Impotence of organic origin Rodriguez's esophagus Diverticulosis of colon Cerebral aneurysm, nonruptured Ischemic cardiomyopathy Tobacco abuse Dyslipidemia, goal LDL below 70 LV (left ventricular) mural thrombus Automatic implantable cardioverter-defibrillator in situ Peripheral vascular disease with claudication (HCC) Psoriasis Gastroesophageal reflux disease with esophagitis PVT (paroxysmal ventricular tachycardia) (HCC) History of lumbar laminectomy History of KS (myocardial infarction) Heart failure (HCC) Diabetes mellitus without complication (HCC) Paroxysmal atrial fibrillation (HCC) Current Outpatient Medications Medication Sig Dispense Refill ONDANSETRON HCL 4 MG PO TABS Take 1 Tablet by mouth every 8 hours as needed for Nausea or Vomiting. Coenzyme Q-10 100 MG Oral Capsule Take 1 Capsule by mouth in the morning. 30 Capsule 0 Metamucil 0.52 GM Oral Capsule (Psyllium) Take 1 Capsule by mouth in the morning. 30 Capsule 0 Clobetasol Propionate 0.05 % External Ointment (Temovate) as needed for psoriasis 30 g 5 Warfarin Sodium 5 MG Oral Tablet (Coumadin) Take 1 to 2 tablets as directed by anticoag clinic. 180Tablet 3 Aspirin 81 MG Oral Capsule Take 81 mg by mouth in the morning. Vitamin B-12 500 MCG Oral Lozenge Take 1 Tablet by mouth daily. 30 Lozenge 0 Albuterol Sulfate HFA 108 (90 Base) MCG/ACT Inhalation Aerosol Solution Inhale 2 Puffs by mouth every 6 hours as needed for Wheezing. 18 g 3 Skyrizi Pen 150 MG/ML Subcutaneous Solution Auto-injector Diclofenac Sodium 1 % External Gel (Voltaren) APPLY TOPICALLY TO AFFECTED AREA (LEFT LOW BACK) 3 TIMES A DAY. 100 g 3 Spironolactone 25 MG Oral Tablet (Aldactone) Take 0.5 Tablets by mouth once a day on Friday, Friday, and Friday only. 20 Tablet 3 tiZANidine HCl 2 MG Oral Capsule Take by mouth 1 Capsule in the morning AND 1 Capsule at noon AND 1Capsule before bedtime. Strength: 2 mg 30 Capsule 5 Omeprazole 20 MG Oral Capsule Delayed Release (PriLOSEC) TAKE 1 CAPSULE BY MOUTH IN THE MORNING AND1 CAPSULE BEFORE BEDTIME. 180 Capsule 3 Amiodarone HCl 200 MG Oral Tablet (Cordarone) Take 1 Tablet by mouth in the morning. Atorvastatin Calcium 80 MG Oral Tablet (Lipitor) TAKE 1 TABLET BY MOUTH INTHE MORNING 90 Tablet 3 Metoprolol Succinate ER 100 MG Oral Tablet Extended Release 24 Hour (toPROL XL) Take 1 Tablet by mouth in the morning. 90 Tablet 1 Entresto 49-51 MG Oral Tablet (sacubitril-valsartan 49-51 mg per tab) TAKE 1 TABLET BY MOUTH IN THEMORNING AND 1 TABLET BEFORE BEDTIME 180 Tablet 3 Sildenafil Citrate 100 MG Oral Tablet TAKE 1 TABLET BY MOUTH DAILY NEEDED FOR ERECTILE DYSFUNCTION. 6 Tablet 5 Jardiance 10 MG Oral Tablet (Empagliflozin) TAKE 1 TABLET BY MOUTH IN THE MORNING 90 Tablet 3 NATURAL SUPPLEMENT Take 2 Tablets by mouth in the morning. Super Beta Prostate Advanced . Nitroglycerin 0.4 MG Sublingual Tablet Sublingual (Nitrostat) take 1 every 5 minutes as needed for chest pain use up to 3 in 15 minutes (Patient not taking: Reported on 12/17/2023) 75 Tablet 3 No current facility-administered medications for this visit. Review of patient's allergies indicates: Allergen Reactions Pcn [Penicillins] Develop a Rash after a week OBJECTIVE: BP 126/70 | Pulse 48 | Temp 36.6 C (97.8 F) (Tympanic) | Resp 18 | Wt 83.5 kg (184 lb) | SpO2 96% | BMI 26.76 kg/m | BSA 2.02 m Estimated body mass index is 26.76 kg/m as calculated from the following: Height as of 02/06/23: 1.766 m (5' 9.53"). Weight as of this encounter: 83.5 kg (184 lb). BP Readings from Last 3 Encounters: 12/17/23 126/70 09/04/23 134/80 05/27/23 114/66 Wt Readings from Last 3 Encounters: 12/17/23 83.5 kg (184 lb) 09/04/23 79.6 kg (175 lb 8 oz) 05/27/23 80.3 kg (177 lb) ROS: Negative except for above PHYSICAL EXAM: General: alert, healthy, and no distress Head: Normocephalic, No masses, lesions, tenderness or abnormalities Heart: regular rate & rhythm, no murmur, and no gallops Lungs: chest symmetric with normal AP diameter, no chest deformities noted, no chest wall tenderness, lungs clear to auscultation ASSESSMENT/Plan Diabetes mellitus without complication (HCC) (Primary) - HEMOGLOBIN A1C; Future; Expected date: 12/17/2023 - COMPREHENSIVE METABOLIC PANEL; Future; Expected date: 12/17/2023 Dyslipidemia, goal LDL below 70 - COMPREHENSIVE METABOLIC PANEL; Future; Expected date: 12/17/2023 Chronic coronary artery disease HTN, goal below 140/90 Rodriguez's esophagus with dysplasia Peripheral vascular disease with claudication (HCC) Psoriasis Gastroesophageal reflux disease with esophagitis, unspecified whether hemorrhage Paroxysmal atrial fibrillation (HCC) Other orders - Loratadine 10 MG Oral Tablet (Claritin); Take 1 Tablet by mouth in the morning. I spent a total of 30 minutes on the date of service in preparation, delivery, and documentation ofthe care provided to this patient, excluding any time spent on the performance of any procedure or separately billable services. Start allergy pill and if no better will consider switching out ALEJANDRA. The above was discussed and understanding was expressed. Wayne Fontana DO documented in this encounter Nursing Notes * Ivone Wallace MED ASSIST - 12/17/2023 3:11 PM EDT Chief Complaint Patient presents with Follow Up 6 month follow up. Patient c/o a somewhat productive cough that becomes dry. Is on/off where he can't seem to catch his breath during an coughing episode, is concerned it is a side effect of Skyrizi.Reports it has been occurring for 6 months - 1 year. 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 Patient has been verbally educated on the need or importance of Colon Cancer Screening and Immunizations: shingles and has declined topic(s). documented in this encounter Plan of Treatment Upcoming Encounters Date Type Department Care Team (Late st Contact Info) Description 01/29/2024 10:00 AM EDT Anticoagulation Pharmacy, [facility] [address] [facility] [place] [address] Pharmacist1, [facility] [address] [place] [address] 03/02/2024 10:30 AM EDT Office Visit Cardiology, [facility] [address] [facility] [place] [address] Marta Garcia CRNP [address] [facility] [place] [address] 03/05/2024 10:00 AM EDT Office Visit Cardiology, [facility] [address] [facility] [place] [address] [facility] [address] 07/09/2024 1:00 PM EST Office Visit Family Practice [facility] [address] [facility] [place] [address] Wayne Fontana, [address] [facility] [place] [address] Scheduled Procedures Name Priority Associated Diagnoses Date/Ti me COLONOSCOPY FLEXIBLE PROXIMA L DIAGNOSTIC Recall History of colon polyps Diverticulosis Internal hemorrhoids External hemorrhoids Health Maintenance Due Date Last Done Comments Rodriguez's Esophagus Surveilance 1953 Diabetic Foot Exam 10/04/1971 Cologuard 1998 Fecal Occult Blood Test 1998 Sigmoidoscopy 1998 Zoster Vaccines (1 of 2) 10/04/2003 Adult Wellness Visit 10/04/2019 COVID-19 Vaccine (2 - season) 2023 08/28/2020 Albumin/Creatinine Ratio 03/15/2023 03/15/2022 Colonoscopy 08/18/2023 08/17/2018, 04/0 05/2018, 05/11/2013, Additional history exists Colorectal Cancer Screening 08/18/2023 Influenza Vaccine (FLU shot) (#1) 2024 02/14/2023, 03/15/2022, 02/20/2021, Additional history exists Diabetic Eye Exam 05/27/2024 05/27/2023 HbA1c 06/18/2024 12/17/2023, 09/0 11/2022, 03/15/2022, Additional history exists Depression Screening 12/16/2024 12/17/2023 GFR 12/16/2024 12/17/2023, 08/17, 03/14/2023, Additional history exists DTaP,Tdap,and Td Vaccines [...] as of this encounter Visit Diagnoses Diagnosis Diabetes mellitus without complication (HCC)- Primary Type II or unspecified type diabetes mellitus without mention of complication, not stated as uncontrolled Dyslipidemia, goal LDL below 70 Other and unspecified hyperlipidemia Chronic coronary artery disease Coronary atherosclerosis of unspecified type of vessel, hoopa or graft HTN, goal below 140/90 Unspecified essential hypertension Rodriguez's esophagus with dysplasia Rodriguez's esophagus Peripheral vascular disease with claudication (HCC) Peripheral vascular disease, unspecified Psoriasis Other psoriasis Gastroesophageal reflux disease with esophagitis, unspecified whether hemorrhage Paroxysmal atrial fibrillation (HCC) Atrial fibrillation documented in this encounter Care Teams Green Chain Puller Relationship Specialty Start Date End Date Wayne Fontana DO [address] [place], [place] [address] PCP - General Family Medicine 01/23/17 documented as of this encounter
--- OUTSIDE RECORDS SUMMARY | 2024-03-21 22:32 | External Medical Summary | Summary of Care ---
Author Name Unknown Organization [facility] Address [address] [place] [address] Phone [phone] Care Team Providers Care Sweatband Separator Name Role Phone SurjitWayne lobo Primary Care Provider [phone] Reason for Visit * Reason Comments Dosage Adjustment In Person (Anticoag Cl inic) Encounter Details Date Type Department Care Team (Latest Contact Info) Description 12/17/2023 2:50 PM EDT Anticoagulation Pharmacy, [facility] [address] [place] [address] Pharmacist2, [facility] [address] [place] [address] LV (left ventricular) mural thrombus*; care home current use of anticoagulant therapy; Anticoagulation management encounter; Paroxysmal atrial fibrillation (HCC) Allergies Active Allergy Reactions Criticality Noted Date Comments Penicillins 10/16/2006 Develop a Rash after a week documented as of this encounter (statuses as of 12/17/2023) Medications Medication Sig Dispensed Refills Start Date [...] Tablet (Coumadin)Indications :LV (left ventricular) mural thrombus Take 1 to 2 tablets as directed by [facility]. 180 Tablet 3 06/21/2022 Active Aspirin 81 [...] 01/17/2023 Active Spironolactone 25 MG Oral Tablet (Aldactone)Indication [...] morning. Super Beta Prostate Advanced . 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; HTN, goal below 140/90 Generalized osteoarthritis Diverticulosis of colon Cerebral aneurysm, nonruptured Overview: small(2.4mm) intracranial- A2 segment documented as of this encounter (statuses as of 12/17/2023) Resolved Problems Problem Noted Date Diagnosed Date Resolved Date Esophageal reflux 06/07/2019 06/07/2019 Prediabetes 12/30/2017 02/27/2023 Overview: Per Prediabetes protocol #1 - LV (left ventricular) mural thrombus with acute NC 01/09/2017 05/23/2017 HTN, goal below 130/80 03/15/201208/13 [...] for Patients with Cardiovascular Disease Project #: [id number] PI: Marley Panchal MD [phone] GENOMICS CARDIO RESEARCH OTHER*[id number] 01/14/2007 06/25/2016 Overview: Renamed Per Clinical Trials Billing Project. Study Title: Genomic Markers for Patients with Cardiovascular Disease Project #: [id number] PI: Marley Panchal MD [phone] Atherosclerosis of leg with intermittent claudication 08/13/2016 Dyslipidemia, goal to be determined 05/04/2009 Overview: Per Lipid Taxonomy. Abdominal pain 06/07/2019 Nausea 12/29/2015 Overview: ICD-10 update of inactive term Other psoriasis and similar disorders 12/29/2015 Diverticulitis 06/07/2019 documented as of this encounter (statuses as of 12/17/2023) Immunizations Name Administration Dates Next Due Covid-19 Ad26, Single Dose (Haley/J&J) 08/28/2020 Pneumococcal Conjugate Vacci ne, 20-valent ([id number]) 07/02/2022 Seasonal Influenza, PF, 6 M & [...] as of this encounter Progress Notes * Tio Johnson RPh - 12/17/2023 2:59 PM EDT Agree with plan as documented. Tio Johnson RPh Clinical Pharmacist 12/17/2023, 2:59 PM * Helsel, Margie, Pharmacy Lead Applier - 12/17/2023 2:44 PM EDT Medication Therapy Disease Management - Anticoagulation Patient: Selwyn Hope | : 1955 Subjective Patient-Reported Symptoms: Patient Findings Negatives: Signs/symptoms of thrombosis, Signs/symptoms of bleeding, Change in health, Change in alcohol use, Change in activity, Upcoming invasive procedure, Missed doses, Extra doses, Change in medications, Change in diet/appetite, Bruising Objective Current Warfarin Dose As of 12/17/2023 Warfarin maintenance plan: 2.5 mg (5 mg x 0.5) every Tue, Johanne, Sat; 5 mg (5 mg x 1) all other days INR Result As of 12/17/2023 INR goal: 2.0-3.0 INR used for dosin.6 (12/17/2023) Assessment & Plan Warfarin Plan As of 12/17/2023 Full warfarin instructions: 2.5 mg every Tue, Johanne, Sat; 5 mg all other days Next INR check: 01/29/2024 Repeat PT/INR in 6 week(s) Weekly dose: not changed Additional Dosing Information: Margie Garnica, Pharmacy Lead Applier Clinical Pharmacist 12/17/2023, 2:44 PM documented in this encounter Plan of Treatment Upcoming Encounters Date Type Department Care Team (Late st Contact Info) Description 01/29/2024 10:00 AM EDT Anticoagulation Pharmacy, [facility] [address] [place] [address] Pharmacist1, [facility] [address] [place] [address] 03/02/2024 10:30 AM EDT Office Visit Cardiology, [facility] [address] [place] [address] Marta Garcia CRNP [address] [facility] [place] [address] 03/05/2024 10:00 AM EDT Office Visit Cardiology, [facility] [address] [place] [address] Martinez Kessler PA-C [address] [place] [address] Scheduled Procedures Name Priority Associated Diagnoses Date/Ti [...] season) 2023 08/28/2020 Albumin/Creatinine Ratio 03/15/2023 03/15/2022 HbA1c 07/24/2023 01/23/2023, 02/17, 12/30/2019, Additional history exists Colonoscopy 08/18/2023 08/17/2018, 05/2018, 05/11/2013, Additional history exists Colorectal Cancer Screening 08/18/2023 Influenza Vaccine (FLU shot) (#1) 2024 02/14/2023, 03/15/2022, 02/20/2021, Additional history exists Diabetic Eye Exam 05/27/2024 05/27/2023 GFR 09/03/2024 09/04/2023, 02/17, 01/31/2023, Additional history exists Depression Screening 12/16/2024 12/17/2023, 07/02/19 23 DTaP,Tdap,and Td Vaccines (3 - Td or Tdap) 12/12/2028 12/12/2018, 05/02/2011 RETIRED - COLONOSCOPY-EVERY 5 YRS AGES 18-100 Discontinued 08/17/2018, 08/17/2018, 05/11/2013, Additional history exists *BASELINE EKG FOR HTN Completed 08/16/2021 , 03/27/2021, 07/05/2013 AAA Screening Completed 09/24/2021 Hepatitis C Screening Completed 03/15/2022 , 03/15/2022, 03/15/2022 Pneumococcal Vaccine: 65+ Years Completed 07/02/2022 Lung [...] Diagnosis Comments INR FINGERSTICK, POINT OF CARE CORNELL 12/17/2023 2:49 PM EDT documented in this encounter Results * INR FINGERSTICK, POINT OF CARE (12/17/2023 2:49 PM EDT) Fingerstick INR 2.6 INR 2:57 PM EDT [facility] 56-02 Blood 12/17/2023 2:49 PM EDT 12/17/2023 2:57 PM EDT Narrative [facility] 56-02 - 12/17/2023 2:57 PM EDT Therapeutic ranges for non-operative patients: Prophylaxsis/treatment of DVT: (Range:2.0-3.0) Treatment of pulmonary embolism:(Range:2.0-3.0) Prevention of systemic embolism from: -tissue heart valves -acute myocardial infarction -valvular heart disease -atrial fibrillation (Range: 2.0-3.0) Mechanical prosthetic valves: (Range: 2.5-3.5) [facility] Pharmacist2 LAB POINT OF C ARE TEST DOCKED DEVICE UNSOLICITED RESULTS [facility] [address] [place] [address] documented in this encounter Visit Diagnoses Diagnosis LV (left ventricular) mural thrombus- Primary Acute myocardial infarction, unspecified site, episode of care unspecified care home current use of anticoagulant therapy Anticoagulation management encounter Encounter for therapeutic drug monitoring Paroxysmal atrial fibrillation (HCC) Atrial fibrillation documented in this encounter Care Teams Sweatband Separator Relationship Specialty Start Date End Date Wayne Fontana DO [address] [place] [address] PCP - General Family Medicine 01/23/17 documented as of this encounter"
--- OUTSIDE RECORDS SUMMARY | 2024-03-21 22:32 | External Medical Summary | Summary of Care ---
Author Name Unknown Organization [facility] Address [address] [place] [address] Phone [phone] Care Team Providers Care Tube Blower Name Role Phone SurjitWayne lobo Primary Care Provider [phone] Reason for Visit * Reason Onset Date Comments Information 11/28/2023 Encounter Details Date Type Department Care Team (Late st Contact Info) Description 11/28/2023 Telephone Cardiac Studies, [facility] [address] [place] [address] Martinez Kessler PA-C [address] [place] [address] Information Allergies Active Allergy Reactions Criticality Noted Date Comments Penicillins 10/16/2006 Develop a Rash after a week documented as of this encounter (statuses as of 11/28/2023) Medications Medication Sig Dispensed Refills Start Date [...] for Wheezing. 18 g 3 07/31/2022 Active Alfuzosin HCl ER 10 MG Oral Tablet Extended Release 24 Hour (Uroxatral) Take 1 Tablet by mouth in the morning. 90 Tablet 3 11/26/2022 Active Skyrizi Pen 150 MG/ML Subcutaneous Solution [...] THE MORNING 90 Tablet 3 11/19/2023 Active Hospital, Clinic, or Other Facility Administered Medication Ordered Dose Route Frequency Start Date End Date Status perflutren lipid microsphere inj SUSP 1.956 mgIndications:Ischemic cardiomyopathy 1.956 mg IV ONCE PRN 11/28/2023 11/28/2023 Ended documented as of this encounter (statuses as of 11/28/2023) Active Problems Problem Noted Date Diagnosed Date Paroxysmal atrial fibrillation 05/27/2023 History of VT (myocardial infarction) 02/06/2023 Heart failure 02/06/2023 Diabetes [...] 6 months Impotence of organic origin 06/13/2008 [facility] current use of anticoagulant therapy 0 02/09/2007 Overview: ICD-10 update of inactive term Anticoagulation management encounter 02/09/2007 ADVANCE DIRECTIVE INFORMATION 12/12/2006 Overview: No, Advance Directive brochure given to patient at prior appointment. 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; HTN, goal below 140/90 Generalized osteoarthritis Diverticulosis of colon Cerebral aneurysm, nonruptured Overview: small(2.4mm) intracranial- A2 segment documented as of this encounter (statuses as of 11/28/2023) Resolved Problems Problem Noted Date Diagnosed Date Resolved Date Esophageal reflux 06/07/2019 06/07/2019 Prediabetes 12/30/2017 02/27/2023 Overview: Per Prediabetes protocol #1 - LV (left ventricular) mural thrombus with acute VT 01/09/2017 05/23/2017 HTN, goal below 130/80 03/15/201208/13 [...] for Patients with Cardiovascular Disease Project #: [id number] PI: Marley Panchal MD [phone] GENOMICS CARDIO RESEARCH OTHER*[id number] 01/14/2007 06/25/2016 Overview: Renamed Per Clinical Trials Billing Project. Study Title: Genomic Markers for Patients with Cardiovascular Disease Project #: [id number] PI: Marley Panchal MD [phone] Atherosclerosis of leg with intermittent claudication 08/13/2016 Dyslipidemia, goal to be determined 05/04/2009 Overview: Per Lipid Taxonomy. Abdominal pain 06/07/2019 Nausea 12/29/2015 Overview: ICD-10 update of inactive term Other psoriasis and similar disorders 12/29/2015 Diverticulitis 06/07/2019 documented as of this encounter (statuses as of 11/28/2023) Immunizations Name Administration Dates Next Due Covid-19 Ad26, Single Dose (Haley/J&J) 08/28/2020 Pneumococcal Conjugate Vacci ne, 20-valent ([id number]) 07/02/2022 Seasonal Influenza, PF, 6 M & [...] Tobacco: Never Alcohol Use Standard Drinks/Week Comments Yes 0 (1 standard drink = 0.6 oz [...] encounter Miscellaneous Notes * Telephone Encounter - Martinez Kessler PA-C - 11/28/2023 11:25 AM EDT Great job! Thank you! Martinez * Telephone Encounter - Leon Ragsdale RN - 11/28/2023 9:09 AM EDT Pt here in the echo lab for resting echo. Had Q's about his amiodarone and spironolactone dosing. Pt brought in pill bottles. Spoke with Martinez Kessler. These meds have both been adjusted since priginal script (typed prescription on pill bottle not accurate any longer). Current dosing in [facility] wasaccurate. Printed correct med list with dosing and provided to pt. Edited pill bottles. Reviewed correct dosing with pt. I believe he may have been taking less amiodarone (he had written 1/2 tab M-W-F on his bottle by accident). There were 1/2 tabs in the bottle. Pt understands and agrees with current plan. Leon Ragsdale RN documented in this encounter Plan of Treatment Upcoming Encounters Date Type Department Care Team (Late st Contact Info) Description 12/03/2023 2:30 PM EDT Office Visit Urology [facility] [address] [place] [address] [place] [address] Kailash Martino Jr., MD [address] [place] [address] 12/17/2023 2:50 PM EDT Anticoagulation Pharmacy, [facility] [place] [address] [place] [address] Pharmacist2, [facility] [address] [place] [address] 12/17/2023 3:00 PM EDT Office Visit Family Practice [facility] [place] [address] [place] [address] [address] Wayne Fontana, DO [address] [place] [address] 03/02/2024 10:30 AM EDT Office Visit Cardiology, [facility] [address] [facility] [place] [address] Marta Garcia CRNP [address] [facility] [place] [address] 03/05/2024 10:00 AM EDT Office Visit Cardiology, [facility] [address] [facility] [place] [address] Martinez Kessler PA-C [address] [facility] [place] [address] Scheduled Procedures Name Priority Associated Diagnoses Date/Ti [...] season) 2023 08/28/2020 Albumin/Creatinine Ratio 03/15/2023 03/15/2022 Depression Screening 07/02/2023 07/02/2022 HbA1c 07/24/2023 01/23/2023, 02/17, 12/30/2019, Additional history exists Colonoscopy 08/18/2023 08/17/2018, 04/0 05/2018, 05/11/2013, Additional history exists Colorectal Cancer Screening 08/18/2023 Influenza Vaccine (FLU shot) (#1) 2024 02/14/2023, 03/15/2022, 02/20/2021, Additional history exists Diabetic Eye Exam 05/27/2024 05/27/2023 GFR 09/03/2024 09/04/2023, 02/17, 01/31/2023, Additional history exists DTaP,Tdap,and Td Vaccines (3 [...] filedocumented as of this encounter Care Teams Tube Blower Relationship Specialty Start Date End Date Wayne Fontana DO [address] [place] [address] PCP - General Family Medicine 01/23/17 documented as of this encounter
--- OUTSIDE RECORDS SUMMARY | 2024-03-21 22:32 | External Medical Summary ---
Author Name Unknown Address Unknown Organization K01:LABORATORY [facility] - [address] [place] [address] Laboratory Report Ordering Provider Test Date Status MIRTHA LEONARDO 12/17/2023 16:04:14 Final Observation Date Value Abnormality Reference (Units ) Status Bilirubin, Direct 12/17/2023 16:04:14 <0.2 0. 0-0.3 (mg/dL) Final Result may be falsely decrea sed due to hemolysis. Performing Location LABORATORY C - [address] [place] [address]
--- OUTSIDE RECORDS SUMMARY | 2024-03-21 22:32 | External Medical Summary | Summary of Care ---
Author Name Unknown Organization [facility] Address [address] [place] [address] Phone [phone] Care Team Providers Care Digital Forensic Analyst Name Role Phone Maynor Fontana DO Primary Care Provider [phone] Reason for Visit * Reason Comments eRx-Medication Refill Encounter Details Date Type Department Care Team (Late st Contact Info) Description 01/23/2024 Refill Family Practice [facility] [place] [address] [place] [address] Maynor Fontana DO [address] [facility] [place] [address] LV (left ventricular) mural thrombus Allergies Active Allergy Reactions Criticality Noted Date Comments Penicillins 10/16/2006 Develop a Rash after a week documented as of this encounter (statuses as of 01/26/2024) Medications Medication Sig Dispensed Refills Start Date [...] 1 Tablet by mouth daily. 30 Lozenge 02/14/202 3 Active Albuterol Sulfate HFA 108 (90 [...] A DAY. 100 g 3 3 Active Spironolactone 25 MG Oral Tablet (Aldactone)Indicati ons:Ischemic cardiomyopathy Take 0.5 Tablets by mouth once a day on Friday, Friday, and Friday only. 20 Tablet 3 3 Active tiZANidine HCl 2 MG [...] DIRECTED BY ANTICOAG CLINIC. 180 Tablet 3 4 Active Warfarin Sodium 5 MG Oral Tablet (Coumadin)Indicatio ns:LV (left ventricular) mural thrombus Take 1 to 2 tablets as directed by anticoag clinic. 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 Study Title: Genomic Markers for Patients with Cardiovascular Disease Project #: PI: Marley Panchal MD [phone] Atherosclerosis of leg with intermittent claudication 08/13/2016 Dyslipidemia, goal to be determined 05/04/2009 Overview: Per Lipid Taxonomy. Abdominal pain 06/07/2019 Nausea 12/29/2015 Overview: ICD-10 update of inactive term Other psoriasis and similar disorders 12/29/2015 Diverticulitis 06/07/2019 documented as of this encounter (statuses as of 01/26/2024) Immunizations Name Administration Dates Next Due Covid-19 Ad26, Single Dose (Haley/J&J) 08/28/2020 Pneumococcal Conjugate Vacci ne, 20-valent ([id number]) 07/02/2022 Seasonal Influenza, PF, 6 M & [...] encounter Miscellaneous Notes * Telephone Encounter - Lucia Johnson formerly [facility] - 01/26/2024 9:25 AM EDTSigned Prescriptions: Disp Refills Warfarin Sodium 5 MG Oral Tablet (Coumadin)180 Ta*3 Sig: TAKE 1 OR 2 TABLETS BY MOUTH DIRECTED BY ANTICO CLINIC. Authorizing Provider: MAYNOR FONTANA Ordering User: LUCIA JOHNSON * Telephone Encounter - Lucia Johnson formerly [facility] - 01/26/2024 9:25 AM EDTSigned Prescriptions: Disp Refills Warfarin Sodium 5 MG Oral Tablet (Coumadin)180 Ta*3 Sig: TAKE 1 OR 2 TABLETS BY MOUTH DIRECTED BY ANTICO CLINIC. Authorizing Provider: MAYNOR FONTANA Ordering User: LUCIA JOHNSON * Telephone Encounter - Mona Harrington, veterinary anatomist - 01/24/2024 11:00 AM EDT Did you pend patient's preferred pharmacy and medication before forwarding?yes [facility] Pending Prescriptions: Disp Refills Warfarin Sodium 5 MG Oral Tablet (Coumadi*180 Ta*3 Sig: TAKE 1 OR 2 TABLETS BY MOUTH DIRECTED BY ANTICOAG CLINIC. Last Visit: 12/17/2023 (in office), Visit date not found (telemedicine) Next Visit: 07/09/2024 If no future appointments scheduled, and last appointment is greater than a year ago, please schedule patient for a follow-up appointment Last date the medication was ordered: 06/21/2022 Is this request for a controlled substance?No [...] Description 01/29/2024 10:00 AM EDT Anticoagulation Pharmacy, [facility] [place] [address] [place] [address] Pharmacist1, [facility] [address] [place] [address] [address] 03/02/2024 10:30 AM EDT Office Visit Cardiology, [facility] [address] [facility] [place] [address] Marta Garcia CRNP [address] [place] [address] 03/05/2024 10:00 AM EDT Office Visit Cardiology, [facility] [address] [place] [address] Martinez Kessler PA-C [address] [place] [address] 07/09/2024 1:00 PM EST Office Visit Family Practice [facility] [address] [place] [address] Maynor Fontana DO [address] [facility] [place] [address] Scheduled Procedures Name Priority Associated Diagnoses Date/Ti [...] Albumin/Creatinine Ratio 03/15/2023 03/15/2022 Colonoscopy 08/18/2023 08/17/2018, 040 05/2018, 05/11/2013, Additional history exists Colorectal Cancer Screening 08/18/2023 COVID-19 Vaccine (2 - season) 2024 08/28/2020 Influenza Vaccine (FLU [...] as of this encounter Visit Diagnoses Diagnosis LV (left ventricular) mural thrombus Acute myocardial infarction, unspecified site, episode of care unspecified documented in this encounter Care Teams Digital Forensic Analyst Relationship Specialty Start Date End Date Maynor Fontana DO [address] [place] [address] PCP - General Family Medicine 01/23/17 documented as of this encounter
--- OUTSIDE RECORDS SUMMARY | 2024-03-21 22:32 | External Medical Summary | Summary of Care ---
Author Name Unknown Organization [facility] Address [address] [place] [address] Phone [phone] Care Team Providers Care Brazing Machine Operator Name Role Phone Maynor Fontana DO Primary Care Provider [phone] Reason for Visit * Reason Comments Follow Up Encounter Details Date Type Department Care Team (Late st Contact Info) Description 12/03/2023 2:30 PM EDT Office Visit Urology [facility] [address] [place] [address] Kailash Martino Jr., MD [address] [place] [address] BPH with obstruction/lower urinary tract symptoms*; Post-void dribbling; Nocturia Allergies Active Allergy Reactions Criticality Noted Date Comments Penicillins 10/16/2006 Develop a Rash after a week documented as of this encounter (statuses as of 12/03/2023) Medications Medication Sig Dispensed Refills Start Date [...] for psoriasis 30 g 5 2 Active Warfarin Sodium 5 MG Oral Tablet (Coumadin)Indicatio ns:LV (left ventricular) mural thrombus Take 1 to 2 tablets as directed by antico clinic. 180 Tablet 3 3 Active Aspirin 81 MG Oral Capsule Take [...] 15 minutes 75 Tablet 3 3 Active Diclofenac Sodium 1 % External Gel [...] morning. Super Beta Prostate Advanced . Active Alfuzosin HCl ER 10 MG Oral Tablet Extended Release 24 Hour (Uroxatral) Take 1 Tablet by mouth in the morning. 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; EPILEPSY PHYSICIAN RCA; HTN, goal below 140/90 Generalized osteoarthritis Diverticulosis of colon Cerebral aneurysm, nonruptured Overview: small(2.4mm) intracranial- A2 segment documented as of this encounter (statuses as of 12/03/2023) Resolved Problems Problem Noted Date Diagnosed Date Resolved Date Esophageal reflux 06/07/2019 06/07/2019 Prediabetes 12/30/2017 02/27/2023 Overview: Per Prediabetes protocol #1 - LV (left ventricular) mural thrombus with acute [place] 01/09/2017 05/23/2017 HTN, goal below 130/80 03/15/201208/13 [...] for Patients with Cardiovascular Disease Project #: [id number] PI: Marley Panchal MD [phone] GENOMICS CARDIO RESEARCH OTHER*[id number] 01/14/2007 06/25/2016 Overview: Renamed Per Clinical Trials Billing Project. Study Title: Genomic Markers for Patients with Cardiovascular Disease Project #: [id number] PI: Marley Panchal MD [phone] Atherosclerosis of leg with intermittent claudication 08/13/2016 Dyslipidemia, goal to be determined 05/04/2009 Overview: Per Lipid Taxonomy. Abdominal pain 06/07/2019 Nausea 12/29/2015 Overview: ICD-10 update of inactive term Other psoriasis and similar disorders 12/29/2015 Diverticulitis 06/07/2019 documented as of this encounter (statuses as of 12/03/2023) Immunizations Name Administration Dates Next Due Covid-19 Ad26, Single Dose (Haley/J&J) 08/28/2020 Pneumococcal Conjugate Vacci ne, 20-valent ([id number]) 07/02/2022 Seasonal Influenza, PF, 6 M & [...] as of this encounter Progress Notes * Gunner Adams, Kailash Quiles MD - 12/03/2023 2:45 PM EDT [id number] PCP: [place] [address] [phone] Selwyn Hope is a 68 year old male, who presents in referral for evaluation of BPH previously on alfusozin and Flomax but stopped due to dizziness and is currently on herbals. He has stopped PSA screening. He had a moderately large prostate last time. He is having a little post void dribbling but less on the herbal than the alpha dorita. He gets up twice nightly Current Outpatient Medications Medication Sig Dispense Refill [...] Skyrizi Pen 150 MG/ML Subcutaneous Solution Auto-injector Nitroglycerin 0.4 MG Sublingual Tablet Sublingual (Nitrostat) take 1 every 5 minutes as needed for chest pain use up to 3 in 15 minutes 75 Tablet 3 Diclofenac Sodium 1 % External Gel (Voltaren) [...] the morning. Super Beta Prostate Advanced . Alfuzosin HCl ER 10 MG Oral Tablet Extended Release 24 Hour (Uroxatral) Take 1 Tablet by mouth in the morning. (Patient not taking: Reported on 12/03/2023) 90 Tablet 3 No current facility-administered medications for this visit. Review of patient's allergies indicates: Allergen Reactions Pcn [Penicillins] Develop a Rash after a week Social History: Social History Tobacco Use Smoking status: Former Current packs/day: 0.00 Average packs/day: 1 pack/day for 40.0 years (40.0 ttl pk-yrs) Types: Cigarettes Start date: 03/18/1973 Quit date: 03/18/2013 Years since quittin.7 Smokeless tobacco: Never Substance Use Topics Alcohol use: Yes Comment: very little Vaping/E-Cigarette Use Vaping/E-Cigarette Use Never User Passive Exposure No Counseling Given? No Vaping/E-Cigarette Substances Nicotine No Other No Flavoring No THC No Cannabidiol (CBD) No Vaping/E-Cigarette Devices Disposable No Pre-filled or Refillable Cartridge No Refillable Tank No Pre-filled Pod No Past Surgical History: Procedure Laterality Date ANESTH, UPPER GI ENDOSCOPIC PROCS 11/01/2009 ANESTHESIA FOR UPPER GI ENDOSCOPIC PROCEDURES (ERCP OR UPPER GI) performed by JUSTIN VELEZ at [facility] BALLOON ANGIOPLASTY, PERIPH ART 01/14/07 STENTING WITH RECREATION OF THE AORTOILIAC BIFURCATION BALLOON ANGIOPLASTY, PERIP ART 01/13/07 RIGHT COMMON ILIAC ARTERY STENTING CARDIAC CATH-CARDIOLOGY ONLY 10/16/06 90% LAD, 100% RCA W/COLLATERALS, 80% CIRC, EF 25%, 2+ MR, ANTEROSEPTAL DYSKINESIS & INFEROBASILAR AKINESIS COLONOSCOPY, DIAGNOSTIC (RECTUM) N/A 08/17/2018 COLONOSCOPY FLEXIBLE PROXIMAL DIAGNOSTIC performed by Kenneth Palacio DO at [facility]OS[facility] CORONARY ARTERY DILATION, BALLOON 10/16/06 S/P LAD STENTING WITH BMS EGD, FLEXIBLE, W/BIOPSY 01/26/09 repeat EGD in 6 months/Barretts EGD, W/ENDOSCOPIC US 12/25/2011 UPPER GI ENDOSCOPY ENDOSCOPIC ULTRASOUND performed by Justin Velez MD at [facility]OS[facility] INSERT/REPLACE DEFIBRILLATOR W/TRANSVERSE LEAD(S) 07/05/2013 NON-THOR ICD LEADS AND GENERATOR IMPLANT performed by Barbi Reis IV, MD at CARDIAC LABS [facility] INTRANASAL BIOPSY 1981 Nasal polypectomy IR ARTERIOGRAM EXTREMITY BILATERAL 01/13/07 100% OCCLUSION OF THE RCIA LUMBAR HEMILAMINECTOMY MRA ABDOMEN W CONTRAST 01/24/09 no evidence of mesenteric artery stenosis REPAIR OF NASAL SEPTUM 1981 Nasal Septum Repair Patient Active Problem List Diagnosis Chronic coronary artery disease HTN, goal below 140/90 Generalized osteoarthritis ADVANCE DIRECTIVE INFORMATION 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 Anticoagulation management encounter Impotence of organic origin Rodriguez's esophagus Diverticulosis of colon Cerebral aneurysm, nonruptured Ischemic cardiomyopathy Tobacco abuse Dyslipidemia, goal LDL below 70 LV (left ventricular) mural thrombus Automatic implantable cardioverter-defibrillator in situ Peripheral vascular disease with claudication (HCC) Psoriasis Gastroesophageal reflux disease with esophagitis PVT (paroxysmal ventricular tachycardia) (HCC) History of lumbar laminectomy History of [place] (myocardial infarction) Heart failure (HCC) Diabetes mellitus without complication (HCC) Paroxysmal atrial fibrillation (HCC) Past Surgical History: no changes Past Medical History: no changes Patient's Family History: no changes GENERAL EXAM: Alert and oriented x3 and no acute distress ABDOMEN: negative, Abdomen soft, non-tender. BS normal, No masses, organomegaly, hernia RECTAL EXAM: deferred. GENITAL EXAM: Deferred Impression/Plan: He has an enlarged prostate or BPH. It is a condition where the gland can obstructthe flow of urine and create voiding dysfunction and possible complications like bleeding, retention of urine, and infections. We often treat with medications either alpha blockers to relax the glandor 5ARI's to shrink the gland. We discussed each of these and the risks and benefits. They can be us ed together for slightly better results. Surgical options include less invasive office procedures or surgical options like TURP or PVP for more difficult situations. He is off alpha blockers and on herbals and comfortable. I will get a new PSA and flow PVR next year. Kailash Martino Jr, MD 2:46 PM 12/03/2023 documented in this encounter Nursing Notes * Ester Hrenandez LPN - 12/03/2023 2:31 PM EDT Patient presents for routine follow up. States he stopped taking the Alfuzosin due to dizziness. Has started taking a supplement, Super Beta Prostate Advanced. Denies any urinary complaints, feels like he's emptying bladder well. documented in this encounter Plan of Treatment Upcoming Encounters Date Type Department Care Team (Late st Contact Info) Description 12/17/2023 2:50 PM EDT Anticoagulation Pharmacy, [facility] [address] [facility] [place] [address] Pharmacist2, [facility] [address] [place] [address] 12/17/2023 3:00 PM EDT Office Visit Family Practice [facility] [address] [facility] [place] [address] Maynor Fontana, DO [address] [place] [place] [address] 03/02/2024 10:30 AM EDT Office Visit Cardiology, [facility] [address] [facility] [place] [address] Marta Garcia CRNP [address] [facility] [place] [id number] 03/05/2024 10:00 AM EDT Office Visit Cardiology, [facility] [address] [place] [address] Martinez Kessler PA-C [address] [place] [address] Scheduled Orders Name Type Priority Associated Diagnoses Orde r Schedule PSA Lab Routine BPH with obstruction/lower urinary tract symptoms Expected: 12/02/2024, Expires: 12/02/2024 Scheduled Procedures Name Priority Associated Diagnoses Date/Ti [...] 12/30/2019, Additional history exists Colonoscopy 08/18/2023 08/17/2018, 0405/2018, 05/11/2013, Additional history exists Colorectal Cancer Screening [...] , 03/27/2021, 07/05/2013 AAA Screening Completed 09/24/2021 Pneumococcal Vaccine: 65+ [...] as of this encounter Visit Diagnoses Diagnosis BPH with obstruction/lower urinary tract symptoms- Primary Hypertrophy of prostate with urinary obstruction and other lower urinary tract symptoms (LUTS) Post-void dribbling Nocturia documented in this encounter Care Teams Brazing Machine Operator Relationship Specialty Start Date End Date Maynor Fontana DO [address] [place] [address] PCP - General Family Medicine 01/23/17 documented as of this encounter
--- OUTSIDE RECORDS SUMMARY | 2024-03-21 22:32 | External Medical Summary ---
Author Name Unknown Address Unknown Organization [id number]:LABORATORY [facility] [place] - [address] [place] [address] Laboratory Report Ordering Provider Test Date Status KASEY PABLO V 12/17/2023 16:04:14 Final Warfarin Therapy
INR: 2 .0-3.0 conventional anticoagulation
INR: 2.5- 3.5 high intensity anticoagulation Observation Date Value Abnormality Reference (Units ) Status PT 12/17/2023 16:04:14 23.1 Above high normal 11 .6-15.2 (seconds) Final INR 12/17/2023 16:04:14 2.0 Above high normal 0. 8-1.2 Final Performing Location [facility] [place] - [address] [place] [address]
--- OUTSIDE RECORDS SUMMARY | 2024-03-21 22:32 | External Medical Summary ---
Author Name Unknown Address Unknown Organization [id number]:LABORATORY [facility] - [address] [facility] [address] Laboratory Report Ordering Provider Test Date Status TATMU MCGUIRE 12/17/2023 16:04:14 Final Observation Date Value Abnormality Reference (Units ) Status HbA1C 12/17/2023 16:04:14 6.7 Above high normal 4. 0-5.6 (%) Final The use of HbA1c to monitor glycemic status is based on normal hemoglobin and HbA composition. This test should not be used in patients with abnormal hemoglobin that affects the half life of the red blood cell or the in vivo glycation rates. Glucose, estimated average 12/17/2023 16:04:14 146 Above high normal <126 (mg/dL) Mina charlton Performing Location LABORATORY [facility] - [address] [facility] [address]
--- OUTSIDE RECORDS SUMMARY | 2024-03-21 22:32 | External Medical Summary | Summary of Care ---
Author Name Unknown Organization [facility] Address [address] [place] [facility] [facility] [place] [address] Phone [phone] Care Team Providers Care Surgery Attendant Name Role Phone SurjitWayne lobo Primary Care Provider [phone] Reason for Visit * Reason Onset Date Comments Test Results 12/01/2023 Encounter Details Date Type Department Care Team (Late st Contact Info) Description 12/01/2023 Telephone Cardiology, [facility] [address] [place] [address] Martinez Kessler PA-C [address] [place] [address] Test Results Allergies Active Allergy Reactions Criticality Noted Date Comments Penicillins 10/16/2006 Develop a Rash after a week documented as of this encounter (statuses as of 12/01/2023) Medications Medication Sig Dispensed Refills Start Date [...] THE MORNING 90 Tablet 3 11/19/2023 Active documented as of this encounter (statuses as of 12/01/2023) Active Problems Problem Noted Date Diagnosed Date Paroxysmal atrial fibrillation 05/27/2023 History of [place] (myocardial infarction) 02/06/2023 Heart failure 02/06/2023 Diabetes [...] 6 months Impotence 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; FIREARMS EXPERT RCA; HTN, goal below 140/90 Generalized osteoarthritis Diverticulosis of colon Cerebral aneurysm, nonruptured Overview: small(2.4mm) intracranial- A2 segment documented as of this encounter (statuses as of 12/01/2023) Resolved Problems Problem Noted Date Diagnosed Date Resolved Date Esophageal reflux 06/07/2019 06/07/2019 Prediabetes 12/30/2017 02/27/2023 Overview: Per Prediabetes protocol #1 - LV (left ventricular) mural thrombus with acute [place] 01/09/2017 05/23/2017 HTN, goal below 130/80 03/15/201208/13 [...] for Patients with Cardiovascular Disease Project #: [id number] PI: Marley Panchal MD [phone] GENOMICS CARDIO RESEARCH OTHER*[id number] 01/14/2007 06/25/2016 Overview: Renamed Per Clinical Trials Billing Project. Study Title: Genomic Markers for Patients with Cardiovascular Disease Project #: [id number] PI: Marley Panchal MD [phone] Atherosclerosis of leg with intermittent claudication 08/13/2016 Dyslipidemia, goal to be determined 05/04/2009 Overview: Per Lipid Taxonomy. Abdominal pain 06/07/2019 Nausea 12/29/2015 Overview: ICD-10 update of inactive term Other psoriasis and similar disorders 12/29/2015 Diverticulitis 06/07/2019 documented as of this encounter (statuses as of 12/01/2023) Immunizations Name Administration Dates Next Due Covid-19 Ad26, Single Dose (Haley/J&J) 08/28/2020 Pneumococcal Conjugate Vacci ne, 20-valent ([id number]) 07/02/2022 Seasonal Influenza, PF, 6 M & [...] encounter Miscellaneous Notes * Telephone Encounter - Elvi Fall CMA - 12/01/2023 3:31 PM EDT My g sent * Telephone Encounter - Elvi Fall CMA - 12/01/2023 3:30 PM EDT ----- Message from Martinez Kessler sent at 11/28/2023 5:38 PM EDT ----- November 28, 2023 TTE Interpretation Summary (as per Dr. Goel): The left ventricular cavity is severely dilated (LVED volume >100 ml/m^2). The wall thickness is mildly increased in segments with normal wall motion. There is a large sized apical, anteroseptal, and anterior wall motion abnormalitywith akinesis of the segments. The qualitative LV ejection fraction is 30-34% (moderately reduced).The left ventricular diastolic function is mildly abnormal (grade I). Compared to the previous study dated 10/19/2021, no significant interval change. ECHO shows mild improvement compared to the one that was obtained at [facility] in December 2022. EF in December 2022 was 20-25%. EF now is back to 30-34%. Continue as prescribed. documented in this encounter Plan of Treatment Upcoming Encounters Date Type Department Care Team (Late st Contact Info) Description 12/03/2023 2:30 PM EDT Office Visit Urology [facility] [address] [place] [address] Kailash Martino Jr., MD [address] [place] [address] 12/17/2023 2:50 PM EDT [facility] [place] [address] [place] [address] [place] [address] Pharmacist2, [facility] [address] [place] [address] 12/17/2023 3:00 PM EDT [facility] [place] [address] [place] [address] Wayne Fontana, DO [address] [place] [address] 03/02/2024 10:30 AM EDT Office Visit [facility]iology, [facility] [place] [address] Marta Garcia CRNP [address] [place] [address] 03/05/2024 10:00 AM EDT Office Visit Cardiology, [facility] [address] [facility] [place] [address] Martinez Kessler PA-C [address] [place] [address] Scheduled Procedures Name Priority Associated Diagnoses Date/Ti [...] filedocumented as of this encounter Care Teams Surgery Attendant Relationship Specialty Start Date End Date Wayne Fontana DO [address] [place] [address] PCP - General Family Medicine 01/23/17 documented as of this encounter
--- OUTSIDE RECORDS SUMMARY | 2024-03-21 22:32 | External Medical Summary ---
Author Name Unknown Address Unknown Organization K09:[facility] [place] [address] Laboratory Report Ordering Provider Test Date Status MARTY PAK2 12/17/2023 14:49:25 Final Therapeutic ranges for non-o perative patients:
Prophylaxsis/treatment of DVT: (Range:2.0-3.0)
Treatment of pulmonary embolism:(Range:2.0-3.0)
Prevention of systemic embolism from:
-tissue heart valves
-acute myocardial infarction
-valvular heart disease
-atrial fibrillation
(Range: 2.0-3.0)
Mechanical prosthetic valves: (Range: 2.5-3.5) Observation Date Value Abnormality Reference (Units ) Status INR in Capillary blood by Coagulation assay 12/17/2023 14:49:25 2.6 (INR) Final Performing Location [facility] [place] [address]
--- OUTSIDE RECORDS SUMMARY | 2024-03-21 22:32 | External Medical Summary | Summary of Care ---
Author Name Unknown Organization [facility] Address [address] [place] [address] Phone [phone] Care Team Providers Care Editor Continuity And Script Name Role Phone SurjitsherineshaheenWayne Dustin SOLER Primary Care Provider [phone] Reason for Visit * Reason Comments Outpatient Testing Encounter Details Date Type Department Care Team (Late st Contact Info) Description 12/17/2023 3:50 PM EDT Laboratory Laboratory [facility] [place] [address] [place] [address] [facility] Lab 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 Study Title: Genomic Markers for Patients with Cardiovascular Disease Project #: [id number] PI: Marley Panchal MD [phone] Atherosclerosis of leg with intermittent claudication 08/13/2016 Dyslipidemia, goal to be determined 05/04/2009 Overview: Per Lipid Taxonomy. Abdominal pain 06/07/2019 Nausea 12/29/2015 Overview: ICD-10 update of inactive term Other psoriasis and similar disorders 12/29/2015 Diverticulitis 06/07/2019 documented as of this encounter (statuses as of 12/17/2023) Immunizations Name Administration Dates Next Due Covid-19 Ad26, Single Dose (Haley/J&J) 08/28/2020 Pneumococcal Conjugate Vacci ne, 20-valent ([id number]) 07/02/2022 Seasonal Influenza, PF, 6 M & [...] Description 01/29/2024 10:00 AM EDT Anticoagulation Pharmacy, [place] [place] [address] [facility] [place] [address] Pharmacist1, [facility] [address] [place] [address] [address] 03/02/2024 10:30 AM EDT Office Visit Cardiology, [facility] [address] [facility] [place] [address] Marta Garcia CRNP [address] [facility] [place] [address] 03/05/2024 10:00 AM EDT Office Visit Cardiology, [facility] [address] [facility] [place] [address] Martinez Kessler PA-C [address] [facility] [place] [address] 07/09/2024 1:00 PM EST Office Visit Family Practice [facility] [address] [facility] [place] [address] Wayne Fontana, [address] [place] [address] [address] Pending Results Name Type Priority Associated Diagnoses Date /Time COMPREHENSIVE METABOLIC PANEL Lab Routine Ischemic cardiomyopathy 12/17/2023 4:04 PM EDT HEMOGLOBIN A1C Lab Routine Diabetes mellitus without complication (HCC) 12/17/2023 4:04 PM EDT LIPID PANEL WITH DIRECT LDL IF TG IS HIGH Lab Routine Ischemic cardiomyopathy 12/17/2023 4:04 PM EDT PT INR Lab Routine LV (left ventricular) mural thrombus [facility] current use of anticoagulant therapy Anticoagulation management encounter Paroxysmal atrial fibrillation (HCC) 12/17/2023 4:04 PM EDT BILIRUBIN, DIRECT Lab Routine Liver enzyme elevation 12/17/2023 4:04 PM EDT Scheduled Procedures Name Priority Associated Diagnoses Date/Ti [...] 01/31/2023, Additional history exists Depression Screening 12/16/2024 12/17/2023 DTaP,Tdap,and Td Vaccines (3 - Td or [...] specified forms of chronic ischemic heart disease Diabetes mellitus without complication (HCC) Type II or unspecified type diabetes mellitus without mention of complication, not stated as uncontrolled LV (left ventricular) mural thrombus Acute myocardial infarction, unspecified site, episode of care unspecified ocean 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
--- OUTSIDE RECORDS SUMMARY | 2024-03-21 22:32 | External Medical Summary ---
Author Name Unknown Address Unknown Organization [id number]:[facility] [place] [address] [place] [address] Laboratory Report Ordering Provider Test Date Status TATUM MCGUIRE 12/17/2023 16:04:14 Final Observation Date Value Abnormality Reference (Units ) Status BUN 12/17/2023 16:04:14 27 Above high normal 6-20 (mg/dL) Final Creatinine 12/17/2023 16:04:14 1.3 Above high normal 0.6-1.2 (mg/dL) Final Glomerular filtration rate/1.73 sq M.predicted [Volume Rate/Area] in Serum, Plasma or Blood by Creatinine-based formula (CKD-EPI) 12/17/2023 16:04:14 58 Below low normal >=60 (mL/min) Final eGFR is calculated based on the CKD-EPI 2020 equation. Sodium 12/17/2023 16:04:14 139 135-146 (m mol/L) Final Potassium 12/17/2023 16:04:14 5.1 3.5-5.1 (m mol/L) Final Cl 12/17/2023 16:04:14 107 98-107 (mm ol/L) Final CO2 12/17/2023 16:04:14 20 Below low normal 22- 32 (mmol/L) Final Anion gap 12/17/2023 16:04:14 12 7-15 (mmol /L) Final Glucose 12/17/2023 16:04:14 99 70-120 (mg /dL) Final Albumin 12/17/2023 16:04:14 4.6 3.8-5.0 (g /dL) Final AST (Aspartate aminotransferase) 12/17/2023 16:04:14 37 10-50 (U/L) Fin al Result may be falsely elevat ed due to hemolysis. Alk Phos 12/17/2023 16:04:14 104 35-130 (U/ L) Final Bilirubin, Total 12/17/2023 16:04:14 0.5 <=1 .2 (mg/dL) Final Calcium 12/17/2023 16:04:14 9.9 8.4-10.2 ( mg/dL) Final Protein 12/17/2023 16:04:14 6.9 6.0-8.3 (g /dL) Final ALT (Alanine aminotransferase) 12/17/2023 16:04:14 44 10-50 (U/L) Final Performing Location [facility] [place] [address] [facility] [address]
--- OUTSIDE RECORDS SUMMARY | 2024-03-21 22:32 | External Medical Summary | Summary of Care ---
Author Name Unknown Organization [facility] Address [address] [place] [address] Phone [phone] Care Team Providers Care Cross Roller Name Role Phone SurjitsherineshaheenWayne Dustin SOLER Primary Care Provider [phone] Reason for Visit * Reason Comments Dosage Adjustment In Person (Anticoag Cl inic) Encounter Details Date Type Department Care Team (Latest Contact Info) Description 01/29/2024 10:00 AM EDT Anticoagulation Pharmacy, [facility] [address] [facility] [place] [address] Pharmacist1, [facility] [address] [facility] [place] [address] Anticoagulation management encounter*; LV (left ventricular) mural thrombus; Paroxysmal atrial fibrillation (HCC); alf current use of anticoagulant therapy Allergies Active Allergy Reactions Criticality Noted Date Comments Penicillins 10/16/2006 Develop a Rash after a week documented as of this encounter (statuses as of 01/29/2024) Medications Medication Sig Dispensed Refills Start Date [...] ANTICOAG CLINIC. 180 Tablet 3 01/26/2024 Active documented as of this encounter (statuses as of 01/29/2024) Active Problems Problem Noted Date Diagnosed Date Paroxysmal atrial fibrillation 05/27/2023 History of [place] (myocardial infarction) 02/06/2023 Heart failure 02/06/2023 Diabetes [...] 6 months Impotence of organic origin 06/13/2008 alf current use of anticoagulant therapy 0 02/09/2007 Overview: ICD-10 update of inactive term Anticoagulation management encounter 02/09/2007 ADVANCE DIRECTIVE INFORMATION 12/12/2006 Overview: No, Advance Directive brochure given to patient at prior appointment. 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; HTN, goal below 140/90 Generalized osteoarthritis Diverticulosis of colon Cerebral aneurysm, nonruptured Overview: small(2.4mm) intracranial- A2 segment documented as of this encounter (statuses as of 01/29/2024) Resolved Problems Problem Noted Date Diagnosed Date Resolved Date Esophageal reflux 06/07/2019 06/07/2019 Prediabetes 12/30/2017 02/27/2023 Overview: Per Prediabetes protocol #1 - LV (left ventricular) mural thrombus with acute IN 01/09/2017 05/23/2017 HTN, goal below 130/80 03/15/201208/13 [...] for Patients with Cardiovascular Disease Project #: [id number] PI: Marley Panchal MD [phone] GENOMICS CARDIO RESEARCH OTHER*[id number] 01/14/2007 06/25/2016 Overview: Renamed Per Clinical Trials Billing Project. Study Title: Genomic Markers for Patients with Cardiovascular Disease Project #: [id number] PI: Marley Panchal MD [phone] Atherosclerosis of leg with intermittent claudication 08/13/2016 Dyslipidemia, goal to be determined 05/04/2009 Overview: Per Lipid Taxonomy. Abdominal pain 06/07/2019 Nausea 12/29/2015 Overview: ICD-10 update of inactive term Other psoriasis and similar disorders 12/29/2015 Diverticulitis 06/07/2019 documented as of this encounter (statuses as of 01/29/2024) Immunizations Name Administration Dates Next Due Covid-19 Ad26, Single Dose (Haley/J&J) 08/28/2020 Pneumococcal Conjugate Vacci ne, 20-valent ([id number]) 07/02/2022 Seasonal Influenza, PF, 6 M & [...] Progress Notes * Vlad Alcaraz RPh - 01/29/2024 9:55 AM EDT Medication Therapy Disease Management - Anticoagulation Selwyn Hope 1955 Current Warfarin Dose As of 01/29/2024 Patient Findings Negatives: Signs/symptoms of thrombosis, Signs/symptoms of bleeding, Change in health, Change in alcohol use, Change in activity, Upcoming invasive procedure, Missed doses, Extra doses, Change in medications, Change in diet/appetite, Bruising INR Result As of 01/29/2024 INR goal: 2.0-3.0 INR used for dosin.9 (01/29/2024) Warfarin Plan As of 01/29/2024 Full warfarin instructions: 2.5 mg every Tue, Johanne, Sat; 5 mg all other days Next INR check: 03/11/2024 Repeat PT/INR in 6 week(s) Weekly dose: not changed I spent a total of 10-19 minutes (exact time 11 mins) on the date of service in preparation, delivery, and documentation of the care provided to Selwyn Hope excluding any time spent in the performance of separately billed services or time spent by another provider/QHP. Vlad Cespedes RPh, CACP, CDE Clinical Pharmacist Medication Therapy Management [facility] 01/29/2024 9:56 AM documented in this encounter Plan of Treatment Upcoming Encounters Date Type Department Care Team (Late st Contact Info) Description 03/02/2024 10:30 AM EDT Office Visit Cardiology, [facility] [address] [place] [address] Marta Garcia CRNP [address] [place] [address] [place] [address] 03/05/2024 10:00 AM EDT Office Visit Cardiology, [facility] [address] [place] [address] Martinez Kessler PA-C [address] [place] [address] 03/11/2024 10:30 AM EDT Anticoagulation Pharmacy, [facility] [address] [facility] [place] [address] Pharmacist1, [facility] [address] [facility] [place] [address] 07/09/2024 1:00 PM EST Office Visit Family Practice [facility] [address] [facility] [place] [address] Wayne Fontana, [address] [facility] [place] [address] Scheduled Procedures Name Priority Associated Diagnoses Date/Ti [...] Albumin/Creatinine Ratio 03/15/2023 03/15/2022 Colonoscopy 08/18/2023 08/17/2018, 0405/2018, 05/11/2013, Additional history [...] Comments INR FINGERSTICK, POINT OF CARE STAT 01/29/2024 10:00 AM EDT LV (left ventricular) mural thrombus Anticoagulation management encounter Paroxysmal atrial fibrillation (HCC) documented in this encounter Results * INR FINGERSTICK, POINT OF CARE (01/29/2024 10:00 AM EDT) Fingerstick INR 2.9 INR 10:01 AM EDT [facility] Blood 01/29/2024 10:0 0 AM EDT 01/29/2024 10:01 AM EDT Narrative [facility] - 01/29/2024 10:01 AM EDT Therapeutic ranges for non-operative patients: Prophylaxsis/treatment of DVT: (Range:2.0-3.0) Treatment of pulmonary embolism:(Range:2.0-3.0) Prevention of systemic embolism from: -tissue heart valves -acute myocardial infarction -valvular heart disease -atrial fibrillation (Range: 2.0-3.0) Mechanical prosthetic valves: (Range: 2.5-3.5) Vlad Gibbs RPh LAB POINT OF CARE TE ST DOCKED DEVICE UNSOLICITED RESULTS [facility] [place] [address] documented in this encounter Visit Diagnoses Diagnosis Anticoagulation management encounter- Primary Encounter for therapeutic drug monitoring LV (left ventricular) mural thrombus Acute myocardial infarction, unspecified site, episode of care unspecified Paroxysmal atrial fibrillation (HCC) Atrial fibrillation alf current use of anticoagulant therapy documented in this encounter Care Teams Cross Roller Relationship Specialty Start Date End Date Wayne Fontana DO [address] [place] [address] PCP - General Family Medicine 01/23/17 documented as of this encounter
--- OUTSIDE RECORDS SUMMARY | 2024-03-21 22:32 | External Medical Summary | Summary of Care ---
Author Name Unknown Organization [facility] Address [address] [place] [address] Phone [phone] Care Team Providers Care Cloth Bolt Bander Name Role Phone SurjitWayne lobo Primary Care Provider [phone] Reason for Visit * Reason Onset Date Comments Test Results 12/18/2023 Encounter Details Date Type Department Care Team (Late st Contact Info) Description 12/18/2023 Telephone Cardiology, [facility] [address] [place] [address] Martinez Kessler PA-C [address] [place] [address] Test Results Allergies Active Allergy Reactions Criticality Noted Date Comments Penicillins 10/16/2006 Develop a Rash after a week documented as of this encounter (statuses as of 12/18/2023) Medications Medication Sig Dispensed Refills Start Date [...] as of this encounter (statuses as of 12/18/2023) Active Problems Problem Noted Date Diagnosed Date Paroxysmal atrial fibrillation 05/27/2023 History of VA (myocardial infarction) 02/06/2023 Heart failure 02/06/2023 Diabetes [...] months Impotence of 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; HTN, goal below 140/90 Generalized osteoarthritis Diverticulosis of colon Cerebral aneurysm, nonruptured Overview: small(2.4mm) intracranial- A2 segment documented as of this encounter (statuses as of 12/18/2023) Resolved Problems Problem Noted Date Diagnosed Date Resolved Date Esophageal reflux 06/07/2019 06/07/2019 Prediabetes 12/30/2017 02/27/2023 Overview: Per Prediabetes protocol #1 - LV (left ventricular) mural thrombus with acute VA 01/09/2017 05/23/2017 HTN, goal below 130/80 03/15/201208/13 [...] for Patients with Cardiovascular Disease Project #: [id number] PI: Marley Panchal MD [phone] GENOMICS CARDIO RESEARCH OTHER*[id number] 01/14/2007 06/25/2016 Overview: Renamed Per Clinical Trials Billing Project. Study Title: Genomic Markers for Patients with Cardiovascular Disease Project #: [id number] PI: Marley Panchal MD [phone] Atherosclerosis of leg with intermittent claudication 08/13/2016 Dyslipidemia, goal to be determined 05/04/2009 Overview: Per Lipid Taxonomy. Abdominal pain 06/07/2019 Nausea 12/29/2015 Overview: ICD-10 update of inactive term Other psoriasis and similar disorders 12/29/2015 Diverticulitis 06/07/2019 documented as of this encounter (statuses as of 12/18/2023) Immunizations Name Administration Dates Next Due Covid-19 Ad26, Single Dose (Haley/J&J) 08/28/2020 Pneumococcal Conjugate Vacci ne, 20-valent ([id number]) 07/02/2022 Seasonal Influenza, PF, 6 M & [...] encounter Miscellaneous Notes * Telephone Encounter - Shira Martinez LPN - 12/18/2023 10:44 AM EDT Letter * Telephone Encounter - Shira Martinez LPN - 12/18/2023 10:42 AM EDT ----- Message from Martinez Kessler sent at 12/18/2023 8:03 AM EDT ----- ok documented in this encounter Plan of Treatment Upcoming Encounters Date Type Department Care Team (Late st Contact Info) Description 01/29/2024 10:00 AM EDT Anticoagulation Pharmacy, [facility] [address] [place] [address] Pharmacist1, [facility] [address] [facility] [place] [address] 03/02/2024 10:30 AM EDT Office Visit Cardiology, [facility] [address] [facility] [place] [address] Marta Garcia CRNP [address] [facility] [place] [address] 03/05/2024 10:00 AM EDT Office Visit Cardiology, [facility] [address] [facility] [place] [address] Martinez Kessler PA-C [address] [facility] [place] [address] 07/09/2024 1:00 PM EST Office Visit Family Practice [facility] [address] [place] [address] Wayne Fontana DO [address] [place] [address] Scheduled Procedures Name Priority Associated Diagnoses Date/Ti [...] filedocumented as of this encounter Care Teams Cloth Bolt Bander Relationship Specialty Start Date End Date Wayne Fontana DO [address] [place] [address] PCP - General Family Medicine 01/23/17 documented as of this encounter
--- OUTSIDE RECORDS SUMMARY | 2024-03-21 22:32 | External Medical Summary ---
Author Name Unknown Address Unknown Organization K09:[facility] [place] [address] Laboratory Report Ordering Provider Test Date Status KASEY PABLO V 01/29/2024 10:00:11 Final Therapeutic ranges for non-o perative patients:
Prophylaxsis/treatment of DVT: (Range:2.0-3.0)
Treatment of pulmonary embolism:(Range:2.0-3.0)
Prevention of systemic embolism from:
-tissue heart valves
-acute myocardial infarction
-valvular heart disease
-atrial fibrillation
(Range: 2.0-3.0)
Mechanical prosthetic valves: (Range: 2.5-3.5) Observation Date Value Abnormality Reference (Units ) Status INR in Capillary blood by Coagulation assay 01/29/2024 10:00:11 2.9 (INR) Final Performing Location [facility] [place] [address]
--- OUTSIDE RECORDS SUMMARY | 2024-03-21 22:32 | External Medical Summary | Summary of Care ---
Author Name Unknown Organization [facility] Address [address] [place] [address] Phone [phone] Care Team Providers Care Receptionist Doctor'S Office Name Role Phone YazWayne jamison Primary Care Provider [phone] Encounter Details Date Type Department Care Team ([facility] st Contact Info) Description 01/04/2024 Result Scan Unspecified Department Evelyn Hanley DO [address] [place] [address] <No scans attached> Allergies Active Allergy Reactions Criticality Noted Date Comments Penicillins 10/16/2006 Develop a Rash after a week documented as of this encounter (statuses as of 01/04/2024) Medications Medication Sig Dispensed Refills Start Date [...] as of this encounter (statuses as of 01/04/2024) Active Problems Problem Noted Date Diagnosed Date Paroxysmal atrial fibrillation 05/27/2023 History of AL (myocardial infarction) 02/06/2023 Heart failure 02/06/2023 Diabetes [...] 6 months Impotence of organic origin 06/13/2008 halfway current use of anticoagulant therapy 0 02/09/2007 Overview: ICD-10 update of inactive term Anticoagulation management encounter 02/09/2007 ADVANCE DIRECTIVE INFORMATION 12/12/2006 Overview: No, Advance Directive brochure given to patient at prior appointment. 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; HTN, goal below 140/90 Generalized osteoarthritis Diverticulosis of colon Cerebral aneurysm, nonruptured Overview: small(2.4mm) intracranial- A2 segment documented as of this encounter (statuses as of 01/04/2024) Resolved Problems Problem Noted Date Diagnosed Date Resolved Date Esophageal reflux 06/07/2019 06/07/2019 Prediabetes 12/30/2017 02/27/2023 Overview: Per Prediabetes protocol #1 - LV (left ventricular) mural thrombus with acute AL 01/09/2017 05/23/2017 HTN, goal below 130/80 03/15/201208/13 [...] for Patients with Cardiovascular Disease Project #: [id number] PI: Marley Panchal MD [phone] GENOMICS CARDIO RESEARCH OTHER*[id number] 01/14/2007 06/25/2016 Overview: Renamed Per Clinical Trials Billing Project. Study Title: Genomic Markers for Patients with Cardiovascular Disease Project #: [id number] PI: Marley Panchal MD [phone] Atherosclerosis of leg with intermittent claudication 08/13/2016 Dyslipidemia, goal to be determined 05/04/2009 Overview: Per Lipid Taxonomy. Abdominal pain 06/07/2019 Nausea 12/29/2015 Overview: ICD-10 update of inactive term Other psoriasis and similar disorders 12/29/2015 Diverticulitis 06/07/2019 documented as of this encounter (statuses as of 01/04/2024) Immunizations Name Administration Dates Next Due Covid-19 Ad26, Single Dose (Haley/J&J) 08/28/2020 Pneumococcal Conjugate Vacci ne, 20-valent ([id number]) 07/02/2022 Seasonal Influenza, PF, 6 M & [...] Description 01/29/2024 10:00 AM EDT Anticoagulation Pharmacy, [facility] [address] [place] [address] Pharmacist1, [facility] [address] [facility] [place] [address] 03/02/2024 10:30 AM EDT Office [facility] Cardiology, [facility] [place] [address] Marta Garcia CRNP [address] [facility] [place] [address] 03/05/2024 10:00 AM EDT Office Visit Cardiology, [facility] [address] [facility] [place] [address] Martinez Kessler, PABright [address] [place] [address] 07/09/2024 1:00 PM EST Office Visit Family Practice [facility] [address] [facility] [place] [address] Wayne Fontana, [address] [place] [address] Scheduled Procedures Name Priority Associated Diagnoses Date/Ti me COLONOSCOPY FLEXIBLE PROXIMA L DIAGNOSTIC Recall History of colon polyps Diverticulosis Internal hemorrhoids External hemorrhoids Health Maintenance Due Date Last Done Comments Rodriguez's Esophagus Surveilance 1955 Diabetic Foot Exam 10/04/1971 Cologuard 1998 Fecal Occult Blood Test 1998 Sigmoidoscopy 1998 Zoster Vaccines (1 of 2) 10/04/2003 Adult Wellness Visit 10/04/2019 COVID-19 Vaccine ( - season) 2023 08/28/2020 Albumin/Creatinine Ratio 03/15/2023 [...] Date/Time Associated Diagnosis Comments CARDIOLOGY SCANNED RESULT 01/04/2024 documented in this encounter Results * CARDIOLOGY SCANNED RESULT (01/04/2024) 01/04/2024 Evelyn Hanley DO OTHER documented in this encounter Care Teams Receptionist Doctor'S Office Relationship Specialty Start Date End Date Wayne Fontana DO [address] [place] [address] PCP - General Family Medicine 01/23/17 documented as of this encounter
--- OUTSIDE RECORDS SUMMARY | 2024-03-21 22:33 | External Medical Summary ---
Author Name Unknown Address Unknown Organization K09:[facility] [place] [address] Laboratory Report Ordering Provider Test Date Status KASEY PABLO V 10/20/2023 10:53:41 Final Therapeutic ranges for non-o perative patients:
Prophylaxsis/treatment of DVT: (Range:2.0-3.0)
Treatment of pulmonary embolism:(Range:2.0-3.0)
Prevention of systemic embolism from:
-tissue heart valves
-acute myocardial infarction
-valvular heart disease
-atrial fibrillation
(Range: 2.0-3.0)
Mechanical prosthetic valves: (Range: 2.5-3.5) Observation Date Value Abnormality Reference (Units ) Status INR in Capillary blood by Coagulation assay 10/20/2023 10:53:41 4.9 (INR) Final Performing Location [facility] [place] [address]
--- OUTSIDE RECORDS SUMMARY | 2024-03-21 22:33 | External Medical Summary | Summary of Care ---
Author Name Unknown Organization [facility] Address [address] [place] [place] [address] Phone [phone] Care Team Providers Care Regulation Supervisor Name Role Phone SurjitWayne lobo Primary Care Provider [phone] Reason for Visit * Reason Comments eRx-Medication Refill Encounter Details Date Type Department Care Team (Late st Contact Info) Description 10/14/2023 Refill Cardiology, [facility] [address] [place] [address] Aisha Vargas PA-C [address] [place] [address] Paroxysmal atrial fibrillation (HCC) Allergies Active Allergy Reactions Criticality Noted Date Comments Penicillins 10/16/2006 Develop a Rash after a week documented as of this encounter (statuses as of 10/15/2023) Medications Medication Sig Dispensed Refills Start Date [...] 1 to 2 tablets as directed by [facility]. 180 Tablet 3 3 Active Aspirin 81 MG Oral Capsule Take 81 mg by mouth in the morning. Active Vitamin B-12 500 MCG Oral Lozenge Take 1 Tablet by mouth daily. 30 Lozenge 3 Active Albuterol Sulfate HFA 108 (90 Base) MCG/ACT Inhalation Aerosol Solution Inhale 2 Puffs by mouth every 6 hours as needed for Wheezing. 18 g 3 3 Active Alfuzosin HCl ER 10 MG Oral Tablet Extended Release 24 Hour (Uroxatral) Take 1 Tablet by mouth in the morning. 90 Tablet 3 3 Active Skyrizi Pen 150 MG/ML [...] Friday only. 20 Tablet 3 3 Active Empagliflozin 10 MG Oral Tablet (Jardiance) Take 1 Tablet by mouth in the morning. 90 Tablet 3 3 Active tiZANidine HCl 2 MG Oral Capsule Take by mouth 1 Capsule in the morning AND 1 Capsule at noon AND 1 Capsule before bedtime. Strength: 2 mg 30 Capsule 5 3 Active Sildenafil Citrate 100 MG Oral TabletIndications:I mpotence of organic origin TAKE 1 TABLET BY MOUTH DAILY NEEDED FOR ERECTILE DYSFUNCTION. 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; HTN, goal below 140/90 Generalized osteoarthritis Diverticulosis of colon Cerebral aneurysm, nonruptured Overview: small(2.4mm) intracranial- A2 segment documented as of this encounter (statuses as of 10/15/2023) Resolved Problems Problem Noted Date Diagnosed Date Resolved Date Esophageal reflux 06/07/2019 06/07/2019 Prediabetes 12/30/2017 02/27/2023 Overview: Per Prediabetes protocol #1 - LV (left ventricular) mural thrombus with acute [place] 01/09/2017 05/23/2017 HTN, goal below 130/80 03/15/201208/13 [...] for Patients with Cardiovascular Disease Project #: [id number] PI: Marley Panchal MD [phone] GENOMICS CARDIO RESEARCH OTHER*[id number] 01/14/2007 06/25/2016 Overview: Renamed Per Clinical Trials Billing Project. Study Title: Genomic Markers for Patients with Cardiovascular Disease Project #: [id number] PI: Marley Panchal MD [phone] Atherosclerosis of leg with intermittent claudication 08/13/2016 Dyslipidemia, goal to be determined 05/04/2009 Overview: Per Lipid Taxonomy. Abdominal pain 06/07/2019 Nausea 12/29/2015 Overview: ICD-10 update of inactive term Other psoriasis and similar disorders 12/29/2015 Diverticulitis 06/07/2019 documented as of this encounter (statuses as of 10/15/2023) Immunizations Name Administration Dates Next Due Covid-19 Ad26, Single Dose (Haley/J&J) 08/28/2020 Pneumococcal Conjugate Vacci ne, 20-valent ([id number]) 07/02/2022 Seasonal Influenza, PF, 6 M & [...] Telephone Encounter - Aisha Vargas PA-C - 10/15/2023 9:27 AM EDTSigned Prescriptions: Disp Refills Entresto 49-51 MG Oral Tablet (sacubitril-*180 Ta*3 Sig: TAKE 1 TABLET BY MOUTH IN THE MORNING AND 1 TABLET BEFORE BEDTIME Authorizing Provider: AISHA VARGAS * Telephone Encounter - Shanda Mota CMA - 10/15/2023 9:24 AM EDTPending Prescriptions: Disp Refills Entresto 49-51 MG Oral Tablet (sacubitril-*180 Ta*3 Sig: TAKE 1 TABLET BY MOUTH IN THE MORNING AND 1 TABLET BEFORE BEDTIME * Telephone Encounter - Shanda Mota CMA - 10/15/2023 9:23 AM EDT Did you pend patient's preferred pharmacy and medication before forwarding?yes Pharmacy: [facility] [address] Pending Prescriptions: Disp Refills Entresto 49-51 MG Oral Tablet (sacubitril*180 Ta*3 Sig: TAKE 1 TABLET BY MOUTH IN THE MORNING AND 1 TABLET BEFORE BEDTIME Last Visit: 09/04/2023 (in office), 03/07/2023 (telemedicine) Next Visit: 03/02/2024 If no future appointments scheduled, and last appointment is greater than a year ago, please schedule patient for a follow-up appointment Last date the medication was ordered: 08-12-2023 Is this request for a controlled substance?No Urine Drug Screen:No results found. However, due to the size of the patient record, not all encounters were searched. Please check Results Review for a complete set of results. Patient Phone Numbers Labs: Lab Results Component Value Date/Time CREAT 1.2 09/04/2023 10:42 AM CREAT 1.0 11/26/2019 11:05 AM POTASSIUM 4.3 09/04/2023 10:42 AM POTASSIUM 4.8 11/26/2019 11:05 AM TSH 3.58 09/04/2023 10:42 AM TSH 2.430 07/31/2018 12:00 AM TSH 3.89 10/16/2006 05:55 AM LDLCALC 70 12/30/2019 12:25 PM LDLDIRECT 87 09/04/2023 10:42 AM LDLDIRECT NOT APPLICABLE 12/30/2019 12:25 PM ALT 62 (H) 09/04/2023 10:42 AM ALT 42 11/26/2019 11:05 AM HGBA1C 6.5 (H) 01/23/2023 08:40 AM HGBA1C 6.5 (H) 12/30/2019 12:25 PM documented in this encounter Plan of Treatment Upcoming Encounters Date Type Department Care Team (Late st Contact Info) Description 10/20/2023 10:40 AM EDT Anticoagulation Pharmacy, [facility] [address] [facility] [place] [address] Pharmacist1, [facility] [address] [facility] [place] [address] 11/28/2023 8:30 AM EDT Cardiac Studies Cardiac Studies, [facility] [address] [place] [address] 12/03/2023 2:30 PM EDT Office Visit Urology [facility] [address] [place] [address] [place] [address] Gunner Adams, Kailash Quiles MD [address] [place] [address] [place] [address] 12/17/2023 3:00 PM EDT Office Visit Family Practice [facility] [address] [place] [address] Wayne Fontana DO [address] [place] [address] 03/02/2024 10:30 AM EDT Office Visit Cardiology, [facility] [address] [facility] [place] [address] Marta Garcia CRNP [address] [facility] [place] [address] 03/05/2024 10:00 AM EDT Office Visit Cardiology, [facility] [address] [facility] [place] [address] Aisha Vargas PA-C [facility] [place] [address] Scheduled Procedures Name Priority Associated Diagnoses Date/Ti [...] Additional history exists Colorectal Cancer Screening 08/18/2023 Diabetic Eye Exam 05/27/2024 05/27/2023 GFR 09/03/2024 09/04/2023, 02/17, 01/31/2023, Additional history exists DTaP,Tdap,and Td Vaccines (3 - Td or Tdap) 12/12/2028 12/12/2018, 05/02/2011 RETIRED - COLONOSCOPY-EVERY 5 YRS AGES 18-100 Discontinued 08/17/2018, 08/17/2018, 05/11/2013, Additional history exists AAA Screening Completed 09/24/2021 Pneumococcal Vaccine: 65+ Years Completed 07/02/2022 Influenza Vaccine (FLU shot) Completed 02/14/2023, 03/15/2022, 02/20/2021, Additional history exists Lung Cancer Screening Completed 04/30/2023, 022 GARDASIL-HPV IMMUNIZATION SERIES Aged Out No longer eligible based on patient's age to complete this topic Hepatitis B Aged Out No longer eligi ble based on patient's age to complete this topic MENINGOCOCCAL (MENACTRA/MENVEO) Aged Out No longer eligible based on patient's age to complete this topic documented as of this encounter Medical Devices Not on filedocumented as of this encounter Visit Diagnoses Diagnosis Paroxysmal atrial fibrillation (HCC) Atrial fibrillation documented in this encounter Care Teams Regulation Supervisor Relationship Specialty Start Date End Date Wayne Fontana DO [address] [place] [address] PCP - General Family Medicine 01/23/17 documented as of this encounter
--- OUTSIDE RECORDS SUMMARY | 2024-03-21 22:33 | External Medical Summary | Summary of Care ---
Author Name Unknown Organization [facility] Address [address] [place] [address] Phone [phone] Care Team Providers Care Ostomy Nurse Name Role Phone Wayne Fontana DO Primary Care Provider [phone] Reason for Visit * Reason Onset Date Comments Medication Refill 10/08/2023 Encounter Details Date Type Department Care Team (Late st Contact Info) Description 10/08/2023 Refill Family Practice [facility] [address] [place] [address] Wayne Fontana DO [address] [place] [address] HTN, goal below 140/90 Allergies Active Allergy Reactions Criticality Noted Date Comments Penicillins 10/16/2006 Develop a Rash after a week documented as of this encounter (statuses as of 10/09/2023) Medications Medication Sig Dispensed Refills Start Date [...] 01/17/2023 Active Spironolactone 25 MG Oral Tablet (Aldactone)Indicati ons:Ischemic cardiomyopathy Take 0.5 Tablets by mouth once a day on Friday, Friday, and Friday only. 20 Tablet 3 01/31/2023 Active Empagliflozin 10 MG Oral Tablet (Jardiance) Take 1 Tablet by mouth in the morning. 90 Tablet 3 02/14/2023 Active tiZANidine HCl 2 MG Oral Capsule Take by mouth 1 Capsule in the morning AND 1 Capsule at noon AND 1 Capsule before bedtime. Strength: 2 mg 30 Capsule 5 03/26/2023 Active Sildenafil Citrate 100 MG Oral TabletIndications:I mpotence of organic origin TAKE 1 TABLET BY MOUTH DAILY NEEDED FOR ERECTILE DYSFUNCTION. 6 Tablet 5 03/26/2023 Active Entresto 49-51 MG Oral Tablet (sacubitril-valsart an 49-51 mg per tab)Indications:Par oxysmal atrial fibrillation (HCC) TAKE 1 TABLET BY MOUTH IN THE MORNING AND 1 TABLET BEFORE BEDTIME 60 Tablet 1 08/12/2023 Active Omeprazole 20 MG Oral Capsule Delayed [...] the morning. 90 Tablet 1 10/09/2023 Active Metoprolol Succinate ER 100 MG Oral Tablet Extended Release 24 Hour (toPROL XL)Indications:HTN, goal below 140/90 Take 1 Tablet by mouth in the morning. 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; HTN, goal below 140/90 Generalized osteoarthritis Diverticulosis of colon Cerebral aneurysm, nonruptured Overview: small(2.4mm) intracranial- A2 segment documented as of this encounter (statuses as of 10/09/2023) Resolved Problems Problem Noted Date Diagnosed Date Resolved Date Esophageal reflux 06/07/2019 06/07/2019 Prediabetes 12/30/2017 02/27/2023 Overview: Per Prediabetes protocol #1 - LV (left ventricular) mural thrombus with acute [place] 01/09/2017 05/23/2017 HTN, goal below 130/80 03/15/201208/13 [...] for Patients with Cardiovascular Disease Project #: [id number] PI: Marley Panchal MD [phone] GENOMICS CARDIO RESEARCH OTHER*[id number] 01/14/2007 06/25/2016 Overview: Renamed Per Clinical Trials Billing Project. Study Title: Genomic Markers for Patients with Cardiovascular Disease Project #: [id number] PI: Marley Panchal MD [phone] Atherosclerosis of leg with intermittent claudication 08/13/2016 Dyslipidemia, goal to be determined 05/04/2009 Overview: Per Lipid Taxonomy. Abdominal pain 06/07/2019 Nausea 12/29/2015 Overview: ICD-10 update of inactive term Other psoriasis and similar disorders 12/29/2015 Diverticulitis 06/07/2019 documented as of this encounter (statuses as of 10/09/2023) Immunizations Name Administration Dates Next Due Covid-19 Ad26, Single Dose (Haley/J&J) 08/28/2020 Pneumococcal Conjugate Vacci ne, 20-valent ([id number]) 07/02/2022 Seasonal Influenza, PF, 6 M & [...] encounter Miscellaneous Notes * Telephone Encounter - Viktor Velez, [facility] - 10/09/2023 9:33 AM EDTSigned Prescriptions: Disp Refills Metoprolol Succinate ER 100 MG Oral Tablet*90 Tab*1 Sig: Take 1 Tablet by mouth in the morning. Authorizing Provider: CHARITY ZIEGLER Ordering User: VIKTOR VELEZ * Telephone Encounter - Zenia Balderas CPhT - 10/08/2023 9:08 AM EDT Did you pend patient's preferred pharmacy and medication before forwarding?yes Pharmacy: [facility] [address] Pending Prescriptions: Disp Refills Metoprolol Succinate ER 100 MG Oral Table*90 Tab*1 Sig: Take 1 Tablet by mouth in the morning. Last Visit: 05/27/2023 (in office), Visit date not found (telemedicine) Next Visit: 12/17/2023 If no future appointments scheduled, and last appointment is greater than a year ago, please schedule patient for a follow-up appointment Last date the medication was ordered: 05/07/23 Is this request for a controlled substance?No [...] Description 10/20/2023 10:40 AM EDT Anticoagulation Pharmacy, [facility] [address] [place] [address] Pharmacist1, [facility] [address] [place] [address] 11/28/2023 8:30 AM EDT Cardiac Studies Cardiac Studies, [facility] [address] [facility] [place] [address] 12/03/2023 2:30 PM EDT Office Visit Urology [facility] [address] [place] [address] [place] [address] Kailash Martino Jr., MD [address] [place] [address] [place] [address] 12/17/2023 3:00 PM EDT Office Visit Family Practice [facility] [address] [place] [address] Wayne Fontana, DO [address] [facility] [place] [address] 03/02/2024 10:30 AM EDT Office Visit Cardiology, [facility] [address] [facility] [place] [address] Marta Garcia CRNP [address] [facility] [place] [address] 03/05/2024 10:00 AM EDT [facility] [address] [place] [address] Martinez Kessler, [place]OR[place]-C [address] [place] [address] Scheduled Procedures Name Priority Associated Diagnoses Date/Ti [...] as of this encounter Visit Diagnoses Diagnosis HTN, goal below 140/90 Unspecified essential hypertension documented in this encounter Care Teams Ostomy Nurse Relationship Specialty Start Date End Date Wayne Fontana DO [address] [place] [address] PCP - General Family Medicine 01/23/17 documented as of this encounter
--- OUTSIDE RECORDS SUMMARY | 2024-03-21 22:33 | External Medical Summary | Summary of Care ---
Author Name Unknown Organization [facility] Address [address] [place] [address] Phone [phone] Care Team Providers Care Cotton Bag Clipper Name Role Phone Maynor Winn DO Primary Care Provider [phone] Reason for Visit * Reason Comments eRx-Medication Refill Encounter Details Date Type Department Care Team (Late st Contact Info) Description 10/23/2023 Refill Family Practice [facility] [place] [address] [place] [address] Maynor Winn DO [address] [facility] [place] [address] Impotence of organic origin Allergies Active Allergy Reactions Criticality Noted Date Comments Penicillins 10/16/2006 Develop a Rash after a week documented as of this encounter (statuses as of 10/24/2023) Medications Medication Sig Dispensed Refills Start Date [...] by anticoag clinic. 180 Tablet 3 3 Active Aspirin [...] ERECTILE DYSFUNCTION. 6 Tablet 5 4 Active Sildenafil Citrate 100 MG Oral TabletIndications:I mpotence of organic origin TAKE 1 TABLET BY MOUTH DAILY NEEDED FOR ERECTILE DYSFUNCTION. 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; HTN, goal below 140/90 Generalized osteoarthritis Diverticulosis of colon Cerebral aneurysm, nonruptured Overview: small(2.4mm) intracranial- A2 segment documented as of this encounter (statuses as of 10/24/2023) Resolved Problems Problem Noted Date Diagnosed Date Resolved Date Esophageal reflux 06/07/2019 06/07/2019 Prediabetes 12/30/2017 02/27/2023 Overview: Per Prediabetes protocol #1 - LV (left ventricular) mural thrombus with acute [place] 01/09/2017 05/23/2017 HTN, goal below 130/80 03/15/201208/13 [...] for Patients with Cardiovascular Disease Project #: [id number] PI: Marley Panchal MD [phone] GENOMICS CARDIO RESEARCH OTHER*[id number] 01/14/2007 06/25/2016 Overview: Renamed Per Clinical Trials Billing Project. Study Title: Genomic Markers for Patients with Cardiovascular Disease Project #: [id number] PI: Marley Panchal MD [phone] Atherosclerosis of leg with intermittent claudication 08/13/2016 Dyslipidemia, goal to be determined 05/04/2009 Overview: Per Lipid Taxonomy. Abdominal pain 06/07/2019 Nausea 12/29/2015 Overview: ICD-10 update of inactive term Other psoriasis and similar disorders 12/29/2015 Diverticulitis 06/07/2019 documented as of this encounter (statuses as of 10/24/2023) Immunizations Name Administration Dates Next Due Covid-19 Ad26, Single Dose (Haley/J&J) 08/28/2020 Pneumococcal Conjugate Vacci ne, 20-valent ([id number]) 07/02/2022 Seasonal Influenza, PF, 6 M & [...] encounter Miscellaneous Notes * Telephone Encounter - Maynor Winn DO - 10/24/2023 3:20 PM EDTSigned Prescriptions: Disp Refills Sildenafil Citrate 100 MG Oral Tablet 6 Tabl*5 Sig: TAKE 1 TABLET BY MOUTH DAILY NEEDED FOR ERECTILE DYSFUNCTION. Authorizing Provider: MAYNOR WINN * Telephone Encounter - Emily Brower [facility] - 10/24/2023 12:54 PM EDTPending Prescriptions: Disp Refills Sildenafil Citrate 100 MG Oral Tablet [Pha*6 Tabl*5 Sig: TAKE 1 TABLET BY MOUTH DAILY NEEDED FOR ERECTILE DYSFUNCTION. * Telephone Encounter - Emily Brower [facility] - 10/24/2023 12:53 PM EDT Unable to authorize medication refills for pended medication(s) at this time. Part of the protocol criteria used for refill authorization was not satisfied. Patient has active order for Nitroglycerine. Please approve if appropriate. Thank You, Emily Brower [facility] Clinical Pharmacist [facility] [phone] [id number] 10/24/2023, 12:53 PM documented in this encounter Plan of Treatment Upcoming Encounters Date Type Department Care Team (Late st Contact Info) Description 11/10/2023 11:00 AM EDT Anticoagulation Pharmacy, [facility] [place] [address] [facility] [place], [place] [address] Pharmacist1, [facility] [address] [place], [place] [address] 11/28/2023 8:30 AM EDT Cardiac Studies Cardiac Studies, [facility] [address] [facility] [place] [address] 12/03/2023 2:30 PM EDT Office Visit Urology [facility] [address] [place] [address] [place] [address] Kailash Martino Jr., MD [address] [place] [address] [place] [address] 12/17/2023 3:00 PM EDT Office Visit Family Practice [facility] [address] [facility] [place] [address] Maynor Winn, [address] [facility] [place] [address] 03/02/2024 10:30 AM EDT Office Visit Cardiology, [facility] [address] [facility] [place] [address] Marta Garcia CRNP [address] [facility] [place] [address] 03/05/2024 10:00 AM EDT Office Visit Cardiology, [facility] [address] [facility] [place] [address] Martinez Kessler [facility] [address] [facility] [address] Scheduled Procedures Name Priority Associated Diagnoses Date/Ti me COLONOSCOPY FLEXIBLE PROXIMA L DIAGNOSTIC Recall History of colon polyps Diverticulosis Internal hemorrhoids External hemorrhoids Health Maintenance Due Date Last Done Comments Rodriguez's Esophagus Surveilance 1953 Diabetic Foot Exam 10/04/1971 Cologuard 1998 Fecal Occult Blood Test 1998 Sigmoidoscopy 1998 Zoster Vaccines (1 of 2) 10/04/2003 COVID-19 Vaccine ( season) 2023 08/28/2020 Albumin/Creatinine Ratio 03/15/2023 03/15/2022 [...] as of this encounter Visit Diagnoses Diagnosis Impotence of organic origin documented in this encounter Care Teams Cotton Bag Clipper Relationship Specialty Start Date End Date Maynor Winn DO [address] [place] [address] PCP - General Family Medicine 01/23/17 documented as of this encounter
--- OUTSIDE RECORDS SUMMARY | 2024-03-21 22:33 | External Medical Summary | Summary of Care ---
Author Name Unknown Organization [facility] Address [address] [place] [address] Phone [phone] Care Team Providers Care Bread Packer Name Role Phone SurjitWayne lobo Primary Care Provider [phone] Reason for Visit * Reason Onset Date Comments Information 11/28/2023 Encounter Details Date Type Department Care Team (Late st Contact Info) Description 11/28/2023 Telephone Cardiac Studies, [facility] [address] [place] [address] Martinez Kessler PA-C [address] [place] [address] Information Allergies Active Allergy Reactions Criticality Noted [...] 1.956 mg IV ONCE PRN 11/28/2023 11/28/2023 Active documented as of this encounter (statuses as of 11/28/2023) Active Problems Problem Noted Date Diagnosed Date Paroxysmal atrial fibrillation 05/27/2023 History of [place] (myocardial infarction) 02/06/2023 Heart failure 02/06/2023 Diabetes [...] 6 months 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; HTN, goal below 140/90 Generalized osteoarthritis Diverticulosis of colon Cerebral aneurysm, nonruptured Overview: small(2.4mm) intracranial- A2 segment documented as of this encounter (statuses as of 11/28/2023) Resolved Problems Problem Noted Date Diagnosed Date Resolved Date Esophageal reflux 06/07/2019 06/07/2019 Prediabetes 12/30/2017 02/27/2023 Overview: Per Prediabetes protocol #1 - LV (left ventricular) mural thrombus with acute [place] 01/09/2017 05/23/2017 HTN, goal below 130/80 03/15/201208/13 [...] for Patients with Cardiovascular Disease Project #: [id number] PI: Marley Panchal MD [phone] GENOMICS CARDIO RESEARCH OTHER*[id number] 01/14/2007 06/25/2016 Overview: Renamed Per Clinical Trials Billing Project. Study Title: Genomic Markers for Patients with Cardiovascular Disease Project #: [id number] PI: Marley Panchal MD [phone] Atherosclerosis of leg with intermittent claudication 08/13/2016 Dyslipidemia, goal to be determined 05/04/2009 Overview: Per Lipid Taxonomy. Abdominal pain 06/07/2019 Nausea 12/29/2015 Overview: ICD-10 update of inactive term Other psoriasis and similar disorders 12/29/2015 Diverticulitis 06/07/2019 documented as of this encounter (statuses as of 11/28/2023) Immunizations Name Administration Dates Next Due Covid-19 Ad26, Single Dose (Haley/J&J) 08/28/2020 Pneumococcal Conjugate Vacci ne, 20-valent ([id number]) 07/02/2022 Seasonal Influenza, PF, 6 M & [...] encounter Miscellaneous Notes * Telephone Encounter - Leon Ragsdale RN - 11/28/2023 9:09 AM EDT Pt here in the echo lab for resting echo. Had Q's about his amiodarone and spironolactone dosing. Pt brought in pill bottles. Spoke with Martinez Kessler. These meds have both been adjusted since priginal script (typed prescription on pill bottle not accurate any longer). Current dosing in [facility] wasaccurate. Printed correct med list with dosing and provided to pt. Edited pill bottles. Reviewed correct dosing with pt. I believe he may have been taking less amiodarone (he had written 1/2 tab M-W-F on his bottle by accident). There were 1/2 tabs in the bottle. Pt understands and agrees with current plan. Leon Ragsdale, RN documented in this encounter Plan of Treatment Upcoming Encounters Date Type Department Care Team (Late st Contact Info) Description 12/03/2023 2:30 PM EDT Office Visit Urology [facility] [address] [place] [address] [place] [address] Kailash Martino Jr., MD [address] [place] [address] [address] 12/17/2023 2:50 PM EDT Anticoagulation Pharmacy, [facility] [address] [facility] [place] [address] Pharmacist2, [facility] [address] [place] [address] 12/17/2023 3:00 PM EDT Office Visit Family Practice [facility] [address] [facility] [place] [address] Wayne Fontana, [address] [facility] [place] [address] 03/02/2024 10:30 AM EDT Office Visit Cardiology, [facility] [place] [address] Marta Garcia CRNP [address] [place] [address] 03/05/2024 10:00 AM EDT Office Visit Cardiology, [facility] [address] [place] [address] Martinez Kessler PA-C [address] [place] [address] Scheduled Procedures Name Priority Associated Diagnoses Date/Ti [...] filedocumented as of this encounter Care Teams Bread Packer Relationship Specialty Start Date End Date Wayne Fontana DO [address] [place] [address] PCP - General Family Medicine 01/23/17 documented as of this encounter
--- OUTSIDE RECORDS SUMMARY | 2024-03-21 22:33 | External Medical Summary | Summary of Care ---
Author Name Unknown Organization [facility] Address [address] [place] [address] Phone [phone] Care Team Providers Care Lift Electrician Name Role Phone SurjitWayne lobo Primary Care Provider [phone] Reason for Visit * Reason Comments Dosage Adjustment In Person (Anticoag Cl inic) Encounter Details Date Type Department Care Team (Latest Contact Info) Description 10/20/2023 10:40 AM EDT Anticoagulation Pharmacy, [facility] [address] [place] [address] Pharmacist1, [facility] [address] [place] [address] LV (left ventricular) mural thrombus*; snf current use of anticoagulant therapy; Anticoagulation management encounter; Paroxysmal atrial fibrillation (HCC) Allergies Active Allergy Reactions Criticality Noted Date Comments Penicillins 10/16/2006 Develop a Rash after a week documented as of this encounter (statuses as of 10/20/2023) Medications Medication Sig Dispensed Refills Start Date [...] 1 to 2 tablets as directed by [facility]. 180 Tablet 3 06/21/2022 Active Aspirin [...] 03/26/2023 Active Sildenafil Citrate 100 MG Oral TabletIndications:Imp otence of organic origin TAKE 1 TABLET BY MOUTH DAILY NEEDED FOR ERECTILE DYSFUNCTION. 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; HTN, goal below 140/90 Generalized osteoarthritis Diverticulosis of colon Cerebral aneurysm, nonruptured Overview: small(2.4mm) intracranial- A2 segment documented as of this encounter (statuses as of 10/20/2023) Resolved Problems Problem Noted Date Diagnosed Date Resolved Date Esophageal reflux 06/07/2019 06/07/2019 Prediabetes 12/30/2017 02/27/2023 Overview: Per Prediabetes protocol #1 - LV (left ventricular) mural thrombus with acute PA 01/09/2017 05/23/2017 HTN, goal below 130/80 03/15/201208/13 [...] for Patients with Cardiovascular Disease Project #: [id number] PI: Marley Panchal MD [phone] GENOMICS CARDIO RESEARCH OTHER*[id number] 01/14/2007 06/25/2016 Overview: Renamed Per Clinical Trials Billing Project. Study Title: Genomic Markers for Patients with Cardiovascular Disease Project #: [id number] PI: Marley Panchal MD [phone] Atherosclerosis of leg with intermittent claudication 08/13/2016 Dyslipidemia, goal to be determined 05/04/2009 Overview: Per Lipid Taxonomy. Abdominal pain 06/07/2019 Nausea 12/29/2015 Overview: ICD-10 update of inactive term Other psoriasis and similar disorders 12/29/2015 Diverticulitis 06/07/2019 documented as of this encounter (statuses as of 10/20/2023) Immunizations Name Administration Dates Next Due Covid-19 Ad26, Single Dose (Haley/J&J) 08/28/2020 Pneumococcal Conjugate Vacci ne, 20-valent ([id number]) 07/02/2022 Seasonal Influenza, PF, 6 M & [...] this encounter Progress Notes * Vlad Alcaraz [facility] - 10/20/2023 10:49 AM EDT Medication Therapy Disease Management - Anticoagulation Selwyn Hope 1955 Current Warfarin Dose As of 10/20/2023 Warfarin maintenance plan: 2.5 mg (5 mg x 0.5) every Tue, Johanne, Sat; 5 mg (5 mg x 1) all other days Patient Findings Positives: Extra doses (He took 2.5mg Tu, 5mg all other days), Change in diet/appetite (He had all of his teeth taken ouyt and is unable to eat as many vitamin K foods) Negatives: Signs/symptoms of thrombosis, Signs/symptoms of bleeding, Change in health, Change in alcohol use, Change in activity, Upcoming invasive procedure, Missed doses, Change in medications, Bruising INR Result As of 10/20/2023 INR goal: 2.0-3.0 INR used for dosin.9 (10/20/2023) Warfarin Plan As of 10/20/2023 Full warfarin instructions: 10/19: Hold; 10/20: Hold; Otherwise 2.5 mg every Tue, Johanne, Sat; 5 mg all other days Next INR check: 11/10/2023 Repeat PT/INR in 3 week(s) Weekly dose: decreased Vlad Cespedes RPh, CACP, CDE Clinical Pharmacist Medication Therapy [facility] 10/20/2023 11:03 AM documented in this encounter Plan of Treatment Upcoming Encounters Date Type Department Care Team (Late st Contact Info) Description 11/10/2023 11:00 AM EDT Anticoagulation Pharmacy, [facility] [address] [facility] [place] [address] Pharmacist1, [facility] [address] [facility] [place] [address] 11/28/2023 8:30 AM EDT Cardiac Studies Cardiac Studies, [facility] [address] [place] [address] 12/03/2023 2:30 PM EDT Office Visit Urology [facility] [address] [place] [address] [place] [address] Gunner Adams, Kailash Quiles MD [address] [place] [address] [place] [address] 12/17/2023 3:00 PM EDT Office Visit Family Practice [facility] [address] [facility] [place] [address] Wayne Fontana, DO [address] [place] [address] 03/02/2024 10:30 AM EDT Office Visit Cardiology, [facility] [address] [facility] [place] [address] Marta Garcia CRNP [address] [facility] [place] [address] 03/05/2024 10:00 AM EDT Office Visit Cardiology, [facility] [place] [address] Martinez Kessler PA-C [facility] [place] [address] Scheduled Procedures Name Priority Associated Diagnoses Date/Ti [...] Comments INR FINGERSTICK, POINT OF CARE STAT 10/20/2023 10:53 AM EDT LV (left ventricular) mural thrombus snf current use of anticoagulant therapy Anticoagulation management encounter Paroxysmal atrial fibrillation (HCC) documented in this encounter Results * INR FINGERSTICK, POINT OF CARE (10/20/2023 10:53 AM EDT) Fingerstick INR 4.9 INR 12:19 PM EDT [facility] 56-02 Blood 10/20/2023 10:5 3 AM EDT 10/20/2023 12:19 PM EDT Narrative [facility] [place] 56-02 - 10/20/2023 12:19 PM EDT Therapeutic ranges for non-operative patients: Prophylaxsis/treatment of DVT: (Range:2.0-3.0) Treatment of pulmonary embolism:(Range:2.0-3.0) Prevention of systemic embolism from: -tissue heart valves -acute myocardial infarction -valvular heart disease -atrial fibrillation (Range: 2.0-3.0) Mechanical prosthetic valves: (Range: 2.5-3.5) Vlad Cespedes V RPh LAB POINT OF CARE TE ST DOCKED DEVICE UNSOLICITED RESULTS [facility] [place] 56-02 [address] [facility] [place] [address] documented in this encounter Visit Diagnoses Diagnosis LV (left ventricular) mural thrombus- Primary Acute myocardial infarction, unspecified site, episode of care unspecified 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
--- OUTSIDE RECORDS SUMMARY | 2024-03-21 22:33 | External Medical Summary | Summary of Care ---
Author Name Unknown Organization [facility] Address [address] [place] [facility] [place] [address] Phone [phone] Care Team Providers Care Sql Tech Name Role Phone SurjitWayne lobo Primary Care Provider [phone] Reason for Visit * Reason Comments eRx-Medication Refill Encounter Details Date Type Department Care Team (Late st Contact Info) Description 11/18/2023 Refill Cardiology, [facility] [address] [place] [address] Aisha Vargas PA-C [address] [place] [address] Chronic coronary artery disease*; Ischemic cardiomyopathy; PVT (paroxysmal ventricular tachycardia) (HCC); Paroxysmal atrial fibrillation (HCC) Allergies Active Allergy Reactions Criticality Noted Date Comments Penicillins 10/16/2006 Develop a Rash after a week documented as of this encounter (statuses as of 11/19/2023) Medications Medication Sig Dispensed Refills Start Date [...] THE MORNING 90 Tablet 3 4 Active Empagliflozin 10 MG Oral Tablet (Jardiance) Take 1 Tablet by mouth in the morning. 90 Tablet 3 3 11/19/19 24 Discontinued documented as of this encounter (statuses as of 11/19/2023) Active Problems Problem Noted Date Diagnosed Date Paroxysmal atrial fibrillation 05/27/2023 History of [place] (myocardial infarction) 02/06/2023 Heart failure 02/06/2023 Diabetes [...] 6 months Impotence of organic origin 06/13/2008 [facility] current use of anticoagulant therapy 0 02/09/2007 Overview: ICD-10 update of inactive term Anticoagulation management encounter 02/09/2007 ADVANCE DIRECTIVE INFORMATION 12/12/2006 Overview: No, Advance Directive brochure given to patient at prior appointment. 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; HTN, goal below 140/90 Generalized osteoarthritis Diverticulosis of colon Cerebral aneurysm, nonruptured Overview: small(2.4mm) intracranial- A2 segment documented as of this encounter (statuses as of 11/19/2023) Resolved Problems Problem Noted Date Diagnosed Date Resolved Date Esophageal reflux 06/07/2019 06/07/2019 Prediabetes 12/30/2017 02/27/2023 Overview: Per Prediabetes protocol #1 - LV (left ventricular) mural thrombus with acute [place] 01/09/2017 05/23/2017 HTN, goal below 130/80 03/15/201208/13 [...] for Patients with Cardiovascular Disease Project #: [id number] PI: Marley Panchal MD [phone] GENOMICS CARDIO RESEARCH OTHER*[id number] 01/14/2007 06/25/2016 Overview: Renamed Per Clinical Trials Billing Project. Study Title: Genomic Markers for Patients with Cardiovascular Disease Project #: [id number] PI: Marley Panchal MD [phone] Atherosclerosis of leg with intermittent claudication 08/13/2016 Dyslipidemia, goal to be determined 05/04/2009 Overview: Per Lipid Taxonomy. Abdominal pain 06/07/2019 Nausea 12/29/2015 Overview: ICD-10 update of inactive term Other psoriasis and similar disorders 12/29/2015 Diverticulitis 06/07/2019 documented as of this encounter (statuses as of 11/19/2023) Immunizations Name Administration Dates Next Due Covid-19 Ad26, Single Dose (Haley/J&J) 08/28/2020 Pneumococcal Conjugate Vacci ne, 20-valent ([id number]) 07/02/2022 Seasonal Influenza, PF, 6 M & [...] Telephone Encounter - Aisha Vargas PA-C - 11/19/2023 12:46 PM EDTSigned Prescriptions: Disp Refills Jardiance 10 MG Oral Tablet (Empagliflozin)90 Tab*3 Sig: TAKE 1 TABLET BY MOUTH IN THE MORNING Authorizing Provider: AISHA VARGAS * Telephone Encounter - Shanda Mota CMA - 11/19/2023 11:33 AM EDTPending Prescriptions: Disp Refills Jardiance 10 MG Oral Tablet (Empagliflozin)90 Tab*3 Sig: TAKE 1 TABLET BY MOUTH IN THE MORNING * Telephone Encounter - Shanda Mota CMA - 11/19/2023 11:32 AM EDT Did you pend patient's preferred pharmacy and medication before forwarding?yes Pharmacy: [facility] [address] Pending Prescriptions: Disp Refills Jardiance 10 MG Oral Tablet (Empagliflozi*90 Tab*3 Sig: TAKE 1 TABLET BY MOUTH IN THE MORNING Last Visit: 09/04/2023 (in office), 03/07/2023 (telemedicine) Next Visit: 03/02/2024 If no future appointments scheduled, and last appointment is greater than a year ago, please schedule patient for a follow-up appointment Last date the medication was ordered: 02-14-2023 Is this request for a controlled substance?No [...] Team (Late st Contact Info) Description 11/28/2023 8:30 AM EDT Cardiac Studies [facility] Studies, [facility] [place] [address] 12/03/2023 2:30 PM EDT Office Visit Urology [facility] [address] [place] [address] [place] [address] Kailash Martino Jr., MD [address] [place] [address] 12/17/2023 2:50 PM EDT Anticoagulation Pharmacy, [facility] [address] [place] [address] Pharmacist2, [facility] [address] [facility] [address] 12/17/2023 3:00 PM EDT Office Visit Family Practice [facility] [address] [facility] [place], [place] [address] Wayne Fontana DO [address] [facility] [place] [address] 03/02/2024 10:30 AM EDT Office Visit Cardiology, [facility] [place] [address] Marta Garcia CRNP [address] [facility] [place] [address] 03/05/2024 10:00 AM EDT Office Visit Cardiology, [facility] [place] [address] Aisha Vargas PA-C [address] [facility] [place] [address] Scheduled Procedures Name Priority Associated Diagnoses Date/Ti [...] as of this encounter Visit Diagnoses Diagnosis Chronic coronary artery disease- Primary Coronary atherosclerosis of unspecified type of vessel, [place] or graft Ischemic cardiomyopathy Other specified forms of chronic ischemic heart disease PVT (paroxysmal ventricular tachycardia) (HCC) Paroxysmal ventricular tachycardia Paroxysmal atrial fibrillation (HCC) Atrial fibrillation documented in this encounter Care Teams Sql Tech Relationship Specialty Start Date End Date Wayne Fontana DO [address] [place] [address] PCP - General Family Medicine 01/23/17 documented as of this encounter
--- OUTSIDE RECORDS SUMMARY | 2024-03-21 22:33 | External Medical Summary | Summary of Care ---
Author Name Unknown Organization [facility] Address [address] [place] [address] Phone [phone] Care Team Providers Care Dialysis Rn Name Role Phone SurjitWayne lobo Primary Care Provider [phone] Reason for Visit * Reason Comments Defibrillator Clinic Encounter Details Date Type Department Care Team (Latest Contact Info) Description 09/26/2023 1:00 PM EDT Cardiac Studies Cardiology, [facility] [address] [place] [address] [place], [facility] [address] [place] [address] PVT (paroxysmal ventricular tachycardia) (HCC)*; Ischemic cardiomyopathy; Paroxysmal atrial fibrillation (HCC); Presence of automatic cardioverter/defibril lator (AICD); Automatic implantable cardioverter-defibril lator in situ Allergies Active Allergy Reactions Criticality Noted Date Comments Penicillins 10/16/2006 Develop a Rash after a week documented as of this encounter (statuses as of 09/26/2023) Medications Medication Sig Dispensed Refills Start Date End Date Status ONDANSETRON HCL 4 MG PO TABS Take 1 Tablet by mouth every 8 hours as needed for Nausea or Vomiting. 0 Active Coenzyme Q-10 100 MG Oral Capsule Take 1 Capsule by mouth in the morning. 30 Capsule 0 07/31/2021 Active Metamucil 0.52 GM Oral Capsule (Psyllium) Take 1 Capsule by mouth in the morning. 30 Capsule 0 07/31/2021 Active Clobetasol Propionate 0.05 % External Ointment (Temovate)Indications :Psoriasis as needed for psoriasis 30 g 5 09/12/2021 Active Warfarin Sodium 5 MG Oral Tablet (Coumadin)Indications :LV (left ventricular) mural thrombus Take 1 to 2 tablets as directed by [facility]. 180 Tablet 3 06/21/2022 Active Aspirin 81 MG Oral Capsule Take 81 mg by mouth in the morning. 0 Active Vitamin B-12 500 MCG Oral Lozenge Take 1 Tablet by mouth daily. 30 Lozenge 0 07/02/2022 Active Albuterol Sulfate HFA 108 (90 Base) MCG/ACT Inhalation Aerosol Solution Inhale 2 Puffs by mouth every 6 hours as needed for Wheezing. 18 g 3 07/31/2022 Active Alfuzosin HCl ER 10 MG Oral Tablet Extended Release 24 Hour (Uroxatral) Take 1 Tablet by mouth in the morning. 90 Tablet 3 11/26/2022 Active Skyrizi Pen 150 MG/ML Subcutaneous Solution Auto-injector 0 12/10/2022 Active Nitroglycerin 0.4 MG Sublingual Tablet [...] ERECTILE DYSFUNCTION. 6 Tablet 5 03/26/2023 Active Metoprolol Succinate ER 100 MG Oral Tablet Extended Release 24 Hour (toPROL XL)Indications:HTN, goal below 140/90 Take 1 Tablet by mouth in the morning. 90 Tablet 1 05/07/2023 Active Entresto 49-51 MG Oral Tablet (sacubitril-valsartan [...] 1 Tablet by mouth in the morning. 0 09/04/2023 Active Atorvastatin Calcium 80 MG Oral Tablet (Lipitor)Indications: Chronic coronary artery disease TAKE 1 TABLET BY MOUTH INTHE MORNING 90 Tablet 3 09/23/2023 Active documented as of this encounter (statuses as of 09/26/2023) Active Problems Problem Noted Date Diagnosed Date Paroxysmal atrial fibrillation 05/27/2023 History of MD (myocardial infarction) 02/06/2023 Heart failure 02/06/2023 Diabetes [...] 6 months Impotence of organic origin 06/13/2008 rn long term care current use of anticoagulant therapy 0 02/09/2007 Overview: ICD-10 update of inactive term Anticoagulation management encounter 02/09/2007 ADVANCE DIRECTIVE INFORMATION 12/12/2006 Overview: No, Advance Directive brochure given to patient at prior appointment. 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; HTN, goal below 140/90 Generalized osteoarthritis Diverticulosis of colon Cerebral aneurysm, nonruptured Overview: small(2.4mm) intracranial- A2 segment documented as of this encounter (statuses as of 09/26/2023) Resolved Problems Problem Noted Date Diagnosed Date Resolved Date Esophageal reflux 06/07/2019 06/07/2019 Prediabetes 12/30/2017 02/27/2023 Overview: Per Prediabetes protocol #1 - LV (left ventricular) mural thrombus with acute MD 01/09/2017 05/23/2017 HTN, goal below 130/80 03/15/201208/13 [...] for Patients with Cardiovascular Disease Project #: [id number] PI: Marley Panchal MD [phone] GENOMICS CARDIO RESEARCH OTHER*[id number] 01/14/2007 06/25/2016 Overview: Renamed Per Clinical Trials Billing Project. Study Title: Genomic Markers for Patients with Cardiovascular Disease Project #: [id number] PI: Marley Panchal MD [phone] Atherosclerosis of leg with intermittent claudication 08/13/2016 Dyslipidemia, goal to be determined 05/04/2009 Overview: Per Lipid Taxonomy. Abdominal pain 06/07/2019 Nausea 12/29/2015 Overview: ICD-10 update of inactive term Other psoriasis and similar disorders 12/29/2015 Diverticulitis 06/07/2019 documented as of this encounter (statuses as of 09/26/2023) Immunizations Name Administration Dates Next Due Covid-19 Ad26, Single Dose (Haley/J&J) 08/28/2020 Pneumococcal Conjugate Vacci ne, 20-valent ([id number]) 07/02/2022 Seasonal Influenza, PF, 6 M & [...] as of this encounter Progress Notes * Ashwini Balderas LPN - 09/26/2023 12:55 PM EDT Patient and implanted device were evaluated today in the [facility]. Providers please see scanned report in the Scans tab. Left pectoral device pocket is healthy without erythema, swelling, pain, or drainage. Per [employer] device advisory: Programed all HV therapy pathways B>AX in all therapy zones . documented in this encounter Plan of Treatment Upcoming Encounters Date Type Department Care Team (Late st Contact Info) Description 10/20/2023 10:40 AM EDT Anticoagulation Pharmacy, [facility] [address] [facility] [place] [address] Pharmacist1, [facility] [address] [facility] [place] [address] 11/28/2023 8:30 AM EDT Cardiac Studies Cardiac Studies, [facility] [address] [place] [address] 12/03/2023 2:30 PM EDT Office Visit Urology Keven Kent [address] [place] [address] [place] [address] Kailash Martino Jr., MD [address] [place] [address] [place] [address] 12/17/2023 3:00 PM EDT Office Visit Family Practice [facility] [address] [facility] [place] [address] Wayne Fontana, DO [address] [facility] [place] [address] 03/02/2024 10:30 AM EDT Office Visit Cardiology, [facility] [address] [place] [address] Marta Garcia CRNP [address] [facility] [place] [address] 03/05/2024 10:00 AM EDT Office Visit Cardiology, [facility] [address] [place] [address] Martinez Kessler PA-C 132 [facility] [place] [address] Scheduled Orders Name Type Priority Associated Diagnoses Orde r Schedule SINGLE-LEAD DEFIBRILLATOR + REPROGRAM Procedures Routine PVT (paroxysmal ventricular tachycardia) (HCC) Ischemic cardiomyopathy Paroxysmal atrial fibrillation (HCC) Presence of automatic cardioverter/defibrilla tor (AICD) Automatic implantable cardioverter-defibrilla tor in situ Ordered: 09/26/2023 Scheduled Procedures Name Priority Associated Diagnoses Date/Ti [...] as of this encounter Visit Diagnoses Diagnosis PVT (paroxysmal ventricular tachycardia) (HCC)- Primary Paroxysmal ventricular tachycardia Ischemic cardiomyopathy Other specified forms of chronic ischemic heart disease Paroxysmal atrial fibrillation (HCC) Atrial fibrillation Presence of automatic cardioverter/defibrillator (AICD) Automatic implantable cardiac defibrillator in situ Automatic implantable cardioverter-defibrillator in situ documented in this encounter Care Teams Dialysis Rn Relationship Specialty Start Date End Date Wayne Fontana DO [facility] [place] [address] PCP - General Family Medicine 01/23/17 documented as of this encounter
--- OUTSIDE RECORDS SUMMARY | 2024-03-21 22:33 | External Medical Summary | Summary of Care ---
Author Name Unknown Organization [facility] Address [address] [place] [address] Phone [phone] Care Team Providers Care Truck Caterer Name Role Phone YazWayne jamison Primary Care Provider [phone] Encounter Details Date Type Department Care Team ([facility] st Contact Info) Description 10/13/2023 Result Scan Unspecified Department Evelyn Hanley DO [address] [place] [address] <No scans attached> Allergies Active Allergy Reactions Criticality Noted Date Comments Penicillins 10/16/2006 Develop a Rash after a week documented as of this encounter (statuses as of 10/13/2023) Medications Medication Sig Dispensed Refills Start Date [...] 03/26/2023 Active Entresto 49-51 MG Oral Tablet (sacubitril-valsartan [...] the morning. 90 Tablet 1 10/09/2023 Active documented as of this encounter (statuses as of 10/13/2023) Active Problems Problem Noted Date Diagnosed Date [...] 6 months Impotence of organic origin 06/13/2008 long-term current use of anticoagulant therapy 0 02/09/2007 Overview: ICD-10 update of inactive term Anticoagulation management encounter 02/09/2007 ADVANCE DIRECTIVE INFORMATION 12/12/2006 Overview: No, Advance Directive brochure given to patient at prior appointment. 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 Study Title: Genomic Markers for Patients with Cardiovascular Disease Project #: [id number] PI: Marley Panchal MD [phone] Atherosclerosis of leg with intermittent claudication 08/13/2016 Dyslipidemia, goal to be determined 05/04/2009 Overview: Per Lipid Taxonomy. Abdominal pain 06/07/2019 Nausea 12/29/2015 Overview: ICD-10 update of inactive term Other psoriasis and similar disorders 12/29/2015 Diverticulitis 06/07/2019 documented as of this encounter (statuses as of 10/13/2023) Immunizations Name Administration Dates Next Due Covid-19 Ad26, Single Dose (Haley/J&J) 08/28/2020 Pneumococcal Conjugate Vacci ne, 20-valent ([id number]) 07/02/2022 Seasonal Influenza, PF, 6 M & [...] Description 10/20/2023 10:40 AM EDT Anticoagulation Pharmacy, [facility] [address] [place] [address] Pharmacist1, [facility] [address] [place] [address] 11/28/2023 8:30 AM EDT Cardiac Studies Cardiac Studies, [facility] [address] [place] [address] 12/03/2023 2:30 PM EDT Office Visit Urology Keven Kent [address] [place] [address] [place] [address] Kailash Martino Jr., MD [address] [facility] [place] [address] [place] [address] 12/17/2023 3:00 PM EDT Office Visit Family Practice [facility] [address] [facility] [place] [address] Wayne Fontana, [address] [facility] [place] [address] 03/02/2024 10:30 AM EDT [facility] [place] [address] Marta Garcia CRNP [address] [facility] [place] [address] 03/05/2024 10:00 AM EDT Office Visit Cardiology, [facility] 132 [facility] [place] [address] Martinez Kessler, PAGeorgeC [address] [place] [address] Scheduled Procedures Name Priority Associated Diagnoses Date/Ti [...] 12/30/2019, Additional history exists Colonoscopy 08/18/2023 08/17/2018, 2019, 05/11/2013, Additional history exists Colorectal Cancer Screening [...] Date/Time Associated Diagnosis Comments CARDIOLOGY SCANNED RESULT 10/13/2023 documented in this encounter Results * CARDIOLOGY SCANNED RESULT (10/13/2023) 10/13/2023 Evelyn Hanley DO OTHER documented in this encounter Care Teams Truck Caterer Relationship Specialty Start Date End Date Wayne Fontana DO [address] [place] [address] PCP - General Family Medicine 01/23/17 documented as of this encounter
--- OUTSIDE RECORDS SUMMARY | 2024-03-21 22:33 | External Medical Summary ---
Author Name Unknown Address Unknown Organization K09:[facility] [place] [address] Laboratory Report Ordering Provider Test Date Status KASEY PABLO V 11/10/2023 11:06:25 Final Therapeutic ranges for non-o perative patients:
Prophylaxsis/treatment of DVT: (Range:2.0-3.0)
Treatment of pulmonary embolism:(Range:2.0-3.0)
Prevention of systemic embolism from:
-tissue heart valves
-acute myocardial infarction
-valvular heart disease
-atrial fibrillation
(Range: 2.0-3.0)
Mechanical prosthetic valves: (Range: 2.5-3.5) Observation Date Value Abnormality Reference (Units ) Status INR in Capillary blood by Coagulation assay 11/10/2023 11:06:25 2.0 (INR) Final Performing Location [facility] [place] [address]
--- NOTE | 2024-03-21 22:44 | Emergency Department Note ---
History of Present Illness General Chief complaint: Vomiting Stated complaint: VOMITING,ABD PAIN Time Seen by Provider: 03/21/24 22:31 History of Present Illness Maximum Pain Intensity: 5 This 68-year-old male on Coumadin presents ER complaint of nausea vomiting and abdominal pain for the past few days after eating Rodriguez breakfast at [employer] and eggs and hashbrowns. Patient denies chest pain, dyspnea, diarrhea, flulike illness. No prior abdominal surgeries. Home Medications Medication Instructions Recorded Confirmed Type atorvastatin 80 mg tablet 80 mg PO HS 06/10/18 01/09/23 History nitroglycerin 0.4 mg sublingual 0.4 mg sublingual UD 06/10/18 01/09/23 History tablet (Nitrostat) omeprazole 20 mg capsule,delayed 20 mg PO BID 06/10/18 01/09/23 History release spironolactone 25 mg tablet 25 mg PO QAM 06/10/18 01/09/23 History sildenafil 100 mg tablet (Viagra) 100 mg PO DAILY PRN Erectile 10/08/18 01/09/23 History Dysfunction acetaminophen 500 mg tablet 500 mg PO Q6H PRN Pain 07/13/19 01/09/23 History (Tylenol Extra Strength) ondansetron 4 mg disintegrating 4 mg PO Q8H PRN nausea and 10/14/19 01/09/23 Rx tablet vomiting #6 tabs albuterol sulfate 90 mcg/actuation 2 inha inhalation QID PRN 08/12/21 01/09/23 Rx aerosol inhaler shortness of breath or wheezing #1 inh coQ10 (ubiquinol) 100 mg capsule 100 mg PO PM 08/12/21 01/09/23 History alfuzosin 10 mg tablet,extended 10 mg PO DAILY 06/24/22 01/09/23 History release 24 hr tizanidine 2 mg capsule 2 mg PO DIRECTED 06/24/22 01/09/23 History aspirin 81 mg tablet,delayed 81 mg PO QAM #30 tabs 06/27/22 01/09/23 Rx release metoprolol succinate 100 mg 100 mg PO PM #30 tabs 06/27/22 01/09/23 Rx tablet,extended release 24 hr (Toprol XL) clobetasol 0.05 % topical ointment 1 applic topical BID PRN Skin 01/09/23 01/09/23 History (Temovate) Irritation cyanocobalamin (vitamin B-12) 500 500 mcg PO DAILY 01/09/23 01/09/23 History mcg tablet diclofenac sodium 1 % topical gel 4 g topical TID PRN Pain 01/09/23 01/09/23 History psyllium husk 0.52 gram capsule 0.52 g PO QAM 01/09/23 01/09/23 History sacubitril 24 mg-valsartan 26 mg 1 tab PO BID 01/10/23 01/10/23 History tablet (Entresto) amiodarone 200 mg tablet 200 mg PO UD 30 days #60 tabs 01/11/23 Rx warfarin 5 mg tablet 5 mg PO DAILY #30 tabs 01/11/23 01/09/23 Rx Allergies Allergy/AdvReac Type Severity Reaction Status Date / Time Penicillins Allergy Mild RASH Verified 01/09/23 17:51 Past Med/Surg History Problem List (Updated 03/22/24 @ 00:55 by Marley Pal PA-C) Elevated troponin (Acute) Abdominal pain, acute (Acute) MARYBEL (acute kidney injury) (Acute) ICD (implantable cardioverter-defibrillator) discharge Emphysema/COPD Atrial fibrillation with rapid ventricular response (Acute) Non-ST elevation AK (NSTEMI) (Acute) Hypomagnesemia (Acute) Viral illness Ventricular tachycardia Chest pain (Acute) Cardiac dysrhythmia (Acute) MARYBEL (acute kidney injury) (Acute) Dehydration (Acute) HTN (hypertension) (Chronic) Osteoarthritis (Chronic) Rodriguez's esophagus (Chronic) GERD (gastroesophageal reflux disease) (Chronic) Ischemic cardiomyopathy (Chronic) Dyslipidemia (Chronic) CAD (coronary artery disease) (Chronic) "PCI x 4 to LAD, chronic total RCA occlusion" Apical mural thrombus (Chronic) PVD (peripheral vascular disease) (Chronic) "s/p stenting to iliac bifurcation into right common iliac" Psoriasis (Chronic) AICD (automatic cardioverter/defibrillator) present (Chronic) History of lumbar laminectomy (Chronic) Back pain (Acute) Nausea & vomiting (Acute) Family History Other Cancer Heart disease Hypertension Social History Smoking Status: Never smoker Tobacco Type: Cigarettes Cigarettes Per Day: 20; Hx Alcohol Use: Yes Alcohol type: beer Hx Substance Use: No Preferred Language: B[place]ian 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 Ability: Effective Loom Stop Checker Required: No Beliefs That Will Affect Care: None marital status: Current Living Situation: Spouse and Family current occupational status: retired Feels Safe at Home: Yes Assistive Devices: None Review of Systems A total of 10 systems reviewed and were otherwise negative Physical Exam Vital Signs Vital Signs - 24 hr 03/21/24 22:27 03/21/24 22:40 03/21/24 22:50 Temperature 36.7 C Temperature Source Temporal Artery Scan Pulse Rate 77 73 Pulse Rate [Apical] 61 Respiratory Rate 16 20 Respiratory Effort / Characteristics Non-Labored Spontaneous Respiratory Depth Normal Respiratory Pattern Regular Blood Pressure 183/126 H Blood Pressure Mean 145 Pulse Oximetry 91 97 Oxygen Delivery Method Room Air Room Air Sepsis Recent Fever Within 48 Hours No Sepsis New/Unexplained Change in Mental Status N/A Sepsis Action Taken by Nursing No Action Required 03/21/24 22:51 03/21/24 23:59 Temperature Temperature Source Pulse Rate 61 Pulse Rate [Apical] Respiratory Rate 18 Respiratory Effort / Characteristics Respiratory Depth Respiratory Pattern Blood Pressure Blood Pressure Mean Pulse Oximetry 96 88 L Oxygen Delivery Method Room Air Room Air Sepsis Recent Fever Within 48 Hours Sepsis New/Unexplained Change in Mental Status Sepsis Action Taken by Nursing VITALS: Vitals are noted on the nurse's note and reviewed by myself. Vital signs stable. GENERAL: White male, in no acute distress, nondiaphoretic, well-developed well- nourished. SKIN: Capillary reflex less than 2 seconds. HEENT: Normocephalic. PERRLA. EOMI. Nares patent. Mucous membranes moist. Neck is supple without nuchal rigidity. HEART: Regular rate and rhythm LUNGS: Clear to auscultation bilaterally without wheezes, rales or rhonchi. No retractions or accessory muscle use. ABDOMEN: Positive bowel sounds x 4. Normal tympanic percussion. Soft, tender to palpation mid abdomen, without masses or organomegaly. Perez sign negative. No guarding or rebound tenderness. no CVA tenderness MUSCULOSKELETAL: No gross musculoskeletal defects. NEURO: Patient was alert and oriented to person place and time. No focal neurological deficits. Course Administered Medications Discontinued Medications Famotidine (Pepcid 20mg Iv Push) 20 mg in 5 mls @ 2.5 mls/min IV NOW STA Stop: 03/21/24 22:38 Last Admin: 03/21/24 23:26 Dose: 2.5 mls/min Documented By: Sodium Chloride (Nss) 500 mls @ 999 mls/hr IV .Q31M ONE Stop: 03/21/24 23:15 Last Infusion: 03/22/24 00:38 Dose: Infused Documented By: Admin: 03/21/24 23:26 Dose: 999 mls/hr Documented By: Sodium Chloride (Nss) 500 mls @ 999 mls/hr IV .Q31M ONE Stop: 03/22/24 00:44 Last Admin: 03/22/24 00:35 Dose: 999 mls/hr Documented By: Ioversol (Optiray 320 100ml) 100 ml IV ONCE ONE Stop: 03/21/24 23:45 Last Admin: 03/21/24 23:44 Dose: 93 ml Documented By: MANA Morphine Sulfate (Morphine Sulfate 4 Mg/Ml 1 Ml Carp\\Vial) 4 mg IV NOW STA Stop: 03/22/24 00:39 Last Admin: 03/22/24 00:43 Dose: 4 mg Documented By: Ondansetron HCl (Ondansetron Inj 2 Mg/Ml 2 Ml Vial) 4 mg IV NOW STA Stop: 03/21/24 22:38 Last Admin: 03/21/24 23:26 Dose: 4 mg Documented By: Medical Decision Making Medical Records Attestation: I reviewed the patient's medical records. Home Medications Current Medication List: was personally reviewed by me Laboratory Data Attestation: I reviewed the patient's lab results. 03/21/24 23:50 03/21/24 23:50 Lab Results 03/21/24 03/21/24 Range/Units 22:00 23:50 WBC Cancelled 13.85 H RBC Cancelled 5.13 Hgb Cancelled 14.5 Hct Cancelled 43.9 MCV Cancelled 85.6 MCH Cancelled 28.3 MCHC Cancelled 33.0 RDW Std Deviation Cancelled 55.9 H RDW Coeff of Carito Cancelled 18.1 H Plt Count Cancelled 251 MPV Cancelled 9.7 Immature Gran % (Auto) Cancelled 0.4 Neut % (Auto) Cancelled 79.7 Lymph % (Auto) Cancelled 12.9 Alcorn % (Auto) Cancelled 6.7 Eos % (Auto) Cancelled 0.0 Baso % (Auto) Cancelled 0.3 Neut # (Auto) Cancelled 11.03 H Lymph # (Auto) Cancelled 1.79 Alcorn # (Auto) Cancelled 0.93 H Eos # (Auto) Cancelled 0.00 Baso # (Auto) Cancelled 0.04 Immature Gran # (Auto) Cancelled 0.06 Absolute Nucleated RBC Cancelled Nucleated RBC % (auto) Cancelled Neutrophils % (Manual) Cancelled Band Neutrophils % Cancelled Lymphocytes % (Manual) Cancelled Prolymphocyte % Cancelled Reactive Lymphs % (Man) Cancelled Monocytes % (Manual) Cancelled Eosinophils % (Manual) Cancelled Basophils % (Manual) Cancelled Metamyelocytes % (Man) Cancelled Myelocytes % (Man) Cancelled Promyelocytes % (Man) Cancelled Blast Cells % (Manual) Cancelled Plasma Cell % (Manual) Cancelled Other Cells % Cancelled Nucleated RBC % Cancelled Neutrophils # (Manual) Cancelled Band Neutrophils # Cancelled Total Absolute Neuts Cancelled Lymphocytes # (Manual) Cancelled Prolymphocyte # Cancelled Reactive Lymphs # Cancelled Total Abs Lymphocytes Cancelled Monocytes # (Manual) Cancelled Eosinophils # (Manual) Cancelled Basophils # (Manual) Cancelled Metamyelocytes # (Man) Cancelled Myelocytes # (Manual) Cancelled Promyelocytes # (Man) Cancelled Blast Cells # (Man) Cancelled Plasma Cell # (Manual) Cancelled Other Cells # Cancelled Nucleated RBCs # (Man) Cancelled Hypersegmented Neuts Cancelled Hyposegmented Neuts Cancelled Hypogranular Neuts Cancelled Large Granular Lymphs Cancelled # Lrg Granular Lymphs Cancelled Hairy Cells Cancelled Smudge Cells Cancelled Toxic Granulation Cancelled Toxic Vacuolation Cancelled Dohle Bodies Cancelled Rudy Rods Cancelled Platelet Estimate Cancelled Hypogranular Platelets Cancelled Giant Platelets Cancelled Platelet Satelliting Cancelled RBC Morphology Cancelled Polychromasia Cancelled Hypochromasia Cancelled Poikilocytosis Cancelled Basophilic Stippling Cancelled Anisocytosis Cancelled Microcytosis Cancelled Macrocytosis Cancelled Spherocytes Cancelled Pappenheimer Bodies Cancelled Sickle Cells Cancelled Target Cells Cancelled Tear Drop Cells Cancelled Ovalocytes Cancelled Stomatocytes Cancelled Bledsoe-Cavour Bodies Cancelled Echinocytes Cancelled Acanthocytes (Spur) Cancelled Rouleaux Cancelled RBC Agglutinates Cancelled Schistocytes Cancelled Sezary Cell Cancelled PT Cancelled 19.8 H INR Cancelled 1.9 H APTT Cancelled 30 PTT Ratio Cancelled 1.1 Sodium TNP 140 Potassium TNP 4.0 Chloride 108 H (98-107) mmol/L Carbon Dioxide 22 (21-32) mmol/L Anion Gap TNP BUN 38 H (6-23) mg/dl Creatinine 1.44 H (0.6-1.4) mg/dl Est Cr Clr Drug Dosing 47.4 ml/min eGFR 52.27 BUN/Creatinine Ratio 26.4 H (10-20) Glucose 146 H (70-99(Fasting)) mg/dl Calcium 10.2 (8.6-10.3) mg/dl Magnesium TNP 1.9 Total Bilirubin 0.6 (0.2-1.0) mg/dl AST TNP 50 H ALT 81 H (7-52) U/L Alkaline Phosphatase 94 (34-104) U/L Troponin I High Sens 77.9 H* 83.6 H* (0-20) pg/ml Total Protein 7.9 (6.0-8.3) gm/dl Albumin 4.4 (3.4-5.0) gm/dl Globulin 3.5 (2.5-4.0) gm/dl Albumin/Globulin Ratio 1.3 (0.9-2) Lipase 37 (11-82) U/L Urine Color Yellow Urine Appearance Clear (Clear) Urine pH 5.0 (4.5-7.5) Ur Specific [place] 1.039 H (1.000-1.030) Urine Protein 2+ H (Negative) Urine Glucose (UA) 3+ H (Negative) Urine Ketones Negative (Negative) Urine Blood 1+ H (Negative) Urine Nitrite Negative (Negative) Urine Bilirubin Negative (Negative) Urine Urobilinogen Negative (Negative) Ur Leukocyte Esterase Negative (Negative) Urine WBC (Auto) 0-5 (0-5) /hpf Urine RBC (Auto) 3-5 H (0-2) /hpf U Hyaline Cast (Auto) >20 H (0-2) /lpf U Epithel Cells (Auto) 0-2 (0-2) /hpf Urine Bacteria (Auto) None Seen (None Seen) Urine Mucus Present A (None Prsent) Adenovirus (PCR) Not Detected (NotDetected) B. pertussis DNA (PCR) Not Detected (NotDetected) B.parapertussis DNA PCR Not Detected (NotDetected) C. pneumoniae DNA (PCR) Not Detected (NotDetected) Coronavirus OC43 (PCR) Not Detected (NotDetected) Coronavirus HKU1 (PCR) Not Detected (NotDetected) Coronavirus 229E (PCR) Not Detected (NotDetected) SARS-CoV-2 (PCR) Not Detected (NotDetected) Coronavirus NL63 (PCR) Not Detected (NotDetected) Human Metapneumovir PCR Not Detected (NotDetected) Influenza Type A (PCR) Not Detected (NotDetected) Influenza Type B (PCR) Not Detected (NotDetected) M. pneumoniae (PCR) Not Detected (NotDetected) Parainfluenza 1 (PCR) Not Detected (NotDetected) Parainfluenza 2 (PCR) Not Detected (NotDetected) Parainfluenza 3 (PCR) Not Detected (NotDetected) Parainfluenza 4 (PCR) Not Detected (NotDetected) RSV (PCR) Not Detected (NotDetected) Entero/Rhino (PCR) Not Detected (NotDetected) Blood Parasites ID Cancelled Imaging Data Attestation: I personally reviewed and interpreted this imaging study as follows: Radiologist's Impression: Abdomen/Pelvis CT 03/21/24 22:37 Exam(s): CT ABDOMEN + PELVIS With Contrast IV Amt: 93 ml optiray 320 EXAM: CT Abdomen and Pelvis With Intravenous Contrast CLINICAL HISTORY: Reason for exam: severe mid abd pain. TECHNIQUE: Axial computed tomography images of the abdomen and pelvis with intravenous contrast. CTDI is 23.52 mGy and DLP is 1143.59 mGy-cm. Automated exposure control was utilized for the study. A dose lowering technique was utilized adhering to the principles of ALARA. CONTRAST: Patient received 93 ml optiray 320 of IV contrast COMPARISON: 09/14/2023 FINDINGS: Image quality is degraded by motion artifact. Lung bases: Cardiomegaly. Intracardiac electrode lead and additional metallic star artifact. No mass. No consolidation. ABDOMEN: Liver: Bibasilar subpleural linear fibrotic atelectatic changes. No mass. Posteriorly pleural thickening. Gallbladder and bile ducts: Unremarkable. Intraluminal 8 mm Gallstone. No ductal dilation. Pancreas: Unremarkable. No mass. No ductal dilation. Spleen: A 1.4 cm cyst is seen at the anterior tip of the spleen. Additionally a subcapsular hypodense lesion/a small cyst is also seen medially at the anterior aspects of the spleen.. No splenomegaly. Adrenals: Thickening of the adrenal glands.. No mass. Kidneys and ureters: Bilateral multiple renal cortical cysts, largest is 2.2 cm exophytic cyst present medially in the upper pole.. No solid mass. No hydronephrosis. Stomach and bowel: Unremarkable stomach. Normal-caliber small/large bowel loops. Descending colonic/sigmoid diverticulosis coli. Abnormal wall thickening of the sigmoid, likely related to chronic diverticulitis. PELVIS: Appendix: Normal appendix (series 300 image 41) Bladder: Mild uniform bladder wall thickness.. No mass. Reproductive: Enlarged prostate gland. ABDOMEN and PELVIS: Intraperitoneal space: No free air. No significant fluid collection. Increased mesenteric fat. Bones/joints: No acute fracture. No dislocation. L4-S1 degenerative spondylitic changes. Soft tissues: Unremarkable. Vasculature: Diffuse calcified atherosclerosis of the infrarenal aorta, iliac arteries and visualized common femoral arteries. No abdominal aortic aneurysm. Lymph nodes: No enlarged lymph nodes.. IMPRESSION: A 8 mm gallbladder stone. Splenic cysts. Renal cysts. Descending colonic/sigmoid diverticulosis coli. Abnormal wall thickening of the sigmoid likely related to chronic diverticulitis. No conclusive acute abdominal/pelvic CT findings. Enlarged prostrate. Mild uniform wall thickness of the urinary bladder. . Electronically signed by: Gurwinder Grimes MD, ALLYR 03/22/24 00:45 AM [facility] Narrative Prior records/ancillary studies reviewed. Triage Nursing notes reviewed. Additional history obtained from the family. The patient's history was concerning for nausea, vomiting, and abdominal pain. Differential diagnosis: Etiologies such as gastroenteritis, food borne illness, infections, appendicitis, diverticulitis, inflammatory bowel disease, obstruction, GI bleed, biliary pathology, as well as others were entertained. Physical examination findings: As above. Abdominal examination revealed mid abdominal tenderness. Vital signs reviewed and revealed stable. ER treatment provided: IV hydration, Zofran and Pepcid were ordered On reassessment the patient felt better. Patient was tolerating p.o. intake. Diagnostics interpretation by me: EKG ordered for upper abdominal pain EKG: Normal sinus, occasional PVC, no acute ST-T wave changes. Impression normal sinus rhythm with occasional PVC Q waves in inferior leads independently interpreted by myself The labs Independently Interpreted by myself revealed leukocytosis, elevated troponin repeat was ordered. Negative urine. Negative BioFire Minimally elevated creatinine mostly from dehydration Hyperglycemia without DKA Imaging studies: Chest x-ray with no acute consolidation, pneumothorax or free air per my independent interpretation Consultation: A consultation was placed with the hospitalist. The case was discussed and diagnostics were reviewed. The patient was evaluated in the ER for further treatment. This appears to be consistent with nausea and vomiting with MARYBEL most likely from dehydration with elevated troponin most likely type II AK with mild colitis. Medicine was consulted case discussed. Patient will be admitted to the medical service. EKG is nonischemic. Repeat troponin is similar to the first troponin. Patient is agreeable treatment plan of admission. By the evaluation outlined above emergent etiologies such as appendicitis, diverticulitis, obstruction, cardiac sources, mesenteric ischemia, aortic pathology, inflammatory bowel disease, renal colic, PUD, biliary pathology, UTI, as well as others were deemed relatively unlikely. The pt informed about the findings as listed above. All questions were answered and pleased with the treatment. The chart was completed utilizing [employer] Speech voice recognition software. Grammatical errors, random word insertions, pronoun errors, and incomplete sentences are an occassional consequence of this system due to software limitations, ambient noise, and hardware issues. Any formal questions or concerns about the content, text, or information contained within the body of this dictation should be directly addressed to the physician energy assistant for clarification. Impression & Plan Nausea & vomiting, MARYBEL (acute kidney injury), Abdominal pain, acute, Elevated troponin Discharge Plan Visit Data Chief Complaint: Vomiting Stated Complaint: VOMITING,ABD PAIN ED Provider: Edna Duarte ED Midlevel Provider: Marley Pal Discharge Problem: Nausea & vomiting, MARYBEL (acute kidney injury), Abdominal pain, acute, Elevated troponin Patient Disposition: Admitted As Inpatient Condition: Good Forms Stand Alone Forms: My jaeyos Prescriptions Prescriptions: No Action atorvastatin 80 mg tablet 80 mg PO HS spironolactone 25 mg tablet 25 mg PO QAM nitroglycerin [Nitrostat] 0.4 mg Tablet, Sublingual 0.4 mg Sublingual UD omeprazole 20 mg capsule,delayed release(DR/EC) 20 mg PO BID ondansetron 4 mg tablet,disintegrating 4 mg PO Q8H PRN (Reason: nausea and vomiting) Qty: 6 0RF sildenafil [Viagra] 100 mg Tablet 100 mg PO DAILY PRN (Reason: Erectile Dysfunction) acetaminophen [Tylenol Extra Strength] 500 mg Tablet 500 mg PO Q6H PRN (Reason: Pain) albuterol sulfate 90 mcg/actuation HFA aerosol inhaler 2 inha INH QID PRN (Reason: shortness of breath or wheezing) Qty: 1 0RF coQ10 (ubiquinol) 100 mg Capsule 100 mg PO PM alfuzosin 10 mg tablet extended release 24 hr 10 mg PO DAILY tizanidine 2 mg capsule 2 mg PO DIRECTED aspirin 81 mg Tablet,Delayed Release (Dr/Ec) 81 mg PO QAM Qty: 30 0RF metoprolol succinate [Toprol XL] 100 mg tablet extended release 24 hr 100 mg PO PM Qty: 30 0RF cyanocobalamin (vitamin B-12) 500 mcg Tablet 500 mcg PO DAILY psyllium husk 0.52 gram Capsule 0.52 g PO QAM diclofenac sodium 1 % Gel 4 g TOPICAL TID PRN (Reason: Pain) Rx Instructions: apply to low back clobetasol [Temovate] 0.05 % Ointment 1 applic TOPICAL BID PRN (Reason: Skin Irritation) Entresto 24-26 mg Tablet 1 tab PO BID amiodarone 200 mg Tablet 200 mg PO UD 30 Days Qty: 60 1RF Rx Instructions: Start taking amiodarone 200 mg twice a day for 2 weeks and then take 200 mg once daily warfarin 5 mg tablet 5 mg PO DAILY Qty: 30 0RF Referrals Referrals: Wayne Fontana DO [Primary Care Provider] - Discharge Problem: Nausea & vomiting Qualifiers: Vomiting type: unspecified Qualified Code(s): R11.2 - Nausea with vomiting, unspecified
[2024-03-21 23:15] LABS: Appearance Urine Clear (Clear); Bacteria Urine Automated None Seen (None Seen); Bilirubin Urine Negative (Negative); Blood Urine 1+ (Negative); Cast Urine Automated >20 /lpf (0-2); Color Urine Yellow; Epithelial Cell Urine Auto 0-2 /hpf (0-2); Glucose Urine UA 3+ (Negative); Ketones Urine Negative (Negative); Leukocyte Esterase Urine Negative (Negative); Mucus Urine Present (None Prsent); Nitrite Urine Negative (Negative); Protein Urine 2+ (Negative); Specific Gravity Urine 1.039 (1.000-1.030); Urobilinogen Urine Negative (Negative); WBC Urine Automated 0-5 /hpf (0-5)
[2024-03-21 23:23] LABS: Alanine Aminotransferase 81 U/L (7-52); Albumin Globulin Ratio 1.3 (0.9-2); Albumin Level 4.4 gm/dl (3.4-5.0); Alkaline Phosphatase 94 U/L (34-104); BUN Creatinine Ratio 26.4 (10-20); Bilirubin,Total 0.6 mg/dl (0.2-1.0); Blood Urea Nitrogen 38 mg/dl (6-23); Calcium 10.2 mg/dl (8.6-10.3); Carbon Dioxide 22 mmol/L (21-32); Chloride 108 mmol/L (98-107); Creatinine Clr Calc Pharmacy 47.4 ml/min; Globulin 3.5 gm/dl (2.5-4.0); Glucose 146 mg/dl (70-99(Fasting)); Lipase 37 U/L (11-82); Total Protein 7.9 gm/dl (6.0-8.3)
[2024-03-21] MEDS: SODIUM CHLORIDE 0.9% 500 ML IV ONE (23:26)
[2024-03-21] MEDS: ONDANSETRON INJ 2 MG/ML 2 ML VIAL IV STA (23:26)
[2024-03-21] MEDS: FAMOTIDINE 20MG IV PUSH 20 MG/5 ML SYR IV STA (23:26)
--- NOTE | 2024-03-21 23:39 | Emergency Department Note ---
ED Visit Note I was consulted by the Advanced Practice Provider. I personally made/approved the management plan and take responsibility for the patient management. I performed a substantive portion of the visit. This includes the aspects of: -History/Physical -MDM .
[2024-03-21 23:40] LABS: Troponin I High Sensitivity 77.9 pg/ml (0-20)
[2024-03-21 23:44] LABS: Adenovirus PCR Not Detected (NotDetected); Bordetella parapertussis PCR Not Detected (NotDetected); Bordetella pertussis PCR Not Detected (NotDetected); Chlamydia pneumoniae PCR Not Detected (NotDetected); Coronavirus 229E PCR Not Detected (NotDetected); Coronavirus CoV-2 (COVID19)PCR Not Detected (NotDetected); Coronavirus HKU1 PCR Not Detected (NotDetected); Coronavirus NL63 PCR Not Detected (NotDetected); Coronavirus OC43PCR Not Detected (NotDetected); Human Metapneumovirus PCR Not Detected (NotDetected); Influenza A PCR Not Detected (NotDetected); Influenza B PCR Not Detected (NotDetected); Mycoplasma pneumoniae PCR Not Detected (NotDetected); Parainfluenza Virus 1 PCR Not Detected (NotDetected); Parainfluenza Virus 2 PCR Not Detected (NotDetected); Parainfluenza Virus 3 PCR Not Detected (NotDetected); Parainfluenza Virus 4 PCR Not Detected (NotDetected); Respiratory Syncytial VirusPCR Not Detected (NotDetected); Rhinovirus/Enterovirus PCR Not Detected (NotDetected)
[2024-03-21] MEDS: OPTIRAY 320 100ml IV ONE (23:44)
[2024-03-22 00:05] LABS: Basophils # (auto) 0.04 K/uL (0.00-0.20); Basophils % (auto) 0.3 %; Hematocrit (blood only) 43.9 % (42.0-52.0); Hemoglobin 14.5 g/dl (14.0-18.0); Immature Granulocytes # (auto) 0.06 K/uL (0.01-0.20); Immature Granulocytes % (auto) 0.4 %; Lymphocytes # (auto) 1.79 K/uL (1.20-3.40); Lymphocytes % (auto) 12.9 %; Mean Corpuscular Hemoglobin 28.3 pg (25.0-34.0); Mean Corpuscular Volume 85.6 fL (80.0-100.0); Mean Platelet Volume 9.7 fL (9.4-12.4); Monocytes # (auto) 0.93 K/uL (0.11-0.59); Monocytes % (auto) 6.7 %; Neutrophils # (auto) 11.03 K/uL (1.40-6.50); Neutrophils % (auto) 79.7 %; Platelet Count 251 K/uL (130-400); RDW Coefficient of Variation 18.1 % (11.5-14.5); RDW Standard Deviation 55.9 fL (36.4-46.3); Red Blood Count 5.13 M/uL (4.70-6.10); White Blood Count 13.85 K/ul (4.8-10.8)
[2024-03-22 00:22] LABS: Magnesium 1.9 mg/dl (1.7-2.4)
[2024-03-22] MEDS: SODIUM CHLORIDE 0.9% 500 ML IV ONE (00:35)
[2024-03-22 00:37] LABS: INR 1.9 (0.9-1.1); Partial Thromboplastin Ratio 1.1; Partial Thromboplastin Time 30 Seconds (21-31); Prothrombin Time 19.8 Seconds (9.0-12.0)
[2024-03-22 00:43] LABS: Troponin I High Sensitivity 83.6 pg/ml (0-20)
[2024-03-22] MEDS: MoRPHine SULFATE 4 MG/ML 1 ML CARP\\VIAL IV STA (00:43)
--- NOTE | 2024-03-22 00:46 | CT Scan Report ---
Exam(s): CT ABDOMEN + PELVIS With Contrast IV Amt: 93 ml optiray 320 EXAM: CT Abdomen and Pelvis With Intravenous Contrast CLINICAL HISTORY: Reason for exam: severe mid abd pain. TECHNIQUE: Axial computed tomography images of the abdomen and pelvis with intravenous contrast. CTDI is 23.52 mGy and DLP is 1143.59 mGy-cm. Automated exposure control was utilized for the study. A dose lowering technique was utilized adhering to the principles of ALARA. CONTRAST: Patient received 93 ml optiray 320 of IV contrast COMPARISON: 09/14/2023 FINDINGS: Image quality is degraded by motion artifact. Lung bases: Cardiomegaly. Intracardiac electrode lead and additional metallic star artifact. No mass. No consolidation. ABDOMEN: Liver: Bibasilar subpleural linear fibrotic atelectatic changes. No mass. Posteriorly pleural thickening. Gallbladder and bile ducts: Unremarkable. Intraluminal 8 mm Gallstone. No ductal dilation. Pancreas: Unremarkable. No mass. No ductal dilation. Spleen: A 1.4 cm cyst is seen at the anterior tip of the spleen. Additionally a subcapsular hypodense lesion/a small cyst is also seen medially at the anterior aspects of the spleen.. No splenomegaly. Adrenals: Thickening of the adrenal glands.. No mass. Kidneys and ureters: Bilateral multiple renal cortical cysts, largest is 2.2 cm exophytic cyst present medially in the upper pole.. No solid mass. No hydronephrosis. Stomach and bowel: Unremarkable stomach. Normal-caliber small/large bowel loops. Descending colonic/sigmoid diverticulosis coli. Abnormal wall thickening of the sigmoid, likely related to chronic diverticulitis. PELVIS: Appendix: Normal appendix (series 300 image 41) Bladder: Mild uniform bladder wall thickness.. No mass. Reproductive: Enlarged prostate gland. ABDOMEN and PELVIS: Intraperitoneal space: No free air. No significant fluid collection. Increased mesenteric fat. Bones/joints: No acute fracture. No dislocation. L4-S1 degenerative spondylitic changes. Soft tissues: Unremarkable. Vasculature: Diffuse calcified atherosclerosis of the infrarenal aorta, iliac arteries and visualized common femoral arteries. No abdominal aortic aneurysm. Lymph nodes: No enlarged lymph nodes.. IMPRESSION: A 8 mm gallbladder stone. Splenic cysts. Renal cysts. Descending colonic/sigmoid diverticulosis coli. Abnormal wall thickening of the sigmoid likely related to chronic diverticulitis. No conclusive acute abdominal/pelvic CT findings. Enlarged prostrate. Mild uniform wall thickness of the urinary bladder. . Electronically signed by: Gurwinder Grimes MD, DABR 03/22/24 00:45 AM
--- NOTE | 2024-03-22 01:13 | XRay Report ---
Exam(s): XR CXR 1 VIEW EXAM: XR Chest, 1 View CLINICAL HISTORY: Reason for exam: n/v. TECHNIQUE: Frontal view of the chest. COMPARISON: 01/09/2023 FINDINGS: Left subclavian single lead AICD/cardiac pacemaker in place. Lungs: Perihilar prominent peripheral pulmonary vascular markings, slightly increased since prior comparison. Basilar atelectatic changes LT>RT. Pleural space: Suspect small left pleural effusion. No pneumothorax. Heart: Stable cardiomegaly. Calcification of the aortic arch. Mediastinum: Unremarkable. Normal mediastinal contour. Bones/joints: Osteopenia.. No acute fracture.. IMPRESSION: Cardiomegaly and possibly mild pulmonary vascular congestion. Clinical correlation is advised Predominantly left basilar atelectatic changes. . Electronically signed by: Gurwinder Grimes MD, YELENA 03/22/24 01:13 AM
--- NOTE | 2024-03-22 01:28 | History & Physical Report ---
Date of Service March 22, 2024 Assessment & Plan (1) Acute hypoxemic respiratory failure: Plan: Secondary to decompensated heart failure hx chronic systolic heart failure secondary to ischemic cardiomyopathy (EF 30-35 %, TTE 2023) status post ICD Hypertension, elevated secondary to abdominal pain from possible foodborne illness/chronic/recurrent diverticulitis Troponin elevation, ARF on CKD secondary to illness hx CAD status post stent/PVD hx VT moderate MR PAF/cardiac thrombus on Coumadin, INR slightly subtherapeutic hyperlipidemia on statin Rx DM2 on oral medications, well-controlled as of recent hemoglobin A1c of 6.23 November 2023 hx cerebral aneurysm as per records, vague aneurysm supraclinoid right ICA as per remote outpatient Neurology note from 2011 Rodriguez's esophagus/GERD on PPI past tobacco abuse PCU Supplemental O2 Baseline VBG Lasix 1 dose now Strict I/Os, daily weights, CHF medication Add amlodipine to BP regimen Follow troponin Hold Entresto, spironolactone until creatinine back to baseline Cardiology consult Re: CHF Clear liquid diet for now, ceftriaxone and Flagyl for chronic/recurrent diverticulitis, outpatient GI consult ISS BG goal 1 10-1 40, carb count coverage DVT prophylaxis. Coumadin INR goal between 2 and 3 Full code Total critical care time was 40 minutes. Text document was generated using [employer] voice recognition software. It may contain grammatical or spelling errors. Kindly contact undersigned for clarification of any documentation item in question. History of Present Illness Chief Complaint: Abdominal pain, vomiting Primary Care Provider: Wayne Fontana DO History obtained from patient and records. Medical history significant for chronic systolic heart failure secondary to ischemic cardiomyopathy (EF 30-35 %, TTE 2023) status post ICD, CAD status post stent, PVD, VT, moderate MR, PAF/cardiac thrombus on Coumadin, hypertension, hyperlipidemia, DM2 on oral medications, CRI (baseline creatinine 1.3 ), cerebral aneurysm as per records, Rodriguez's esophagus, diverticulosis, psoriasis, past tobacco abuse. Last confinement December 2022 for A-fib with RVR and ICD discharge. 3 days history of achy abdominal pain with nausea, vomiting, hiccuping symptoms. No diarrhea. Started after breakfast at a local restaurant. No chest pain, some SOB. No unusual cough symptoms. Denies headache symptoms. SBP 180s upon arrival at the ER. lowest O2 sats of 80s documented at the ER. 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 Allergies Allergy/AdvReac Type Severity Reaction Status Date / Time Penicillins Allergy Mild RASH Verified 01/09/23 17:51 Home Medications Medication Instructions Recorded Confirmed Type atorvastatin 80 mg tablet 80 mg PO HS 06/10/18 03/22/24 History nitroglycerin 0.4 mg sublingual 0.4 mg sublingual UD 06/10/18 03/22/24 History tablet (Nitrostat) omeprazole 20 mg capsule,delayed 20 mg PO BID 06/10/18 03/22/24 History release spironolactone 25 mg tablet 25 mg PO QAM 06/10/18 03/22/24 History sildenafil 100 mg tablet (Viagra) 100 mg PO DAILY PRN Erectile 10/08/18 03/22/24 History Dysfunction acetaminophen 500 mg tablet 500 mg PO Q6H PRN Pain 07/13/19 03/22/24 History (Tylenol Extra Strength) ondansetron 4 mg disintegrating 4 mg PO Q8H PRN nausea and 10/14/19 03/22/24 Rx tablet vomiting #6 tabs albuterol sulfate 90 mcg/actuation 2 inha inhalation QID PRN 08/12/21 03/22/24 Rx aerosol inhaler shortness of breath or wheezing #1 inh coQ10 (ubiquinol) 100 mg capsule 100 mg PO PM 08/12/21 03/22/24 History alfuzosin 10 mg tablet,extended 10 mg PO DAILY 06/24/22 03/22/24 History release 24 hr tizanidine 2 mg capsule 2 mg PO DIRECTED 06/24/22 03/22/24 History aspirin 81 mg tablet,delayed 81 mg PO QAM #30 tabs 06/27/22 03/22/24 Rx release metoprolol succinate 100 mg 100 mg PO PM #30 tabs 06/27/22 03/22/24 Rx tablet,extended release 24 hr (Toprol XL) cyanocobalamin (vitamin B-12) 500 500 mcg PO HS 01/09/23 03/22/24 History mcg tablet psyllium husk 0.52 gram capsule 0.52 g PO HS 01/09/23 03/22/24 History sacubitril 24 mg-valsartan 26 mg 1 tab PO BID 01/10/23 03/22/24 History tablet (Entresto) amiodarone 200 mg tablet 200 mg PO UD 30 days #60 tabs 01/11/23 03/22/24 Rx warfarin 5 mg tablet 5 mg PO DAILY #30 tabs 01/11/23 03/22/24 Rx empagliflozin 10 mg tablet 10 mg PO DAILY 03/22/24 03/22/24 History (Jardiance) metoprolol succinate 100 mg 100 mg PO QAM 03/22/24 03/22/24 History tablet,extended release 24 hr Past Med/Surg History Problem List (Updated 03/22/24 @ 05:52 by Chi Nur MD) Acute hypoxemic respiratory failure Elevated troponin (Acute) Abdominal pain, acute (Acute) MARYBEL (acute kidney injury) (Acute) ICD (implantable cardioverter-defibrillator) discharge Emphysema/COPD Atrial fibrillation with rapid ventricular response (Acute) Non-ST elevation IA (NSTEMI) (Acute) Hypomagnesemia (Acute) Viral illness Ventricular tachycardia Chest pain (Acute) Cardiac dysrhythmia (Acute) MARYBEL (acute kidney injury) (Acute) Dehydration (Acute) HTN (hypertension) (Chronic) Osteoarthritis (Chronic) Rodriguez's esophagus (Chronic) GERD (gastroesophageal reflux disease) (Chronic) Ischemic cardiomyopathy (Chronic) Dyslipidemia (Chronic) CAD (coronary artery disease) (Chronic) "PCI x 4 to LAD, chronic total RCA occlusion" Apical mural thrombus (Chronic) PVD (peripheral vascular disease) (Chronic) "s/p stenting to iliac bifurcation into right common iliac" Psoriasis (Chronic) AICD (automatic cardioverter/defibrillator) present (Chronic) History of lumbar laminectomy (Chronic) Back pain (Acute) Nausea & vomiting (Acute) Family History Other Cancer Heart disease Hypertension Social History Smoking Status: Former smoker Tobacco Type: Cigarettes Cigarettes Per Day: 20; Hx Alcohol Use: No Hx Substance Use: No Preferred Language: Chinese 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 Ability: 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: No Beliefs That Will Affect Care: None marital status: Current Living Situation: Spouse current occupational status: retired Other Information That Helps Us Care for You: No Feels Safe at Home: Yes Safety Concerns: Feels Safe At This Time Assistive Devices: Cane Review of Systems Review of Systems: As per HPI, all other systems reviewed and negative Physical Exam Physical Exam: GENERAL: Slightly uncomfortable, incessant hiccuping, no respiratory distress SKIN: Normal color, warm HEENT: [place] palpebral conjunctivae, no ptosis, dry buccal mucosa, nasal cannula in place NECK : Supple, no tenderness CHEST : Decreased breath sounds, no tenderness HEART : Bradycardic, diminished S1 and S2 ABDOMEN: Some distention, nontender EXTREMITIES : No LE swelling/tenderness, no other conspicuous deformities noted NEUROLOGIC : Coherent, no facial asymmetry, no other gross focality Results & Data Results & Data Vital Signs (Past 12 Hours) Vital Signs Temp Pulse Pulse Resp BP Pulse Ox O2 Del Method 03/22/24 01:12 53 L 19 180/111 H 97 03/22/24 00:00 96 Nasal Cannula 03/21/24 23:59 88 L Room Air 03/21/24 22:51 61 18 96 Room Air 03/21/24 22:50 61 20 97 Room Air 03/21/24 22:40 73 03/21/24 22:27 36.7 C 77 16 183/126 H 91 Room Air O2 Flow Rate 03/22/24 01:12 03/22/24 00:00 2 03/21/24 23:59 03/21/24 22:51 03/21/24 22:50 03/21/24 22:40 03/21/24 22:27 Laboratory Results Laboratory Results WBC 13.85 K/ul (4.8-10.8) H 03/21/24 23:50 RBC 5.13 M/uL (4.70-6.10) 03/21/24 23:50 Hgb 14.5 g/dl (14.0-18.0) 03/21/24 23:50 Hct 43.9 % (42.0-52.0) 03/21/24 23:50 MCV 85.6 fL (80.0-100.0) 03/21/24 23:50 MCH 28.3 pg (25.0-34.0) 03/21/24 23:50 MCHC 33.0 g/dL (32.0-36.0) 03/21/24 23:50 RDW Std Deviation 55.9 fL (36.4-46.3) H 03/21/24 23:50 RDW Coeff of [place] 18.1 % (11.5-14.5) H 03/21/24 23:50 Plt Count 251 K/uL (130-400) 03/21/24 23:50 MPV 9.7 fL (9.4-12.4) 03/21/24 23:50 Immature Gran % (Auto) 0.4 % 03/21/24 23:50 Neut % (Auto) 79.7 % 03/21/24 23:50 Lymph % (Auto) 12.9 % 03/21/24 23:50 [place] % (Auto) 6.7 % 03/21/24 23:50 Eos % (Auto) 0.0 % 03/21/24 23:50 Baso % (Auto) 0.3 % 03/21/24 23:50 Neut # (Auto) 11.03 K/uL (1.40-6.50) H 03/21/24 23:50 Lymph # (Auto) 1.79 K/uL (1.20-3.40) 03/21/24 23:50 [place] # (Auto) 0.93 K/uL (0.11-0.59) H 03/21/24 23:50 Eos # (Auto) 0.00 K/uL (0.00-0.50) 03/21/24 23:50 Baso # (Auto) 0.04 K/uL (0.00-0.20) 03/21/24 23:50 Immature Gran # (Auto) 0.06 K/uL (0.01-0.20) 03/21/24 23:50 Absolute Nucleated RBC Cancelled 03/21/24 22:00 Nucleated RBC % (auto) Cancelled 03/21/24 22:00 Neutrophils % (Manual) Cancelled 03/21/24 22:00 Band Neutrophils % Cancelled 03/21/24 22:00 Lymphocytes % (Manual) Cancelled 03/21/24 22:00 Prolymphocyte % Cancelled 03/21/24 22:00 Reactive Lymphs % (Man) Cancelled 03/21/24 22:00 Monocytes % (Manual) Cancelled 03/21/24 22:00 Eosinophils % (Manual) Cancelled 03/21/24 22:00 Basophils % (Manual) Cancelled 03/21/24 22:00 Metamyelocytes % (Man) Cancelled 03/21/24 22:00 Myelocytes % (Man) Cancelled 03/21/24 22:00 Promyelocytes % (Man) Cancelled 03/21/24 22:00 Blast Cells % (Manual) Cancelled 03/21/24 22:00 Plasma Cell % (Manual) Cancelled 03/21/24 22:00 Other Cells % Cancelled 03/21/24 22:00 Nucleated RBC % Cancelled 03/21/24 22:00 Neutrophils # (Manual) Cancelled 03/21/24 22:00 Band Neutrophils # Cancelled 03/21/24 22:00 Total Absolute Neuts Cancelled 03/21/24 22:00 Lymphocytes # (Manual) Cancelled 03/21/24 22:00 Prolymphocyte # Cancelled 03/21/24 22:00 Reactive Lymphs # Cancelled 03/21/24 22:00 Total Abs Lymphocytes Cancelled 03/21/24 22:00 Monocytes # (Manual) Cancelled 03/21/24 22:00 Eosinophils # (Manual) Cancelled 03/21/24 22:00 Basophils # (Manual) Cancelled 03/21/24 22:00 Metamyelocytes # (Man) Cancelled 03/21/24 22:00 Myelocytes # (Manual) Cancelled 03/21/24 22:00 Promyelocytes # (Man) Cancelled 03/21/24 22:00 Blast Cells # (Man) Cancelled 03/21/24 22:00 Plasma Cell # (Manual) Cancelled 03/21/24 22:00 Other Cells # Cancelled 03/21/24 22:00 Nucleated RBCs # (Man) Cancelled 03/21/24 22:00 Hypersegmented Neuts Cancelled 03/21/24 22:00 Hyposegmented Neuts Cancelled 03/21/24 22:00 Hypogranular Neuts Cancelled 03/21/24 22:00 Large Granular Lymphs Cancelled 03/21/24 22:00 # Lrg Granular Lymphs Cancelled 03/21/24 22:00 Hairy Cells Cancelled 03/21/24 22:00 Smudge Cells Cancelled 03/21/24 22:00 Toxic Granulation Cancelled 03/21/24 22:00 Toxic Vacuolation Cancelled 03/21/24 22:00 Dohle Bodies Cancelled 03/21/24 22:00 Rudy Rods Cancelled 03/21/24 22:00 Platelet Estimate Cancelled 03/21/24 22:00 Hypogranular Platelets Cancelled 03/21/24 22:00 Giant Platelets Cancelled 03/21/24 22:00 Platelet Satelliting Cancelled 03/21/24 22:00 RBC Morphology Cancelled 03/21/24 22:00 Polychromasia Cancelled 03/21/24 22:00 Hypochromasia Cancelled 03/21/24 22:00 Poikilocytosis Cancelled 03/21/24 22:00 Basophilic Stippling Cancelled 03/21/24 22:00 Anisocytosis Cancelled 03/21/24 22:00 Microcytosis Cancelled 03/21/24 22:00 Macrocytosis Cancelled 03/21/24 22:00 Spherocytes Cancelled 03/21/24 22:00 Pappenheimer Bodies Cancelled 03/21/24 22:00 Sickle Cells Cancelled 03/21/24 22:00 Target Cells Cancelled 03/21/24 22:00 Tear Drop Cells Cancelled 03/21/24 22:00 Ovalocytes Cancelled 03/21/24 22:00 Stomatocytes Cancelled 03/21/24 22:00 [place] Bodies Cancelled 03/21/24 22:00 Echinocytes Cancelled 03/21/24 22:00 Acanthocytes (Spur) Cancelled 03/21/24 22:00 Rouleaux Cancelled 03/21/24 22:00 RBC Agglutinates Cancelled 03/21/24 22:00 Schistocytes Cancelled 03/21/24 22:00 Sezary Cell Cancelled 03/21/24 22:00 PT 19.8 Seconds (9.0-12.0) H 03/21/24 23:50 INR 1.9 (0.9-1.1) H 03/21/24 23:50 APTT 30 Seconds (21-31) 03/21/24 23:50 PTT Ratio 1.1 03/21/24 23:50 Sodium 140 mmol/L (136-145) 03/21/24 23:50 Potassium 4.0 mmol/L (3.5-5.1) 03/21/24 23:50 Chloride 108 mmol/L (98-107) H 03/21/24 22:00 Carbon Dioxide 22 mmol/L (21-32) 03/21/24 22:00 Anion Gap TNP 03/21/24 22:00 BUN 38 mg/dl (6-23) H 03/21/24 22:00 Creatinine 1.44 mg/dl (0.6-1.4) H 03/21/24 22:00 Est Cr Clr Drug Dosing 47.4 ml/min 03/21/24 22:00 eGFR 52.27 03/21/24 22:00 BUN/Creatinine Ratio 26.4 (10-20) H 03/21/24 22:00 Glucose 146 mg/dl (70-99(Fasting)) H 03/21/24 22:00 Calcium 10.2 mg/dl (8.6-10.3) 03/21/24 22:00 Magnesium 1.9 mg/dl (1.7-2.4) 03/21/24 23:50 Total Bilirubin 0.6 mg/dl (0.2-1.0) 03/21/24 22:00 AST 50 U/L (13-39) H 03/21/24 23:50 ALT 81 U/L (7-52) H 03/21/24 22:00 Alkaline Phosphatase 94 U/L (34-104) 03/21/24 22:00 Troponin I High Sens 83.6 pg/ml (0-20) H* 03/21/24 23:50 Total Protein 7.9 gm/dl (6.0-8.3) 03/21/24 22:00 Albumin 4.4 gm/dl (3.4-5.0) 03/21/24 22:00 Globulin 3.5 gm/dl (2.5-4.0) 03/21/24 22:00 Albumin/Globulin Ratio 1.3 (0.9-2) 03/21/24 22:00 Lipase 37 U/L (11-82) 03/21/24 22:00 Urine Color Yellow 03/21/24 22:00 Urine Appearance Clear (Clear) 03/21/24 22:00 Urine pH 5.0 (4.5-7.5) 03/21/24 22:00 Ur Specific [place] 1.039 (1.000-1.030) H 03/21/24 22:00 Urine Protein 2+ (Negative) H 03/21/24 22:00 Urine Glucose (UA) 3+ (Negative) H 03/21/24 22:00 Urine Ketones Negative (Negative) 03/21/24 22:00 Urine Blood 1+ (Negative) H 03/21/24 22:00 Urine Nitrite Negative (Negative) 03/21/24 22:00 Urine Bilirubin Negative (Negative) 03/21/24 22:00 Urine Urobilinogen Negative (Negative) 03/21/24 22:00 Ur Leukocyte Esterase Negative (Negative) 03/21/24 22:00 Urine WBC (Auto) 0-5 /hpf (0-5) 03/21/24 22:00 Urine RBC (Auto) 3-5 /hpf (0-2) H 03/21/24 22:00 U Hyaline Cast (Auto) >20 /lpf (0-2) H 03/21/24 22:00 U Epithel Cells (Auto) 0-2 /hpf (0-2) 03/21/24 22:00 Urine Bacteria (Auto) None Seen (None Seen) 03/21/24 22:00 Urine Mucus Present (None Prsent) A 03/21/24 22:00 Adenovirus (PCR) Not Detected (NotDetected) 03/21/24 22:00 B. pertussis DNA (PCR) Not Detected (NotDetected) 03/21/24 22:00 B.parapertussis DNA PCR Not Detected (NotDetected) 03/21/24 22:00 C. pneumoniae DNA (PCR) Not Detected (NotDetected) 03/21/24 22:00 Coronavirus OC43 (PCR) Not Detected (NotDetected) 03/21/24 22:00 Coronavirus HKU1 (PCR) Not Detected (NotDetected) 03/21/24 22:00 Coronavirus 229E (PCR) Not Detected (NotDetected) 03/21/24 22:00 SARS-CoV-2 (PCR) Not Detected (NotDetected) 03/21/24 22:00 Coronavirus NL63 (PCR) Not Detected (NotDetected) 03/21/24 22:00 Human Metapneumovir PCR Not Detected (NotDetected) 03/21/24 22:00 Influenza Type A (PCR) Not Detected (NotDetected) 03/21/24 22:00 Influenza Type B (PCR) Not Detected (NotDetected) 03/21/24 22:00 M. pneumoniae (PCR) Not Detected (NotDetected) 03/21/24 22:00 Parainfluenza 1 (PCR) Not Detected (NotDetected) 03/21/24 22:00 Parainfluenza 2 (PCR) Not Detected (NotDetected) 03/21/24 22:00 Parainfluenza 3 (PCR) Not Detected (NotDetected) 03/21/24 22:00 Parainfluenza 4 (PCR) Not Detected (NotDetected) 03/21/24 22:00 RSV (PCR) Not Detected (NotDetected) 03/21/24 22:00 Entero/Rhino (PCR) Not Detected (NotDetected) 03/21/24 22:00 Blood Parasites ID Cancelled 03/21/24 22:00 Impressions Abdomen/Pelvis CT 03/21/24 22:37 Exam(s): CT ABDOMEN + PELVIS With Contrast IV Amt: 93 ml optiray 320 EXAM: CT Abdomen and Pelvis With Intravenous Contrast CLINICAL HISTORY: Reason for exam: severe mid abd pain. TECHNIQUE: Axial computed tomography images of the abdomen and pelvis with intravenous contrast. CTDI is 23.52 mGy and DLP is 1143.59 mGy-cm. Automated exposure control was utilized for the study. A dose lowering technique was utilized adhering to the principles of ALARA. CONTRAST: Patient received 93 ml optiray 320 of IV contrast COMPARISON: 09/14/2023 FINDINGS: Image quality is degraded by motion artifact. Lung bases: Cardiomegaly. Intracardiac electrode lead and additional metallic star artifact. No mass. No consolidation. ABDOMEN: Liver: Bibasilar subpleural linear fibrotic atelectatic changes. No mass. Posteriorly pleural thickening. Gallbladder and bile ducts: Unremarkable. Intraluminal 8 mm Gallstone. No ductal dilation. Pancreas: Unremarkable. No mass. No ductal dilation. Spleen: A 1.4 cm cyst is seen at the anterior tip of the spleen. Additionally a subcapsular hypodense lesion/a small cyst is also seen medially at the anterior aspects of the spleen.. No splenomegaly. Adrenals: Thickening of the adrenal glands.. No mass. Kidneys and ureters: Bilateral multiple renal cortical cysts, largest is 2.2 cm exophytic cyst present medially in the upper pole.. No solid mass. No hydronephrosis. Stomach and bowel: Unremarkable stomach. Normal-caliber small/large bowel loops. Descending colonic/sigmoid diverticulosis coli. Abnormal wall thickening of the sigmoid, likely related to chronic diverticulitis. PELVIS: Appendix: Normal appendix (series 300 image 41) Bladder: Mild uniform bladder wall thickness.. No mass. Reproductive: Enlarged prostate gland. ABDOMEN and PELVIS: Intraperitoneal space: No free air. No significant fluid collection. Increased mesenteric fat. Bones/joints: No acute fracture. No dislocation. L4-S1 degenerative spondylitic changes. Soft tissues: Unremarkable. Vasculature: Diffuse calcified atherosclerosis of the infrarenal aorta, iliac arteries and visualized common femoral arteries. No abdominal aortic aneurysm. Lymph nodes: No enlarged lymph nodes.. IMPRESSION: A 8 mm gallbladder stone. Splenic cysts. Renal cysts. Descending colonic/sigmoid diverticulosis coli. Abnormal wall thickening of the sigmoid likely related to chronic diverticulitis. No conclusive acute abdominal/pelvic CT findings. Enlarged prostrate. Mild uniform wall thickness of the urinary bladder. . Electronically signed by: Gurwinder Grimes MD, YELENA 03/22/24 00:45 AM Chest X-Ray 03/21/24 22:37 Exam(s): XR CXR 1 VIEW EXAM: XR Chest, 1 View CLINICAL HISTORY: Reason for exam: n/v. TECHNIQUE: Frontal view of the chest. COMPARISON: 01/09/2023 FINDINGS: Left subclavian single lead AICD/cardiac pacemaker in place. Lungs: Perihilar prominent peripheral pulmonary vascular markings, slightly increased since prior comparison. Basilar atelectatic changes LT>RT. Pleural space: Suspect small left pleural effusion. No pneumothorax. Heart: Stable cardiomegaly. Calcification of the aortic arch. Mediastinum: Unremarkable. Normal mediastinal contour. Bones/joints: Osteopenia.. No acute fracture.. IMPRESSION: Cardiomegaly and possibly mild pulmonary vascular congestion. Clinical correlation is advised Predominantly left basilar atelectatic changes. . Electronically signed by: Gurwinder Grimes MD, DABR 03/22/24 01:13 AM Diagnostic Findings EKG as per my interpretation :Rate 65, NSR, RAD, inferior infarct, anterolateral infarct, PVCs
[2024-03-22] MEDS: amLODIPine BESYLATE 5 MG TAB PO ONE ×2 (01:49→05:47)
[2024-03-22] MEDS: cefTRIAXone SODIUM 2,000 MG/50 ML BAG IV STA (01:51)
[2024-03-22] MEDS: METOCLOPRAMIDE HCL INJ 5 MG/ML 2 ML VIAL IV ONE (01:54)
[2024-03-22] MEDS ORDERED: ACETAMINOPHEN 500 MG TAB PO PRN (01:55)
[2024-03-22] MEDS: FUROSEMIDE INJ 20 MG/2 ML VIAL IV ONE (02:23)
[2024-03-22] MEDS: metroNIDAZOLE 500 MG/100 ML BAG IV STA (02:23)
[2024-03-22] MEDS: ALBUT/IPRATROP 3MG/0.5MG NEB 3 ML VIAL NEB STA (02:25)
[2024-03-22] MEDS: METOPROLOL TARTRATE 1 MG/ML VIAL IV STA (02:35)
[2024-03-22] MEDS: WARFARIN SOD 5 MG TAB PO ONE (03:23)
[2024-03-22] MEDS ORDERED: GLUCOSE 10 TAB/TUBE PO PRN (03:28)
[2024-03-22] MEDS ORDERED: PROMETHAZINE 6.25 MG/50.25 ML BAG IV PRN (03:28)
[2024-03-22] MEDS ORDERED: GLUCAGON FOR INJ 1 MG VIAL SQ PRN (03:28)
[2024-03-22] MEDS ORDERED: DEXTROSE 50% 50 ML SYRINGE IV PRN (03:28)
[2024-03-22] MEDS: INSULIN ASPART PER UNIT CHARGE SC SCH (04:22)
[2024-03-22 05:08] LABS: Base Excess VBG -0.2 mEq/L; HCO3 VBG 24 mmol/L; Oxygen Saturation VBG 94.7 %; PCO2 VBG 37 mmHg (38-50); PO2 VBG 65 mmHg; pH VBG 7.42 (7.36-7.41)
[2024-03-22 05:16] LABS: Basophils # (auto) 0.07 K/uL (0.00-0.20); Basophils % (auto) 0.4 %; Hemoglobin 15.1 g/dl (14.0-18.0); Immature Granulocytes # (auto) 0.07 K/uL (0.01-0.20); Immature Granulocytes % (auto) 0.4 %; Lymphocytes # (auto) 2.29 K/uL (1.20-3.40); Lymphocytes % (auto) 13.2 %; Mean Corpuscular Hemoglobin 28.5 pg (25.0-34.0); Mean Corpuscular Hgb Conc 33.6 g/dL (32.0-36.0); Mean Corpuscular Volume 84.9 fL (80.0-100.0); Mean Platelet Volume 9.9 fL (9.4-12.4); Monocytes # (auto) 1.49 K/uL (0.11-0.59); Monocytes % (auto) 8.6 %; Neutrophils # (auto) 13.38 K/uL (1.40-6.50); Neutrophils % (auto) 77.4 %; Platelet Count 240 K/uL (130-400); RDW Coefficient of Variation 18.3 % (11.5-14.5); RDW Standard Deviation 55.5 fL (36.4-46.3)
[2024-03-22 05:29] LABS: Albumin Globulin Ratio 1.3 (0.9-2); Albumin Level 3.9 gm/dl (3.4-5.0); BUN Creatinine Ratio 26.5 (10-20); Bilirubin,Total 0.6 mg/dl (0.2-1.0); Calcium 9.2 mg/dl (8.6-10.3); Creatinine Clr Calc Pharmacy 51.9 ml/min; Globulin 3.1 gm/dl (2.5-4.0); Potassium 3.8 mmol/L (3.5-5.1)
[2024-03-22 05:36] LABS: Troponin I High Sensitivity 79.4 pg/ml (0-20)
[2024-03-22 05:44] LABS: INR 1.8 (0.9-1.1); Prothrombin Time 18.7 Seconds (9.0-12.0)
[2024-03-22] MEDS: AMIODARONE 200 MG TAB PO SCH (07:51)
[2024-03-22] MEDS: EMPAGLIFLOZIN 10 MG TAB PO SCH (07:51)
[2024-03-22] MEDS: PANTOprazole 40 MG TAB PO SCH (07:52)
[2024-03-22] MEDS: ASPIRIN 81 MG ECTAB PO SCH (07:52)
[2024-03-22] MEDS: TAMSULOSIN HCL 0.4 MG CAP PO SCH (07:52)
[2024-03-22] MEDS: metroNIDAZOLE 500 MG/100 ML BAG IV SCH (07:53)
--- NOTE | 2024-03-22 08:48 | Cardiology Consultation ---
Date of Consultation March 22, 2024 Assessment & Plan (1) Acute hypoxemic respiratory failure: (2) Elevated troponin: (3) Abdominal pain, acute: (4) CAD (coronary artery disease): (5) Ischemic cardiomyopathy: (6) AICD (automatic cardioverter/defibrillator) present: Plan Assessment: 68 year old male presents for 3 day history of abdominal pain with associated nausea. Hypoxic on room air at time of presentation, and chest xray questions increased vascular congestion. Cardiology has been requested for further evaluation/recommendations.. Plan: 1. Acute hypoxemic resp. failure 2. Elevated Troponin -Patient appears euvolemic on exam, WBC count continues to trend upwards suggestive of acute infectious process. -Most recent echo obtained from [facility] record 11/2023 showing slight improvement in LVEF with no other acute changes. -CT ABD/Pelvis shows chronic diverticulitis. Continued IV antibiotics/treatment as per primary team. -Baseline Cr. 1.0-1.3, recommend to restart patient's chronic HF medications including Entresto, and Spironolactone. will start with Entresto. Patient remains on his jardiance -BP well above target likely in response to pain at initial presentation, but also due to withholding his current medication therapies -Troponin elevation is mild and flat trend suspected secondary to his hypoxic state and acute infectious process on admission. Remains chest pain free, denies shortness of breath is is sating well on room air today 3. Abdominal pain -Possible chronic diverticulitis -White Count trending upward, not currently receiving any steroid therapies -Continue IV antibiotics per primary team. 4. CAD 5. Ischemic Cardiomyopathy 6. AICD present -Denies any chest pain, pressure or dyspnea. -EKG shows no acute changes. troponin as noted above with flat trend likely s/t acute hypoxia and infectious process. -Recent echo 12/2023 demonstrates some improvement in LVEF to30% -Euvolemic on exam. Continue Jardiance, and Toprol xl, restart Entresto today and possibly spironolactone tomorrow as part of HF regimen. -recent device interrogation Jan 2024 shows normal function, no events/alarms RV pacing 0.25%. [employer] Visia AF MRI [id number] Case has been discussed with Dr. Jones. Further recommendations regarding plan of care as per his assessment. I spent a total of 40 minutes on the date of service in preparation, delivery, documentation of the care provided to the patient excluding any time spent in the performance of separately billed services. ERNESTINA Kendrick [facility] Cardiology [facility] Supervising Physician Co-Signing Physician Notes I have personally performed a history and physical examination on the patient. I have reviewed the advance practitioner's documentation, and I agree with, and take responsibility for the plan of care. 68-year-old male presents to the emergency department with 72 hours of ongoing nausea and vomiting. Unable to take medications. Blood pressure markedly elevated. Incidentally noted hypoxia on room air. Complaints of abdominal bloating and constipation. CT with evidence of possible chronic diverticulitis. Patient does not appear acutely volume overloaded. Hypertensive due to lack of outpatient medications. Recommend restart antihypertensive therapies including spironolactone, Jardiance, Entresto, and Toprol-XL Continue amiodarone, and a torvastatin, and low-dose aspirin. Management of ongoing abdominal discomfort, colitis, and constipation as per internal medicine. Jona Jones DO [facility] History of Present Illness Reason for Consultation: CHF Requesting Physician: [facility] hospitalist Attending Physician: Jordana Allen MD History of Present Illness HPI: Patient is a 68 year old male with PMHx as noted below that presented to the ED with 3 day history of Nausea, and abdominal pain. Denied any shortness of breath or chest pain, but SpO2 was low 80's on room air. Upon seeing patient today he is resting comfortably in bed without complaint. Denies any chest pain, pressure, palpitations, no shortness of breath, PND, pre- syncope, syncope or edema. Reports poor/fair appetite. EKG on admission: SR, sinus arrhythmia with PVC, prior Inferior and anterolateral infarct previously cited) Rate 67bpm Chest xray: IMPRESSION: Cardiomegaly and possibly mild pulmonary vascular congestion. Clinical correlation is advised Predominantly left basilar atelectatic changes. Elevated WBC High sensitivity troponin 77.9/83.6/79.4 Cr was 1.3, hospitalist team placed patient's entresto and spironolactone on hold. (baseline Cr. 1.0-1.3) CT ABD/Pelvis 03/21/2024 IMPRESSION: A 8 mm gallbladder stone. Splenic cysts. Renal cysts. Descending colonic/sigmoid diverticulosis coli. Abnormal wall thickening of the sigmoid likely related to chronic diverticulitis. No conclusive acute abdominal/pelvic CT findings. Enlarged prostrate. Mild uniform wall thickness of the urinary bladder. Cardiac problems: CAD s/p PCI (x4) to LAD with [employer] of RCA with left to right collaterals PAD s/p PCI iliac bifurcation to right common iliac ICM EF 30-34% 10/2021 s/p ICD H/o apical thrombus on coumadin VT based on my review of the EGMs from ICD check it was not VT; (event occurred in setting of dehydration; got ICD shocks due to falling in the VF zone) pAF with RVR (ICD shocks 01/2023 due to being off high dose Metoprolol) SVY2CR2- VASc 4 (age, CAD, CHF, HTN) H/o tobacco use Cerebral aneurysm HLD HTN Allergies Allergy/AdvReac Type Severity Reaction Status Date / Time Penicillins Allergy Mild RASH Verified 01/09/23 17:51 Home Medications Medication Instructions Recorded Confirmed Type atorvastatin 80 mg tablet 80 mg PO HS 06/10/18 03/22/24 History nitroglycerin 0.4 mg sublingual 0.4 mg sublingual UD 06/10/18 03/22/24 History tablet (Nitrostat) omeprazole 20 mg capsule,delayed 20 mg PO BID 06/10/18 03/22/24 History release spironolactone 25 mg tablet 25 mg PO QAM 06/10/18 03/22/24 History sildenafil 100 mg tablet (Viagra) 100 mg PO DAILY PRN Erectile 10/08/18 03/22/24 History Dysfunction acetaminophen 500 mg tablet 500 mg PO Q6H PRN Pain 07/13/19 03/22/24 History (Tylenol Extra Strength) ondansetron 4 mg disintegrating 4 mg PO Q8H PRN nausea and 10/14/19 03/22/24 Rx tablet vomiting #6 tabs albuterol sulfate 90 mcg/actuation 2 inha inhalation QID PRN 08/12/21 03/22/24 Rx aerosol inhaler shortness of breath or wheezing #1 inh coQ10 (ubiquinol) 100 mg capsule 100 mg PO PM 08/12/21 03/22/24 History alfuzosin 10 mg tablet,extended 10 mg PO DAILY 06/24/22 03/22/24 History release 24 hr tizanidine 2 mg capsule 2 mg PO DIRECTED 06/24/22 03/22/24 History aspirin 81 mg tablet,delayed 81 mg PO QAM #30 tabs 06/27/22 03/22/24 Rx release metoprolol succinate 100 mg 100 mg PO PM #30 tabs 06/27/22 03/22/24 Rx tablet,extended release 24 hr (Toprol XL) cyanocobalamin (vitamin B-12) 500 500 mcg PO HS 01/09/23 03/22/24 History mcg tablet psyllium husk 0.52 gram capsule 0.52 g PO HS 01/09/23 03/22/24 History sacubitril 24 mg-valsartan 26 mg 1 tab PO BID 01/10/23 03/22/24 History tablet (Entresto) amiodarone 200 mg tablet 200 mg PO UD 30 days #60 tabs 01/11/23 03/22/24 Rx warfarin 5 mg tablet 5 mg PO DAILY #30 tabs 01/11/23 03/22/24 Rx empagliflozin 10 mg tablet 10 mg PO DAILY 03/22/24 03/22/24 History (Jardiance) metoprolol succinate 100 mg 100 mg PO QAM 03/22/24 03/22/24 History tablet,extended release 24 hr Patient History Family History Other Cancer Heart disease Hypertension Social History Smoking Status: Former smoker Tobacco Type: Cigarettes Cigarettes Per Day: 20; Hx Alcohol Use: No Hx Substance Use: No Preferred Language: Hungarian 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 Ability: Effective Assistant Curator Required: No Beliefs That Will Affect Care: None marital status: Current Living Situation: Spouse current occupational status: retired Other Information That Helps Us Care for You: No Feels Safe at Home: Yes Safety Concerns: Feels Safe At This Time Assistive Devices: Cane Review of Systems Review of Systems: All systems reviewed & are unremarkable except as noted in HPI & below Physical Exam Constitutional: well developed and well nourished; no acute distress Neck: normal visual inspection and trachea midline Respiratory: normal respiratory effort; no respiratory distress and no labored breathing Auscultation: lungs clear to auscultation bilaterally Cardiovascular: Rate/Rhythm: regular rate and regular rhythm Heart Sounds: normal S1, normal S2 and + murmur (+1/6 systolic ) Vessels: no JVD Extremities: no edema Skin: no rashes, warm and dry Psychiatric: A+Ox3, euthymic affect Results & Data Vital Signs (Past 12 Hours) Vital Signs Temp Pulse Pulse Resp BP BP BP 03/22/24 08:00 03/22/24 07:37 71 03/22/24 07:26 36.4 C L 63 19 191/99 H 03/22/24 05:23 65 166/75 H 03/22/24 04:00 71 03/22/24 03:30 03/22/24 03:00 36.6 C 74 20 181/91 H 03/22/24 02:49 03/22/24 02:31 61 16 175/102 H 03/22/24 02:06 64 21 186/118 H 03/22/24 01:12 53 L 19 180/111 H 03/22/24 00:00 03/21/24 23:59 03/21/24 22:51 61 18 03/21/24 22:50 61 20 03/21/24 22:40 73 03/21/24 22:27 36.7 C 77 16 183/126 H Pulse Ox Pulse Ox O2 Del Method O2 Del Method O2 Flow Rate 03/22/24 08:00 96 Room Air 03/22/24 07:37 03/22/24 07:26 93 Room Air 03/22/24 05:23 03/22/24 04:00 03/22/24 03:30 Room Air 03/22/24 03:00 93 Room Air 03/22/24 02:49 Room Air 03/22/24 02:31 99 Nasal Cannula 2 03/22/24 02:06 95 Nasal Cannula 2 03/22/24 01:12 97 03/22/24 00:00 96 Nasal Cannula 2 03/21/24 23:59 88 L Room Air 03/21/24 22:51 96 Room Air 03/21/24 22:50 97 Room Air 03/21/24 22:40 03/21/24 22:27 91 Room Air Laboratory Results Cardiac Enzymes 03/21/24 03/21/24 03/22/24 Range/Units 22:00 23:50 04:46 AST TNP 50 H 50 H Troponin I High Sens 77.9 H* 83.6 H* 79.4 H* (0-20) pg/ml Coagulation 03/21/24 03/21/24 03/22/24 Range/Units 22:00 23:50 04:46 PT Cancelled 19.8 H 18.7 H APTT Cancelled 30 CBC 03/21/24 03/21/24 03/22/24 Range/Units 22:00 23:50 04:46 WBC Cancelled 13.85 H 17.30 H RBC Cancelled 5.13 5.30 Hgb Cancelled 14.5 15.1 Hct Cancelled 43.9 45.0 Plt Count Cancelled 251 240 Neut # (Auto) Cancelled 11.03 H 13.38 H Lymph # (Auto) Cancelled 1.79 2.29 [place] # (Auto) Cancelled 0.93 H 1.49 H Eos # (Auto) Cancelled 0.00 0.00 Baso # (Auto) Cancelled 0.04 0.07 Comprehensive Metabolic Panel 03/21/24 03/21/24 03/22/24 Range/Units 22:00 23:50 04:46 Sodium TNP 140 142 Potassium TNP 4.0 3.8 Chloride 108 H 110 H (98-107) mmol/L Carbon Dioxide 22 23 (21-32) mmol/L BUN 38 H 35 H (6-23) mg/dl Creatinine 1.44 H 1.32 (0.6-1.4) mg/dl Glucose 146 H 145 H (70-99(Fasting)) mg/dl Calcium 10.2 9.2 (8.6-10.3) mg/dl AST TNP 50 H 50 H ALT 81 H 72 H (7-52) U/L Alkaline Phosphatase 94 87 (34-104) U/L Total Protein 7.9 7.0 (6.0-8.3) gm/dl Albumin 4.4 3.9 (3.4-5.0) gm/dl Intake and Output 03/21/24 03/22/24 03/22/24 22:59 06:59 14:59 Intake Total 1270 / 1270 100 / 100 Output Total 480 / 480 200 / 200 Balance 790 / 790 -100 / -100 Intake: IV 1150 / 1150 100 / 100 Sodium Chloride 0.9% 500 ml @ 1000 / 1000 999 mls/hr IV .Q31M ONE Rx#: [id number] cefTRIAXone SODIUM 2,000 mg In 50 / 50 50 ml @ 100 mls/hr IV NOW STA Rx#:[id number] metroNIDAZOLE 500 mg In 100 ml 100 / 100 100 / 100 @ 100 mls/hr IV Q8H DUNG Rx#: [id number] Oral 120 / 120 Output: Urine 480 / 480 200 / 200 Other: Weight 79.7 kg 80.4 kg Weight Measurement Method Chair Scale Built in [facility] Diagnostic Findings Echocardiogram 11/28/2023 [facility] November 28, 2023 TTE Interpretation Summary (as per Dr. Goel): The left ventricular cavity is severely dilated (LVED volume >100 ml/m^2). The wall thickness is mildly increased in segments with normal wall motion. There is a large sized apical, anteroseptal, and anterior wall motion abnormality with akinesis of the segments. The qualitative LV ejection fraction is 30-34% (moderately reduced). The left ventricular diastolic function is mildly abnormal (grade I). Compared to the previous study dated 10/19/2021, no significant interval change.
[2024-03-22] MEDS: METOPROLOL SUCC 50MG EXT REL TAB PO SCH ×2 (09:11→22:38)
--- NOTE | 2024-03-22 11:44 | Hospitalist Progress Note ---
Date of Service March 22, 2024 Assessment & Plan (1) Acute hypoxemic respiratory failure: Plan Pt is a 68yoM with PMHx significant for chronic systolic heart failure secondary to ischemic cardiomyopathy (EF 30-35 %, TTE 2023) status post ICD, CAD status post stent, PVD, VT, moderate MR, PAF/cardiac thrombus on Coumadin, hypertension, hyperlipidemia, DM2 on oral medications, CRI (baseline creatinine 1.3 ), cerebral aneurysm as per records, Rodriguez's esophagus, diverticulosis, psoriasis, past tobacco abuse. who presented with abdominal pain in the setting of diverticulitis. Diverticulitis Pt presenting with abdominal pain, leukocytosis CT abd/pelvis noting thickened colon and diverticulitis Continue with IV Rocephin and Flagyl GI consulted, appreciate recs Hx of systolic heart failure Concern for decompensated heart failure hx chronic systolic heart failure secondary to ischemic cardiomyopathy (EF 30-35 %, TTE 2023) status post ICD s/p Lasix 1 dose Strict I/Os, daily weights, CHF medication Cardiology consulted, appreciate recs Hypertension elevated secondary to abdominal pain from possible foodborne illness/chronic/recurrent diverticulitis Amlodipine added to BP regimen Continue to monitor Troponin elevation Trop elevated and flat EKG Continue to monitor on telemetry Acute renal failure on CKD secondary to illness Cr of 1.44 on admission Has since normalized Avoid nephrotoxic agents Continue to monitor hx CAD status post stent/PVD stable hx VT moderate MR PAF/cardiac thrombus on Coumadin, INR slightly subtherapeutic Home dosing resumed Other chronic medical Problems: hyperlipidemia on statin Rx DM2 on oral medications, well-controlled as of recent hemoglobin A1c of 6.23 November 2023 hx cerebral aneurysm as per records, vague aneurysm supraclinoid right ICA as per remote outpatient Neurology note from 2011 Rodriguez's esophagus/GERD on PPI past tobacco abuse Diet: Clears, advance as tolerated DVT prophylaxis. Coumadin INR goal between 2 and 3 Full code Dispo: PT/OT ordered for further recs Admission and Anticipated Discharge Date Admission Date: March 22, 2024 Subjective Patient was seen laying in bed in the a.m. Still some abdominal pain Otherwise, denied acute concerns at that time Stated he was feeling better than the day before. Review of Systems Review of Systems: All systems reviewed & are unremarkable except as noted in Subjective Physical Exam Physical Exam: General: Alert, oriented. Psych: Appropriate mood and affect HEENT: NC/AT CV: RRR Resp: Breath sounds clear bilaterally, no increased effort of breathing Abdomen: Soft, nontender Extremities: No edema in lower extremities bilaterally. Results & Data Results & Data Vital Signs (Past 12 Hours) Vital Signs Temp Pulse Pulse Resp BP BP BP 03/22/24 11:10 37.1 C 54 L 19 163/97 H 03/22/24 10:38 03/22/24 08:00 03/22/24 07:37 71 03/22/24 07:26 36.4 C L 63 19 191/99 H 03/22/24 05:23 65 166/75 H 03/22/24 04:00 71 03/22/24 03:30 03/22/24 03:00 36.6 C 74 20 181/91 H 03/22/24 02:49 03/22/24 02:31 61 16 175/102 H 03/22/24 02:06 64 21 186/118 H 03/22/24 01:12 53 L 19 180/111 H 03/22/24 00:00 03/21/24 23:59 Pulse Ox Pulse Ox O2 Del Method O2 Del Method O2 Flow Rate 03/22/24 11:10 94 Room Air 03/22/24 10:38 Room Air 03/22/24 08:00 96 Room Air 03/22/24 07:37 03/22/24 07:26 93 Room Air 03/22/24 05:23 03/22/24 04:00 03/22/24 03:30 Room Air 03/22/24 03:00 93 Room Air 03/22/24 02:49 Room Air 03/22/24 02:31 99 Nasal Cannula 2 03/22/24 02:06 95 Nasal Cannula 2 03/22/24 01:12 97 03/22/24 00:00 96 Nasal Cannula 2 03/21/24 23:59 88 L Room Air Diagnostic Findings Abdomen/Pelvis CT 03/21/24 22:37 Exam(s): CT ABDOMEN + PELVIS With Contrast IV Amt: 93 ml optiray 320 EXAM: CT Abdomen and Pelvis With Intravenous Contrast CLINICAL HISTORY: Reason for exam: severe mid abd pain. TECHNIQUE: Axial computed tomography images of the abdomen and pelvis with intravenous contrast. CTDI is 23.52 mGy and DLP is 1143.59 mGy-cm. Automated exposure control was utilized for the study. A dose lowering technique was utilized adhering to the principles of ALARA. CONTRAST: Patient received 93 ml optiray 320 of IV contrast COMPARISON: 09/14/2023 FINDINGS: Image quality is degraded by motion artifact. Lung bases: Cardiomegaly. Intracardiac electrode lead and additional metallic star artifact. No mass. No consolidation. ABDOMEN: Liver: Bibasilar subpleural linear fibrotic atelectatic changes. No mass. Posteriorly pleural thickening. Gallbladder and bile ducts: Unremarkable. Intraluminal 8 mm Gallstone. No ductal dilation. Pancreas: Unremarkable. No mass. No ductal dilation. Spleen: A 1.4 cm cyst is seen at the anterior tip of the spleen. Additionally a subcapsular hypodense lesion/a small cyst is also seen medially at the anterior aspects of the spleen.. No splenomegaly. Adrenals: Thickening of the adrenal glands.. No mass. Kidneys and ureters: Bilateral multiple renal cortical cysts, largest is 2.2 cm exophytic cyst present medially in the upper pole.. No solid mass. No hydronephrosis. Stomach and bowel: Unremarkable stomach. Normal-caliber small/large bowel loops. Descending colonic/sigmoid diverticulosis coli. Abnormal wall thickening of the sigmoid, likely related to chronic diverticulitis. PELVIS: Appendix: Normal appendix (series 300 image 41) Bladder: Mild uniform bladder wall thickness.. No mass. Reproductive: Enlarged prostate gland. ABDOMEN and PELVIS: Intraperitoneal space: No free air. No significant fluid collection. Increased mesenteric fat. Bones/joints: No acute fracture. No dislocation. L4-S1 degenerative spondylitic changes. Soft tissues: Unremarkable. Vasculature: Diffuse calcified atherosclerosis of the infrarenal aorta, iliac arteries and visualized common femoral arteries. No abdominal aortic aneurysm. Lymph nodes: No enlarged lymph nodes.. IMPRESSION: A 8 mm gallbladder stone. Splenic cysts. Renal cysts. Descending colonic/sigmoid diverticulosis coli. Abnormal wall thickening of the sigmoid likely related to chronic diverticulitis. No conclusive acute abdominal/pelvic CT findings. Enlarged prostrate. Mild uniform wall thickness of the urinary bladder. . Electronically signed by: Gurwinder Grimes MD, DABR 03/22/24 00:45 AM Chest X-Ray 03/21/24 22:37 Exam(s): XR CXR 1 VIEW EXAM: XR Chest, 1 View CLINICAL HISTORY: Reason for exam: n/v. TECHNIQUE: Frontal view of the chest. COMPARISON: 01/09/2023 FINDINGS: Left subclavian single lead AICD/cardiac pacemaker in place. Lungs: Perihilar prominent peripheral pulmonary vascular markings, slightly increased since prior comparison. Basilar atelectatic changes LT>RT. Pleural space: Suspect small left pleural effusion. No pneumothorax. Heart: Stable cardiomegaly. Calcification of the aortic arch. Mediastinum: Unremarkable. Normal mediastinal contour. Bones/joints: Osteopenia.. No acute fracture.. IMPRESSION: Cardiomegaly and possibly mild pulmonary vascular congestion. Clinical correlation is advised Predominantly left basilar atelectatic changes. . Electronically signed by: Gurwinder Grimes MD, DABR 03/22/24 01:13 AM
--- NOTE | 2024-03-22 14:31 | Electrocardiogram Report ---
Test Reason : Blood Pressure : */* mmHG Vent. Rate : 67 BPM Atrial Rate : 84 BPM P-R Int : 150 ms QRS Dur : 96 ms QT Int : 384 ms P-R-T Axes : 54 123 56 degrees QTcB Int : 405 ms Sinus rhythm with marked sinus arrhythmia with occasional Premature ventricular complexes Inferior infarct (cited on or before 16-Oct-2006) Anterolateral infarct (cited on or before 16-Oct-2006) Abnormal ECG When compared with ECG of 14-Sep-2023 13:05, Premature ventricular complexes are now Present Left anterior fascicular block is no longer Present Questionable change in initial forces of Inferior leads Nonspecific T wave abnormality no longer evident in Inferior leads Confirmed by Leon Khoury ([id number]) on 03/22/2024 2:31:18 PM Referred By: REFERRED SELF Confirmed By: Leon Khoury
[2024-03-22] MEDS: oxyCODONE HCL IR 5 MG TAB (IMMEDIATE RELEASE) PO PRN (15:38)
[2024-03-22] MEDS: WARFARIN SOD 5 MG TAB PO SCH (17:04)
[2024-03-22] MEDS ORDERED: amLODIPine BESYLATE 5 MG TAB PO SCH (21:00)
[2024-03-22] MEDS: VALSARTAN/SACUBITRIL 51/49 MG TAB PO SCH (21:24)
[2024-03-22] MEDS: CYANOCOBALAMIN (B-12) 500 MCG TABLET PO SCH (21:24)
[2024-03-22] MEDS: ATORVASTATIN 40 MG TAB PO SCH (21:24)
[2024-03-22] MEDS: POLYETHYLENE (MIRALAX) 17 GM PACK PO PRN (21:25)
[2024-03-22] MEDS: DOCUSATE SODIUM 100 MG CAP PO SCH (21:34)
[2024-03-23] MEDS: cefTRIAXone SODIUM 2,000 MG/50 ML BAG IV SCH (03:31)
[2024-03-23 05:19] LABS: Basophils # (auto) 0.07 K/uL (0.00-0.20); Basophils % (auto) 0.7 %; Eosinophils # (auto) 0.12 K/uL (0.00-0.50); Eosinophils % (auto) 1.2 %; Hematocrit (blood only) 42.7 % (42.0-52.0); Immature Granulocytes # (auto) 0.04 K/uL (0.01-0.20); Immature Granulocytes % (auto) 0.4 %; Lymphocytes # (auto) 2.52 K/uL (1.20-3.40); Lymphocytes % (auto) 26.1 %; Mean Corpuscular Hemoglobin 28.3 pg (25.0-34.0); Mean Corpuscular Hgb Conc 32.8 g/dL (32.0-36.0); Mean Corpuscular Volume 86.4 fL (80.0-100.0); Monocytes # (auto) 0.93 K/uL (0.11-0.59); Monocytes % (auto) 9.6 %; Neutrophils # (auto) 5.99 K/uL (1.40-6.50); Platelet Count 203 K/uL (130-400); RDW Coefficient of Variation 17.7 % (11.5-14.5); RDW Standard Deviation 55.6 fL (36.4-46.3); Red Blood Count 4.94 M/uL (4.70-6.10); White Blood Count 9.67 K/ul (4.8-10.8)
[2024-03-23 05:22] LABS: Albumin Globulin Ratio 1.3 (0.9-2); Albumin Level 3.5 gm/dl (3.4-5.0); BUN Creatinine Ratio 28.7 (10-20); Bilirubin,Total 0.8 mg/dl (0.2-1.0); Calcium 8.9 mg/dl (8.6-10.3); Creatinine Clr Calc Pharmacy 67.8 ml/min; Globulin 2.8 gm/dl (2.5-4.0); Phosphorus 2.7 mg/dl (2.5-4.9); Potassium 4.1 mmol/L (3.5-5.1); Total Protein 6.3 gm/dl (6.0-8.3)
[2024-03-23 05:38] LABS: INR 3.4 (0.9-1.1); Prothrombin Time 33.3 Seconds (9.0-12.0)
[2024-03-23] MEDS: amLODIPine BESYLATE 5 MG TAB PO SCH (08:01)
[2024-03-23] MEDS: ACETAMINOPHEN 325 MG TAB PO PRN (08:04)
--- NOTE | 2024-03-23 08:44 | Cardiology Progress Note ---
Date of Service March 23, 2024 Assessment & Plan (1) Acute hypoxemic respiratory failure: (2) Elevated troponin: (3) Abdominal pain, acute: (4) CAD (coronary artery disease): (5) Ischemic cardiomyopathy: (6) AICD (automatic cardioverter/defibrillator) present: Plan Assessment: 68 year old male presents for 3 day history of abdominal pain with associated nausea. Hypoxic on room air at time of presentation, and chest xray questions increased vascular congestion. Cardiology has been requested for further evaluation/recommendations.. Plan: 1. Acute hypoxemic resp. failure 2. Elevated Troponin -Patient appears euvolemic on exam, WBC count continues to trend upwards suggestive of acute infectious process. -Most recent echo obtained from [facility] record 11/2023 showing slight improvement in LVEF with no other acute changes. -CT ABD/Pelvis shows chronic diverticulitis. Continued IV antibiotics/treatment as per primary team. -Baseline Cr. 1.0-1.3, recommend to restart patient's chronic HF medications including Entresto, and Spironolactone. will start with Entresto. Patient remains on his jardiance -BP well above target likely in response to pain at initial presentation, but also due to withholding his current medication therapies -Troponin elevation is mild and flat trend suspected secondary to his hypoxic state and acute infectious process on admission. Remains chest pain free, denies shortness of breath is is sating well on room air today 3. Abdominal pain -Possible chronic diverticulitis -White Count trending upward, not currently receiving any steroid therapies -Continue IV antibiotics per primary team. 4. CAD 5. Ischemic Cardiomyopathy 6. AICD present -Denies any chest pain, pressure or dyspnea. -EKG shows no acute changes. troponin as noted above with flat trend likely s/t acute hypoxia and infectious process. -Recent echo 12/2023 demonstrates some improvement in LVEF to30% -Euvolemic on exam. Continue Jardiance, and Toprol xl, restart Entresto today and possibly spironolactone tomorrow as part of HF regimen. -recent device interrogation Jan 2024 shows normal function, no events/alarms RV pacing 0.25%. [facility] AF MRI [id number] 03/23/2024: -Patient is stable from a cardiac perspective, offers no new concerns/complaints -euvolemic on exam -INR 3.4 today. Warfarin on hold, recheck INR in the AM prior to resuming next dose. -Ongoing management of patient's abdominal pain per primary team and GI. GI has recommended continuation of antibiotics for diverticulitis with a OP colonoscopy at 6-8 weeks to further follow on on his CT findings. -Continue Jardiance, Toprol xl, and Entresto as part of HF regimen, ok to restart Spironolactone as per home regimen. this will aide in trending down his blood pressure. Case has been discussed with Dr. Jones. Further recommendations regarding plan of care as per his assessment. I spent a total of 30 minutes on the date of service in preparation, delivery, documentation of the care provided to the patient excluding any time spent in the performance of separately billed services. ERNESTINA Kendrick [facility] Admission and Anticipated Discharge Date Admission Date: March 22, 2024 Supervising Physician Co-Signing Physician Notes I have personally performed a history and physical examination on the patient. I have reviewed the advance practitioner's documentation, and I agree with, and take responsibility for the plan of care. 68-year-old male presents to the emergency department with nausea and vomiting. Unable to take medications for 3 days prior to admission. Patient appears euvolemic. Constipation resolved this a.m. Recommend restart spironolactone. Hold warfarin today with mildly supratherapeutic INR. Continue Jardiance, Entresto, Toprol-XL, amiodarone, atorvastatin, and low-dose aspirin. Management of ongoing abdominal discomfort, colitis, and constipation as per internal medicine. Jona Jones DO, [facility] Subjective 03/23/2024: Patient seen and examined in follow up today. Feeling well from a cardiac perspective. Denies any chest pain, pressure or palpitations. Endorses some mild abdominal discomfort, but does report moving his bowels today. He would really like to advance his diet. Labs, vitals, diagnostics, telemetry and documentation reviewed. Telemetry reviewed showing SB/SR, no acute events overnight. Review of Systems Review of Systems: All systems reviewed & are unremarkable except as noted in HPI & below Physical Exam Constitutional: well developed and well nourished; no acute distress Neck: normal visual inspection and trachea midline Respiratory: normal respiratory effort; no respiratory distress and no labored breathing Auscultation: lungs clear to auscultation bilaterally Cardiovascular: Rate/Rhythm: regular rate and regular rhythm Heart Sounds: normal S1, normal S2 and + murmur (+1/6 systolic ) Vessels: no JVD Extremities: no edema Skin: no rashes, warm and dry Psychiatric: A+Ox3, euthymic affect Results & Data Vital Signs (Past 12 Hours) Vital Signs Temp Pulse Pulse Resp BP Pulse Ox O2 Del Method 03/23/24 08:10 36.5 C 54 L 17 149/80 H 94 Room Air 03/23/24 07:19 52 L 03/23/24 03:01 36.2 C L 63 18 111/75 93 Room Air 03/22/24 23:24 36.6 C 56 L 17 126/78 92 Room Air 03/22/24 22:26 53 L 03/22/24 21:00 Room Air Laboratory Results Cardiac Enzymes 03/23/24 Range/Units 04:37 AST 48 H (13-39) U/L Coagulation 03/23/24 Range/Units 04:37 PT 33.3 H (9.0-12.0) Seconds CBC 03/23/24 Range/Units 04:37 WBC 9.67 (4.8-10.8) K/ul RBC 4.94 (4.70-6.10) M/uL Hgb 14.0 (14.0-18.0) g/dl Hct 42.7 (42.0-52.0) % Plt Count 203 (130-400) K/uL Neut # (Auto) 5.99 (1.40-6.50) K/uL Lymph # (Auto) 2.52 (1.20-3.40) K/uL [place] # (Auto) 0.93 H (0.11-0.59) K/uL Eos # (Auto) 0.12 (0.00-0.50) K/uL Baso # (Auto) 0.07 (0.00-0.20) K/uL Comprehensive Metabolic Panel 03/23/24 Range/Units 04:37 Sodium 139 (136-145) mmol/L Potassium 4.1 (3.5-5.1) mmol/L Chloride 107 (98-107) mmol/L Carbon Dioxide 25 (21-32) mmol/L BUN 29 H (6-23) mg/dl Creatinine 1.01 D (0.6-1.4) mg/dl Glucose 98 (70-99(Fasting)) mg/dl Calcium 8.9 (8.6-10.3) mg/dl AST 48 H (13-39) U/L ALT 67 H (7-52) U/L Alkaline Phosphatase 74 (34-104) U/L Total Protein 6.3 (6.0-8.3) gm/dl Albumin 3.5 (3.4-5.0) gm/dl Intake and Output 03/22/24 03/23/24 03/23/24 22:59 06:59 14:59 Intake Total 175 / 1145 150 / 1145 100 / 100 Output Total 150 / 600 Balance 25 / 545 150 / 545 100 / 100 Intake: IV 100 / 350 150 / 350 100 / 100 cefTRIAXone SODIUM 2,000 mg In 50 / 50 50 ml @ 100 mls/hr IV Q24H [facility] Rx#:[id number] metroNIDAZOLE 500 mg In 100 ml 100 / 300 100 / 300 100 / 100 @ 100 mls/hr IV Q8H [facility] Rx#: [id number] Oral 75 / 795 Output: Urine 150 / 350
--- NOTE | 2024-03-23 10:29 | Gastrointestinal Consultation ---
<Statement entered by Germán Vela MD - 03/23/24 13:32> Patient seen and examined. Case discussed with Thierry VALLE. Agree with antibiotic therapy and follow up OP colonoscopy. IP GI Service will sign off. Germán Vela MD Date of Consultation March 23, 2024 Assessment & Plan (1) Diverticulitis: Patient is seeing improvement in symptoms. - recommend continuation with antibiotics for diverticulitis. - I recommended that he have a colonoscopy in 6-8 weeks to further evaluate CT findings. we discussed reasoning for checking colonoscopy. he tells me that he does not intend to update a colonoscopy. I recommended he follow up wit his usual GI team at [facility] upon discharge for further discussion. History of Present Illness Reason for Consultation: diverticulitis, persistent pain Requesting Physician: Jordana Valdivia MD Attending Physician: Jordana Allen MD History of Present Illness Patient is a 68 year old male with past medical history of a fib with ICD on Coumadin presented to the ER on 03/21 with complaints of nausea, vomiting, and abdominal pain that had been ongoing for a few days prior. Upon evaluation, he had imaging showing abnormal thickening of the sigmoid suggestive of chronic diverticulitis. He tells me that he has had this in the past. he was admitted and started on antibiotics and since that time, he tells me that he has been feeling better. Abdominal pain has improved. no further nausea or vomiting. He has been tolerating a clear liquid diet, but his main issue currently is that he would like to advance diet. he tells me he has had a colonoscopy in the past through [facility]. he reports that this was unremarkable outside of diverticulosis. I do not have these records for review. he tells me that he refuses to have another colonoscopy. Allergies Allergy/AdvReac Type Severity Reaction Status Date / Time Penicillins Allergy Mild RASH Verified 01/09/23 17:51 Home Medications Medication Instructions Recorded Confirmed Type atorvastatin 80 mg tablet 80 mg PO HS 06/10/18 03/22/24 History nitroglycerin 0.4 mg sublingual 0.4 mg sublingual UD 06/10/18 03/22/24 History tablet (Nitrostat) omeprazole 20 mg capsule,delayed 20 mg PO BID 06/10/18 03/22/24 History release spironolactone 25 mg tablet 25 mg PO QAM 06/10/18 03/22/24 History sildenafil 100 mg tablet (Viagra) 100 mg PO DAILY PRN Erectile 10/08/18 03/22/24 History Dysfunction acetaminophen 500 mg tablet 500 mg PO Q6H PRN Pain 07/13/19 03/22/24 History (Tylenol Extra Strength) ondansetron 4 mg disintegrating 4 mg PO Q8H PRN nausea and 10/14/19 03/22/24 Rx tablet vomiting #6 tabs albuterol sulfate 90 mcg/actuation 2 inha inhalation QID PRN 08/12/21 03/22/24 Rx aerosol inhaler shortness of breath or wheezing #1 inh coQ10 (ubiquinol) 100 mg capsule 100 mg PO PM 08/12/21 03/22/24 History alfuzosin 10 mg tablet,extended 10 mg PO DAILY 06/24/22 03/22/24 History release 24 hr tizanidine 2 mg capsule 2 mg PO DIRECTED 06/24/22 03/22/24 History aspirin 81 mg tablet,delayed 81 mg PO QAM #30 tabs 06/27/22 03/22/24 Rx release metoprolol succinate 100 mg 100 mg PO PM #30 tabs 06/27/22 03/22/24 Rx tablet,extended release 24 hr (Toprol XL) cyanocobalamin (vitamin B-12) 500 500 mcg PO HS 01/09/23 03/22/24 History mcg tablet psyllium husk 0.52 gram capsule 0.52 g PO HS 01/09/23 03/22/24 History sacubitril 24 mg-valsartan 26 mg 1 tab PO BID 01/10/23 03/22/24 History tablet (Entresto) amiodarone 200 mg tablet 200 mg PO UD 30 days #60 tabs 01/11/23 03/22/24 Rx warfarin 5 mg tablet 5 mg PO DAILY #30 tabs 01/11/23 03/22/24 Rx empagliflozin 10 mg tablet 10 mg PO DAILY 03/22/24 03/22/24 History (Jardiance) metoprolol succinate 100 mg 100 mg PO QAM 03/22/24 03/22/24 History tablet,extended release 24 hr Patient History Family History Other Cancer Heart disease Hypertension Social History Smoking Status: Former smoker Tobacco Type: Cigarettes Cigarettes Per Day: 20; Hx Alcohol Use: No Hx Substance Use: No Preferred Language: Occitan 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 Ability: Effective Window 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 Required: No Beliefs That Will Affect Care: None marital status: Current Living Situation: Spouse current occupational status: retired Other Information That Helps Us Care for You: No Feels Safe at Home: Yes Safety Concerns: Feels Safe At This Time Assistive Devices: Cane Review of Systems Review of Systems: All systems reviewed & are unremarkable except as noted in HPI & below Physical Exam Constitutional: WD/WN, vitals as above Respiratory: normal respiratory effort, lungs clear to auscultation Cardiovascular: Rate/Rhythm: regular rate and regular rhythm Gastrointestinal (Abdomen): normal bowel sounds, soft, nontender, no hepatosplenomegaly Psychiatric: Orientation: alert and oriented x 3 Affect: euthymic affect Results & Data Vital Signs (Past 12 Hours) Vital Signs Temp Pulse Pulse Resp BP Pulse Ox Pulse Ox 03/23/24 09:26 03/23/24 08:10 97.7 F 54 L 17 149/80 H 94 03/23/24 08:00 95 03/23/24 07:19 52 L 03/23/24 03:01 97.2 F L 63 18 111/75 93 03/22/24 23:24 97.9 F 56 L 17 126/78 92 O2 Del Method O2 Del Method 03/23/24 09:26 Room Air 03/23/24 08:10 Room Air 03/23/24 08:00 Room Air 03/23/24 07:19 03/23/24 03:01 Room Air 03/22/24 23:24 Room Air Coding Level of Care Code 08902 INT INP/OBS CARE 40MIN Diagnoses Diverticulitis K57.92
--- NOTE | 2024-03-23 11:41 | Hospitalist Progress Note ---
Date of Service March 23, 2024 Assessment & Plan (1) Acute hypoxemic respiratory failure: Plan Pt is a 68yoM with PMHx significant for chronic systolic heart failure secondary to ischemic cardiomyopathy (EF 30-35 %, TTE 2023) status post ICD, CAD status post stent, PVD, VT, moderate MR, PAF/cardiac thrombus on Coumadin, hypertension, hyperlipidemia, DM2 on oral medications, CRI (baseline creatinine 1.3 ), cerebral aneurysm as per records, Rodriguez's esophagus, diverticulosis, psoriasis, past tobacco abuse. who presented with abdominal pain in the setting of diverticulitis. Diverticulitis Pt presenting with abdominal pain, leukocytosis CT abd/pelvis noting thickened colon and diverticulitis Continue with IV Rocephin and Flagyl GI consulted, appreciate recs Improving Hx of systolic heart failure Concern for decompensated heart failure hx chronic systolic heart failure secondary to ischemic cardiomyopathy (EF 30-35 %, TTE 2023) status post ICD s/p Lasix 1 dose Strict I/Os, daily weights Continue home jardiance, entresto, statin, aspirin, metoprolol Spironolactone resumed per Cardiology recs Cardiology consulted, appreciate recs hx VT moderate MR PAF/cardiac thrombus Bradycardia On amiodarone and metoprolol on Coumadin, INR slightly subtherapeutic Home dosing resumed 03/23/24- now INR elevated, coumadin currently on hold Cardiology on board as noted above Hypertension elevated secondary to abdominal pain from possible foodborne illness/chronic/recurrent diverticulitis Amlodipine added to BP regimen Continue to monitor Troponin elevation Trop elevated and flat EKG Continue to monitor on telemetry Acute renal failure on CKD secondary to illness Cr of 1.44 on admission Has since normalized Avoid nephrotoxic agents Continue to monitor hx CAD status post stent/PVD stable Other chronic medical Problems: hyperlipidemia on statin Rx DM2 on oral medications, well-controlled as of recent hemoglobin A1c of 6.23 November 2023 hx cerebral aneurysm as per records, vague aneurysm supraclinoid right ICA as per remote outpatient Neurology note from 2011 Rodriguez's esophagus/GERD on PPI past tobacco abuse Diet: low fiber, DMII DVT prophylaxis. Coumadin INR goal between 2 and 3 Full code Dispo: PT/OT ordered for further recs Admission and Anticipated Discharge Date Admission Date: March 22, 2024 Subjective patient was seen in the AM. He was frustrated at that time. Stated he would like his diet progressed and that he would like to have a shower. Was ambulating the room and moving without issue. Review of Systems Review of Systems: All systems reviewed & are unremarkable except as noted in Subjective Physical Exam Physical Exam: General: Alert, oriented. Psych: Appropriate mood and affect HEENT: NC/AT CV: RRR Resp: Breath sounds clear bilaterally, no increased effort of breathing Abdomen: Soft, nontender Extremities: No edema in lower extremities bilaterally. Results & Data Results & Data Vital Signs (Past 12 Hours) Vital Signs Temp Pulse Pulse Resp BP Pulse Ox Pulse Ox 03/23/24 11:04 36.4 C L 54 L 15 146/61 H 94 03/23/24 09:26 03/23/24 08:10 36.5 C 54 L 17 149/80 H 94 03/23/24 08:00 95 03/23/24 07:19 52 L 03/23/24 03:01 36.2 C L 63 18 111/75 93 O2 Del Method O2 Del Method 03/23/24 11:04 Room Air 03/23/24 09:26 Room Air 03/23/24 08:10 Room Air 03/23/24 08:00 Room Air 03/23/24 07:19 03/23/24 03:01 Room Air
[2024-03-24 06:13] LABS: Basophils # (auto) 0.08 K/uL (0.00-0.20); Eosinophils % (auto) 4.8 %; Hematocrit (blood only) 42.8 % (42.0-52.0); Hemoglobin 14.1 g/dl (14.0-18.0); Immature Granulocytes # (auto) 0.02 K/uL (0.01-0.20); Immature Granulocytes % (auto) 0.2 %; Lymphocytes % (auto) 27.5 %; Mean Corpuscular Hemoglobin 28.2 pg (25.0-34.0); Mean Corpuscular Hgb Conc 32.9 g/dL (32.0-36.0); Mean Corpuscular Volume 85.6 fL (80.0-100.0); Mean Platelet Volume 9.6 fL (9.4-12.4); Monocytes # (auto) 0.71 K/uL (0.11-0.59); Monocytes % (auto) 8.5 %; Neutrophils # (auto) 4.85 K/uL (1.40-6.50); Platelet Count 177 K/uL (130-400); RDW Coefficient of Variation 17.2 % (11.5-14.5); White Blood Count 8.36 K/ul (4.8-10.8)
[2024-03-24 06:29] LABS: Albumin Globulin Ratio 1.2 (0.9-2); Albumin Level 3.2 gm/dl (3.4-5.0); BUN Creatinine Ratio 27.7 (10-20); Bilirubin,Total 0.6 mg/dl (0.2-1.0); Calcium 8.7 mg/dl (8.6-10.3); Creatinine Clr Calc Pharmacy 67.8 ml/min; Globulin 2.6 gm/dl (2.5-4.0); Magnesium 2.1 mg/dl (1.7-2.4); Phosphorus 2.4 mg/dl (2.5-4.9); Potassium 3.7 mmol/L (3.5-5.1); Total Protein 5.8 gm/dl (6.0-8.3)
[2024-03-24 06:37] LABS: INR 3.8 (0.9-1.1); Prothrombin Time 36.5 Seconds (9.0-12.0)
[2024-03-24] MEDS: SPIRONOLACTONE 25 MG TAB PO SCH (08:06)
--- NOTE | 2024-03-24 08:49 | Cardiology Progress Note ---
Date of Service March 24, 2024 Assessment & Plan (1) Acute hypoxemic respiratory failure: (2) Elevated troponin: (3) Abdominal pain, acute: (4) CAD (coronary artery disease): (5) Ischemic cardiomyopathy: (6) AICD (automatic cardioverter/defibrillator) present: Plan Assessment: 68 year old male presents for 3 day history of abdominal pain with associated nausea. Hypoxic on room air at time of presentation, and chest xray questions increased vascular congestion. Cardiology has been requested for further evaluation/recommendations.. Plan: 1. Acute hypoxemic resp. failure 2. Elevated Troponin -Patient appears euvolemic on exam, WBC count continues to trend upwards suggestive of acute infectious process. -Most recent echo obtained from [facility] record 11/2023 showing slight improvement in LVEF with no other acute changes. -CT ABD/Pelvis shows chronic diverticulitis. Continued IV antibiotics/treatment as per primary team. -Baseline Cr. 1.0-1.3, recommend to restart patient's chronic HF medications including Entresto, and Spironolactone. will start with Entresto. Patient remains on his jardiance -BP well above target likely in response to pain at initial presentation, but also due to withholding his current medication therapies -Troponin elevation is mild and flat trend suspected secondary to his hypoxic state and acute infectious process on admission. Remains chest pain free, denies shortness of breath is is sating well on room air today 3. Abdominal pain -Possible chronic diverticulitis -White Count trending upward, not currently receiving any steroid therapies -Continue IV antibiotics per primary team. 4. CAD 5. Ischemic Cardiomyopathy 6. AICD present -Denies any chest pain, pressure or dyspnea. -EKG shows no acute changes. troponin as noted above with flat trend likely s/t acute hypoxia and infectious process. -Recent echo 12/2023 demonstrates some improvement in LVEF to30% -Euvolemic on exam. Continue Jardiance, and Toprol xl, restart Entresto today and possibly spironolactone tomorrow as part of HF regimen. -recent device interrogation Jan 2024 shows normal function, no events/alarms RV pacing 0.25%. [facility] MRI [id number] 03/23/2024: -Patient is stable from a cardiac perspective, offers no new concerns/complaints -euvolemic on exam -INR 3.4 today. Warfarin on hold, recheck INR in the AM prior to resuming next dose. -Ongoing management of patient's abdominal pain per primary team and GI. GI has recommended continuation of antibiotics for diverticulitis with a OP colonoscopy at 6-8 weeks to further follow on on his CT findings. -Continue Jardiance, Toprol xl, and Entresto as part of HF regimen, ok to restart Spironolactone as per home regimen. this will aide in trending down his blood pressure. 03/24/2024: -Patient is stable from a cardiac perspective, but is feeling worse from a GI perspective today. He was sent for a KUB this morning which does not show any evidence of a bowel obstruction. -Euvolemic on exam -Continued management of patient's abdominal pain and diverticulitis per primary team and GI as previously mentioned. -Patient's blood pressure was elevated this morning, suspect in part due to increased abdominal pain. -Continue Torpol xl, Jardiance, Entresto as spironolactone as per his home HF regimen. May continue amlodipine at this time for BP control -Continue Amiodarone. -INR 3.8 today. Hold Warfarin. Case has been discussed with Dr. Jones. Further recommendations regarding plan of care as per his assessment. I spent a total of 30 minutes on the date of service in preparation, delivery, documentation of the care provided to the patient excluding any time spent in the performance of separately billed services. ERNESTINA Kendrick [facility] Admission and Anticipated Discharge Date Admission Date: March 22, 2024 Supervising Physician Co-Signing Physician Notes I have personally performed a history and physical examination on the patient. I have reviewed the advance practitioner's documentation, and I agree with, and take responsibility for the plan of care. 68-year-old male presents to the emergency department with nausea and vomiting. Unable to take medications for 3 days prior to admission. Patient euvolemic on exam. No evidence of acute decompensated heart failure. Abdominal discomfort due to diverticulitis ongoing. Previously noted constipation has resolved. Blood pressure elevated today, suspect secondary to discomfort. Denies chest pain or shortness of breath. Hold warfarin today due to supratherapeutic INR. Continue Jardiance, Entresto, Toprol-XL, amiodarone, atorvastatin, spironolactone, and low-dose aspirin. Management of ongoing abdominal discomfort and diverticulitis per internal medicine. I spent a total of 30 minutes on the date of service in preparation, delivery, and documentation of the care provided to this patient, excluding any time spent in the performance of separately billed services. Jona Jones DO, [facility] Subjective 03/24/2024: Patient seen and examined in follow up today. Feeling poorly. complains of worsening abdominal pain. Patient states that they advanced his diet last night and he initially felt well after dinner, but early this morning he started with intensified abdominal pain and cramping. Also complains of nausea but has not vomited. Denies any chest pain, pressure, palpitations, no shortness of breath, PND, pre- syncope, syncope or edema. Labs, vitals, diagnostics, telemetry and documentation reviewed. Telemetry reviewed showing SB with occasional PAC's, rates in the 50's. Review of Systems Review of Systems: All systems reviewed & are unremarkable except as noted in HPI & below Physical Exam Constitutional: well developed and + ill appearing; no acute distress Neck: normal visual inspection and trachea midline Respiratory: normal respiratory effort; no respiratory distress and no labored breathing Auscultation: lungs clear to auscultation bilaterally Cardiovascular: Rate/Rhythm: regular rate and regular rhythm Heart Sounds: normal S1, normal S2 and + murmur (+1/6 systolic ) Vessels: no JVD Extremities: no edema Skin: no rashes, warm and dry Psychiatric: A+Ox3, euthymic affect Results & Data Vital Signs (Past 12 Hours) Vital Signs Temp Pulse Pulse Resp BP Pulse Ox Pulse Ox 03/24/24 07:49 36.7 C 58 L 18 125/82 93 03/24/24 04:28 36.6 C 63 18 101/61 96 03/24/24 00:01 57 L 03/24/24 00:00 94 03/23/24 23:44 36.7 C 64 18 96/58 L 94 03/23/24 21:42 O2 Del Method O2 Del Method 03/24/24 07:49 Room Air 03/24/24 04:28 Room Air 03/24/24 00:01 03/24/24 00:00 Room Air 03/23/24 23:44 Room Air 03/23/24 21:42 Room Air Laboratory Results Cardiac Enzymes 03/24/24 Range/Units 05:48 AST 40 H (13-39) U/L Coagulation 03/24/24 Range/Units 05:48 PT 36.5 H (9.0-12.0) Seconds CBC 03/24/24 Range/Units 05:48 WBC 8.36 (4.8-10.8) K/ul RBC 5.00 (4.70-6.10) M/uL Hgb 14.1 (14.0-18.0) g/dl Hct 42.8 (42.0-52.0) % Plt Count 177 (130-400) K/uL Neut # (Auto) 4.85 (1.40-6.50) K/uL Lymph # (Auto) 2.30 (1.20-3.40) K/uL [place] # (Auto) 0.71 H (0.11-0.59) K/uL Eos # (Auto) 0.40 (0.00-0.50) K/uL Baso # (Auto) 0.08 (0.00-0.20) K/uL Comprehensive Metabolic Panel 03/24/24 Range/Units 05:48 Sodium 139 (136-145) mmol/L Potassium 3.7 (3.5-5.1) mmol/L Chloride 106 (98-107) mmol/L Carbon Dioxide 26 (21-32) mmol/L BUN 28 H (6-23) mg/dl Creatinine 1.01 (0.6-1.4) mg/dl Glucose 92 (70-99(Fasting)) mg/dl Calcium 8.7 (8.6-10.3) mg/dl AST 40 H (13-39) U/L ALT 59 H (7-52) U/L Alkaline Phosphatase 72 (34-104) U/L Total Protein 5.8 L (6.0-8.3) gm/dl Albumin 3.2 L (3.4-5.0) gm/dl Intake and Output 03/23/24 03/24/24 03/24/24 22:59 06:59 14:59 Intake Total 550 / 900 250 / 900 Output Total 300 / 525 Balance 250 / 375 250 / 375 Intake: IV 100 / 350 150 / 350 cefTRIAXone SODIUM 2,000 mg In 50 / 50 50 ml @ 100 mls/hr IV Q24H [facility] Rx#:[id number] metroNIDAZOLE 500 mg In 100 ml 100 / 300 100 / 300 @ 100 mls/hr IV Q8H [facility] Rx#: [id number] Oral 450 / 550 100 / 550 Output: Urine 300 / 525 Other: # Unmeasured Voids 1 Weight 82.1 kg Weight Measurement Method Built in [facility]
--- NOTE | 2024-03-24 09:17 | Hospitalist Progress Note ---
Date of Service March 24, 2024 Assessment & Plan (1) Acute hypoxemic respiratory failure: Plan Mr. Hope is a 68yoM with PMHx significant for chronic systolic heart failure secondary to ischemic cardiomyopathy (EF 30-35 %, TTE 2023) status post ICD, CAD status post stent, PVD, VT, moderate MR, PAF/cardiac thrombus on Coumadin, hypertension, hyperlipidemia, DM2 on oral medications, CRI (baseline creatinine 1.3 ), cerebral aneurysm as per records, Rodriguez's esophagus, diverticulosis, psoriasis, past tobacco abuse. who presented with abdominal pain and admitted for management of diverticulitis. Patient with continued pain ongoing this am, worse than day prior. Patient foley spects it is related to antibiotics; however, diet also advanced day prior. Will obtain KUB, reduced diet to full liquid despite patient adamant to keep diet in place (likely to scale back to NPO if no improvement), start bentyl for antispasmodic Also bladder scan given reports of no recent urination--which revealed 18ml #Acute Diverticulitis Pt presenting with abdominal pain, leukocytosis CT abd/pelvis noting thickened colon and diverticulitis KUB w/o free air Continue with IV Rocephin and Flagyl Start bentyl QID for spasm Diet to full liquid, low fiber #Chronic heart failure with reduced EF #Prior VT s/p AICD #Ischemic cardiomyopathy hx chronic systolic heart failure secondary to ischemic cardiomyopathy (EF 30-35 %, TTE 2023) status post ICD s/p Lasix 1 dose Strict I/Os, daily weights Continue home Jardiance, entresto, statin, aspirin, metoprolol Spironolactone resumed per Cardiology recs Cardiology consulted, appreciate recs - GDMT: *BetaB: continue metoprolol *RAAS: continue entresto *Jony: continue aldactone *SGLT: continue jardiance *ICD: recently interrogated as OP, no events #Elevated troponin, likely demand likely iso of hypoxia and infectious process No signs of ischemic cardiac process at this time #Supratherapeutic INR iso multiple abx and poor po intake Hold coumadin #PAF on coumadin #Cardiac thrombus iso HF #Asymptomatic bradycardia On amiodarone and metoprolol on Coumadin, INR slightly subtherapeutic Home dosing resumed 03/23/24- now INR elevated, coumadin currently on hold Cardiology on board as noted above #Hypertension elevated secondary to abdominal pain from possible foodborne illness/chronic/recurrent diverticulitis Amlodipine added to BP regimen Continue to monitor #Acute kidney injury on CKD secondary to illness Cr of 1.44 on admission Has since normalized Avoid nephrotoxic agents Continue to monitor Other chronic medical Problems: hyperlipidemia on statin Rx DM2 on oral medications, well-controlled as of recent hemoglobin A1c of 6.23 November 2023 hx cerebral aneurysm as per records, vague aneurysm supraclinoid right ICA as per remote outpatient Neurology note from 2012 Rodriguez's esophagus/GERD on PPI past tobacco abuse Diet: low fiber/full liquid DMII DVT prophylaxis. Coumadin INR goal between 2 and 3 Full code Dispo: PT/OT--independent Admission and Anticipated Discharge Date Admission Date: March 22, 2024 Subjective Patient with ongoing abdominal pain---reluctant to have diet reduced, but agreed to full liquid Cannot discern if this is the same discomfort on admission, suggests he thinks it is the antibiotics causing problems Reports two bowel movements Endorses nausea, but no vomiting Reports abdominal pain in lower abdomen--also states he hasn't peed since last evening, however bladder scan with 18ml and report from nurse notes that he did urinate Physical Exam Constitutional: appears visibly uncomfortable Respiratory: normal respiratory effort, lungs clear to auscultation Cardiovascular: RRR, DOM Gastrointestinal (Abdomen): soft, tenderness produced with palpation suprapubic area Results & Data Results & Data Vital Signs (Past 12 Hours) Vital Signs Temp Pulse Pulse Resp BP Pulse Ox Pulse Ox 03/24/24 07:49 36.7 C 58 L 18 125/82 93 03/24/24 04:28 36.6 C 63 18 101/61 96 03/24/24 00:01 57 L 03/24/24 00:00 94 03/23/24 23:44 36.7 C 64 18 96/58 L 94 03/23/24 21:42 O2 Del Method O2 Del Method 03/24/24 07:49 Room Air 03/24/24 04:28 Room Air 03/24/24 00:01 03/24/24 00:00 Room Air 03/23/24 23:44 Room Air 03/23/24 21:42 Room Air Laboratory Results Short CBC 03/24/24 Range/Units 05:48 WBC 8.36 (4.8-10.8) K/ul Hgb 14.1 (14.0-18.0) g/dl Hct 42.8 (42.0-52.0) % Plt Count 177 (130-400) K/uL BMP 03/24/24 05:48 Sodium 139 Potassium 3.7 Chloride 106 Carbon Dioxide 26 BUN 28 H Creatinine 1.01 Glucose 92 Calcium 8.7 Liver Function 03/24/24 Range/Units 05:48 Total Bilirubin 0.6 (0.2-1.0) mg/dl AST 40 H (13-39) U/L ALT 59 H (7-52) U/L Alkaline Phosphatase 72 (34-104) U/L Albumin 3.2 L (3.4-5.0) gm/dl Diagnostic Findings KUB X-Ray 03/24/24 08:59 SUPINE AP RADIOGRAPH OF THE ABDOMEN AND PELVIS CLINICAL HISTORY: assess for free air, abdominal pain COMPARISON STUDY: CT of the abdomen and pelvis March 21, 2024. FINDINGS: The bowel gas pattern is normal. No free air is identified although sensitivity is diminished on supine exam. The amount of stool is within normal limits. No urinary calculi are identified. IMPRESSION: 1. No evidence for a bowel obstruction. 2. No free air identified on supine exam. If persistent clinical concern, an upright abdominal radiograph is recommended. ACT 112: Negative or not required by law. Electronically signed by: Reno Durand M.D. 03/24/2024 9:54 AM Medications Administered Home Medications Medication Instructions Recorded Confirmed Last Taken atorvastatin 80 mg tablet 80 mg PO HS 06/10/18 03/22/24 03/21/24 nitroglycerin 0.4 mg sublingual 0.4 mg sublingual UD 06/10/18 03/22/24 Unknown tablet (Nitrostat) omeprazole 20 mg capsule,delayed 20 mg PO BID 06/10/18 03/22/24 03/21/24 release spironolactone 25 mg tablet 25 mg PO QAM 06/10/18 03/22/24 03/21/24 sildenafil 100 mg tablet (Viagra) 100 mg PO DAILY PRN Erectile 10/08/18 03/22/24 09/10/22 Dysfunction acetaminophen 500 mg tablet 500 mg PO Q6H PRN Pain 07/13/19 03/22/24 08/12/21 (Tylenol Extra Strength) 100 mg ondansetron 4 mg disintegrating 4 mg PO Q8H PRN nausea and 10/14/19 03/22/24 Unknown tablet vomiting #6 tabs albuterol sulfate 90 mcg/actuation 2 inha inhalation QID PRN 08/12/21 03/22/24 Unknown aerosol inhaler shortness of breath or wheezing #1 inh coQ10 (ubiquinol) 100 mg capsule 100 mg PO PM 08/12/21 03/22/24 03/20/24 alfuzosin 10 mg tablet,extended 10 mg PO DAILY 06/24/22 03/22/24 03/21/24 release 24 hr tizanidine 2 mg capsule 2 mg PO DIRECTED 06/24/22 03/22/24 09/11/22 aspirin 81 mg tablet,delayed 81 mg PO QAM #30 tabs 06/27/22 03/22/24 03/21/24 release metoprolol succinate 100 mg 100 mg PO PM #30 tabs 06/27/22 03/22/24 01/07/23 tablet,extended release 24 hr (Toprol XL) cyanocobalamin (vitamin B-12) 500 500 mcg PO HS 01/09/23 03/22/24 03/21/24 mcg tablet psyllium husk 0.52 gram capsule 0.52 g PO HS 01/09/23 03/22/24 03/20/24 sacubitril 24 mg-valsartan 26 mg 1 tab PO BID 01/10/23 03/22/24 03/21/24 tablet (Entresto) amiodarone 200 mg tablet 200 mg PO UD 30 days #60 tabs 01/11/23 03/22/24 03/21/24 warfarin 5 mg tablet 5 mg PO DAILY #30 tabs 01/11/23 03/22/24 Unknown empagliflozin 10 mg tablet 10 mg PO DAILY 03/22/24 03/22/24 Unknown (Jardiance) metoprolol succinate 100 mg 100 mg PO QAM 03/22/24 03/22/24 Unknown tablet,extended release 24 hr Active Medications Generic Name Dose Route Start Last Admin Trade Name Freq PRN Reason Stop Dose Admin Acetaminophen 650 mg 03/22/24 03:28 03/23/24 08:04 Acetaminophen 325 Mg Tab PO 04/21/24 03:27 650 mg QID PRN Administration pain/fever Amiodarone HCl 200 mg 03/22/24 09:00 03/24/24 08:10 Amiodarone 200 Mg Tab PO 04/21/24 08:59 200 mg DAILY DUNG Administration Amlodipine Besylate 5 mg 03/23/24 09:00 03/24/24 08:08 Amlodipine Besylate 5 Mg Tab PO 04/22/24 08:59 5 mg DAILY DUNG Administration Aspirin 81 mg 03/22/24 09:00 03/24/24 08:08 Aspirin 81 Mg Ectab PO 04/21/24 08:59 81 mg QAM DUGN Administration Atorvastatin Calcium 80 mg 03/22/24 21:00 03/23/24 20:40 Atorvastatin 40 Mg Tab PO 04/21/24 20:59 80 mg HS DUNG Administration Cyanocobalamin 500 mcg 03/22/24 21:00 03/23/24 20:41 Cyanocobalamin (B-12) 500 Mcg Tablet PO 04/21/24 20:59 500 mcg HS DUNG Administration Docusate Sodium 100 mg 03/22/24 21:00 03/24/24 08:06 Docusate Sodium 100 Mg Cap PO 04/21/24 20:59 100 mg BID DUNG Administration Empagliflozin 10 mg 03/22/24 09:00 03/24/24 08:09 Empagliflozin 10 Mg Tab PO 04/21/24 08:59 10 mg DAILY DUNG Administration Ceftriaxone Sodium 2,000 mg in 50 mls @ 100 mls/hr 03/23/24 02:00 03/24/24 02:08 Rocephin IV 04/02/24 01:59 Infused Q24H DUNG Infusion Metronidazole 500 mg in 100 mls @ 100 mls/hr 03/22/24 10:00 03/24/24 02:42 Flagyl IV 04/01/24 09:59 Infused Q8H UDNG Infusion Protocol Insulin Aspart 0 units 03/22/24 03:28 03/24/24 08:28 Insulin Aspart Per Unit Charge SC 04/21/24 03:27 Not Given ACHS DUNG Metoprolol Succinate 50 mg 03/22/24 21:00 03/23/24 20:37 Metoprolol Succ 50mg Ext Rel Tab PO 04/21/24 20:59 Not Given PM DUNG Metoprolol Succinate 100 mg 03/22/24 09:00 03/24/24 08:08 Metoprolol Succ 50mg Ext Rel Tab PO 04/21/24 08:59 100 mg QAM DUNG Administration Oxycodone HCl 5 mg 03/22/24 03:28 03/22/24 21:25 Oxycodone Hcl Ir 5 Mg Tab (Immediate Release) PO 04/05/24 03:27 5 mg Q4H PRN Administration Pain Pantoprazole Sodium 40 mg 03/22/24 09:00 03/24/24 08:10 Pantoprazole 40 Mg Tab PO 04/21/24 08:59 40 mg BID DUNG Administration Polyethylene Glycol 17 gm 03/22/24 15:49 03/22/24 21:25 Polyethylene (Miralax) 17 Gm Pack PO 04/21/24 15:48 17 gm DAILY PRN Administration Constipation Sacubitril/Valsartan 1 tab 03/22/24 21:00 03/24/24 08:10 Valsartan/Sacubitril 51/49 Mg Tab PO 04/21/24 20:59 1 tab BID DUNG Administration Spironolactone 25 mg 03/24/24 09:00 03/24/24 08:06 Spironolactone 25 Mg Tab PO 04/23/24 08:59 25 mg QAM DUNG Administration Tamsulosin HCl 0.4 mg 03/22/24 09:00 03/24/24 08:09 Tamsulosin Hcl 0.4 Mg Cap PO 04/21/24 08:59 0.4 mg DAILY DUNG Administration Warfarin Sodium 5 mg 03/22/24 16:30 03/22/24 17:04 Warfarin Sod 5 Mg Tab PO 04/21/24 16:29 5 mg TODAY@1600 DUNG Administration
[2024-03-24] MEDS: ONDANSETRON INJ 2 MG/ML 2 ML VIAL IV STA (09:47)
--- NOTE | 2024-03-24 09:56 | XRay Report ---
SUPINE AP RADIOGRAPH OF THE ABDOMEN AND PELVIS CLINICAL HISTORY: assess for free air, abdominal pain COMPARISON STUDY: CT of the abdomen and pelvis March 21, 2024. FINDINGS: The bowel gas pattern is normal. No free air is identified although sensitivity is diminish ed on supine exam. The amount of stool is within normal limits. No urinary calculi are identified. IMPRESSION: 1. No evidence for a bowel obstruction. 2. No free air identified on supine exam. If persistent clinical concern, an upright abdominal radiog raph is recommended. ACT 112: Negative or not required by law. Electronically signed by: Reno Durand M.D. 03/24/2024 9:54 AM
[2024-03-24] MEDS: DICYCLOMINE HCL 10 MG CAP PO SCH (10:20)
[2024-03-24] MEDS: FAMOTIDINE 20MG IV PUSH 20 MG/5 ML SYR IV ONE (10:21)
[2024-03-24] MEDS: POT PHOSPHATE MONOBASIC W/ SOD TAB PO SCH (17:13)
[2024-03-25 07:18] LABS: Basophils # (auto) 0.08 K/uL (0.00-0.20); Basophils % (auto) 0.9 %; Eosinophils # (auto) 0.39 K/uL (0.00-0.50); Eosinophils % (auto) 4.3 %; Hematocrit (blood only) 42.9 % (42.0-52.0); Immature Granulocytes # (auto) 0.05 K/uL (0.01-0.20); Immature Granulocytes % (auto) 0.6 %; Lymphocytes # (auto) 2.07 K/uL (1.20-3.40); Lymphocytes % (auto) 22.8 %; Mean Corpuscular Hemoglobin 27.9 pg (25.0-34.0); Mean Corpuscular Hgb Conc 32.6 g/dL (32.0-36.0); Mean Corpuscular Volume 85.6 fL (80.0-100.0); Mean Platelet Volume 9.8 fL (9.4-12.4); Monocytes # (auto) 0.82 K/uL (0.11-0.59); Neutrophils # (auto) 5.68 K/uL (1.40-6.50); Neutrophils % (auto) 62.4 %; Platelet Count 196 K/uL (130-400); RDW Coefficient of Variation 17.4 % (11.5-14.5); RDW Standard Deviation 54.1 fL (36.4-46.3); Red Blood Count 5.01 M/uL (4.70-6.10); White Blood Count 9.09 K/ul (4.8-10.8)
[2024-03-25 07:33] LABS: Albumin Globulin Ratio 1.3 (0.9-2); Albumin Level 3.4 gm/dl (3.4-5.0); BUN Creatinine Ratio 25.7 (10-20); Bilirubin,Total 0.6 mg/dl (0.2-1.0); Globulin 2.6 gm/dl (2.5-4.0); Magnesium 2.1 mg/dl (1.7-2.4); Phosphorus 2.4 mg/dl (2.5-4.9); Potassium 4.1 mmol/L (3.5-5.1)
[2024-03-25 07:46] LABS: INR 2.7 (0.9-1.1); Prothrombin Time 27.2 Seconds (9.0-12.0)
--- NOTE | 2024-03-25 08:50 | Cardiology Progress Note ---
Date of Service March 25, 2024 Assessment & Plan (1) Acute hypoxemic respiratory failure: (2) Elevated troponin: (3) Abdominal pain, acute: (4) CAD (coronary artery disease): (5) Ischemic cardiomyopathy: (6) AICD (automatic cardioverter/defibrillator) present: Plan Assessment: 68 year old male presents for 3 day history of abdominal pain with associated nausea. Hypoxic on room air at time of presentation, and chest xray questions increased vascular congestion. Cardiology has been requested for further evaluation/recommendations.. Plan: 1. Acute hypoxemic resp. failure 2. Elevated Troponin -Patient appears euvolemic on exam, WBC count continues to trend upwards suggestive of acute infectious process. -Most recent echo obtained from [facility] record 11/2023 showing slight improvement in LVEF with no other acute changes. -CT ABD/Pelvis shows chronic diverticulitis. Continued IV antibiotics/treatment as per primary team. -Baseline Cr. 1.0-1.3, recommend to restart patient's chronic HF medications including Entresto, and Spironolactone. will start with Entresto. Patient remains on his jardiance -BP well above target likely in response to pain at initial presentation, but also due to withholding his current medication therapies -Troponin elevation is mild and flat trend suspected secondary to his hypoxic state and acute infectious process on admission. Remains chest pain free, denies shortness of breath is is sating well on room air today 3. Abdominal pain -Possible chronic diverticulitis -White Count trending upward, not currently receiving any steroid therapies -Continue IV antibiotics per primary team. 4. CAD 5. Ischemic Cardiomyopathy 6. AICD present -Denies any chest pain, pressure or dyspnea. -EKG shows no acute changes. troponin as noted above with flat trend likely s/t acute hypoxia and infectious process. -Recent echo 12/2023 demonstrates some improvement in LVEF to30% -Euvolemic on exam. Continue Jardiance, and Toprol xl, restart Entresto today and possibly spironolactone tomorrow as part of HF regimen. -recent device interrogation Jan 2024 shows normal function, no events/alarms RV pacing 0.25%. [employer] MRI [id number] 03/23/2024: -Patient is stable from a cardiac perspective, offers no new concerns/complaints -euvolemic on exam -INR 3.4 today. Warfarin on hold, recheck INR in the AM prior to resuming next dose. -Ongoing management of patient's abdominal pain per primary team and GI. GI has recommended continuation of antibiotics for diverticulitis with a OP colonoscopy at 6-8 weeks to further follow on on his CT findings. -Continue Jardiance, Toprol xl, and Entresto as part of HF regimen, ok to restart Spironolactone as per home regimen. this will aide in trending down his blood pressure. 03/24/2024: -Patient is stable from a cardiac perspective, but is feeling worse from a GI perspective today. He was sent for a KUB this morning which does not show any evidence of a bowel obstruction. -Euvolemic on exam -Continued management of patient's abdominal pain and diverticulitis per primary team and GI as previously mentioned. -Patient's blood pressure was elevated this morning, suspect in part due to increased abdominal pain. -Continue Torpol xl, Jardiance, Entresto as spironolactone as per his home HF regimen. May continue amlodipine at this time for BP control -Continue Amiodarone. -INR 3.8 today. Hold Warfarin. 03/25/2024: -patient is stable from a cardiac perspective. Telemetry does show some low HR's during sleep 38-50bpm. Asymptomatic. -Euvolemic on exam -Abdominal pain has since resolved. -Continue Toprol xl, Jardiance, Entresto, and spironolactone for HF management. We will decrease his Toprol xl regimen to 75mg PO QAM. First dose now. -Continue Amiodarone -INR 2.7 today. Hold Warfarin today. Case has been discussed with Dr. Jones. Further recommendations regarding plan of care as per his assessment. I spent a total of 30 minutes on the date of service in preparation, delivery, documentation of the care provided to the patient excluding any time spent in the performance of separately billed services. ERNESTINA [facility] Admission and Anticipated Discharge Date Admission Date: March 22, 2024 Supervising Physician Co-Signing Physician Notes I have personally performed a history and physical examination on the patient. I have reviewed the advance practitioner's documentation, and I agree with, and take responsibility for the plan of care. 68-year-old male presents to the emergency department with nausea and vomiting. Unable to take medications for 3 days prior to admission. Patient euvolemic on exam. No evidence of acute decompensated heart failure. Abdominal discomfort due to diverticulitis improved. Asymptomatic bradycardia (40-50 bpm) recorded overnight. Reduce toprol XL to 75mg daily. Remote PPM interrogation. Restart warfarin with repeat PT/INR in AM. Continue Jardiance, Entresto, amiodarone, atorvastatin, spironolactone, and low- dose aspirin. Management of ongoing abdominal discomfort and diverticulitis per internal medicine. I spent a total of 30 minutes on the date of service in preparation, delivery, and documentation of the care provided to this patient, excluding any time spent in the performance of separately billed services. Jona Jones DO, [facility] Subjective 03/25/2024: Patient seen and examined in follow up today. Feeling well from a cardiac perspective. Abdominal pain has since resolved and he reports eating a good breakfast without incident. Labs, vitals, diagnostics, telemetry and documentation reviewed. Telemetry reviewed showing SB rates 40-50's, lowest rate noted on telemetry during sleep was 38bpm. Review of Systems Review of Systems: All systems reviewed & are unremarkable except as noted in HPI & below Physical Exam Constitutional: well developed and well nourished; no acute distress Neck: normal visual inspection and trachea midline Respiratory: normal respiratory effort; no respiratory distress and no labored breathing Auscultation: lungs clear to auscultation bilaterally Cardiovascular: Rate/Rhythm: regular rate and regular rhythm Heart Sounds: normal S1, normal S2 and + murmur (+1/6 systolic ) Vessels: no JVD Extremities: no edema Skin: no rashes, warm and dry Psychiatric: A+Ox3, euthymic affect Results & Data Vital Signs (Past 12 Hours) Vital Signs Temp Pulse Pulse Resp BP Pulse Ox O2 Del Method 03/25/24 08:05 48 L 03/25/24 07:33 36.6 C 45 L 20 107/72 94 Room Air 03/25/24 03:22 37.0 C 50 L 18 111/61 93 Room Air 03/24/24 22:44 36.9 C 46 L 18 87/55 L 91 Room Air 03/24/24 21:45 45 L Laboratory Results Cardiac Enzymes 03/25/24 Range/Units 06:51 AST 43 H (13-39) U/L Coagulation 03/25/24 Range/Units 06:51 PT 27.2 H (9.0-12.0) Seconds CBC 03/25/24 Range/Units 06:51 WBC 9.09 (4.8-10.8) K/ul RBC 5.01 (4.70-6.10) M/uL Hgb 14.0 (14.0-18.0) g/dl Hct 42.9 (42.0-52.0) % Plt Count 196 (130-400) K/uL Neut # (Auto) 5.68 (1.40-6.50) K/uL Lymph # (Auto) 2.07 (1.20-3.40) K/uL [place] # (Auto) 0.82 H (0.11-0.59) K/uL Eos # (Auto) 0.39 (0.00-0.50) K/uL Baso # (Auto) 0.08 (0.00-0.20) K/uL Comprehensive Metabolic Panel 03/25/24 Range/Units 06:51 Sodium 140 (136-145) mmol/L Potassium 4.1 (3.5-5.1) mmol/L Chloride 108 H (98-107) mmol/L Carbon Dioxide 25 (21-32) mmol/L BUN 28 H (6-23) mg/dl Creatinine 1.09 (0.6-1.4) mg/dl Glucose 109 H (70-99(Fasting)) mg/dl Calcium 9.0 (8.6-10.3) mg/dl AST 43 H (13-39) U/L ALT 62 H (7-52) U/L Alkaline Phosphatase 75 (34-104) U/L Total Protein 6.0 (6.0-8.3) gm/dl Albumin 3.4 (3.4-5.0) gm/dl Intake and Output 03/24/24 03/25/24 03/25/24 22:59 06:59 14:59 Intake Total 540 / 840 300 / 840 Output Total 475 / 475 Balance 65 / 365 300 / 365 Intake: IV 100 / 250 150 / 250 cefTRIAXone SODIUM 2,000 mg In 50 / 50 50 ml @ 100 mls/hr IV Q24H DUNG Rx#:[id number] metroNIDAZOLE 500 mg In 100 ml 100 / 200 100 / 200 @ 100 mls/hr IV Q8H DUNG Rx#: [id number] Oral 440 / 590 150 / 590 Output: Urine 475 / 475 # Bowel Movements 0 / 0 Other: # Unmeasured Voids 1 Weight 80.8 kg Weight Measurement Method Built in [facility]
--- NOTE | 2024-03-25 09:38 | Hospitalist Progress Note ---
Date of Service March 25, 2024 Assessment & Plan (1) Acute hypoxemic respiratory failure: Plan Mr. Hope is a 68yoM with PMHx significant for chronic systolic heart failure secondary to ischemic cardiomyopathy (EF 30-35 %, TTE 2023) status post ICD, CAD status post stent, PVD, VT, moderate MR, PAF/cardiac thrombus on Coumadin, hypertension, hyperlipidemia, DM2 on oral medications, CRI (baseline creatinine 1.3 ), cerebral aneurysm as per records, Rodriguez's esophagus, diverticulosis, psoriasis, past tobacco abuse. who presented with abdominal pain and admitted for management of diverticulitis. on 03/24, Patient with continued pain ongoing this am, worse than day prior. Patient suspects it is related to antibiotics; however, diet also advanced day prior. Will obtain KUB, reduced diet to full liquid despite patient adamant to keep diet in place (likely to scale back to NPO if no improvement), started bentyl for antispasmodic Also bladder scan given reports of no recent urination--which revealed 18ml On 03/25, patient with minimal abdominal pain. States he feels improved. Discussed gentle advancement of his diet. #Acute Diverticulitis Pt presenting with abdominal pain, leukocytosis CT abd/pelvis noting thickened colon and diverticulitis KUB w/o free air Continue with IV Rocephin and Flagyl Plan to transition to augmentin on dispo continue bentyl QID for spasm advanced diet to pureed and low fiber #Chronic heart failure with reduced EF #Prior VT s/p AICD #Ischemic cardiomyopathy hx chronic systolic heart failure secondary to ischemic cardiomyopathy (EF 30-35 %, TTE 2023) status post ICD s/p Lasix 1 dose Strict I/Os, daily weights Continue home Jardiance, entresto, statin, aspirin, metoprolol Spironolactone resumed per Cardiology recs Cardiology consulted, appreciate recs - GDMT: *BetaB: continue metoprolol *RAAS: continue entresto *Jony: continue aldactone *SGLT: continue jardiance *ICD: recently interrogated as OP, no events #Elevated troponin, likely demand likely iso of hypoxia and infectious process No signs of ischemic cardiac process at this time #Supratherapeutic INR iso multiple abx and poor po intake Hold coumadin, lorenzoley to resume in AM #PAF on coumadin #Cardiac thrombus iso HF #Asymptomatic bradycardia On amiodarone and metoprolol on Coumadin, INR slightly subtherapeutic Home dosing resumed 03/23/24- now INR elevated, coumadin currently on hold Cardiology on board as noted above #Hypertension elevated secondary to abdominal pain from possible foodborne illness/chronic/recurrent diverticulitis amlodipine discontinued Continue to monitor #Acute kidney injury on CKD secondary to illness Cr of 1.44 on admission Has since normalized Avoid nephrotoxic agents Continue to monitor Other chronic medical Problems: hyperlipidemia on statin Rx DM2 on oral medications, well-controlled as of recent hemoglobin A1c of 6.23 November 2023 hx cerebral aneurysm as per records, vague aneurysm supraclinoid right ICA as per remote outpatient Neurology note from 2011 Rodriguez's esophagus/GERD on PPI past tobacco abuse Diet: low fiber/full liquid DMII DVT prophylaxis. Coumadin INR goal between 2 and 3 Full code Dispo: PT/OT--independent Admission and Anticipated Discharge Date Admission Date: March 22, 2024 Subjective NAEO Reports feeling better since limiting diet overnight States cramping and all much improved denies dizziness or chest pain this am Physical Exam Constitutional: WD/WN, vitals as above Cardiovascular: RRR, no murmur, no edema Gastrointestinal (Abdomen): normal bowel sounds, soft, nontender, no hepatosplenomegaly Musculoskeletal: no cyanosis or clubbing, extremities motor strength 5/5 Results & Data Results & Data Vital Signs (Past 12 Hours) Vital Signs Temp Pulse Pulse Resp BP Pulse Ox O2 Del Method 03/25/24 08:05 48 L 03/25/24 07:33 36.6 C 45 L 20 107/72 94 Room Air 03/25/24 03:22 37.0 C 50 L 18 111/61 93 Room Air 03/24/24 22:44 36.9 C 46 L 18 87/55 L 91 Room Air 03/24/24 21:45 45 L Laboratory Results Short CBC 03/25/24 Range/Units 06:51 WBC 9.09 (4.8-10.8) K/ul Hgb 14.0 (14.0-18.0) g/dl Hct 42.9 (42.0-52.0) % Plt Count 196 (130-400) K/uL BMP 03/25/24 06:51 Sodium 140 Potassium 4.1 Chloride 108 H Carbon Dioxide 25 BUN 28 H Creatinine 1.09 Glucose 109 H Calcium 9.0 Liver Function 03/25/24 Range/Units 06:51 Total Bilirubin 0.6 (0.2-1.0) mg/dl AST 43 H (13-39) U/L ALT 62 H (7-52) U/L Alkaline Phosphatase 75 (34-104) U/L Albumin 3.4 (3.4-5.0) gm/dl Medications Administered Home Medications Medication Instructions Recorded Confirmed Last Taken atorvastatin 80 mg tablet 80 mg PO HS 06/10/18 03/22/24 03/21/24 nitroglycerin 0.4 mg sublingual 0.4 mg sublingual UD 06/10/18 03/22/24 Unknown tablet (Nitrostat) omeprazole 20 mg capsule,delayed 20 mg PO BID 06/10/18 03/22/24 03/21/24 release spironolactone 25 mg tablet 25 mg PO QAM 06/10/18 03/22/24 03/21/24 sildenafil 100 mg tablet (Viagra) 100 mg PO DAILY PRN Erectile 10/08/18 03/22/24 09/10/22 Dysfunction acetaminophen 500 mg tablet 500 mg PO Q6H PRN Pain 07/13/19 03/22/24 08/12/21 (Tylenol Extra Strength) 100 mg ondansetron 4 mg disintegrating 4 mg PO Q8H PRN nausea and 10/14/19 03/22/24 Unknown tablet vomiting #6 tabs albuterol sulfate 90 mcg/actuation 2 inha inhalation QID PRN 08/12/21 03/22/24 Unknown aerosol inhaler shortness of breath or wheezing #1 inh coQ10 (ubiquinol) 100 mg capsule 100 mg PO PM 08/12/21 03/22/24 03/20/24 alfuzosin 10 mg tablet,extended 10 mg PO DAILY 06/24/22 03/22/24 03/21/24 release 24 hr tizanidine 2 mg capsule 2 mg PO DIRECTED 06/24/22 03/22/24 09/11/22 aspirin 81 mg tablet,delayed 81 mg PO QAM #30 tabs 06/27/22 03/22/24 03/21/24 release metoprolol succinate 100 mg 100 mg PO PM #30 tabs 06/27/22 03/22/24 01/07/23 tablet,extended release 24 hr (Toprol XL) cyanocobalamin (vitamin B-12) 500 500 mcg PO HS 01/09/23 03/22/24 03/21/24 mcg tablet psyllium husk 0.52 gram capsule 0.52 g PO HS 01/09/23 03/22/24 03/20/24 sacubitril 24 mg-valsartan 26 mg 1 tab PO BID 01/10/23 03/22/24 03/21/24 tablet (Entresto) amiodarone 200 mg tablet 200 mg PO UD 30 days #60 tabs 01/11/23 03/22/24 03/21/24 warfarin 5 mg tablet 5 mg PO DAILY #30 tabs 01/11/23 03/22/24 Unknown empagliflozin 10 mg tablet 10 mg PO DAILY 03/22/24 03/22/24 Unknown (Jardiance) metoprolol succinate 100 mg 100 mg PO QAM 03/22/24 03/22/24 Unknown tablet,extended release 24 hr Active Medications Generic Name Dose Route Start Last Admin Trade Name Freq PRN Reason Stop Dose Admin Acetaminophen 650 mg 03/22/24 03:28 03/24/24 11:57 Acetaminophen 325 Mg Tab PO 04/21/24 03:27 650 mg QID PRN Administration pain/fever Amiodarone HCl 200 mg 03/22/24 09:00 03/25/24 09:40 Amiodarone 200 Mg Tab PO 04/21/24 08:59 200 mg DAILY DUNG Administration Aspirin 81 mg 03/22/24 09:00 03/25/24 09:40 Aspirin 81 Mg Ectab PO 04/21/24 08:59 81 mg QAM DUNG Administration Atorvastatin Calcium 80 mg 03/22/24 21:00 03/24/24 21:28 Atorvastatin 40 Mg Tab PO 04/21/24 20:59 80 mg HS DUNG Administration Cyanocobalamin 500 mcg 03/22/24 21:00 03/24/24 21:28 Cyanocobalamin (B-12) 500 Mcg Tablet PO 04/21/24 20:59 500 mcg HS DUNG Administration Dicyclomine HCl 10 mg 03/24/24 09:00 03/25/24 09:39 Dicyclomine Hcl 10 Mg Cap PO 04/23/24 08:59 10 mg QID DUNG Administration Docusate Sodium 100 mg 03/22/24 21:00 03/25/24 06:56 Docusate Sodium 100 Mg Cap PO 04/21/24 20:59 Not Given BID DUNG Empagliflozin 10 mg 03/22/24 09:00 03/25/24 09:38 Empagliflozin 10 Mg Tab PO 04/21/24 08:59 10 mg DAILY DUNG Administration Ceftriaxone Sodium 2,000 mg in 50 mls @ 100 mls/hr 03/23/24 02:00 03/25/24 03:26 Rocephin IV 04/02/24 01:59 Infused Q24H DUNG Infusion Metronidazole 500 mg in 100 mls @ 100 mls/hr 03/22/24 10:00 03/25/24 04:37 Flagyl IV 04/01/24 09:59 Infused Q8H DUNG Infusion Protocol Insulin Aspart 0 units 03/22/24 03:28 03/25/24 09:53 Insulin Aspart Per Unit Charge SC 04/21/24 03:27 3 units ACHS DUNG Administration Metoprolol Succinate 50 mg 03/22/24 21:00 03/24/24 20:37 Metoprolol Succ 50mg Ext Rel Tab PO 04/21/24 20:59 Not Given PM DUNG Metoprolol Succinate 100 mg 03/22/24 09:00 03/25/24 09:37 Metoprolol Succ 50mg Ext Rel Tab PO 04/21/24 08:59 Not Given QAM DUNG Oxycodone HCl 5 mg 03/22/24 03:28 03/24/24 11:58 Oxycodone Hcl Ir 5 Mg Tab (Immediate Release) PO 04/05/24 03:27 5 mg Q4H PRN Administration Pain Pantoprazole Sodium 40 mg 03/22/24 09:00 03/25/24 09:38 Pantoprazole 40 Mg Tab PO 04/21/24 08:59 40 mg BID DUNG Administration Polyethylene Glycol 17 gm 03/22/24 15:49 03/22/24 21:25 Polyethylene (Miralax) 17 Gm Pack PO 04/21/24 15:48 17 gm DAILY PRN Administration Constipation Potassium Phosphate 1 tab 03/24/24 17:00 03/25/24 09:38 Pot Phosphate Monobasic W/ Sod Tab PO 04/23/24 16:59 1 tab QID DUNG Administration Sacubitril/Valsartan 1 tab 03/22/24 21:00 03/25/24 09:39 Valsartan/Sacubitril 51/49 Mg Tab PO 04/21/24 20:59 1 tab BID DUNG Administration Spironolactone 25 mg 03/24/24 09:00 03/25/24 09:41 Spironolactone 25 Mg Tab PO 04/23/24 08:59 25 mg QAM DUNG Administration Tamsulosin HCl 0.4 mg 03/22/24 09:00 03/25/24 09:40 Tamsulosin Hcl 0.4 Mg Cap PO 04/21/24 08:59 0.4 mg DAILY DUNG Administration Warfarin Sodium 5 mg 03/22/24 16:30 03/22/24 17:04 Warfarin Sod 5 Mg Tab PO 04/21/24 16:29 5 mg TODAY@1600 DUNG Administration
--- NOTE | 2024-03-25 10:31 | Electrocardiogram Report ---
Test Reason : Blood Pressure : */* mmHG Vent. Rate : 46 BPM Atrial Rate : 46 BPM P-R Int : 176 ms QRS Dur : 104 ms QT Int : 514 ms P-R-T Axes : 51 123 72 degrees QTcB Int : 449 ms Sinus bradycardia Possible Inferior infarct (cited on or before 16-Oct-2006) Anterolateral infarct (cited on or before 16-Oct-2006) Abnormal ECG When compared with ECG of 21-Mar-2024 22:37, Premature ventricular complexes are no longer Present Confirmed by Leon Khoury ([id number]) on 03/25/2024 10:31:38 AM Referred By: REFERRED SELF Confirmed By: Leon Khoury
[2024-03-25] MEDS: METOPROLOL SUCC 25MG EXT REL TAB PO SCH (13:08)
[2024-03-26 04:14] VITALS: RESP 18
[2024-03-26 04:36] LABS: Hematocrit (blood only) 39.5 % (42.0-52.0); Hemoglobin 13.2 g/dl (14.0-18.0); Mean Corpuscular Hemoglobin 28.3 pg (25.0-34.0); Mean Corpuscular Hgb Conc 33.4 g/dL (32.0-36.0); Mean Corpuscular Volume 84.8 fL (80.0-100.0); Mean Platelet Volume 9.6 fL (9.4-12.4); Platelet Count 178 K/uL (130-400); RDW Coefficient of Variation 17.1 % (11.5-14.5); RDW Standard Deviation 52.4 fL (36.4-46.3); Red Blood Count 4.66 M/uL (4.70-6.10); White Blood Count 8.15 K/ul (4.8-10.8)
[2024-03-26 04:40] LABS: Albumin Globulin Ratio 1.3 (0.9-2); Albumin Level 3.2 gm/dl (3.4-5.0); BUN Creatinine Ratio 21.4 (10-20); Bilirubin,Total 0.6 mg/dl (0.2-1.0); Calcium 8.5 mg/dl (8.6-10.3); Creatinine Clr Calc Pharmacy 61.3 ml/min; Globulin 2.4 gm/dl (2.5-4.0); Magnesium 1.9 mg/dl (1.7-2.4); Phosphorus 2.7 mg/dl (2.5-4.9); Potassium 3.8 mmol/L (3.5-5.1); Total Protein 5.6 gm/dl (6.0-8.3)
[2024-03-26 04:50] LABS: INR 2.3 (0.9-1.1); Prothrombin Time 22.9 Seconds (9.0-12.0)
[2024-03-26] MEDS: metroNIDAZOLE 500 MG TAB PO SCH (09:24)
[2024-03-26] MEDS: CIPROFLOXACIN 250 MG TAB PO SCH (09:25)
--- NOTE | 2024-03-26 10:13 | Discharge Summary ---
Discharge Summary Date of Service March 26, 2024 Principal Dx & Hospital Course #1 = Principal Diagnosis (1) Acute hypoxemic respiratory failure: Plan Mr. Hope is a 68yoM with PMHx significant for chronic systolic heart failure s econdary to ischemic cardiomyopathy (EF 30-35 %, TTE 2023) status post ICD, CAD status post stent, PVD, VT, moderate MR, PAF/cardiac thrombus on Coumadin, hypertension, hyperlipidemia, DM2 on oral medications, CRI (baseline creatinine 1.3 ), cerebral aneurysm as per records, Rodriguez's esophagus, diverticulosis, psoriasis, past tobacco abuse. who presented with abdominal pain and admitted for management of diverticulitis. on 03/24, Patient with continued pain ongoing this am, worse than day prior. Patient suspects it is related to antibiotics; however, diet also advanced day prior. Will obtain KUB, reduced diet to full liquid despite patient adamant to keep diet in place (likely to scale back to NPO if no improvement), started bentyl for antispasmodic Also bladder scan given reports of no recent urination--which revealed 18ml On 03/25, patient with minimal abdominal pain. States he feels improved. Discussed gentle advancement of his diet. On 03/26 patient with notable improvement and tolerating diet and PO abx. Patient instructed he will complete 4 more days of PO abx and will need to take 2.5mg warfarin daily with close INR follow up given abx Patient verbalized understanding #Acute Diverticulitis Pt presenting with abdominal pain, leukocytosis CT abd/pelvis noting thickened colon and diverticulitis KUB w/o free air completed 3 days IV Rocephin and Flagyl Plan to transitioned to cipro/flagyl continue bentyl QID prn for spasm encouraged low fiber diet #Chronic heart failure with reduced EF #Prior VT s/p AICD #Ischemic cardiomyopathy hx chronic systolic heart failure secondary to ischemic cardiomyopathy (EF 30-35 %, TTE 2023) status post ICD s/p Lasix 1 dose Strict I/Os, daily weights Continue home Jardiance, entresto, statin, aspirin, metoprolol Spironolactone resumed per Cardiology recs Cardiology consulted, appreciate recs - GDMT: *BetaB: continue metoprolol, dose reduced to 75mg daily *RAAS: continue entresto *Jony: continue aldactone *SGLT: continue jardiance *ICD: recently interrogated as OP, no events #Elevated troponin, likely demand likely iso of hypoxia and infectious process No signs of ischemic cardiac process at this time #Supratherapeutic INR iso multiple abx and poor po intake resumed at 2.5mg daily, INR 2.3 on d/c #PAF on coumadin #Cardiac thrombus iso HF #Asymptomatic bradycardia On amiodarone and metoprolol on Coumadin, resumed at 2.5mg daily with follow up in next week for INR #Hypertension elevated secondary to abdominal pain from possible foodborne illness/chronic/recurrent diverticulitis amlodipine discontinued Continue to monitor #Acute kidney injury on CKD resolved secondary to illness Cr of 1.44 on admission Has since normalized Avoid nephrotoxic agents Continue to monitor Other chronic medical Problems: hyperlipidemia on statin Rx DM2 on oral medications, well-controlled as of recent hemoglobin A1c of 6.23 November 2023 hx cerebral aneurysm as per records, vague aneurysm supraclinoid right ICA as per remote outpatient Neurology note from 2011 Rodriguez's esophagus/GERD on PPI past tobacco abuse Notes For Next Care Provider INR 2.3, instructed to take 2.5mg daily until INR follow and abx completed Medication Changes From Visit Ciprofloxacin 750mg bid x 4 days Flagyl 500mg q8 x 4 days Decreased Metoprolol XL 75mg daily Bentyl prn for cramps/spasm Admission HPI Per Admitting Provider History obtained from patient and records. Medical history significant for chronic systolic heart failure secondary to ischemic cardiomyopathy (EF 30-35 %, TTE 2023) status post ICD, CAD status post stent, PVD, VT, moderate MR, PAF/cardiac thrombus on Coumadin, hypertension, hyperlipidemia, DM2 on oral medications, CRI (baseline creatinine 1.3 ), cerebral aneurysm as per records, Rodriguez's esophagus, diverticulosis, psoriasis, past tobacco abuse. Last confinement December 2022 for A-fib with RVR and ICD discharge. 3 days history of achy abdominal pain with nausea, vomiting, hiccuping symptoms. No diarrhea. Started after breakfast at a local restaurant. No chest pain, some SOB. No unusual cough symptoms. Denies headache symptoms. SBP 180s upon arrival at the ER. lowest O2 sats of 80s documented at the ER. 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 Admission Exam Per Admitting Provider GENERAL: Slightly uncomfortable, incessant hiccuping, no respiratory distress SKIN: Normal color, warm HEENT: North palpebral conjunctivae, no ptosis, dry buccal mucosa, nasal cannula in place NECK : Supple, no tenderness CHEST : Decreased breath sounds, no tenderness HEART : Bradycardic, diminished S1 and S2 ABDOMEN: Some distention, nontender EXTREMITIES : No LE swelling/tenderness, no other conspicuous deformities noted NEUROLOGIC : Coherent, no facial asymmetry, no other gross focality Discharge Exam Constitutional WD/WN, vitals as above Respiratory normal respiratory effort, lungs clear to auscultation Cardiovascular RRR, no murmur, no edema Gastrointestinal (Abdomen) normal bowel sounds, soft, nontender, no hepatosplenomegaly Musculoskeletal no cyanosis or clubbing, extremities motor strength 5/5 Updated Medication List Medication Instructions Recorded Confirmed Type atorvastatin 80 mg tablet 80 mg PO HS 06/10/18 03/22/24 History nitroglycerin 0.4 mg sublingual 0.4 mg sublingual UD 06/10/18 03/22/24 History tablet (Nitrostat) omeprazole 20 mg capsule,delayed 20 mg PO BID 06/10/18 03/22/24 History release spironolactone 25 mg tablet 25 mg PO QAM 06/10/18 03/22/24 History sildenafil 100 mg tablet (Viagra) 100 mg PO DAILY PRN Erectile 10/08/18 03/22/24 History Dysfunction acetaminophen 500 mg tablet 500 mg PO Q6H PRN Pain 07/13/19 03/22/24 History (Tylenol Extra Strength) ondansetron 4 mg disintegrating 4 mg PO Q8H PRN nausea and 10/14/19 03/22/24 Rx tablet vomiting #6 tabs albuterol sulfate 90 mcg/actuation 2 inha inhalation QID PRN 08/12/21 03/22/24 Rx aerosol inhaler shortness of breath or wheezing #1 inh coQ10 (ubiquinol) 100 mg capsule 100 mg PO PM 08/12/21 03/22/24 History alfuzosin 10 mg tablet,extended 10 mg PO DAILY 06/24/22 03/22/24 History release 24 hr tizanidine 2 mg capsule 2 mg PO DIRECTED 06/24/22 03/22/24 History aspirin 81 mg tablet,delayed 81 mg PO QAM #30 tabs 06/27/22 03/22/24 Rx release cyanocobalamin (vitamin B-12) 500 500 mcg PO HS 01/09/23 03/22/24 History mcg tablet psyllium husk 0.52 gram capsule 0.52 g PO HS 01/09/23 03/22/24 History sacubitril 24 mg-valsartan 26 mg 1 tab PO BID 01/10/23 03/22/24 History tablet (Entresto) amiodarone 200 mg tablet 200 mg PO UD 30 days #60 tabs 01/11/23 03/22/24 Rx warfarin 5 mg tablet 5 mg PO DAILY #30 tabs 01/11/23 03/22/24 Rx empagliflozin 10 mg tablet 10 mg PO DAILY 03/22/24 03/22/24 History (Jardiance) ciprofloxacin HCl 250 mg tablet 750 mg (3 x 250 mg) PO BID 4 days 03/26/24 Rx #24 tabs dicyclomine 10 mg capsule 10 mg PO QID PRN Abdominal 03/26/24 Rx Distention #16 caps metoprolol succinate 25 mg 75 mg (3 x 25 mg) PO QAM 30 days 03/26/24 Rx tablet,extended release 24 hr #90 tabs metronidazole 500 mg tablet 500 mg PO Q8H 4 days #12 tabs 03/26/24 Rx Hospital Stay Data Consultations 03/22/24 00:53 ED Decision to Admit Stat 03/22/24 03:28 Consult Cardiology Routine 03/22/24 16:01 Consult Gastroenterology Routine Diagnostic Imagining Performed 03/21/24 22:37 CT abd pelvis IV con only Stat Pending Results Patient Have Any Pending Studies at Discharge: No Discharge Instructions Given to Patient (Per Discharging Provider) You were admitted for abdominal pain and found to have diverticulitis You were started on IV antibiotics and now will complete a course with oral antibiotics: -Start Ciprofloxacin 750mg (3 tablets) two times a day, your next dose is this evening -Start Metronidazole 500mg 1 tablet three times a day, your next dose is this evening Please complete the above course until there are no more antibiotics left. Please adhere to a low fiber diet for the next 2-3 weeks. Please follow up with you PCP. You were also evaluated by the Adolescent Specialist(heart doctors) who adjusted the following medications: -REDUCED your home metoprolol succinate (Toprol XL) to 75mg 1 time daily in the morning Please take 2.5mg Warfarin until your INR check and told to adjust by the Anticoagulation clinic Total Time Total Time Spent Total Time Spent (In Minutes): 45
[2024-03-26 10:54] VITALS: TEMP 98.1; O2SAT 94
--- NOTE | 2024-03-26 11:57 | Cardiology Progress Note ---
Date of Service March 26, 2024 Assessment & Plan (1) Acute hypoxemic respiratory failure: (2) Elevated troponin: (3) Abdominal pain, acute: (4) CAD (coronary artery disease): (5) Ischemic cardiomyopathy: (6) AICD (automatic cardioverter/defibrillator) present: Plan Assessment: 68 year old male presents for 3 day history of abdominal pain with associated nausea. Hypoxic on room air at time of presentation, and chest xray questions increased vascular congestion. Cardiology has been requested for further evaluation/recommendations.. Plan: 1. Acute hypoxemic resp. failure 2. Elevated Troponin -Patient appears euvolemic on exam, WBC count continues to trend upwards suggestive of acute infectious process. -Most recent echo obtained from [email or web address] record 11/2023 showing slight improvement in LVEF with no other acute changes. -CT ABD/Pelvis shows chronic diverticulitis. Continued IV antibiotics/treatment as per primary team. -Baseline Cr. 1.0-1.3, recommend to restart patient's chronic HF medications including Entresto, and Spironolactone. will start with Entresto. Patient remains on his jardiance -BP well above target likely in response to pain at initial presentation, but also due to withholding his current medication therapies -Troponin elevation is mild and flat trend suspected secondary to his hypoxic state and acute infectious process on admission. Remains chest pain free, denies shortness of breath is is sating well on room air today 3. Abdominal pain -Possible chronic diverticulitis -White Count trending upward, not currently receiving any steroid therapies -Continue IV antibiotics per primary team. 4. CAD 5. Ischemic Cardiomyopathy 6. AICD present -Denies any chest pain, pressure or dyspnea. -EKG shows no acute changes. troponin as noted above with flat trend likely s/t acute hypoxia and infectious process. -Recent echo 12/2023 demonstrates some improvement in LVEF to30% -Euvolemic on exam. Continue Jardiance, and Toprol xl, restart Entresto today and possibly spironolactone tomorrow as part of HF regimen. -recent device interrogation Jan 2024 shows normal function, no events/alarms RV pacing 0.25%. [employer] [facility] MRI [id number] 03/23/2024: -Patient is stable from a cardiac perspective, offers no new concerns/complaints -euvolemic on exam -INR 3.4 today. Warfarin on hold, recheck INR in the AM prior to resuming next dose. -Ongoing management of patient's abdominal pain per primary team and GI. GI has recommended continuation of antibiotics for diverticulitis with a OP colonoscopy at 6-8 weeks to further follow on on his CT findings. -Continue Jardiance, Toprol xl, and Entresto as part of HF regimen, ok to restart Spironolactone as per home regimen. this will aide in trending down his blood pressure. 03/24/2024: -Patient is stable from a cardiac perspective, but is feeling worse from a GI perspective today. He was sent for a KUB this morning which does not show any evidence of a bowel obstruction. -Euvolemic on exam -Continued management of patient's abdominal pain and diverticulitis per primary team and GI as previously mentioned. -Patient's blood pressure was elevated this morning, suspect in part due to increased abdominal pain. -Continue Torpol xl, Jardiance, Entresto as spironolactone as per his home HF regimen. May continue amlodipine at this time for BP control -Continue Amiodarone. -INR 3.8 today. Hold Warfarin. 03/25/2024: -patient is stable from a cardiac perspective. Telemetry does show some low HR's during sleep 38-50bpm. Asymptomatic. -Euvolemic on exam -Abdominal pain has since resolved. -Continue Toprol xl, Jardiance, Entresto, and spironolactone for HF management. We will decrease his Toprol xl regimen to 75mg PO QAM. First dose now. -Continue Amiodarone -INR 2.7 today. Hold Warfarin today. 03/26/2024: -patient remains stable from a cardiac perspective. Telemetry reviewed with rates 40's-50's. Asymptomatic. -Device interrogation was ordered. No available on paper chart, did notify staff -Continued management of diverticulitis as per primary and GI team. Spoke with primary team who will be advancing his diet today. -Continue Toprol xl, Jardiance, Entresto and Spironolactone as part of HF regimen -Continue Amiodarone -Continue on Warfarin. INR 2.3. He will need close follow up with coag clinic pending discharge. -Cardiology will sign off at this time. please notify us of any new questions or concerns. -Currently not scheduled to see cardiology until Late June. Will contact office to attempt to obtain sooner appointment for follow up. Case has been discussed with Dr. Jones. Further recommendations regarding plan of care as per his assessment. I spent a total of 30 minutes on the date of service in preparation, delivery, documentation of the care provided to the patient excluding any time spent in the performance of separately billed services. ERNESTINA [facility] Admission and Anticipated Discharge Date Admission Date: March 22, 2024 Supervising Physician Co-Signing Physician Notes I have personally performed a history and physical examination on the patient. I have reviewed the advance practitioner's documentation, and I agree with, and take responsibility for the plan of care. 68-year-old male presents to the emergency department with nausea and vomiting. Unable to take medications for 3 days prior to admission. Euvolemic on exam. No evidence of acute decompensated heart failure. Abdominal discomfort due to diverticulitis improved. Asymptomatic bradycardia (40-50 bpm) recorded overnight. Recommendations: * Toprol XL reduced to 75mg daily. * Remote PPM interrogation pending * Continue warfarin goal INR 2.0 -3.0 * Outpatient anticoagulation clinic follow-up * Continue Jardiance, Entresto, amiodarone, atorvastatin, spironolactone, and low-dose aspirin. * Cardiology will sign off. Please call with additional concerns/questions. I spent a total of 25 minutes on the date of service in preparation, delivery, and documentation of the care provided to this patient, excluding any time spent in the performance of separately billed services. Jona Jones DO, [facility] Subjective 03/26/2024: Patient seen and examined in follow up today. Feeling well from a cardiac perspective. Abdominal pain has since resolved and he reports eating a good breakfast without incident. Labs, vitals, diagnostics, telemetry and documentation reviewed. Telemetry reviewed showing SB rates 40-50's, No acute events overnight. Review of Systems Review of Systems: All systems reviewed & are unremarkable except as noted in Subjective Physical Exam Constitutional: well developed and well nourished; no acute distress Neck: normal visual inspection and trachea midline Respiratory: normal respiratory effort; no respiratory distress and no labored breathing Auscultation: lungs clear to auscultation bilaterally Cardiovascular: Rate/Rhythm: regular rate and regular rhythm Heart Sounds: normal S1, normal S2 and + murmur (+1/6 systolic ) Vessels: no JVD Extremities: no edema Skin: no rashes, warm and dry Psychiatric: A+Ox3, euthymic affect Results & Data Vital Signs (Past 12 Hours) Vital Signs Temp Pulse Pulse Resp BP BP Pulse Ox 03/26/24 10:53 36.7 C 52 L 18 104/89 94 03/26/24 08:56 36.5 C 51 L 18 135/88 91 03/26/24 07:47 63 03/26/24 04:13 36.7 C 52 L 18 115/70 92 03/26/24 00:00 45 L 03/26/24 00:00 Pulse Ox O2 Del Method O2 Del Method 03/26/24 10:53 Room Air 03/26/24 08:56 Room Air 03/26/24 07:47 03/26/24 04:13 Room Air 03/26/24 00:00 03/26/24 00:00 94 Room Air Laboratory Results Cardiac Enzymes 03/26/24 Range/Units 04:12 AST 65 H (13-39) U/L Coagulation 03/26/24 Range/Units 04:12 PT 22.9 H (9.0-12.0) Seconds CBC 03/26/24 Range/Units 04:12 WBC 8.15 (4.8-10.8) K/ul RBC 4.66 L (4.70-6.10) M/uL Hgb 13.2 L (14.0-18.0) g/dl Hct 39.5 L (42.0-52.0) % Plt Count 178 (130-400) K/uL Comprehensive Metabolic Panel 03/26/24 Range/Units 04:12 Sodium 137 (136-145) mmol/L Potassium 3.8 (3.5-5.1) mmol/L Chloride 107 (98-107) mmol/L Carbon Dioxide 26 (21-32) mmol/L BUN 24 H (6-23) mg/dl Creatinine 1.12 (0.6-1.4) mg/dl Glucose 94 (70-99(Fasting)) mg/dl Calcium 8.5 L (8.6-10.3) mg/dl AST 65 H (13-39) U/L ALT 70 H (7-52) U/L Alkaline Phosphatase 68 (34-104) U/L Total Protein 5.6 L (6.0-8.3) gm/dl Albumin 3.2 L (3.4-5.0) gm/dl Intake and Output 03/25/24 03/26/24 03/26/24 22:59 06:59 14:59 Intake Total 300 / 720 200 / 720 Output Total 150 / 150 Balance 150 / 570 200 / 570 Intake: IV 100 / 350 150 / 350 cefTRIAXone SODIUM 2,000 mg In 50 / 50 50 ml @ 100 mls/hr IV Q24H [facility] Rx#:[id number] metroNIDAZOLE 500 mg In 100 ml 100 / 300 100 / 300 @ 100 mls/hr IV Q8H [facility] Rx#: [id number] Oral 200 / 370 50 / 370 Output: Urine 150 / 150 Other: # Unmeasured Voids 1 1 Weight 83.5 kg Weight Measurement Method Built in [facility] [place]
[2024-03-26] MEDS: GLUCOSE 40% GEL 15 GM TUBE PO PRN (12:00)
[2024-03-26] MEDS: CARBOHYDRATES FOR HYPOGLYCEMIA PO PRN (12:01)
[2024-03-26 14:18] VITALS: BP 135/88; PULSE 54
[2024-03-26] MEDS ORDERED: WARFARIN SOD 1 MG TAB PO SCH (16:00)
== END 2024-03-26 14:19 | disposition home or self-care (01) | DRG 189 ==
LOC: ED 22:24 → 4W 03-22 01:31 → SUATTDRO 03-22 01:31 → INTOOBSV 03-22 01:31 → 4W 03-22 02:49